=== PATIENT | female | born 1930 | race Caucasian/White ===

== ENCOUNTER 2016-10-14 17:27 | Inpatient (IN) | payer MEDICARE, MEDICAID ==
[2016-10-14 18:53] LABS: BASO # 0.1 K/uL (0.0-0.2); BASO % 1.2 % (0.0-2.0); HEMATOCRIT 32.6 % (34.0-47.0); LYMPH # 1.2 K/uL (1.0-4.3); LYMPH % 29.1 % (20.0-40.0); MEAN CORPUSCULAR HEMOGLOBIN 31.6 pg (27.0-31.0); MEAN CORPUSCULAR HGB CONC 33.3 g/dL (33.0-37.0); MEAN PLATELET VOLUME 9.5 fL (7.2-11.7); MONO # 0.4 K/uL (0.0-0.8); MONO % 10.5 % (0.0-10.0); NRBC % 0.1 % (0.0-2.0); RED CELL DISTRIBUTION WIDTH 15.2 % (11.5-14.5); WHITE BLOOD COUNT 4.2 K/uL (4.8-10.8)
[2016-10-14 18:58] LABS: POTASSIUM 5.8 mmol/L (3.6-5.2)
[2016-10-14 19:00] LABS: BILIRUBIN,TOTAL 0.3 mg/dL (0.2-1.3); TOTAL PROTEIN 7.9 g/dL (6.3-8.3)
[2016-10-14 19:01] LABS: CALCIUM 8.4 mg/dl (8.6-10.4)
[2016-10-14] MEDS ORDERED: Sodium Chloride 0.9% 1,000 ML IV SCH (19:30)
--- NOTE | 2016-10-14 19:34 | C.PDOC ---
History Of Present Illness 86 year old women presents to the ER from long-term for abnormal blood work with elevated BUN and creatinine levels yesterday. Patient has history of dementia. Patient and daughter at bed-side deny complaints. Time Seen by Provider: 10/14/16 19:20 Chief Complaint (Nursing): Medical Clearance History Per: Patient, Family (daughter) History/Exam Limitations: no limitations Onset/Duration Of Symptoms: Days (1), Unknown Current Symptoms Are (Timing): Gone Severity: None Pain Scale Rating Of: 0 Recent travel outside of the [place]: No Past Medical History Reviewed: Historical Data, Nursing Documentation, Vital Signs Vital Signs: Last Vital Signs Temp 98.1 F 10/14/16 19:26 Pulse 82 10/14/16 19:26 Resp 20 10/14/16 19:26 BP 182/52 H 10/14/16 19:26 Pulse Ox 97 10/14/16 21:04 - Medical History PMH: Anemia, CAD, CVA (left sided weakness), Dementia, Diabetes, HTN, Chronic Kidney Disease, Seizures Surgical History: Appendectomy, Carotid Endarterectomy - [facility] Procedures CORONAR ARTERIOGR-2 CATH (07/09/12) INSERTION OF ONE VASCULAR STENT (07/09/12) INSRT OF DRUG-ELUTING CORON ARTERY STENTS(S) (07/09/12) PERCUTANEOUS TRANSLUMINAL CORONARY ANGIOPLASTY [PTCA] (07/09/12) PROCEDURE ON SINGLE VESSEL (07/09/12) TRANSFUSE NONAUT RED BLOOD CELLS IN PERIPH VEIN, PERC (07/05/16) Family History: States: Unknown Family Hx, Diabetes, Hypertension - Social History Hx Tobacco Use: No Hx Alcohol Use: No Hx Substance Use: No - Immunization History Hx Tetanus Toxoid Vaccination: Yes Hx Influenza Vaccination: Yes Hx Pneumococcal Vaccination: Yes Review Of Systems Constitutional: Positive for: Other (abnormal bloodwork). Negative for: Fever, Chills Cardiovascular: Negative for: Chest Pain, Palpitations Respiratory: Negative for: Shortness of Breath Gastrointestinal: Negative for: Nausea, Vomiting, Diarrhea Genitourinary: Negative for: Dysuria Musculoskeletal: Negative for: Back Pain Skin: Negative for: Rash, Lesions, Jaundice, Bruising Neurological: Negative for: Weakness Psych: Negative for: Anxiety Physical Exam - Physical Exam Appears: Non-toxic, No Acute Distress Skin: Warm, Dry Oral Mucosa: Dry Neck: Supple Chest: Symmetrical Cardiovascular: Rhythm Regular Respiratory: No Rales, Rhonchi (scattered), No Wheezing Gastrointestinal/Abdominal: Soft, No Tenderness, No Distention Back: Normal Inspection Extremity: Normal ROM, No Tenderness, No Calf Tenderness, No Swelling Extremity: Bilateral: Atraumatic Neurological/Psych: Normal Speech Disoriented To: Time Gait: Unable To Assess ED Course And Treatment - Laboratory Results Result Diagrams: 10/14/16 18:50 10/14/16 18:50 ECG: Interpreted By Me, Viewed By Me ECG Rhythm: Sinus Rhythm (59), 1st Degree HB, Nonspecific Changes (old septal mi ) O2 Sat by Pulse Oximetry: 97 Pulse Ox Interpretation: Normal - Radiology CXR: Interpreted by Me, Viewed By Me CXR Interpretation: Yes: Other (unchaged from 09/10/16). No: Infiltrates, Fracture, Pnemothorax Disposition Discussed With DrYury: William Webber Comment: accepted the pt on his service and took over the care at 11:19 PM Doctor Will See Patient In The: ED Counseled Patient/Family Regarding: Studies Performed, Diagnosis - Disposition Disposition: HOSPITALIZED Disposition Time: 23:19 Condition: FAIR - POA Present On Arrival: Poor Glycemic Control - Clinical Impression Clinical Impression: Hyperkalemia, Worsening renal function - Scribe Statement Sravanthi Petit All medical record entries made by the Scribe were at my direction and personally dictated by me. I have reviewed the chart and agree that the record accurately reflects my personal performance of the history, physical exam, medical decision making, and the department course for this patient. I have also personally directed, reviewed, and agree with the discharge instructions and disposition. Decision To Admit - Pt Status Changed To: Hospital Disposition Of: Inpatient - Admit Certification Admit to Inpatient:: After my assessment, the patient will require hospitalization for at least two midnights. This is because of the severity of symptoms shown, intensity of services needed, and/or the medical risk in this patient being treated as an outpatient. - InPatient: Physician Admission Certification: I certify that this patient requires 2 or more midnights of care for the following reason:: After my assessment, the patient will require hospitalization for at least two midnights. This is because of the severity of symptoms shown, intensity of services needed, and/or the medical risk in this patient being treated as an outpatient. - . Bed Request Type: Telemetry Admitting Physician: William Webber Patient Diagnosis: Hyperkalemia, Worsening renal function
[2016-10-14] MEDS ORDERED: Sod Polystyrene Sulf 15 gm/60 ml Oral Susp PO ONE (21:06)
[2016-10-14] MEDS ORDERED: Calcium Gluconate 4.65 MEQ in Dextrose 5% In Water 100 ML IVPB ONE (21:06)
[2016-10-14] MEDS ORDERED: Albuterol-Ipratrop 3 mg / 0.5 (3 ml) UD IH SCH (21:15)
[2016-10-14] MEDS ORDERED: Calcium Gluconate 4.65 mEq/10 ml Inj ONE (21:17)
[2016-10-14] MEDS ORDERED: Albuterol-Ipratrop 3 mg / 0.5 (3 ml) UD ONE (21:17)
[2016-10-14] MEDS ORDERED: Sod Polystyrene Sulf 15 gm/60 ml Oral Susp ONE (21:18)
[2016-10-15] MEDS ORDERED: Ergocalciferol 50,000 Intl Units Cap PO SCH (01:15)
--- NOTE | 2016-10-15 01:15 | CP.PCM.HP ---
<Lena Bernal - Last Filed: 10/15/16 01:52> History of Present Illness - History of Present Illness History of Present Illness: Internal medicine H & P for Dr. Tena Bernal, PGY-1 Pt S & E at bedside. Pt demented, refusing to interact with provider, refusing physical exam. History obtained from EMR. 86F w/PMH sig for Anemia, CAD, CVA (left sided weakness), Dementia, Diabetes, HTN, Chronic Kidney Disease, Seizures admitted to hospital from [facility] for abnormal blood work- elevated BUN and creatinine levels yesterday. PMH: DM, CVA 2001, Dementia, Seizures, HTN, anemia, HTN, CKD PSH: Left Carotid surgery All: NKDA SH: Resident of [place]. No Tob, No ETOH, No Drugs PMD: Dr. Persaud Present on Admission - Present on Admission Any Indicators Present on Admission: No Review of Systems - Review of Systems Systems not reviewed;Unavailable: Dementia, Uncooperative Past Patient History - Infectious Disease Hx of Infectious Diseases: None - Past Medical History & Family History Past Medical History?: Yes - Past Social History Smoking Status: Never Smoked - CARDIAC Hx Hypertension: Yes - PULMONARY Hx Respiratory Disorders: No - NEUROLOGICAL Hx Dementia: Yes Hx Seizures: Yes - HEENT Hx HEENT Problems: Yes Hx Glaucoma: Yes - RENAL Hx Chronic Kidney Disease: Yes - ENDOCRINE/METABOLIC Hx Diabetes Mellitus Type 2: Yes Other/Comment: extended spectrum beta lactamase resistance - HEMATOLOGICAL/ONCOLOGICAL Hx Anemia: Yes - INTEGUMENTARY Hx Dermatological Problems: No - MUSCULOSKELETAL/RHEUMATOLOGICAL Hx Musculoskeletal Disorders: No Hx Falls: No Hx Osteoarthritis: Yes - GASTROINTESTINAL Hx Gastrointestinal Disorders: No Other/Comment: Incontinence - GENITOURINARY/GYNECOLOGICAL Hx Genitourinary Disorders: Yes Hx Incontinence: Yes Hx Urinary Tract Infection: Yes - PSYCHIATRIC Hx Substance Use: No - SURGICAL HISTORY Hx Appendectomy: Yes Hx Carotid Endarterectomy: Yes - ANESTHESIA Hx Anesthesia: Yes Hx Anesthesia Reactions: No Hx Malignant Hyperthermia: No Meds Allergies/Adverse Reactions: Allergies Allergy/AdvReac Type Severity Reaction Status Date / Time No Known Allergies Allergy Verified 09/10/16 17:23 Physical Exam - Constitutional Appears: Non-toxic, Other (refusing physical exam) - Head Exam Head Exam: ATRAUMATIC, NORMAL INSPECTION, NORMOCEPHALIC - Neck Exam Neck exam: Positive for: Full Rom - Psychiatric Exam Psychiatric exam: Agitated Results - Vital Signs Recent Vital Signs: Last Vital Signs Temp 98.2 F 10/15/16 00:30 Pulse 88 10/15/16 00:30 Resp 20 10/15/16 00:30 BP 174/84 H 10/15/16 00:30 Pulse Ox 98 10/15/16 00:30 - Labs Result Diagrams: 10/14/16 18:50 10/14/16 18:50 Assessment & Plan - Assessment and Plan (Free Text) Assessment: Acute renal insufficiency Admit to Med-Surg Vitals Q4H NS@80 Monitor FU Blood cxr FU Urine cxr FU U/A Hyperkalemia K 5.8 Kayexelate Re-check in AM Dementia Cont home meds: Aricept, Ativan HTN Cont home med: Coreg, Crestor, ASA, Imdur, Norvasc, Hydralazine Glaucoma Cont home med: Atropine ophth, Simbrinza Anema Con home med: Iron plus tabs Constipation Cont home med: Colace Hypovitamin D Cont home med: Ergocalciferol Seizure disorder Cont home med: Carbamazepine GI/DVT ppx Heparin SCDs Pepcid Dispo PT/OT DW attending - Date & Time Date: 10/15/16 Time: 11:00 <William Webber - Last Filed: 10/15/16 06:27> Results - Vital Signs Recent Vital Signs: Last Vital Signs Temp 97.5 F L 10/15/16 00:45 Pulse 69 10/15/16 01:03 Resp 20 10/15/16 00:45 BP 196/69 H 10/15/16 00:45 Pulse Ox 97 10/15/16 00:45 - Labs Result Diagrams: 10/14/16 18:50 10/14/16 18:50 Assessment & Plan - Date & Time Date: 10/15/16 (I have seen and examined the patient. I agree with the findings and plan of care as documented by Dr. Bernal. Patient with Acute renal insufficiency. Likely secondary to dehydration. IVF and recheck renal status in AM. If no improvement, consider nephro consult. For hyperkalemia, after hydration overnight, check potassium in AM. Check urine electrolytes if no improvement. For history of hypertension, continue home meds. Monitor for acute changes.) Time: 06:26 Attending/Attestation - Attestation I have personally seen and examined this patient.: Yes I have fully participated in the care of the patient.: Yes I have reviewed all pertinent clinical information: Yes
[2016-10-15] MEDS: Sodium Chloride 0.9% 1,000 ML IV SCH ×2 (02:29→13:13)
[2016-10-15] MEDS ORDERED: ATROPINE OD SCH (10:00)
[2016-10-15] MEDS ORDERED: SODIUM CHLORIDE OD SCH (10:00)
[2016-10-15] MEDS: Ferrous Fum/Folic Acid/IF/VI 1 Cap PO SCH (10:42)
[2016-10-15] MEDS: Dorzolamide 2% Opht Sol 10ml OU SCH ×2 (10:45→18:13)
[2016-10-15] MEDS: Atropine 1% Ophth Soln (15 ml) OU SCH (11:43)
[2016-10-15] MEDS: Brimonidine 0.2% Opth Sol (5ml) OU SCH ×2 (11:43→19:00)
--- NOTE | 2016-10-15 13:06 | CP.PCM.PN ---
Subjective - Date & Time of Evaluation Date of Evaluation: 10/15/16 Time of Evaluation: 08:05 - Subjective Subjective: Medicine Note- Hospitalist Service Patient was seen and examined at bedside. Nurse Lesly at bedside translating. Patient reports no acute complaints. Patient is AAO x1, disoriented to time and place. Patient is responding to questions appropriately. She reports that she feels perfectly fine, nothing is wrong with her. When asked why she was in the hospital, patient reported that she did not know. No events overnight, per nursing. Patient refused bloodwork in AM. Patient tolerating PO. Objective - Vital Signs/Intake and Output Vital Signs (last 24 hours): Temp Pulse Resp BP Pulse Ox 98.2 F 67 20 148/69 100 10/15/16 07:00 10/15/16 09:12 10/15/16 07:00 10/15/16 11:43 10/15/16 07:00 - Medications Medications: Current Medications Acetaminophen (Tylenol 325mg Tab) 650 mg PO Q4 PRN PRN Reason: Pain, Mild (1-3) Amlodipine Besylate (Norvasc) 10 mg PO DAILY [facility] Last Admin: 10/15/16 10:44 Dose: 10 mg Aspirin (Ecotrin) 81 mg PO DAILY [facility] Last Admin: 10/15/16 10:42 Dose: 81 mg Atropine Sulfate (Atropisol 1% Ophth) 1 ml OU DAILY [facility] Last Admin: 10/15/16 11:43 Dose: 1 ml Brimonidine Tartrate (Alphagan 0.2% Opht) 1 ml OU BID [facility] Last Admin: 10/15/16 11:43 Dose: 1 applic Carbamazepine (Tegretol) 200 mg PO BID [facility] Last Admin: 10/15/16 10:42 Dose: 200 mg Carvedilol (Coreg) 25 mg PO BID [facility] Last Admin: 10/15/16 10:43 Dose: 25 mg Docusate Sodium (Colace) 100 mg PO BID [facility] Last Admin: 10/15/16 10:42 Dose: 100 mg Donepezil HCl (Aricept) 5 mg PO DAILY [facility] Last Admin: 10/15/16 10:44 Dose: 5 mg Dorzolamide HCl (Trusopt) 1 ml OU BID [facility] Last Admin: 10/15/16 10:45 Dose: 1 applic Ergocalciferol (Drisdol 50,000 Intl Units Cap) 1 cap PO Q7D [facility] Last Admin: 10/15/16 05:54 Dose: Not Given Famotidine (Pepcid) 20 mg PO BID [facility] Last Admin: 10/15/16 10:44 Dose: 20 mg Heparin Sodium (Porcine) (Heparin) 5,000 units SC Q8 [facility] Last Admin: 10/15/16 05:55 Dose: Not Given Hydralazine HCl (Apresoline) 50 mg PO Q8 [facility] Last Admin: 10/15/16 06:34 Dose: 50 mg Sodium Chloride (Sodium Chloride 0.9%) 1,000 mls @ 80 mls/hr IV .[id number] [facility] Last Admin: 10/15/16 02:29 Dose: 80 mls/hr Influenza Virus Vaccine (Afluria) 45 mcg IM .ONCE ONE Stop: 10/17/16 14:01 Iron (Ferocon) 1 cap PO DAILY [facility] Last Admin: 10/15/16 10:42 Dose: 1 cap Isosorbide Mononitrate (Imdur) 60 mg PO DAILY [facility] Last Admin: 10/15/16 10:44 Dose: 60 mg Lorazepam (Ativan) 1 mg PO Q6 [facility] Last Admin: 10/15/16 05:48 Dose: Not Given Pneumococcal Polyvalent Vaccine (Pneumovax 23 Vaccine) 0.5 ml IM .ONCE ONE Stop: 10/17/16 14:01 Rosuvastatin Calcium (Crestor) 10 mg PO [facility] - Constitutional Appears: Non-toxic, No Acute Distress - Head Exam Head Exam: ATRAUMATIC, NORMAL INSPECTION, NORMOCEPHALIC - Eye Exam Pupil Exam: NORMAL ACCOMODATION, PERRL - ENT Exam ENT Exam: Mucous Membranes Moist - Respiratory Exam Respiratory Exam: Clear to Ausculation Bilateral, NORMAL BREATHING PATTERN. absent: Prolonged Expiratory Phase, Rales, Rhonchi, Wheezes - Cardiovascular Exam Cardiovascular Exam: REGULAR RHYTHM, +S1, +S2 - GI/Abdominal Exam GI & Abdominal Exam: Soft, Normal Bowel Sounds. absent: Tenderness, Diminished Bowel Sounds, Hypoactive Bowel Sounds - Extremities Exam Extremities Exam: Normal Capillary Refill, Normal Inspection - Neurological Exam Neurological Exam: Alert, Awake, Oriented x3 - Psychiatric Exam Psychiatric exam: Normal Affect, Normal Mood - Skin Skin Exam: Dry, Intact, Normal Color, Warm Assessment and Plan - Assessment and Plan (Free Text) Assessment: Acute renal insufficiency Admit to Med-Surg Vitals Q4H NS@80 Monitor FU Blood cxr FU Urine cxr FU U/A Hyperkalemia K 5.8 Kayexelate given on 10/14, additional dose given on 10/15. repeat BMP at 8pm and 2am. Re-check in AM Dementia Cont home meds: Aricept, Ativan HTN Cont home med: Coreg, Crestor, ASA, Imdur, Norvasc, Hydralazine Glaucoma Cont home med: Atropine ophth, Simbrinza Anema Con home med: Iron plus tabs Constipation Cont home med: Colace Hypovitamin D Cont home med: Ergocalciferol Seizure disorder Cont home med: Carbamazepine GI/DVT ppx Heparin SCDs Pepcid Dispo PT/OT DW attending
[2016-10-15 17:19] LABS: POTASSIUM 5.4 mmol/L (3.6-5.2)
[2016-10-15] MEDS ORDERED: Sod Polystyrene Sulf 15 gm/60 ml Oral Susp PO ONE (17:21)
--- NOTE | 2016-10-15 18:11 | RAD ---
PROCEDURE: CHEST RADIOGRAPH, 1 VIEW HISTORY: SOB COMPARISON: Comparison chest dated 09/10/2016 FINDINGS: LUNGS: Clear. PLEURA: No pneumothorax or pleural fluid seen. CARDIOVASCULAR: Heart size within range of normal. OSSEOUS STRUCTURES: Mild multilevel degenerative spondylosis of the thoracic spine. Mild degenerative changes both shoulder girdles. VISUALIZED UPPER ABDOMEN: Normal. OTHER FINDINGS: None. IMPRESSION: No active disease.
[2016-10-16] MEDS: Sodium Chloride 0.9% 1,000 ML IV SCH (02:30)
[2016-10-16] MEDS: Ferrous Fum/Folic Acid/IF/VI 1 Cap PO SCH (09:21)
[2016-10-16] MEDS: Dorzolamide 2% Opht Sol 10ml OU SCH ×2 (09:22→18:28)
[2016-10-16] MEDS: Atropine 1% Ophth Soln (15 ml) OU SCH (09:22)
[2016-10-16] MEDS: Brimonidine 0.2% Opth Sol (5ml) OU SCH ×2 (09:22→19:00)
[2016-10-16] MEDS ORDERED: Sod Polystyrene Sulf 15 gm/60 ml Oral Susp PO SCH (11:15)
[2016-10-16 20:05] LABS: BASO # 0.1 K/uL (0.0-0.2); BASO % 1.8 % (0.0-2.0); HEMATOCRIT 32.8 % (34.0-47.0); LYMPH # 1.1 K/uL (1.0-4.3); LYMPH % 27.2 % (20.0-40.0); MEAN CELL VOLUME 96.6 fL (81.0-99.0); MEAN CORPUSCULAR HEMOGLOBIN 31.3 pg (27.0-31.0); MEAN CORPUSCULAR HGB CONC 32.4 g/dL (33.0-37.0); MEAN PLATELET VOLUME 9.4 fL (7.2-11.7); MONO # 0.4 K/uL (0.0-0.8); MONO % 9.7 % (0.0-10.0); RED CELL DISTRIBUTION WIDTH 14.9 % (11.5-14.5); WHITE BLOOD COUNT 3.9 K/uL (4.8-10.8)
[2016-10-16 20:10] LABS: POTASSIUM 4.7 mmol/L (3.6-5.2)
[2016-10-16 20:12] LABS: BILIRUBIN,TOTAL 0.2 mg/dL (0.2-1.3); TOTAL PROTEIN 7.2 g/dL (6.3-8.3)
[2016-10-16 20:13] LABS: CALCIUM 8.1 mg/dl (8.6-10.4)
--- NOTE | 2016-10-16 22:21 | CP.PCM.PN ---
<JoseMamadou - Last Filed: 10/16/16 22:18> Subjective - Date & Time of Evaluation Date of Evaluation: 10/16/16 Time of Evaluation: 09:00 - Subjective Subjective: Medicine Note- Hospitalist Service Patient was seen and examined at bedside. Patient reports no acute complaints at this time. She says she feels perfectly fine. Per nursing, patient has been refusing all bloodwork and IV placement. In PM, patient finally agreed to a blood draw. No additional events overnight. Objective - Vital Signs/Intake and Output Vital Signs (last 24 hours): Temp Pulse Resp BP Pulse Ox 97.8 F 62 20 152/56 H 98 10/16/16 15:57 10/16/16 19:30 10/16/16 15:57 10/16/16 18:39 10/16/16 15:57 - Medications Medications: Current Medications Acetaminophen (Tylenol 325mg Tab) 650 mg PO Q4 PRN PRN Reason: Pain, Mild (1-3) Amlodipine Besylate (Norvasc) 10 mg PO DAILY [facility] Last Admin: 10/16/16 09:21 Dose: 10 mg Aspirin (Ecotrin) 81 mg PO DAILY [facility] Last Admin: 10/16/16 09:21 Dose: 81 mg Atropine Sulfate (Atropisol 1% Ophth) 1 ml OU DAILY [facility] Last Admin: 10/16/16 09:22 Dose: 1 ml Brimonidine Tartrate (Alphagan 0.2% Opht) 1 ml OU BID [facility] Last Admin: 10/16/16 19:00 Dose: Not Given Carbamazepine (Tegretol) 200 mg PO BID [facility] Last Admin: 10/16/16 18:27 Dose: 200 mg Carvedilol (Coreg) 25 mg PO BID [facility] Last Admin: 10/16/16 09:21 Dose: 25 mg Docusate Sodium (Colace) 100 mg PO BID [facility] Last Admin: 10/16/16 18:28 Dose: Not Given Donepezil HCl (Aricept) 5 mg PO DAILY [facility] Last Admin: 10/16/16 09:21 Dose: 5 mg Dorzolamide HCl (Trusopt) 1 ml OU BID [facility] Last Admin: 10/16/16 18:28 Dose: 1 applic Ergocalciferol (Drisdol 50,000 Intl Units Cap) 1 cap PO Q7D [facility] Last Admin: 10/15/16 05:54 Dose: Not Given Famotidine (Pepcid) 20 mg PO BID [facility] Last Admin: 10/16/16 18:27 Dose: 20 mg Heparin Sodium (Porcine) (Heparin) 5,000 units SC Q8 [facility] Last Admin: 10/16/16 13:54 Dose: Not Given Hydralazine HCl (Apresoline) 50 mg PO Q8 [facility] Last Admin: 10/16/16 13:54 Dose: Not Given Sodium Chloride (Sodium Chloride 0.9%) 1,000 mls @ 80 mls/hr IV .[id number] [facility] Last Admin: 10/16/16 02:30 Dose: Not Given Influenza Virus Vaccine (Afluria) 45 mcg IM .ONCE ONE Stop: 10/17/16 14:01 Iron (Ferocon) 1 cap PO DAILY [facility] Last Admin: 10/16/16 09:21 Dose: 1 cap Isosorbide Mononitrate (Imdur) 60 mg PO DAILY [facility] Last Admin: 10/16/16 09:20 Dose: 60 mg Lorazepam (Ativan) 1 mg PO Q6 [facility] Last Admin: 10/16/16 19:00 Dose: Not Given Pneumococcal Polyvalent Vaccine (Pneumovax 23 Vaccine) 0.5 ml IM .ONCE ONE Stop: 10/17/16 14:01 Rosuvastatin Calcium (Crestor) 10 mg PO HS [facility] Last Admin: 10/15/16 22:41 Dose: 10 mg Sodium Polystyrene Sulfonate (Kayexalate Oral Susp) 30 gm PO Q3D [facility] Last Admin: 10/16/16 12:15 Dose: Not Given - Labs Labs: 10/16/16 19:47 10/16/16 19:47 APTT 27 SECONDS (21-34) 10/16/16 19:47 - Constitutional Appears: Non-toxic, No Acute Distress, Agitated, Confused - Head Exam Head Exam: ATRAUMATIC, NORMAL INSPECTION, NORMOCEPHALIC - Eye Exam Pupil Exam: NORMAL ACCOMODATION - ENT Exam ENT Exam: Mucous Membranes Moist - Respiratory Exam Respiratory Exam: Clear to Ausculation Bilateral, NORMAL BREATHING PATTERN. absent: Rales, Rhonchi, Wheezes, Respiratory Distress - Cardiovascular Exam Cardiovascular Exam: REGULAR RHYTHM, +S1, +S2 - GI/Abdominal Exam GI & Abdominal Exam: Soft, Normal Bowel Sounds. absent: Tenderness, Diminished Bowel Sounds, Hernia, Hypoactive Bowel Sounds, Pulsatile Mass - Extremities Exam Extremities Exam: Normal Capillary Refill, Normal Inspection - Neurological Exam Neurological Exam: Alert, Awake. absent: Oriented x3 - Psychiatric Exam Psychiatric exam: Normal Affect, Normal Mood - Skin Skin Exam: Dry, Intact, Normal Color, Warm Assessment and Plan - Assessment and Plan (Free Text) Assessment: Acute renal insufficiency Admit to Med-Surg Vitals Q4H NS@80 Monitor Patient refused blood and urine cultures, and UA. Hyperkalemia Resolved. K+- 4.7 Kayexelate given on 10/14, additional dose given on 10/15. Patient was placed on Kayexalate 30mg Q3days, as hyperkalemia is a common/ frequent problem for this patient. Dementia Cont home meds: Aricept, Ativan HTN Cont home med: Coreg, Crestor, ASA, Imdur, Norvasc, Hydralazine Glaucoma Cont home med: Atropine ophth, Simbrinza Anema Con home med: Iron plus tabs Constipation Cont home med: Colace Hypovitamin D Cont home med: Ergocalciferol Seizure disorder Cont home med: Carbamazepine GI/DVT ppx Heparin SCDs Pepcid Dispo Will likely discharge back to alf once transportation is arranged. Case management referral ordered. <Gladis Bonilla V - Last Filed: 10/17/16 09:24> Objective - Vital Signs/Intake and Output Vital Signs (last 24 hours): Temp Pulse Resp BP Pulse Ox 98.2 F 101 H 18 143/80 95 10/17/16 08:59 10/17/16 08:59 10/17/16 08:59 10/17/16 08:59 10/17/16 08:59 Intake and Output: 10/17/16 10/17/16 06:59 18:59 Intake Total 1270 Balance 1270 - Medications Medications: Current Medications Acetaminophen (Tylenol 325mg Tab) 650 mg PO Q4 PRN PRN Reason: Pain, Mild (1-3) Amlodipine Besylate (Norvasc) 10 mg PO DAILY [facility] Last Admin: 10/17/16 08:49 Dose: 10 mg Aspirin (Ecotrin) 81 mg PO DAILY [facility] Last Admin: 10/16/16 09:21 Dose: 81 mg Atropine Sulfate (Atropisol 1% Ophth) 1 ml OU DAILY [facility] Last Admin: 10/16/16 09:22 Dose: 1 ml Brimonidine Tartrate (Alphagan 0.2% Opht) 1 ml OU BID [facility] Last Admin: 10/16/16 19:00 Dose: Not Given Carbamazepine (Tegretol) 200 mg PO BID [facility] Last Admin: 10/16/16 18:27 Dose: 200 mg Carvedilol (Coreg) 25 mg PO BID [facility] Last Admin: 10/17/16 08:48 Dose: 25 mg Docusate Sodium (Colace) 100 mg PO BID [facility] Last Admin: 10/16/16 18:28 Dose: Not Given Donepezil HCl (Aricept) 5 mg PO DAILY [facility] Last Admin: 10/16/16 09:21 Dose: 5 mg Dorzolamide HCl (Trusopt) 1 ml OU BID [facility] Last Admin: 10/16/16 18:28 Dose: 1 applic Ergocalciferol (Drisdol 50,000 Intl Units Cap) 1 cap PO Q7D [facility] Last Admin: 10/15/16 05:54 Dose: Not Given Famotidine (Pepcid) 20 mg PO BID [facility] Last Admin: 10/16/16 18:27 Dose: 20 mg Heparin Sodium (Porcine) (Heparin) 5,000 units SC Q8 [facility] Last Admin: 10/17/16 06:06 Dose: Not Given Hydralazine HCl (Apresoline) 50 mg PO Q8 [facility] Last Admin: 10/17/16 06:05 Dose: Not Given Sodium Chloride (Sodium Chloride 0.9%) 1,000 mls @ 80 mls/hr IV .[id number] [facility] Last Admin: 10/17/16 03:51 Dose: Not Given Influenza Virus Vaccine (Afluria) 45 mcg IM .ONCE ONE Stop: 10/17/16 14:01 Iron (Ferocon) 1 cap PO DAILY [facility] Last Admin: 10/16/16 09:21 Dose: 1 cap Isosorbide Mononitrate (Imdur) 60 mg PO DAILY [facility] Last Admin: 10/17/16 08:49 Dose: 60 mg Lorazepam (Ativan) 1 mg PO Q6 [facility] Last Admin: 10/17/16 06:06 Dose: Not Given Pneumococcal Polyvalent Vaccine (Pneumovax 23 Vaccine) 0.5 ml IM .ONCE ONE Stop: 10/17/16 14:01 Rosuvastatin Calcium (Crestor) 10 mg PO HS [facility] Last Admin: 10/16/16 22:56 Dose: Not Given Sodium Polystyrene Sulfonate (Kayexalate Oral Susp) 30 gm PO Q3D [facility] Last Admin: 10/16/16 12:15 Dose: Not Given - Labs Labs: 10/16/16 19:47 10/16/16 19:47 APTT 27 SECONDS (21-34) 10/16/16 19:47 Attending/Attestation - Attestation I have personally seen and examined this patient.: Yes I have fully participated in the care of the patient.: Yes I have reviewed all pertinent clinical information, including history, physical exam and plan: Yes Notes (Text): This is late computer entry for 10/16/16. Patient seen, examined, and case discussed with day-time resident. Patient seen at bedside, familiar with the patient from prior encounters, mentation improved, patient is yelling at me in Jamaican, patient does not like her blood getting drawn, and asking me to give her shoes. Patient reports they keep trying to get blood from her but it hurts her. Patient is pending repeat BMP for the potassium to see if improved since recieved Kayexlate yesterday. Patient reports she did have two bowel movements yesterday, which showed K was normalized this evening. Patient's Cr is in the range of the 2's. 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 F/u case management for discharge to subacute rehab Acute renal insufficiency Admit to Med-Surg Vitals Q4H NS@80 cc/hr Monitor Patient refused blood and urine cultures, and UA. Baseline Cr: 2's Hyperkalemia Resolved. K+- 4.7 Kayexelate given on 10/14, additional dose given on 10/15. Patient was placed on Kayexalate 30mg Q3days, as hyperkalemia is a common/ frequent problem for this patient. Patient will need nephrology outpatient given she has chronic kidney disease Patient has had mutiple hospitalizations for hyperkalemia. Dementia Cont home meds: Aricept, Ativan HTN Cont home med: Coreg, Crestor, ASA, Imdur, Norvasc, Hydralazine Glaucoma Cont home med: Atropine ophth, Simbrinza Anema Con home med: Iron plus tabs Constipation Cont home med: Colace Hypovitamin D Cont home med: Ergocalciferol Seizure disorder Cont home med: Carbamazepine GI/DVT ppx Heparin SCDs Pepcid
--- NOTE | 2016-10-16 23:38 | CARD ---
APPROVED REPORT EKG Measurement Heart [id number] <Conclusion> Sinus bradycardia with 1st degree AV block Septal infarct, age undetermined Abnormal ECG
[2016-10-17] MEDS: Sodium Chloride 0.9% 1,000 ML IV SCH ×2 (03:51→10:49)
[2016-10-17 09:00] VITALS: RESP 18; TEMP 98.2; O2SAT 95
[2016-10-17] MEDS: Ferrous Fum/Folic Acid/IF/VI 1 Cap PO SCH (09:23)
[2016-10-17] MEDS: Atropine 1% Ophth Soln (15 ml) OU SCH (09:24)
[2016-10-17] MEDS: Dorzolamide 2% Opht Sol 10ml OU SCH ×2 (09:25→17:56)
[2016-10-17] MEDS ORDERED: Pneumococcal 23-Valent Vaccine IM ONE (14:00)
[2016-10-17] MEDS ORDERED: Influenza Virus Vaccine 45 mcg/0.5 ml Syr IM ONE (14:00)
[2016-10-17] MEDS: Brimonidine 0.2% Opth Sol (5ml) OU SCH (14:51)
--- NOTE | 2016-10-17 15:19 | CP.PCM.DIS ---
<DoloresLena - Last Filed: 10/17/16 15:29> Provider - Provider Date of Admission: 10/14/16 23:18 Attending physician: William Webber MD Primary care physician: Unknown Consults: None Time Spent in preparation of Discharge (in minutes): 60 Hospital Course - Lab Results Lab Results: Most Recent Lab Values WBC 3.9 K/uL (4.8-10.8) L 10/16/16 19:47 RBC 3.39 Mil/uL (3.80-5.20) L 10/16/16 19:47 Hgb 10.6 g/dL (11.0-16.0) L 10/16/16 19:47 Hct 32.8 % (34.0-47.0) L 10/16/16 19:47 MCV 96.6 fL (81.0-99.0) 10/16/16 19:47 MCH 31.3 pg (27.0-31.0) H 10/16/16 19:47 MCHC 32.4 g/dL (33.0-37.0) L 10/16/16 19:47 RDW 14.9 % (11.5-14.5) H 10/16/16 19:47 Plt Count 147 K/uL (130-400) 10/16/16 19:47 MPV 9.4 fL (7.2-11.7) 10/16/16 19:47 Neut % (Auto) 61.3 % (50.0-75.0) 10/16/16 19:47 Lymph % (Auto) 27.2 % (20.0-40.0) 10/16/16 19:47 [place] % (Auto) 9.7 % (0.0-10.0) 10/16/16 19:47 Eos % (Auto) 0.0 % (0.0-4.0) 10/16/16 19:47 Baso % (Auto) 1.8 % (0.0-2.0) 10/16/16 19:47 Neut # 2.4 K/uL (1.8-7.0) 10/16/16 19:47 Lymph # 1.1 K/uL (1.0-4.3) 10/16/16 19:47 [place] # 0.4 K/uL (0.0-0.8) 10/16/16 19:47 Eos # 0.0 K/uL (0.0-0.7) 10/16/16 19:47 Baso # 0.1 K/uL (0.0-0.2) 10/16/16 19:47 APTT 27 SECONDS (21-34) 10/16/16 19:47 Sodium 142 mmol/L (132-148) 10/16/16 19:47 Potassium 4.7 mmol/L (3.6-5.2) 10/16/16 19:47 Chloride 107 mmol/L (98-107) 10/16/16 19:47 Carbon Dioxide 21 mmol/L (22-30) L 10/16/16 19:47 Anion Gap 19 (10-20) 10/16/16 19:47 BUN 56 mg/dL (7-17) H 10/16/16 19:47 Creatinine 2.5 MG/DL (0.7-1.2) H 10/16/16 19:47 Est GFR ( Amer) 22 10/16/16 19:47 Est GFR (Non-Af Amer) 18 10/16/16 19:47 POC Glucose (mg/dL) 196 mg/dL (65-110) H 10/17/16 11:05 Random Glucose 161 mg/dL (65-105) H 10/16/16 19:47 Calcium 8.1 mg/dl (8.6-10.4) L 10/16/16 19:47 Total Bilirubin 0.2 mg/dL (0.2-1.3) 10/16/16 19:47 AST 21 U/L (14-36) 10/16/16 19:47 ALT 30 U/L (9-52) 10/16/16 19:47 Alkaline Phosphatase 80 U/L (38-126) 10/16/16 19:47 Total Protein 7.2 g/dL (6.3-8.3) 10/16/16 19:47 Albumin 3.7 g/dL (3.5-5.0) 10/16/16 19:47 Globulin 3.5 gm/dL (2.2-3.9) 10/16/16 19:47 Albumin/Globulin Ratio 1.0 (1.0-2.1) 10/16/16 19:47 - Hospital Course Hospital Course: 86F w/PMH sig for Anemia, CAD, CVA (left sided weakness), Dementia, Diabetes, HTN, Chronic Kidney Disease, Seizures admitted to hospital from [facility] for abnormal blood work- elevated BUN and creatinine levels yesterday. Patient was admitted for gentle rehydration and monitoring of kidney function. Patient had transient hyperkalemia, which was treated with Kayexelate and resolved. Kidney function improved to patient's baseline. Patient was stable throughout duration of hospitalization, no problems. Patient stable, ready for discharge back to halfway. Diagnoses: worsening renal failure, hyperkalemia, dementia, hyperlipidemia, hx of epilepsy, asthma, anemia, glaucoma, seizure disorder - Date & Time of H&P Date of H&P: 10/15/16 Time of H&P: 01:13 Discharge Exam - Head Exam Head Exam: ATRAUMATIC, NORMAL INSPECTION, NORMOCEPHALIC - Eye Exam Eye Exam: EOMI, Normal appearance, PERRL Pupil Exam: NORMAL ACCOMODATION, PERRL - ENT Exam ENT Exam: Mucous Membranes Moist, Normal Exam - Neck Exam Neck exam: Full Rom, Normal Inspection - Respiratory Exam Respiratory Exam: Clear to PA & Lateral, NORMAL BREATHING PATTERN, UNREMARKABLE - Cardiovascular Exam Cardiovascular Exam: REGULAR RHYTHM, +S1, +S2 - GI/Abdominal Exam GI & Abdominal Exam: Normal Bowel Sounds, Soft, Unremarkable. absent: Tenderness - Extremities Exam Extremities exam: normal inspection - Neurological Exam Neurological exam: Alert, CN II-XII Intact Additional comments: Demented - Psychiatric Exam Psychiatric exam: Normal Affect, Normal Mood - Skin Skin Exam: Dry, Intact, Normal Color, Warm Discharge Plan - Follow Up Plan Condition: STABLE Disposition: NURSING FACILITY MEDICAID CERT Instructions: Renal Failure Diet (DC), Hyperkalemia (DC), Hyperkalemia (GEN) Additional Instructions: Patient stable and ready for discharge back to rehab facility/skilled nursing care facility by Dr. Natarajan. Please return to hospital if patient has recurrence of symptoms. <Angel Natarajan - Last Filed: 10/17/16 17:20> Provider - Provider Date of Admission: 10/14/16 23:18 Attending physician: William Webber MD Hospital Course - Lab Results Lab Results: Most Recent Lab Values WBC 3.9 K/uL (4.8-10.8) L 10/16/16 19:47 RBC 3.39 Mil/uL (3.80-5.20) L 10/16/16 19:47 Hgb 10.6 g/dL (11.0-16.0) L 10/16/16 19:47 Hct 32.8 % (34.0-47.0) L 10/16/16 19:47 MCV 96.6 fL (81.0-99.0) 10/16/16 19:47 MCH 31.3 pg (27.0-31.0) H 10/16/16 19:47 MCHC 32.4 g/dL (33.0-37.0) L 10/16/16 19:47 RDW 14.9 % (11.5-14.5) H 10/16/16 19:47 Plt Count 147 K/uL (130-400) 10/16/16 19:47 MPV 9.4 fL (7.2-11.7) 10/16/16 19:47 Neut % (Auto) 61.3 % (50.0-75.0) 10/16/16 19:47 Lymph % (Auto) 27.2 % (20.0-40.0) 10/16/16 19:47 [place] % (Auto) 9.7 % (0.0-10.0) 10/16/16 19:47 Eos % (Auto) 0.0 % (0.0-4.0) 10/16/16 19:47 Baso % (Auto) 1.8 % (0.0-2.0) 10/16/16 19:47 Neut # 2.4 K/uL (1.8-7.0) 10/16/16 19:47 Lymph # 1.1 K/uL (1.0-4.3) 10/16/16 19:47 [place] # 0.4 K/uL (0.0-0.8) 10/16/16 19:47 Eos # 0.0 K/uL (0.0-0.7) 10/16/16 19:47 Baso # 0.1 K/uL (0.0-0.2) 10/16/16 19:47 APTT 27 SECONDS (21-34) 10/16/16 19:47 Sodium 142 mmol/L (132-148) 10/16/16 19:47 Potassium 4.7 mmol/L (3.6-5.2) 10/16/16 19:47 Chloride 107 mmol/L (98-107) 10/16/16 19:47 Carbon Dioxide 21 mmol/L (22-30) L 10/16/16 19:47 Anion Gap 19 (10-20) 10/16/16 19:47 BUN 56 mg/dL (7-17) H 10/16/16 19:47 Creatinine 2.5 MG/DL (0.7-1.2) H 10/16/16 19:47 Est GFR ( Amer) 22 10/16/16 19:47 Est GFR (Non-Af Amer) 18 10/16/16 19:47 POC Glucose (mg/dL) 119 mg/dL (65-110) H 10/17/16 16:37 Random Glucose 161 mg/dL (65-105) H 10/16/16 19:47 Calcium 8.1 mg/dl (8.6-10.4) L 10/16/16 19:47 Total Bilirubin 0.2 mg/dL (0.2-1.3) 10/16/16 19:47 AST 21 U/L (14-36) 10/16/16 19:47 ALT 30 U/L (9-52) 10/16/16 19:47 Alkaline Phosphatase 80 U/L (38-126) 10/16/16 19:47 Total Protein 7.2 g/dL (6.3-8.3) 10/16/16 19:47 Albumin 3.7 g/dL (3.5-5.0) 10/16/16 19:47 Globulin 3.5 gm/dL (2.2-3.9) 10/16/16 19:47 Albumin/Globulin Ratio 1.0 (1.0-2.1) 10/16/16 19:47 Attending/Attestation - Attestation I have personally seen and examined this patient.: Yes I have fully participated in the care of the patient.: Yes I have reviewed all pertinent clinical information, including history, physical exam and plan: Yes Notes (Text): 10/17/16 17:18 Medical Attending: Patient was seen and examined by me. Agree with the above note by the medical officer psychiatry. The patient will be going back to [facility]. Her renal function has been improving. She does have chronic CKD, the creatine is now close to its previous baseline. She has denemtia however was able to cooperate during exam. She was not in any acute distress at this time thank you Angel Natarajan
[2016-10-17 17:59] VITALS: BP 121/62
[2016-10-18 00:36] VITALS: PULSE 74
== END 2016-10-17 20:10 | DRG 699 ==
LOC: C.ER 17:27 → C.9E 23:18 → C.6T 23:57
PROVIDERS: ADMIT Family Medicine; ATTEND Family Medicine
DX: N28.9 Disorder of kidney and ureter, unspecified (principal); E87.5 Hyperkalemia; E86.0 Dehydration; I69.354 Hemiplegia and hemiparesis following cerebral infarction affecting left non-dominant side; E11.22 Type 2 diabetes mellitus with diabetic chronic kidney disease; I12.9 Hypertensive chronic kidney disease with stage 1 through stage 4 chronic kidney disease, or unspecified chronic kidney disease; N18.9 Chronic kidney disease, unspecified; E55.9 Vitamin D deficiency, unspecified; I25.10 Atherosclerotic heart disease of native coronary artery without angina pectoris; G40.909 Epilepsy, unspecified, not intractable, without status epilepticus; D64.9 Anemia, unspecified; M19.90 Unspecified osteoarthritis, unspecified site; E78.5 Hyperlipidemia, unspecified; K59.00 Constipation, unspecified; H40.9 Unspecified glaucoma; Z95.5 Presence of coronary angioplasty implant and graft; Z87.440 Personal history of urinary (tract) infections

== ENCOUNTER 2016-10-27 16:02 | Inpatient (IN) | payer MEDICARE, MEDICAID ==
[2016-10-27 16:38] LABS: BASO % 0.9 % (0.0-2.0); EOS % 0.1 % (0.0-4.0); HEMATOCRIT 30.4 % (34.0-47.0); LYMPH # 0.8 K/uL (1.0-4.3); LYMPH % 22.3 % (20.0-40.0); MEAN CELL VOLUME 95.5 fL (81.0-99.0); MEAN CORPUSCULAR HEMOGLOBIN 31.2 pg (27.0-31.0); MEAN CORPUSCULAR HGB CONC 32.7 g/dL (33.0-37.0); MEAN PLATELET VOLUME 9.5 fL (7.2-11.7); MONO # 0.4 K/uL (0.0-0.8); MONO % 10.9 % (0.0-10.0); NRBC % 0.1 % (0.0-2.0); RED CELL DISTRIBUTION WIDTH 14.1 % (11.5-14.5); WHITE BLOOD COUNT 3.7 K/uL (4.8-10.8)
--- NOTE | 2016-10-27 17:32 | RAD ---
PROCEDURE: CHEST RADIOGRAPH, 1 VIEW HISTORY: SOB COMPARISON: 10/14/2016 FINDINGS: LUNGS: The lungs are well inflated and clear. PLEURA: No pneumothorax or pleural fluid seen. CARDIOVASCULAR: Normal. OSSEOUS STRUCTURES: No significant abnormalities. VISUALIZED UPPER ABDOMEN: Normal. OTHER FINDINGS: None. IMPRESSION: No active pulmonary disease.
[2016-10-27 18:07] LABS: BILIRUBIN,TOTAL 0.2 mg/dL (0.2-1.3); TOTAL PROTEIN 6.9 g/dL (6.3-8.3)
[2016-10-27 18:08] LABS: CALCIUM 7.9 mg/dl (8.6-10.4)
[2016-10-27] MEDS ORDERED: (Novolin R) Insulin Human Regular 100 units/ml vial IV STA (18:21)
--- NOTE | 2016-10-27 18:21 | C.PDOC ---
History Of Present Illness 86 y/o female is referred to the emergency department by aircraft electrician for symptomatic bradycardia. Patient brought in by EMS who report patient given Atropine 1 amp prior to arrival with successful increase of heart rate from 30' s to 60's. Patient reports started on new medication today but states it is not a beta kevin. She states she is on Coreg and Amlodipine. Notes new medication today is a respiratory inhalation treatment. Patient denies any chest pain, shortness of breath, dizziness, syncope, or other complaints. Time Seen by Provider: 10/27/16 16:15 Chief Complaint (Nursing): Chest Pain History Per: Patient, EMS History/Exam Limitations: no limitations Onset/Duration Of Symptoms: Mins, Persistent Current Symptoms Are (Timing): Better Recent travel outside of the [place]: No Past Medical History Reviewed: Historical Data, Nursing Documentation, Vital Signs Vital Signs: Last Vital Signs Temp 98.2 F 10/27/16 16:09 Pulse 42 L 10/27/16 18:26 Resp 14 10/27/16 18:26 BP 131/54 L 10/27/16 18:26 Pulse Ox 100 10/27/16 19:00 - Medical History PMH: Anemia, CAD, CVA (left sided weakness), Dementia, Diabetes, HTN, Chronic Kidney Disease, Seizures Surgical History: Appendectomy, Carotid Endarterectomy - [facility] Procedures CORONAR ARTERIOGR-2 CATH (07/09/12) INSERTION OF ONE VASCULAR STENT (07/09/12) INSRT OF DRUG-ELUTING CORON ARTERY STENTS(S) (07/09/12) PERCUTANEOUS TRANSLUMINAL CORONARY ANGIOPLASTY [PTCA] (07/09/12) PROCEDURE ON SINGLE VESSEL (07/09/12) TRANSFUSE NONAUT RED BLOOD CELLS IN PERIPH VEIN, PERC (07/05/16) Family History: States: Diabetes, Hypertension - Social History Hx Tobacco Use: No Hx Alcohol Use: No Hx Substance Use: No - Immunization History Hx Tetanus Toxoid Vaccination: Yes Hx Influenza Vaccination: Yes Hx Pneumococcal Vaccination: Yes Review Of Systems Except As Marked, All Systems Reviewed And Found Negative. Cardiovascular: Positive for: Other (bradycardia). Negative for: Chest Pain Respiratory: Negative for: Shortness of Breath Neurological: Negative for: Dizziness, Other (syncope) Physical Exam - Physical Exam Appears: Non-toxic, No Acute Distress Skin: Normal Color, Warm, Dry, No Rash Head: Atraumatic, Normacephalic Eye(s): bilateral: Normal Inspection, PERRL Oral Mucosa: Moist Throat: Normal, No Drooling Neck: Normal ROM, Supple Chest: Symmetrical Cardiovascular: Rhythm Regular (bradycardic), Murmur (systolic) Respiratory: Normal Breath Sounds, No Rales, No Rhonchi, No Wheezing Gastrointestinal/Abdominal: Normal Exam, Soft, No Tenderness Extremity: Normal ROM, No Swelling Neurological/Psych: Oriented x3, Normal Speech, Normal Cognition ED Course And Treatment - Laboratory Results Result Diagrams: 10/27/16 16:34 10/27/16 17:53 Lab Interpretation: Abnormal (acute on chronic CRI from BUN/Creat 56/2.5 from ) ECG: Interpreted By Me ECG Rhythm: Junctional Rhythm ECG Interpretation: Abnormal Interpretation Of ECG: bradycardic, peaked T waves, widened QRS, widened T wave Rate From EC (bpm) O2 Sat by Pulse Oximetry: 100 (ra) Pulse Ox Interpretation: Normal - Radiology CXR: Interpreted by Me CXR Interpretation: Yes: No Acute Disease Progress Note: bicarb, calcium gluconate, insulin, D50, IVF's Reevaluation Time: 20:12 Reassessment Condition: Unchanged (remains asymptomatic) - Physician Consult Information Outcome Of Conversation: 1849: d/w Dr. Bowser- JOON-fabio to ICU, agrees with treatment thus far. 1909: d/w Hospitalist- Dr. Tena mccarthy to [facility] Medical Decision Making Medical Decision Making: Plan: * EKG * CXR * Blood Work * Dextrose IV, Insulin IV, Sodium Bicarbonate IV symptomatic bradycardia with typical EKG of hyperkalemia, prob c/w acute on chronic renal insufficiency BUN/Creat increased from 56/2.5 to 66/3.3 from Disposition Doctor Will See Patient In The: Hospital Counseled Patient/Family Regarding: Studies Performed, Diagnosis - Disposition Disposition: HOSPITALIZED Disposition Time: 20:00 Condition: GOOD - Clinical Impression Clinical Impression: Acute on chronic renal insufficiency, Acute hyperkalemia, Symptomatic bradycardia - Scribe Statement The provider has reviewed the documentation as recorded by the Scribe (Britt Constantino) Provider Attestation: All medical record entries made by the Scribe were at my direction and personally dictated by me. I have reviewed the chart and agree that the record accurately reflects my personal performance of the history, physical exam, medical decision making, and the department course for this patient. I have also personally directed, reviewed, and agree with the discharge instructions and disposition.
[2016-10-27] MEDS ORDERED: Dextrose 50% SYRINGE Inj (50 ml) IV STA ×2 (18:22→23:46)
[2016-10-27] MEDS ORDERED: Sodium Bicarbonate (8.4%) 50 Meq Syringe IVP ONE (18:22)
[2016-10-27] MEDS ORDERED: Calcium Gluconate 4.65 MEQ in Dextrose 5% In Water 100 ML IV STA (18:22)
[2016-10-27] MEDS ORDERED: Sodium Chloride 0.9% 1,000 ML IV ONE (18:28)
[2016-10-27] MEDS ORDERED: (Novolin R) Insulin Human Regular 100 units/ml vial ONE (18:30)
[2016-10-27] MEDS ORDERED: Sodium Bicarbonate (8.4%) 50 Meq Syringe ONE (18:31)
[2016-10-27] MEDS ORDERED: Dextrose 50% SYRINGE Inj (50 ml) ONE (18:33)
[2016-10-27] MEDS ORDERED: Sodium Chloride 0.9% 1,000 ML ONE (19:32)
[2016-10-27 20:29] LABS: TROPONIN I 0.035 ng/mL (0.00-0.120)
[2016-10-27] MEDS ORDERED: Albuterol 0.083% Inhal Sol (2.5 mg/3 mL) UD INH STA (20:30)
[2016-10-27] MEDS: Sod Polystyrene Sulf 15 gm/60 ml Oral Susp PO SCH (20:42)
[2016-10-27] MEDS ORDERED: Sod Polystyrene Sulf 15 gm/60 ml Oral Susp ONE (20:42)
[2016-10-27] MEDS ORDERED: Albuterol-Ipratrop 3 mg / 0.5 (3 ml) UD ONE (20:42)
--- NOTE | 2016-10-27 20:50 | CP.PCM.CON ---
History of Present Illness - History of Present Illness History of Present Illness: 86 y/o female with h/o CAD, CVA (left sided weakness), anemia,Dementia, Diabetes, HTN, Chronic Kidney Disease, Seizureso is referred to the emergency department by case specialist for bradycardia. Patient brought in by EMS who report patient given Atropine 1 amp prior to arrival with successful increase of heart rate from 30's to 60's. Denies chest pain,dizziness or difficulty breathing now.C/o chest pain in ER history from patient via artist's manager Review of Systems - Review of Systems Systems not reviewed;Unavailable: Language Barrier - Constitutional Constitutional: absent: Anorexia, Chills - Cardiovascular Cardiovascular: Slow Heart Rate. absent: Chest Pain, Pedal Edema - Respiratory Respiratory: absent: Cough, Dyspnea - Gastrointestinal Gastrointestinal: Constipation, Diarrhea Past Patient History - Infectious Disease Hx of Infectious Diseases: None - Past Medical History & Family History Past Medical History?: Yes - Past Social History Smoking Status: Never Smoked - CARDIAC Hx Hypertension: Yes - PULMONARY Hx Respiratory Disorders: No - NEUROLOGICAL Hx Dementia: Yes Hx Seizures: Yes - HEENT Hx HEENT Problems: Yes Hx Glaucoma: Yes - RENAL Hx Chronic Kidney Disease: Yes - ENDOCRINE/METABOLIC Hx Diabetes Mellitus Type 2: Yes Other/Comment: extended spectrum beta lactamase resistance - HEMATOLOGICAL/ONCOLOGICAL Hx Anemia: Yes - INTEGUMENTARY Hx Dermatological Problems: No - MUSCULOSKELETAL/RHEUMATOLOGICAL Hx Musculoskeletal Disorders: No Hx Falls: No Hx Osteoarthritis: Yes - GASTROINTESTINAL Hx Gastrointestinal Disorders: No Other/Comment: Incontinence - GENITOURINARY/GYNECOLOGICAL Hx Genitourinary Disorders: Yes Hx Incontinence: Yes Hx Urinary Tract Infection: Yes - PSYCHIATRIC Hx Substance Use: No - SURGICAL HISTORY Hx Appendectomy: Yes Hx Carotid Endarterectomy: Yes - ANESTHESIA Hx Anesthesia: Yes Hx Anesthesia Reactions: No Hx Malignant Hyperthermia: No Meds Allergies/Adverse Reactions: Allergies Allergy/AdvReac Type Severity Reaction Status Date / Time No Known Allergies Allergy Verified 10/27/16 16:15 - Medications Medications: Current Medications Sodium Chloride (Sodium Chloride 0.9%) 1,000 mls @ 250 mls/hr IV .Q4H ONE Stop: 10/27/16 22:27 Last Admin: 10/27/16 19:25 Dose: 250 mls/hr Sodium Polystyrene Sulfonate (Kayexalate Oral Susp) 30 gm PO Q4H JOANNE Stop: 10/29/16 00:31 Last Admin: 10/27/16 20:42 Dose: 30 gm Physical Exam - Constitutional Appears: No Acute Distress - Head Exam Head Exam: ATRAUMATIC, NORMAL INSPECTION, NORMOCEPHALIC - Eye Exam Eye Exam: EOMI. absent: Conjunctival injection, Periorbital swelling - ENT Exam ENT Exam: Mucous Membranes Moist - Neck Exam Neck exam: Positive for: Normal Inspection - Respiratory Exam Respiratory Exam: Clear to Auscultation Bilateral, NORMAL BREATHING PATTERN. absent: Rhonchi, Wheezes - Cardiovascular Exam Cardiovascular Exam: Bradycardia, Systolic Murmur - GI/Abdominal Exam GI & Abdominal Exam: Normal Bowel Sounds, Soft. absent: Tenderness - Extremities Exam Extremities exam: Positive for: normal inspection - Back Exam Back exam: NORMAL INSPECTION - Neurological Exam Neurological exam: Alert, Oriented x3 - Skin Skin Exam: Normal Color Additional comments: hyperpigmented skin right lower leg and foot Results - Vital Signs Recent Vital Signs: Last Vital Signs Temp 98.2 F 10/27/16 16:09 Pulse 42 L 10/27/16 18:26 Resp 14 10/27/16 18:26 BP 131/54 L 10/27/16 18:26 Pulse Ox 100 10/27/16 20:16 - Labs Result Diagrams: 10/27/16 16:34 10/27/16 17:53 Assessment & Plan - Assessment and Plan (Free Text) Assessment: 1.Hyperkalemia-received IVF,calcium gluconate,bicarb,insulin and dextrose Kayexalate f/u BMP 2.Bradycardia-BP normal 3.Acute on Chronic renal failure 4.CAD/HTN-Aspitin,Nitrates d/C coreg 5.DM 6.Siezures on tegretol 7.Dementia on aricept
[2016-10-27] MEDS ORDERED: Albuterol-Ipratrop 3 mg / 0.5 (3 ml) UD INH STA (21:12)
[2016-10-27] MEDS: (Novolin R) Insulin Human Regular 100 units/ml vial SC SCH (21:17)
--- NOTE | 2016-10-27 21:39 | CP.PCM.HP ---
<Carolina Ty - Last Filed: 10/27/16 23:35> History of Present Illness - History of Present Illness History of Present Illness: CC: "Chest tightness" 86 year old female with PMHx of epilepsy, Diabetes, HTN, asthma, bradycardia, hyperkalemia, presents to the ED after being sent in by her eye doctor when she was "not feeling well". Patient has been seeing eye doctor for her "sick eye". She admits to "squeezing" chest pain that began since last night and has progressively worsened. She admits to SOB that also began last night. She states she feels "very tired" and that it is difficult to catch her breath. She denies cough, fevers, chills, diaphoresis, numbness, tingling, body aches. She reports she was once hospitalized in [facility] for high potassium and low pulse. She does not feel dizzy or disoriented and denies dysuria. Admits to fall at "the home" some time ago for which she had to have left hip surgery. She has a daughter names "Catrachita" whom she would like to be contacted. Denies diarrhea, constipation, abdominal pain, nausea, vomiting. PMHx: epilepsy, Diabetes, HTN, asthma, bradycardia, hyperkalemia. Right "eye problem" and sees ophtho. She also reports a history of urinary retention and last saw Urologist yesterday. Medications: she does not know them. Allergies: NKDA Surgery Hx: open monalisa, left hip surgery s/p fall. Social Hx: denies history of tobacco, alcohol or drugs. 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 PMD: Dr. Persaud Present on Admission - Present on Admission Any Indicators Present on Admission: No Review of Systems - Constitutional Constitutional: Fatigue. absent: Chills, Excessive Sweating, Fever, Headache - EENT Eyes: absent: Blurred Vision, Change in Vision Ears: absent: Dizziness - Cardiovascular Cardiovascular: Chest Pain, Chest Pain with Activity, Dyspnea, Dyspnea on Exertion, Slow Heart Rate. absent: Diaphoresis, Edema, Palpitations - Respiratory Respiratory: Dyspnea, Wheezing. absent: Cough, Hemoptysis - Gastrointestinal Gastrointestinal: absent: Abdominal Pain, Bloating, Constipation, Diarrhea, Nausea, Vomiting - Genitourinary Genitourinary: absent: Difficulty Urinating, Dysuria - Musculoskeletal Musculoskeletal: Abnormal Gait. absent: Back Pain, Numbness, Tingling - Neurological Neurological: absent: Confusion, Dizziness, Tingling, Weakness - Psychiatric Psychiatric: Depression. absent: Anxiety, Confusion - Endocrine Endocrine: Fatigue Past Patient History - Infectious Disease Hx of Infectious Diseases: None - Past Medical History & Family History Past Medical History?: Yes - Past Social History Smoking Status: Never Smoked - CARDIAC Hx Hypertension: Yes - PULMONARY Hx Respiratory Disorders: No - NEUROLOGICAL Hx Dementia: Yes Hx Seizures: Yes - HEENT Hx HEENT Problems: Yes Hx Glaucoma: Yes - RENAL Hx Chronic Kidney Disease: Yes - ENDOCRINE/METABOLIC Hx Diabetes Mellitus Type 2: Yes Other/Comment: extended spectrum beta lactamase resistance - HEMATOLOGICAL/ONCOLOGICAL Hx Anemia: Yes - INTEGUMENTARY Hx Dermatological Problems: No - MUSCULOSKELETAL/RHEUMATOLOGICAL Hx Musculoskeletal Disorders: No Hx Falls: No Hx Osteoarthritis: Yes - GASTROINTESTINAL Hx Gastrointestinal Disorders: No Other/Comment: Incontinence - GENITOURINARY/GYNECOLOGICAL Hx Genitourinary Disorders: Yes Hx Incontinence: Yes Hx Urinary Tract Infection: Yes - PSYCHIATRIC Hx Substance Use: No - SURGICAL HISTORY Hx Appendectomy: Yes Hx Carotid Endarterectomy: Yes - ANESTHESIA Hx Anesthesia: Yes Hx Anesthesia Reactions: No Hx Malignant Hyperthermia: No Meds Allergies/Adverse Reactions: Allergies Allergy/AdvReac Type Severity Reaction Status Date / Time No Known Allergies Allergy Verified 10/27/16 16:15 Physical Exam - Constitutional Appears: No Acute Distress, Chronically Ill - Head Exam Head Exam: NORMAL INSPECTION, NORMOCEPHALIC - Eye Exam Eye Exam: EOMI. absent: Normal appearance (right ptosis ), Scleral icterus - ENT Exam ENT Exam: Mucous Membranes Moist - Neck Exam Neck exam: Positive for: Full Rom, Normal Inspection - Respiratory Exam Respiratory Exam: Wheezes, NORMAL BREATHING PATTERN. absent: Rales, Rhonchi - Cardiovascular Exam Cardiovascular Exam: REGULAR RHYTHM, +S1, +S2 - GI/Abdominal Exam GI & Abdominal Exam: Normal Bowel Sounds, Soft. absent: Distended, Tenderness Additional comments: +surgical scar - Extremities Exam Extremities exam: Positive for: full ROM, normal inspection. Negative for: tenderness - Neurological Exam Neurological exam: Alert, Oriented x3 - Psychiatric Exam Psychiatric exam: Normal Affect, Normal Mood - Skin Skin Exam: Dry, Normal Color, Warm Results - Vital Signs Recent Vital Signs: Last Vital Signs Temp 97.5 F L 10/27/16 21:09 Pulse 44 L 10/27/16 21:09 Resp 18 10/27/16 21:09 BP 154/76 H 10/27/16 21:09 Pulse Ox 100 10/27/16 21:09 - Labs Result Diagrams: 10/27/16 16:34 10/27/16 17:53 Labs: Laboratory Results - last 24 hr 10/27/16 21:15 POC Glucose (mg/dL) 89 Assessment & Plan (1) Bradycardia with 31-40 beats per minute Assessment and Plan: Patient admitted to ICU Received Atropine which improved HR from 30'2 to 60's. EKG on admission: sinus josie 48 bpm BP stable. Cardio consult placed- Dr. Leung- clint appreciated Status: Acute (2) Chest pain Assessment and Plan: Patient with history of asthma and SOB. NICK on admission negative. F/u NICK panel EKG on admission showed sinus josie 48 bpm. Cardio consult placed- Dr. Leung- clint appreciated. f/u Hgb A1C f/u ECHO as per cardio Aspirin 81 mg PO daily Crestor 10mg PO HS Status: Acute (3) Hyperkalemia Assessment and Plan: ED course: received calcium gluconate, bicarb, insulin and D50. Kayexalate one time dose f/u BMP in the AM Status: Acute (4) Asthma Assessment and Plan: Duonebs Q6H JOANNE Status: Acute (5) Acute on chronic renal insufficiency Assessment and Plan: BUN/Cr: 66/3.3 on admission. Patient with history of CKD stage 4. Baseline Cr 1.8-2.5 Nephro consult placed- Dr. Jones- clint appreciated. Status: Acute (6) History of epilepsy Assessment and Plan: Tegretol 200 mg PO Q12H Status: Acute (7) DM2 (diabetes mellitus, type 2) Assessment and Plan: ISS Accuchecks AC and HS f/u Hgb A1C Status: Acute (8) HTN (hypertension) Assessment and Plan: Imdur 30 mg PO daily Status: Chronic (9) Prophylactic measure Assessment and Plan: Heparin 5000 SC Q8H Pepcid 20 mg PO daily Status: Acute <William Webber - Last Filed: 10/28/16 06:27> Results - Vital Signs Recent Vital Signs: Last Vital Signs Temp 97.5 F L 10/28/16 00:00 Pulse 42 L 10/28/16 06:00 Resp 20 10/28/16 06:00 BP 135/53 L 10/28/16 05:00 Pulse Ox 97 10/28/16 06:00 - Labs Result Diagrams: 10/27/16 16:34 10/27/16 23:28 Labs: Laboratory Results - last 24 hr 10/27/16 10/27/16 21:15 23:28 Sodium 135 Potassium 6.2 H* Chloride 104 Carbon Dioxide 16 L Anion Gap 21 H BUN 67 H Creatinine 3.1 H Est GFR ( Amer) 17 Est GFR (Non-Af Amer) 14 POC Glucose (mg/dL) 89 Random Glucose 107 H Calcium 8.1 L Troponin I 0.0200 Assessment & Plan - Date & Time Date: 10/28/16 (I have seen and examined the patient. I agree with the findings and plan of care as documented by Dr. Ty. Patient with symptomatic bradycardia and chest pain. Avoid beta blockers and calcium channel blockers for now. ROMIx3 with EKG. Aspirin and Statin. Consult cardio. Tele. Also with acute on chronic renal failure. Component of hypovolemia. Consult to nephro. Follow renal function. Monitor for acute changes.) Time: 06:26 Attending/Attestation - Attestation I have personally seen and examined this patient.: Yes I have fully participated in the care of the patient.: Yes I have reviewed all pertinent clinical information: Yes
[2016-10-27 23:38] LABS: POTASSIUM 6.2 mmol/L (3.6-5.2)
[2016-10-27 23:40] LABS: CALCIUM 8.1 mg/dl (8.6-10.4)
[2016-10-27] MEDS ORDERED: (Novolin R) Insulin Human Regular 100 units/ml vial IV ONE (23:45)
[2016-10-27 23:52] LABS: TROPONIN I 0.02 ng/mL (0.00-0.120)
[2016-10-28] MEDS: Sod Polystyrene Sulf 15 gm/60 ml Oral Susp PO SCH ×2 (00:38→21:23)
[2016-10-28] MEDS: Albuterol-Ipratrop 3 mg / 0.5 (3 ml) UD INH SCH ×4 (01:17→19:26)
[2016-10-28 06:31] LABS: BASO % 0.9 % (0.0-2.0); HEMATOCRIT 30.8 % (34.0-47.0); LYMPH % 24.6 % (20.0-40.0); MEAN CELL VOLUME 95.7 fL (81.0-99.0); MEAN CORPUSCULAR HEMOGLOBIN 31.6 pg (27.0-31.0); MEAN PLATELET VOLUME 9.7 fL (7.2-11.7); MONO # 0.5 K/uL (0.0-0.8); MONO % 12.1 % (0.0-10.0); RED CELL DISTRIBUTION WIDTH 14.2 % (11.5-14.5); WHITE BLOOD COUNT 3.9 K/uL (4.8-10.8)
[2016-10-28 06:42] LABS: POTASSIUM 5.6 mmol/L (3.6-5.2)
[2016-10-28 06:44] LABS: ALB/GLOB RATIO 1.1 (1.0-2.1); BILIRUBIN,TOTAL 0.3 mg/dL (0.2-1.3); TOTAL PROTEIN 7.1 g/dL (6.3-8.3)
[2016-10-28 06:45] LABS: CALCIUM 8.3 mg/dl (8.6-10.4); MAGNESIUM 2.5 mg/dL (1.6-2.3); PHOSPHOROUS 5.6 mg/dL (2.5-4.5)
[2016-10-28 06:56] LABS: TROPONIN I 0.027 ng/mL (0.00-0.120)
[2016-10-28] MEDS: (Novolin R) Insulin Human Regular 100 units/ml vial SC SCH ×4 (08:36→22:00)
--- NOTE | 2016-10-28 09:36 | CP.PCM.PN ---
Subjective - Date & Time of Evaluation Date of Evaluation: 10/28/16 Time of Evaluation: 08:30 - Subjective Subjective: Was called for renal consultation for Yasmine Jackson. Pts daughter told me that Pt is follwed by Dr. Romano Objective - Vital Signs/Intake and Output Vital Signs (last 24 hours): Temp Pulse Resp BP Pulse Ox 97.5 F L 46 L 18 184/54 H 98 10/28/16 00:00 10/28/16 06:58 10/28/16 06:58 10/28/16 06:58 10/28/16 06:58 Intake and Output: 10/28/16 10/28/16 06:59 18:59 Intake Total 750 Output Total 0 Balance 750 0 - Medications Medications: Current Medications Albuterol/Ipratropium (Duoneb 3 Mg/0.5 Mg (3 Ml) Ud) 3 ml INH RQ6 [facility] Last Admin: 10/28/16 09:05 Dose: 3 ml Aspirin (Ecotrin) 81 mg PO DAILY [facility] Carbamazepine (Tegretol-Xr) 200 mg PO Q12 [facility] Last Admin: 10/27/16 23:11 Dose: 200 mg Famotidine (Pepcid) 20 mg PO DAILY [facility] Heparin Sodium (Porcine) (Heparin) 5,000 units SC Q8 [facility] Last Admin: 10/28/16 06:06 Dose: 5,000 units Insulin Human Regular (Novolin R) 0 unit SC ACHS [facility] PRN Reason: Protocol Last Admin: 10/28/16 08:36 Dose: Not Given Isosorbide Mononitrate (Imdur) 30 mg PO DAILY [facility] Rosuvastatin Calcium (Crestor) 10 mg PO HS [facility] Last Admin: 10/27/16 23:10 Dose: 10 mg Sodium Polystyrene Sulfonate (Kayexalate Oral Susp) 30 gm PO Q4H [facility] Stop: 10/29/16 00:31 Last Admin: 10/28/16 00:38 Dose: 30 gm - Labs Labs: 10/28/16 06:18 10/28/16 06:18
--- NOTE | 2016-10-28 11:11 | CP.PCM.CON ---
History of Present Illness - History of Present Illness History of Present Illness: 86 YO FEMALE ADMITTED WITH SINUS BRADYCARDIA (SYMPTOMATIC) WITH CHEST PAIN AND FATIGUE. PT PLEASANTLY DEMENTED AND NOT A GOOD HISTORIAN. 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 PT WAS ON MULTIPLE BRADYCARDIA INDUCING MEDS AT HOME (COREG, DONEPIZIL, AND CARBAMAZEPINE) . ALSO PTS K LEVEL WAS 7 ON ADMISSION. CURRENTLY 5.6. RECEIVED ATROPINE, GLUCAGON, INSULIN, DEX, AND MISSY-EX IN ER. BB HELD AND THIS AM PTS HR RECOVERED. CURRENTLY SR WITH FREQUENT PACS. BP 130/ 90. APPEARS QUITE COMFORTABLE. Review of Systems - Review of Systems Systems not reviewed;Unavailable: Dementia - Cardiovascular Cardiovascular: Slow Heart Rate Past Patient History - Infectious Disease Hx of Infectious Diseases: None - Past Medical History & Family History Past Medical History?: Yes - Past Social History Smoking Status: Never Smoked - CARDIAC Hx Heart Attack: Yes (NSTEMI PCI X 2 TO MID LAD) Hx Hypertension: Yes - PULMONARY Hx Respiratory Disorders: No - NEUROLOGICAL Hx Dementia: Yes Hx Seizures: Yes - HEENT Hx HEENT Problems: Yes Hx Glaucoma: Yes - RENAL Hx Chronic Kidney Disease: Yes - ENDOCRINE/METABOLIC Hx Diabetes Mellitus Type 2: Yes Other/Comment: extended spectrum beta lactamase resistance - HEMATOLOGICAL/ONCOLOGICAL Hx Anemia: Yes - INTEGUMENTARY Hx Dermatological Problems: No - MUSCULOSKELETAL/RHEUMATOLOGICAL Hx Musculoskeletal Disorders: No Hx Falls: No Hx Osteoarthritis: Yes - GASTROINTESTINAL Hx Gastrointestinal Disorders: No Other/Comment: Incontinence - GENITOURINARY/GYNECOLOGICAL Hx Genitourinary Disorders: Yes Hx Incontinence: Yes Hx Urinary Tract Infection: Yes - PSYCHIATRIC Hx Substance Use: No - SURGICAL HISTORY Hx Appendectomy: Yes Hx Carotid Endarterectomy: Yes - ANESTHESIA Hx Anesthesia: Yes Hx Anesthesia Reactions: No Hx Malignant Hyperthermia: No Meds Allergies/Adverse Reactions: Allergies Allergy/AdvReac Type Severity Reaction Status Date / Time No Known Allergies Allergy Verified 10/27/16 16:15 - Medications Medications: Current Medications Albuterol/Ipratropium (Duoneb 3 Mg/0.5 Mg (3 Ml) Ud) 3 ml INH RQ6 [facility] Last Admin: 10/28/16 09:05 Dose: 3 ml Aspirin (Ecotrin) 81 mg PO DAILY [facility] Carbamazepine (Tegretol-Xr) 200 mg PO Q12 [facility] Last Admin: 10/27/16 23:11 Dose: 200 mg Famotidine (Pepcid) 20 mg PO DAILY [facility] Heparin Sodium (Porcine) (Heparin) 5,000 units SC Q8 [facility] Last Admin: 10/28/16 06:06 Dose: 5,000 units Home Med (Brinzolamide/Brimonidine Tart [Simbrinza 1%-0.2% Eye Drops]) 1 drop OU BID [facility] Insulin Human Regular (Novolin R) 0 unit SC ACHS [facility] PRN Reason: Protocol Last Admin: 10/28/16 08:36 Dose: Not Given Isosorbide Mononitrate (Ismo) 10 mg PO DAILY [facility] Ondansetron HCl (Zofran Inj) 4 mg IVP Q6H PRN PRN Reason: Nausea/Vomiting Rosuvastatin Calcium (Crestor) 10 mg PO HS [facility] Last Admin: 10/27/16 23:10 Dose: 10 mg Sodium Bicarbonate (Sodium Bicarbonate Tab) 650 mg PO Q8H [facility] Sodium Polystyrene Sulfonate (Kayexalate Oral Susp) 30 gm PO Q4H [facility] Stop: 10/29/16 00:31 Last Admin: 10/28/16 00:38 Dose: 30 gm Physical Exam - Constitutional Appears: Non-toxic - Head Exam Head Exam: ATRAUMATIC, NORMAL INSPECTION, NORMOCEPHALIC - Eye Exam Eye Exam: EOMI, Normal appearance, PERRL Pupil Exam: NORMAL ACCOMODATION, PERRL - ENT Exam ENT Exam: Mucous Membranes Moist, Normal Exam - Neck Exam Neck exam: Positive for: Normal Inspection - Respiratory Exam Respiratory Exam: Clear to Auscultation Bilateral, NORMAL BREATHING PATTERN - Cardiovascular Exam Cardiovascular Exam: Diastolic murmur, +S1, +S2 Additional comments: REGULARLY IRREG. - GI/Abdominal Exam GI & Abdominal Exam: Normal Bowel Sounds, Soft. absent: Tenderness - Rectal Exam Rectal Exam: Deferred - Extremities Exam Extremities exam: Positive for: normal inspection - Back Exam Back exam: NORMAL INSPECTION - Neurological Exam Neurological exam: Altered - Psychiatric Exam Psychiatric exam: Normal Affect - Skin Skin Exam: Normal Color Results - Vital Signs Recent Vital Signs: Last Vital Signs Temp 97.5 F L 10/28/16 00:00 Pulse 46 L 10/28/16 06:58 Resp 18 10/28/16 06:58 BP 184/54 H 10/28/16 06:58 Pulse Ox 98 10/28/16 06:58 - Labs Result Diagrams: 10/28/16 06:18 10/28/16 06:18 Labs: Laboratory Results - last 24 hr 10/27/16 10/27/16 10/28/16 21:15 23:28 06:18 WBC 3.9 L RBC 3.21 L Hgb 10.2 L Hct 30.8 L MCV 95.7 MCH 31.6 H MCHC 33.0 RDW 14.2 Plt Count 142 MPV 9.7 Neut % (Auto) 62.4 Lymph % (Auto) 24.6 [place] % (Auto) 12.1 H Eos % (Auto) 0.0 Baso % (Auto) 0.9 Neut # 2.4 Lymph # 1.0 [place] # 0.5 Eos # 0.0 Baso # 0.0 Sodium 135 140 Potassium 6.2 H* 5.6 H Chloride 104 108 H Carbon Dioxide 16 L 16 L Anion Gap 21 H 22 H BUN 67 H 67 H Creatinine 3.1 H 3.4 H Est GFR ( Amer) 17 16 Est GFR (Non-Af Amer) 14 13 POC Glucose (mg/dL) 89 Random Glucose 107 H 112 H Hemoglobin A1c 5.9 Calcium 8.1 L 8.3 L Phosphorus 5.6 H Magnesium 2.5 H Total Bilirubin 0.3 AST 47 H D ALT 47 Alkaline Phosphatase 84 Troponin I 0.0200 0.0270 Total Protein 7.1 Albumin 3.6 Globulin 3.4 Albumin/Globulin Ratio 1.1 Carbamazepine 11.1 10/28/16 08:26 WBC RBC Hgb Hct MCV MCH MCHC RDW Plt Count MPV Neut % (Auto) Lymph % (Auto) [place] % (Auto) Eos % (Auto) Baso % (Auto) Neut # Lymph # [place] # Eos # Baso # Sodium Potassium Chloride Carbon Dioxide Anion Gap BUN Creatinine Est GFR ( Amer) Est GFR (Non-Af Amer) POC Glucose (mg/dL) 110 Random Glucose Hemoglobin A1c Calcium Phosphorus Magnesium Total Bilirubin AST ALT Alkaline Phosphatase Troponin I Total Protein Albumin Globulin Albumin/Globulin Ratio Carbamazepine - EKG Data EKG Interpreted by: Myself EKG shows normal: Sinus rhythm Rate: Bradycardia Assessment & Plan (1) Acute hyperkalemia Status: Acute (2) Symptomatic bradycardia Status: Acute (3) Acute on chronic renal failure Status: Chronic (4) CVA (cerebral vascular accident) Status: Chronic (5) Diabetes mellitus Status: Chronic (6) HTN (hypertension) Status: Chronic (7) CAD (coronary artery disease), [place] coronary artery Status: Acute (8) CAD S/P percutaneous coronary angioplasty Status: Acute (9) Seizure Status: Acute (10) Dementia Status: Chronic - Assessment and Plan (Free Text) Plan: BRADYCARDIA LIKELY MULTIFACTORIAL STATED ABOVE HOLD BB'S ECHO ORDERED RECHECK EKG NOW THAT HR HAS NORMALIZED CHECK MAG LEVEL CONTINUE MISSY-EX UNTIL BM RENAL CONSULTED MONITOR K LEVELS ATROPINE AT BEDSIDE NO INDICATION FOR CARDIAC CATH AT THIS TIME. TROP NEG THUS FAR PT ON ASA CONTINUE ICU FOR 24 HR, IF HR REMAINS NORMAL THEN MAY BE TRANS TO TELE. GI ICU TEAM AND NURSE CHARTS REVIEWED 75 MIN TOTAL CARE TIME
--- NOTE | 2016-10-28 14:23 | CP.PCM.PN ---
Subjective - Date & Time of Evaluation Date of Evaluation: 10/28/16 Time of Evaluation: 13:00 - Subjective Subjective: Patient was seen and examined in ICU Awake and alert without any acute distress. Objective - Vital Signs/Intake and Output Vital Signs (last 24 hours): Temp Pulse Resp BP Pulse Ox 97.5 F L 46 L 18 184/54 H 98 10/28/16 00:00 10/28/16 06:58 10/28/16 06:58 10/28/16 06:58 10/28/16 06:58 Intake and Output: 10/28/16 10/28/16 06:59 18:59 Intake Total 750 Output Total 0 Balance 750 0 - Medications Medications: Current Medications Albuterol/Ipratropium (Duoneb 3 Mg/0.5 Mg (3 Ml) Ud) 3 ml INH RQ6 [facility] Last Admin: 10/28/16 09:05 Dose: 3 ml Aspirin (Ecotrin) 81 mg PO DAILY [facility] Last Admin: 10/28/16 11:29 Dose: 81 mg Carbamazepine (Tegretol-Xr) 200 mg PO Q12 [facility] Last Admin: 10/28/16 11:29 Dose: 200 mg Famotidine (Pepcid) 20 mg PO DAILY [facility] Last Admin: 10/28/16 11:29 Dose: 20 mg Heparin Sodium (Porcine) (Heparin) 5,000 units SC Q8 [facility] Last Admin: 10/28/16 06:06 Dose: 5,000 units Home Med (Brinzolamide/Brimonidine Tart [Simbrinza 1%-0.2% Eye Drops]) 1 drop OU BID [facility] Insulin Human Regular (Novolin R) 0 unit SC ACHS [facility] PRN Reason: Protocol Last Admin: 10/28/16 08:36 Dose: Not Given Isosorbide Mononitrate (Ismo) 10 mg PO DAILY [facility] Last Admin: 10/28/16 11:29 Dose: 10 mg Ondansetron HCl (Zofran Inj) 4 mg IVP Q6H [facility] PRN Reason: Nausea/Vomiting Last Admin: 10/28/16 11:30 Dose: 4 mg Rosuvastatin Calcium (Crestor) 10 mg PO HS [facility] Last Admin: 10/27/16 23:10 Dose: 10 mg Sodium Bicarbonate (Sodium Bicarbonate Tab) 650 mg PO Q8H [facility] Last Admin: 10/28/16 11:29 Dose: 650 mg Sodium Polystyrene Sulfonate (Kayexalate Oral Susp) 30 gm PO Q4H [facility] Stop: 10/29/16 00:31 Last Admin: 10/28/16 00:38 Dose: 30 gm - Labs Labs: 10/28/16 06:18 10/28/16 06:18 - Head Exam Head Exam: ATRAUMATIC, NORMOCEPHALIC - Eye Exam Eye Exam: Normal appearance - ENT Exam ENT Exam: Mucous Membranes Moist - Respiratory Exam Respiratory Exam: Clear to Ausculation Bilateral - Cardiovascular Exam Cardiovascular Exam: REGULAR RHYTHM, +S1, +S2 - GI/Abdominal Exam GI & Abdominal Exam: Soft. absent: Tenderness - Neurological Exam Neurological Exam: Alert, Awake Assessment and Plan (1) Acute on chronic renal insufficiency Status: Acute (2) Bradycardia with 31-40 beats per minute Status: Acute (3) Glaucoma Status: Acute (4) Hyperkalemia Status: Acute - Assessment and Plan (Free Text) Plan: Hyperkalemia is improving Patient seen and function is also improving Nephrology consultation requested and awaiting recommendations We will continue monitor in ICU Discussed with ICU attending.
[2016-10-28 17:13] LABS: CALCIUM 7.8 mg/dl (8.6-10.4); MAGNESIUM 2.3 mg/dL (1.6-2.3)
--- NOTE | 2016-10-28 17:33 | CP.CCUPN ---
<NielsLore Henson - Last Filed: 10/28/16 18:11> CCU Objective - Vital Signs / Intake & Output Intake and Output (Last 8hrs): Intake & Output 10/28/16 10/28/16 10/28/16 06:59 14:59 22:59 Intake Total 250 Output Total 0 Balance 250 0 Intake: Intake, IV Amount 250 Left Forearm 250 Output: Urine 0 Urine, Voided 0 Other: # Bowel Movements 1 - Medications Active Medications: Active Medications Generic Name Dose Route Start Last Admin Trade Name Freq PRN Reason Stop Dose Admin Albuterol/Ipratropium 3 ml 10/28/16 02:00 10/28/16 14:44 Duoneb 3 Mg/0.5 Mg (3 Ml) Ud INH 3 ml RQ6 JOANNE Administration Aspirin 81 mg 10/28/16 10:00 10/28/16 11:29 Ecotrin PO 81 mg DAILY JOANNE Administration Carbamazepine 200 mg 10/27/16 22:00 10/28/16 11:29 Tegretol-Xr PO 200 mg Q12 JOANNE Administration Famotidine 20 mg 10/28/16 10:00 10/28/16 11:29 Pepcid PO 20 mg DAILY JOANNE Administration Heparin Sodium (Porcine) 5,000 units 10/27/16 22:00 10/28/16 16:45 Heparin SC 5,000 units Q8 JOANNE Administration Home Med 1 drop 10/28/16 18:00 Brinzolamide/Brimonidine Tart [Simbrinza 1%-0.2% Eye Drops] OU BID JOANNE Home Med 1 unit 10/28/16 22:00 Home Med OU HS JOANNE Insulin Human Regular 0 unit 10/27/16 22:00 10/28/16 16:44 Novolin R SC Not Given ACHS [facility] Protocol Isosorbide Mononitrate 10 mg 10/28/16 10:30 10/28/16 11:29 Ismo PO 10 mg DAILY JOANNE Administration Ondansetron HCl 4 mg 10/28/16 10:07 10/28/16 11:30 Zofran Inj IVP 4 mg Q6H PRN Administration Nausea/Vomiting Rosuvastatin Calcium 10 mg 10/27/16 22:00 10/27/16 23:10 Crestor PO 10 mg HS JOANNE Administration Sodium Bicarbonate 650 mg 10/28/16 10:30 10/28/16 11:29 Sodium Bicarbonate Tab PO 650 mg Q8H JOANNE Administration Sodium Polystyrene Sulfonate 30 gm 10/28/16 20:30 10/28/16 00:38 Kayexalate Oral Susp PO 10/29/16 00:31 30 gm Q4H JOANNE Administration - Patient Studies Lab Studies: Lab Studies 10/28/16 10/28/16 10/28/16 Range/Units 16:54 16:22 08:26 WBC (4.8-10.8) K/uL RBC (3.80-5.20) Mil/uL Hgb (11.0-16.0) g/dL Hct (34.0-47.0) % MCV (81.0-99.0) fL MCH (27.0-31.0) pg MCHC (33.0-37.0) g/dL RDW (11.5-14.5) % Plt Count (130-400) K/uL MPV (7.2-11.7) fL Neut % (Auto) (50.0-75.0) % Lymph % (Auto) (20.0-40.0) % [place] % (Auto) (0.0-10.0) % Eos % (Auto) (0.0-4.0) % Baso % (Auto) (0.0-2.0) % Neut # (1.8-7.0) K/uL Lymph # (1.0-4.3) K/uL [place] # (0.0-0.8) K/uL Eos # (0.0-0.7) K/uL Baso # (0.0-0.2) K/uL Sodium 140 (132-148) mmol/L Potassium 5.0 (3.6-5.2) mmol/L Chloride 108 H (98-107) mmol/L Carbon Dioxide 19 L (22-30) mmol/L Anion Gap 18 (10-20) BUN 65 H (7-17) mg/dL Creatinine 2.9 H (0.7-1.2) MG/DL Est GFR ( Amer) 19 Est GFR (Non-Af Amer) 15 POC Glucose (mg/dL) 151 H 110 (65-110) mg/dL Random Glucose 147 H (65-105) mg/dL Hemoglobin A1c (4.2-6.5) % Serum Osmolality 318 H (272-300) mosm/kg Calcium 7.8 L (8.6-10.4) mg/dl Phosphorus (2.5-4.5) mg/dL Magnesium 2.3 (1.6-2.3) mg/dL Total Bilirubin (0.2-1.3) mg/dL AST (14-36) U/L ALT (9-52) U/L Alkaline Phosphatase (38-126) U/L Troponin I (0.00-0.120) ng/mL Total Protein (6.3-8.3) g/dL Albumin (3.5-5.0) g/dL Globulin (2.2-3.9) gm/dL Albumin/Globulin Ratio (1.0-2.1) Carbamazepine (4.0-12.0) ug/mL 10/28/16 10/27/16 10/27/16 Range/Units 06:18 23:28 21:15 WBC 3.9 L (4.8-10.8) K/uL RBC 3.21 L (3.80-5.20) Mil/uL Hgb 10.2 L (11.0-16.0) g/dL Hct 30.8 L (34.0-47.0) % MCV 95.7 (81.0-99.0) fL MCH 31.6 H (27.0-31.0) pg MCHC 33.0 (33.0-37.0) g/dL RDW 14.2 (11.5-14.5) % Plt Count 142 (130-400) K/uL MPV 9.7 (7.2-11.7) fL Neut % (Auto) 62.4 (50.0-75.0) % Lymph % (Auto) 24.6 (20.0-40.0) % [place] % (Auto) 12.1 H (0.0-10.0) % Eos % (Auto) 0.0 (0.0-4.0) % Baso % (Auto) 0.9 (0.0-2.0) % Neut # 2.4 (1.8-7.0) K/uL Lymph # 1.0 (1.0-4.3) K/uL [place] # 0.5 (0.0-0.8) K/uL Eos # 0.0 (0.0-0.7) K/uL Baso # 0.0 (0.0-0.2) K/uL Sodium 140 135 (132-148) mmol/L Potassium 5.6 H 6.2 H* (3.6-5.2) mmol/L Chloride 108 H 104 (98-107) mmol/L Carbon Dioxide 16 L 16 L (22-30) mmol/L Anion Gap 22 H 21 H (10-20) BUN 67 H 67 H (7-17) mg/dL Creatinine 3.4 H 3.1 H (0.7-1.2) MG/DL Est GFR ( Amer) 16 17 Est GFR (Non-Af Amer) 13 14 POC Glucose (mg/dL) 89 (65-110) mg/dL Random Glucose 112 H 107 H (65-105) mg/dL Hemoglobin A1c 5.9 (4.2-6.5) % Serum Osmolality (272-300) mosm/kg Calcium 8.3 L 8.1 L (8.6-10.4) mg/dl Phosphorus 5.6 H (2.5-4.5) mg/dL Magnesium 2.5 H (1.6-2.3) mg/dL Total Bilirubin 0.3 (0.2-1.3) mg/dL AST 47 H D (14-36) U/L ALT 47 (9-52) U/L Alkaline Phosphatase 84 (38-126) U/L Troponin I 0.0270 0.0200 (0.00-0.120) ng/mL Total Protein 7.1 (6.3-8.3) g/dL Albumin 3.6 (3.5-5.0) g/dL Globulin 3.4 (2.2-3.9) gm/dL Albumin/Globulin Ratio 1.1 (1.0-2.1) Carbamazepine 11.1 (4.0-12.0) ug/mL Laboratory Results - last 24 hr 10/27/16 10/27/16 10/28/16 21:15 23:28 06:18 WBC 3.9 L RBC 3.21 L Hgb 10.2 L Hct 30.8 L MCV 95.7 MCH 31.6 H MCHC 33.0 RDW 14.2 Plt Count 142 MPV 9.7 Neut % (Auto) 62.4 Lymph % (Auto) 24.6 [place] % (Auto) 12.1 H Eos % (Auto) 0.0 Baso % (Auto) 0.9 Neut # 2.4 Lymph # 1.0 [place] # 0.5 Eos # 0.0 Baso # 0.0 Sodium 135 140 Potassium 6.2 H* 5.6 H Chloride 104 108 H Carbon Dioxide 16 L 16 L Anion Gap 21 H 22 H BUN 67 H 67 H Creatinine 3.1 H 3.4 H Est GFR ( Amer) 17 16 Est GFR (Non-Af Amer) 14 13 POC Glucose (mg/dL) 89 Random Glucose 107 H 112 H Hemoglobin A1c 5.9 Serum Osmolality Calcium 8.1 L 8.3 L Phosphorus 5.6 H Magnesium 2.5 H Total Bilirubin 0.3 AST 47 H D ALT 47 Alkaline Phosphatase 84 Troponin I 0.0200 0.0270 Total Protein 7.1 Albumin 3.6 Globulin 3.4 Albumin/Globulin Ratio 1.1 Carbamazepine 11.1 10/28/16 10/28/16 10/28/16 08:26 16:22 16:54 WBC RBC Hgb Hct MCV MCH MCHC RDW Plt Count MPV Neut % (Auto) Lymph % (Auto) [place] % (Auto) Eos % (Auto) Baso % (Auto) Neut # Lymph # [place] # Eos # Baso # Sodium 140 Potassium 5.0 Chloride 108 H Carbon Dioxide 19 L Anion Gap 18 BUN 65 H Creatinine 2.9 H Est GFR ( Amer) 19 Est GFR (Non-Af Amer) 15 POC Glucose (mg/dL) 110 151 H Random Glucose 147 H Hemoglobin A1c Serum Osmolality 318 H Calcium 7.8 L Phosphorus Magnesium 2.3 Total Bilirubin AST ALT Alkaline Phosphatase Troponin I Total Protein Albumin Globulin Albumin/Globulin Ratio Carbamazepine EKG/Cardiology Studies: Cardiology / EKG Studies 10/28/16 07:00 ELECTROCARDIOGRAM Routine Comment: Mode Of Transportation: PORTABLE Reason For Exam: bradycardia,elevated troponin 10/28/16 10:56 EKG [ELECTROCARDIOGRAM] Stat Comment: Mode Of Transportation: PORTABLE Reason For Exam: arrythmia Critical Care Progress Note - Nutrition Nutrition: Nutrition Category Date Time Status Heart Healthy Diet [DIET] Diets 10/28/16 Breakfast Active Attending/Attestation - Attestation I have personally seen and examined this patient.: Yes I have fully participated in the care of the patient.: Yes I have reviewed all pertinent clinical information: Yes Notes (Text): 10/28/16 18:11 patient seen and examined in am, doing well, she gets fisty at times and at time very chatty. since this am hr in the 70-80's with improvement of bp. K now 5, Cr improving. off b-kevin and ca ch blockers from home <Ros Brannon - Last Filed: 10/28/16 21:13> CCU Subjective - Physician Review Subjective (Free Text): 10/28/16 21:04 Pleasant 86 year old female seen at bedside in no acute distress. Pt's heart rate drops to the 30's to 40s when sleeping and then increases 60s and 70s. At times, the BP increases as well. Patient states she had a large bowel movement recently. She vomited contents of breakfast earlier in the morning but remained stable. Patient denies headaches, chest pain, palpitations, subjective fevers or chills, nausea, vomiting, or diarrhea at this time. CCU Objective - Vital Signs / Intake & Output Intake and Output (Last 8hrs): Intake & Output 10/28/16 10/28/16 10/28/16 06:59 14:59 22:59 Intake Total 250 Output Total 0 Balance 250 0 Intake: Intake, IV Amount 250 Left Forearm 250 Output: Urine 0 Urine, Voided 0 Other: # Bowel Movements 1 - Physical Exam Pupils: Positive for: PERRL Extroacular Muscles: Positive for: EOMI Conjunctiva: Positive for: Normal Mouth: Positive for: Moist Mucous Membranes Nose (External): Positive for: Atraumatic Neck: Positive for: Normal Range of Motion Respiratory/Chest: Positive for: Good Air Exchange Cardiovascular: Positive for: Normal S1, S2, Bradycardic Abdomen: Negative for: Tenderness, Distention Upper Extremity: Positive for: Normal Inspection Lower Extremity: Positive for: Normal Inspection Neurological: Positive for: CN II-XII Intact, Speech Normal Skin: Positive for: Warm, Normal Color - Medications Active Medications: Active Medications Generic Name Dose Route Start Last Admin Trade Name Freq PRN Reason Stop Dose Admin Albuterol/Ipratropium 3 ml 10/28/16 02:00 10/28/16 14:44 Duoneb 3 Mg/0.5 Mg (3 Ml) Ud INH 3 ml RQ6 JOANNE Administration Aspirin 81 mg 10/28/16 10:00 10/28/16 11:29 Ecotrin PO 81 mg DAILY JOANNE Administration Carbamazepine 200 mg 10/27/16 22:00 10/28/16 11:29 Tegretol-Xr PO 200 mg Q12 JOANNE Administration Famotidine 20 mg 10/28/16 10:00 10/28/16 11:29 Pepcid PO 20 mg DAILY JOANNE Administration Heparin Sodium (Porcine) 5,000 units 10/27/16 22:00 10/28/16 16:45 Heparin SC 5,000 units Q8 JOANNE Administration Home Med 1 drop 10/28/16 18:00 Brinzolamide/Brimonidine Tart [Simbrinza 1%-0.2% Eye Drops] OU BID JOANNE Home Med 1 unit 10/28/16 22:00 Home Med OU HS [facility] Insulin Human Regular 0 unit 10/27/16 22:00 10/28/16 16:44 Novolin R SC Not Given ACHS [facility] Protocol Isosorbide Mononitrate 10 mg 10/28/16 10:30 10/28/16 11:29 Ismo PO 10 mg DAILY JOANNE Administration Ondansetron HCl 4 mg 10/28/16 10:07 10/28/16 11:30 Zofran Inj IVP 4 mg Q6H PRN Administration Nausea/Vomiting Rosuvastatin Calcium 10 mg 10/27/16 22:00 10/27/16 23:10 Crestor PO 10 mg HS [facility] Administration Sodium Bicarbonate 650 mg 10/28/16 10:30 10/28/16 11:29 Sodium Bicarbonate Tab PO 650 mg Q8H JOANNE Administration Sodium Polystyrene Sulfonate 30 gm 10/28/16 20:30 10/28/16 00:38 Kayexalate Oral Susp PO 10/29/16 00:31 30 gm Q4H JOANNE Administration - Patient Studies Lab Studies: Lab Studies 10/28/16 10/28/16 10/28/16 Range/Units 16:54 16:22 08:26 WBC (4.8-10.8) K/uL RBC (3.80-5.20) Mil/uL Hgb (11.0-16.0) g/dL Hct (34.0-47.0) % MCV (81.0-99.0) fL MCH (27.0-31.0) pg MCHC (33.0-37.0) g/dL RDW (11.5-14.5) % Plt Count (130-400) K/uL MPV (7.2-11.7) fL Neut % (Auto) (50.0-75.0) % Lymph % (Auto) (20.0-40.0) % [place] % (Auto) (0.0-10.0) % Eos % (Auto) (0.0-4.0) % Baso % (Auto) (0.0-2.0) % Neut # (1.8-7.0) K/uL Lymph # (1.0-4.3) K/uL [place] # (0.0-0.8) K/uL Eos # (0.0-0.7) K/uL Baso # (0.0-0.2) K/uL Sodium 140 (132-148) mmol/L Potassium 5.0 (3.6-5.2) mmol/L Chloride 108 H (98-107) mmol/L Carbon Dioxide 19 L (22-30) mmol/L Anion Gap 18 (10-20) BUN 65 H (7-17) mg/dL Creatinine 2.9 H (0.7-1.2) MG/DL Est GFR ( Amer) 19 Est GFR (Non-Af Amer) 15 POC Glucose (mg/dL) 151 H 110 (65-110) mg/dL Random Glucose 147 H (65-105) mg/dL Hemoglobin A1c (4.2-6.5) % Serum Osmolality 318 H (272-300) mosm/kg Calcium 7.8 L (8.6-10.4) mg/dl Phosphorus (2.5-4.5) mg/dL Magnesium 2.3 (1.6-2.3) mg/dL Total Bilirubin (0.2-1.3) mg/dL AST (14-36) U/L ALT (9-52) U/L Alkaline Phosphatase (38-126) U/L Troponin I (0.00-0.120) ng/mL Total Protein (6.3-8.3) g/dL Albumin (3.5-5.0) g/dL Globulin (2.2-3.9) gm/dL Albumin/Globulin Ratio (1.0-2.1) Carbamazepine (4.0-12.0) ug/mL 10/28/16 10/27/16 10/27/16 Range/Units 06:18 23:28 21:15 WBC 3.9 L (4.8-10.8) K/uL RBC 3.21 L (3.80-5.20) Mil/uL Hgb 10.2 L (11.0-16.0) g/dL Hct 30.8 L (34.0-47.0) % MCV 95.7 (81.0-99.0) fL MCH 31.6 H (27.0-31.0) pg MCHC 33.0 (33.0-37.0) g/dL RDW 14.2 (11.5-14.5) % Plt Count 142 (130-400) K/uL MPV 9.7 (7.2-11.7) fL Neut % (Auto) 62.4 (50.0-75.0) % Lymph % (Auto) 24.6 (20.0-40.0) % [place] % (Auto) 12.1 H (0.0-10.0) % Eos % (Auto) 0.0 (0.0-4.0) % Baso % (Auto) 0.9 (0.0-2.0) % Neut # 2.4 (1.8-7.0) K/uL Lymph # 1.0 (1.0-4.3) K/uL [place] # 0.5 (0.0-0.8) K/uL Eos # 0.0 (0.0-0.7) K/uL Baso # 0.0 (0.0-0.2) K/uL Sodium 140 135 (132-148) mmol/L Potassium 5.6 H 6.2 H* (3.6-5.2) mmol/L Chloride 108 H 104 (98-107) mmol/L Carbon Dioxide 16 L 16 L (22-30) mmol/L Anion Gap 22 H 21 H (10-20) BUN 67 H 67 H (7-17) mg/dL Creatinine 3.4 H 3.1 H (0.7-1.2) MG/DL Est GFR ( Amer) 16 17 Est GFR (Non-Af Amer) 13 14 POC Glucose (mg/dL) 89 (65-110) mg/dL Random Glucose 112 H 107 H (65-105) mg/dL Hemoglobin A1c 5.9 (4.2-6.5) % Serum Osmolality (272-300) mosm/kg Calcium 8.3 L 8.1 L (8.6-10.4) mg/dl Phosphorus 5.6 H (2.5-4.5) mg/dL Magnesium 2.5 H (1.6-2.3) mg/dL Total Bilirubin 0.3 (0.2-1.3) mg/dL AST 47 H D (14-36) U/L ALT 47 (9-52) U/L Alkaline Phosphatase 84 (38-126) U/L Troponin I 0.0270 0.0200 (0.00-0.120) ng/mL Total Protein 7.1 (6.3-8.3) g/dL Albumin 3.6 (3.5-5.0) g/dL Globulin 3.4 (2.2-3.9) gm/dL Albumin/Globulin Ratio 1.1 (1.0-2.1) Carbamazepine 11.1 (4.0-12.0) ug/mL Laboratory Results - last 24 hr 10/27/16 10/27/16 10/28/16 21:15 23:28 06:18 WBC 3.9 L RBC 3.21 L Hgb 10.2 L Hct 30.8 L MCV 95.7 MCH 31.6 H MCHC 33.0 RDW 14.2 Plt Count 142 MPV 9.7 Neut % (Auto) 62.4 Lymph % (Auto) 24.6 [place] % (Auto) 12.1 H Eos % (Auto) 0.0 Baso % (Auto) 0.9 Neut # 2.4 Lymph # 1.0 [place] # 0.5 Eos # 0.0 Baso # 0.0 Sodium 135 140 Potassium 6.2 H* 5.6 H Chloride 104 108 H Carbon Dioxide 16 L 16 L Anion Gap 21 H 22 H BUN 67 H 67 H Creatinine 3.1 H 3.4 H Est GFR ( Amer) 17 16 Est GFR (Non-Af Amer) 14 13 POC Glucose (mg/dL) 89 Random Glucose 107 H 112 H Hemoglobin A1c 5.9 Serum Osmolality Calcium 8.1 L 8.3 L Phosphorus 5.6 H Magnesium 2.5 H Total Bilirubin 0.3 AST 47 H D ALT 47 Alkaline Phosphatase 84 Troponin I 0.0200 0.0270 Total Protein 7.1 Albumin 3.6 Globulin 3.4 Albumin/Globulin Ratio 1.1 Carbamazepine 11.1 10/28/16 10/28/16 10/28/16 08:26 16:22 16:54 WBC RBC Hgb Hct MCV MCH MCHC RDW Plt Count MPV Neut % (Auto) Lymph % (Auto) [place] % (Auto) Eos % (Auto) Baso % (Auto) Neut # Lymph # [place] # Eos # Baso # Sodium 140 Potassium 5.0 Chloride 108 H Carbon Dioxide 19 L Anion Gap 18 BUN 65 H Creatinine 2.9 H Est GFR ( Amer) 19 Est GFR (Non-Af Amer) 15 POC Glucose (mg/dL) 110 151 H Random Glucose 147 H Hemoglobin A1c Serum Osmolality 318 H Calcium 7.8 L Phosphorus Magnesium 2.3 Total Bilirubin AST ALT Alkaline Phosphatase Troponin I Total Protein Albumin Globulin Albumin/Globulin Ratio Carbamazepine EKG/Cardiology Studies: Cardiology / EKG Studies 10/28/16 07:00 ELECTROCARDIOGRAM Routine Comment: Mode Of Transportation: PORTABLE Reason For Exam: bradycardia,elevated troponin 10/28/16 10:56 EKG [ELECTROCARDIOGRAM] Stat Comment: Mode Of Transportation: PORTABLE Reason For Exam: arrythmia Fingerstick Blood Sugar Results: 89 Review of Systems - Review of Systems Systems not reviewed;Unavailable: Language Barrier Review of Systems: see subjective Critical Care Progress Note - Nutrition Nutrition: Nutrition Category Date Time Status Heart Healthy Diet [DIET] Diets 10/28/16 Breakfast Active Assessment/Plan - Assessment and Plan (Free Text) Assessment: 86 year old with PMHx significant for epilepsy, Diabetes, HTN, asthma, bradycardia, hyperkalemia presents after having asymptomatic bradycardic event at the eye doctor. Patient also hyperkalemic on admission. Patient admitted to ICU or critical care monitoring. Plan: Neuro: Carbamazepine 11.1 Neurochecks q4 Carbamazepine 200 mg PO Q12 Cardio: symptomatic Bradycardia (HR in 30s when asleep overnight) HTN Troponin I 0.0350>0.0200>0.0270 10/27 Pro BNP 3110 10/28 Cardiology Consult - Dr. Leung - bradycardia multifactorial, hold BB, echo ordered, recheck EKG now that heartrate is normalized. Check Mag level. Continue haney-ex until BM. f/u Nephrology consult. no indication for cardiac cath at this time. Troponin negative so far. Imagin/31 EKG: sinus bradycardia,AV dissociation junctional rhythm @ 41 bpm, septal infarct. age undetermined. 10/27 EKG: atrial fibrillation junctional pacemaker 46 bpm, septal infarct. age undetermined Crestor 10 mg PO HS JOANNE ASA 81 mg PO daily Isosorbide mononitrate 10 mg PO daily JOANNE Pulm: Asthma history Duoneb 3mg/0.5mg (3ml) Ud 3 cc INH RQ6 JOANNE Endo: Diabetes Novolin sliding scale GI: Diet: Heart Healthy Diet Odansetron Zofran INJ 4 mg IVP Q6H PRN Nausea/Vomiting Sodium polystyrene 30 gm PO Q4 JOANNE Monitor BM : I/Os 750 cc Monitor I/Os Renal: acute on chronic renal insufficiency acute hyperkalemia BUN/Cr: 67/3.4 (67/3.1 > 67/3.4) Sodium bicarb 650 mg PO Q8H JOANNE Hyperphosphatemia, Hypermagnesemia Hyperkalemia 5.6 (7.0>6.2>5.6) Heme: H&H: 10.2/30.8 Daily CBC ID: WBC 3.9 Daily CBC Prophylaxis: DVT: Heparin 5,000 units SC Q8 JOANNE GI: Pepcid 20 mg PO daily
[2016-10-28] MEDS ORDERED: Sod Polystyrene Sulf 15 gm/60 ml Oral Susp PO ONE (17:49)
--- NOTE | 2016-10-28 18:34 | CP.PCM.CON ---
History of Present Illness - History of Present Illness History of Present Illness: REASONS FOR CONSULT : A ON CKD SEVERE HYPERKALEMIA .. 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 Patient brought in by EMS who report patient given Atropine 1 amp prior to arrival with successful increase of heart rate from 30's to 60's. Denies chest pain,dizziness or difficulty breathing now.C/o chest pain in ER history from patient via supervisor kennel Past Patient History - Infectious Disease Hx of Infectious Diseases: None - Past Medical History & Family History Past Medical History?: Yes - Past Social History Smoking Status: Never Smoked - CARDIAC Hx Heart Attack: Yes (NSTEMI PCI X 2 TO MID LAD) Hx Hypertension: Yes - PULMONARY Hx Respiratory Disorders: No - NEUROLOGICAL Hx Dementia: Yes Hx Seizures: Yes - HEENT Hx HEENT Problems: Yes Hx Glaucoma: Yes - RENAL Hx Chronic Kidney Disease: Yes - ENDOCRINE/METABOLIC Hx Diabetes Mellitus Type 2: Yes Other/Comment: extended spectrum beta lactamase resistance - HEMATOLOGICAL/ONCOLOGICAL Hx Anemia: Yes - INTEGUMENTARY Hx Dermatological Problems: No - MUSCULOSKELETAL/RHEUMATOLOGICAL Hx Musculoskeletal Disorders: No Hx Falls: No Hx Osteoarthritis: Yes - GASTROINTESTINAL Hx Gastrointestinal Disorders: No Other/Comment: Incontinence - GENITOURINARY/GYNECOLOGICAL Hx Genitourinary Disorders: Yes Hx Incontinence: Yes Hx Urinary Tract Infection: Yes - PSYCHIATRIC Hx Substance Use: No - SURGICAL HISTORY Hx Appendectomy: Yes Hx Carotid Endarterectomy: Yes - ANESTHESIA Hx Anesthesia: Yes Hx Anesthesia Reactions: No Hx Malignant Hyperthermia: No Meds Allergies/Adverse Reactions: Allergies Allergy/AdvReac Type Severity Reaction Status Date / Time No Known Allergies Allergy Verified 10/27/16 16:15 - Medications Medications: Current Medications Albuterol/Ipratropium (Duoneb 3 Mg/0.5 Mg (3 Ml) Ud) 3 ml INH RQ6 [facility] Last Admin: 10/28/16 14:44 Dose: 3 ml Aspirin (Ecotrin) 81 mg PO DAILY [facility] Last Admin: 10/28/16 11:29 Dose: 81 mg Carbamazepine (Tegretol-Xr) 200 mg PO Q12 [facility] Last Admin: 10/28/16 11:29 Dose: 200 mg Famotidine (Pepcid) 20 mg PO DAILY [facility] Last Admin: 10/28/16 11:29 Dose: 20 mg Heparin Sodium (Porcine) (Heparin) 5,000 units SC Q8 [facility] Last Admin: 10/28/16 16:45 Dose: 5,000 units Home Med (Brinzolamide/Brimonidine Tart [Simbrinza 1%-0.2% Eye Drops]) 1 drop OU BID [facility] Home Med (Home Med) 1 unit OU HS [facility] Insulin Human Regular (Novolin R) 0 unit SC ACHS [facility] PRN Reason: Protocol Last Admin: 10/28/16 16:44 Dose: Not Given Isosorbide Mononitrate (Ismo) 10 mg PO DAILY [facility] Last Admin: 10/28/16 11:29 Dose: 10 mg Ondansetron HCl (Zofran Inj) 4 mg IVP Q6H PRN PRN Reason: Nausea/Vomiting Last Admin: 10/28/16 11:30 Dose: 4 mg Rosuvastatin Calcium (Crestor) 10 mg PO HS [facility] Last Admin: 10/27/16 23:10 Dose: 10 mg Sodium Bicarbonate (Sodium Bicarbonate Tab) 650 mg PO Q8H [facility] Last Admin: 10/28/16 11:29 Dose: 650 mg Sodium Polystyrene Sulfonate (Kayexalate Oral Susp) 30 gm PO Q4H [facility] Stop: 10/29/16 00:31 Last Admin: 10/28/16 00:38 Dose: 30 gm Results - Vital Signs Recent Vital Signs: Last Vital Signs Temp 97.5 F L 10/28/16 00:00 Pulse 46 L 10/28/16 06:58 Resp 18 10/28/16 06:58 BP 184/54 H 10/28/16 06:58 Pulse Ox 98 10/28/16 06:58 - Labs Result Diagrams: 10/28/16 06:18 10/28/16 16:54 Labs: Laboratory Results - last 24 hr 10/27/16 10/27/16 10/28/16 21:15 23:28 06:18 WBC 3.9 L RBC 3.21 L Hgb 10.2 L Hct 30.8 L MCV 95.7 MCH 31.6 H MCHC 33.0 RDW 14.2 Plt Count 142 MPV 9.7 Neut % (Auto) 62.4 Lymph % (Auto) 24.6 [place] % (Auto) 12.1 H Eos % (Auto) 0.0 Baso % (Auto) 0.9 Neut # 2.4 Lymph # 1.0 [place] # 0.5 Eos # 0.0 Baso # 0.0 Sodium 135 140 Potassium 6.2 H* 5.6 H Chloride 104 108 H Carbon Dioxide 16 L 16 L Anion Gap 21 H 22 H BUN 67 H 67 H Creatinine 3.1 H 3.4 H Est GFR ( Amer) 17 16 Est GFR (Non-Af Amer) 14 13 POC Glucose (mg/dL) 89 Random Glucose 107 H 112 H Hemoglobin A1c 5.9 Serum Osmolality Calcium 8.1 L 8.3 L Phosphorus 5.6 H Magnesium 2.5 H Total Bilirubin 0.3 AST 47 H D ALT 47 Alkaline Phosphatase 84 Troponin I 0.0200 0.0270 Total Protein 7.1 Albumin 3.6 Globulin 3.4 Albumin/Globulin Ratio 1.1 Carbamazepine 11.1 10/28/16 10/28/16 10/28/16 08:26 16:22 16:54 WBC RBC Hgb Hct MCV MCH MCHC RDW Plt Count MPV Neut % (Auto) Lymph % (Auto) [place] % (Auto) Eos % (Auto) Baso % (Auto) Neut # Lymph # [place] # Eos # Baso # Sodium 140 Potassium 5.0 Chloride 108 H Carbon Dioxide 19 L Anion Gap 18 BUN 65 H Creatinine 2.9 H Est GFR ( Amer) 19 Est GFR (Non-Af Amer) 15 POC Glucose (mg/dL) 110 151 H Random Glucose 147 H Hemoglobin A1c Serum Osmolality 318 H Calcium 7.8 L Phosphorus Magnesium 2.3 Total Bilirubin AST ALT Alkaline Phosphatase Troponin I Total Protein Albumin Globulin Albumin/Globulin Ratio Carbamazepine Assessment & Plan - Assessment and Plan (Free Text) Assessment: A ON CKD .. RENAL FUNCTION IMPROVING SEVERE HYPERKALEMIA .. WAS TREAED APPROPRIATELY MULTIPLE CO MORBEDITIES P : C/O CURRENT CARE 2 G K .. 2 G NA .. 50 G PROTIEN DIET - Date & Time Date: 10/28/16 Time: 17:00
[2016-10-28] MEDS: BRINZOLAMIDE OU SCH (19:42)
[2016-10-28] MEDS: BRIMONIDINE TART OU SCH (19:42)
[2016-10-28] MEDS ORDERED: LUMIGAN OU SCH (22:00)
[2016-10-28] MEDS: LUMIGAN OU SCH (23:46)
[2016-10-29] MEDS: Albuterol-Ipratrop 3 mg / 0.5 (3 ml) UD INH SCH ×4 (01:03→22:06)
--- NOTE | 2016-10-29 06:31 | CARD ---
APPROVED REPORT EKG Measurement Heart [id number] <Conclusion> Atrial fibrillation with slow ventricular response with a competing junctional pacemaker Left axis deviation Septal infarct, age undetermined Abnormal ECG
[2016-10-29] MEDS: (Novolin R) Insulin Human Regular 100 units/ml vial SC SCH ×4 (07:32→21:30)
[2016-10-29] MEDS: BRINZOLAMIDE OU SCH ×2 (11:16→17:32)
[2016-10-29] MEDS: BRIMONIDINE TART OU SCH ×2 (11:16→17:32)
[2016-10-29 13:02] LABS: HEMATOCRIT 33.1 % (34.0-47.0); LYMPH # 0.8 K/uL (1.0-4.3); MEAN CELL VOLUME 95.8 fL (81.0-99.0); MEAN CORPUSCULAR HEMOGLOBIN 30.9 pg (27.0-31.0); MEAN CORPUSCULAR HGB CONC 32.2 g/dL (33.0-37.0); MEAN PLATELET VOLUME 9.8 fL (7.2-11.7); MONO # 0.4 K/uL (0.0-0.8); MONO % 11.1 % (0.0-10.0); RED CELL DISTRIBUTION WIDTH 13.8 % (11.5-14.5); WHITE BLOOD COUNT 3.6 K/uL (4.8-10.8)
[2016-10-29 13:30] LABS: POTASSIUM 4.9 mmol/L (3.6-5.2)
[2016-10-29 13:34] LABS: CALCIUM 8.1 mg/dl (8.6-10.4); MAGNESIUM 2.4 mg/dL (1.6-2.3); PHOSPHOROUS 4.3 mg/dL (2.5-4.5)
--- NOTE | 2016-10-29 16:24 | CP.CCUPN ---
CCU Subjective - Physician Review Events Since Last Encounter (Free Text): 10/29/16 16:22 Patient seen and examined in the intensive care unit. 86 year old with PMHx significant for epilepsy, Diabetes, HTN, asthma, bradycardia, hyperkalemia presents after having asymptomatic bradycardic event at the eye doctor. Patient also hyperkalemic on admission. Patient admitted to ICU or critical care monitoring. Renal function improving with no episode of bradycardia. CCU Objective - Vital Signs / Intake & Output Vital Signs (Last 4 hours): Last Vital Signs Temp 97.6 F 10/29/16 12:00 Pulse 80 10/29/16 07:00 Resp 20 10/29/16 07:00 BP 179/55 H 10/29/16 01:00 Pulse Ox 95 10/29/16 00:00 Intake and Output (Last 8hrs): Intake & Output 10/29/16 10/29/16 10/29/16 06:59 14:59 22:59 Intake Total 100 550 Output Total 0 560 Balance 100 -10 Intake: Intake, IV Amount 0 0 Right Hand 0 0 Oral 100 550 Output: Urine 560 Urethral (Francis) 560 Urine/Stool Mix 0 Other: # Voids Urethral (Francis) 1 # Bowel Movements 0 0 - Physical Exam Pupils: Positive for: PERRL Extroacular Muscles: Positive for: EOMI Conjunctiva: Positive for: Normal Mouth: Positive for: Moist Mucous Membranes Nose (External): Positive for: Atraumatic Neck: Positive for: Normal Range of Motion Respiratory/Chest: Positive for: [place] Cardiovascular: Positive for: Normal S1, S2, Bradycardic Abdomen: Negative for: Tenderness, Distention Upper Extremity: Positive for: Normal Inspection Lower Extremity: Positive for: Normal Inspection Neurological: Positive for: CN II-XII Intact, Speech Normal Skin: Positive for: Warm, Normal Color Psychiatric: Positive for: Alert - Medications Active Medications: Active Medications Generic Name Dose Route Start Last Admin Trade Name Freq PRN Reason Stop Dose Admin Albuterol/Ipratropium 3 ml 10/28/16 02:00 10/29/16 13:05 Duoneb 3 Mg/0.5 Mg (3 Ml) Ud INH 3 ml RQ6 JOANNE Administration Aspirin 81 mg 10/28/16 10:00 10/29/16 11:15 Ecotrin PO 81 mg DAILY JOANNE Administration Carbamazepine 200 mg 10/27/16 22:00 10/29/16 11:15 Tegretol-Xr PO 200 mg Q12 JOANNE Administration Famotidine 20 mg 10/28/16 10:00 10/29/16 11:15 Pepcid PO 20 mg DAILY JOANNE Administration Heparin Sodium (Porcine) 5,000 units 10/27/16 22:00 10/29/16 14:55 Heparin SC 5,000 units Q8 JOANNE Administration Home Med 1 drop 10/28/16 18:00 10/29/16 11:16 Brinzolamide/Brimonidine Tart [Simbrinza 1%-0.2% Eye Drops] OU 1 drop BID JOANNE Administration Home Med 1 unit 10/28/16 23:45 10/28/16 23:46 Home Med OU 1 unit HS JOANNE Administration Insulin Human Regular 0 unit 10/27/16 22:00 10/29/16 12:37 Novolin R SC 1 unit ACHS JOANNE Administration Protocol Isosorbide Mononitrate 10 mg 10/28/16 10:30 10/29/16 11:15 Ismo PO 10 mg DAILY JOANNE Administration Ondansetron HCl 4 mg 10/28/16 10:07 10/29/16 11:15 Zofran Inj IVP 4 mg Q6H PRN Administration Nausea/Vomiting Rosuvastatin Calcium 10 mg 10/27/16 22:00 10/28/16 22:00 Crestor PO 10 mg HS JOANNE Administration Sodium Bicarbonate 650 mg 10/28/16 10:30 10/29/16 11:15 Sodium Bicarbonate Tab PO 650 mg Q8H JOANNE Administration - Patient Studies Lab Studies: Microbiology Studies 10/27/16 21:33 MRSA Culture (Admit) - Final Nose MRSA NOT DETECTED Lab Studies 10/29/16 10/29/16 10/29/16 Range/Units 12:55 12:23 11:53 WBC 3.6 L (4.8-10.8) K/uL RBC 3.46 L (3.80-5.20) Mil/uL Hgb 10.7 L (11.0-16.0) g/dL Hct 33.1 L (34.0-47.0) % MCV 95.8 (81.0-99.0) fL MCH 30.9 (27.0-31.0) pg MCHC 32.2 L (33.0-37.0) g/dL RDW 13.8 (11.5-14.5) % Plt Count 135 (130-400) K/uL MPV 9.8 (7.2-11.7) fL Neut % (Auto) 65.9 (50.0-75.0) % Lymph % (Auto) 22.0 (20.0-40.0) % [place] % (Auto) 11.1 H (0.0-10.0) % Eos % (Auto) 0.0 (0.0-4.0) % Baso % (Auto) 1.0 (0.0-2.0) % Neut # 2.4 (1.8-7.0) K/uL Lymph # 0.8 L (1.0-4.3) K/uL [place] # 0.4 (0.0-0.8) K/uL Eos # 0.0 (0.0-0.7) K/uL Baso # 0.0 (0.0-0.2) K/uL Sodium 141 (132-148) mmol/L Potassium 4.9 (3.6-5.2) mmol/L Chloride 103 (98-107) mmol/L Carbon Dioxide 25 (22-30) mmol/L Anion Gap 18 (10-20) BUN 54 H (7-17) mg/dL Creatinine 2.7 H (0.7-1.2) MG/DL Est GFR ( Amer) 20 Est GFR (Non-Af Amer) 17 POC Glucose (mg/dL) 194 H 140 H (65-110) mg/dL Random Glucose 145 H (65-105) mg/dL Serum Osmolality (272-300) mosm/kg Calcium 8.1 L (8.6-10.4) mg/dl Phosphorus 4.3 (2.5-4.5) mg/dL Magnesium 2.4 H (1.6-2.3) mg/dL Urine Osmolality 395 (300-1000) mosm/kg Ur Random Sodium 113 mmol/L 10/28/16 10/28/16 Range/Units 16:54 16:22 WBC (4.8-10.8) K/uL RBC (3.80-5.20) Mil/uL Hgb (11.0-16.0) g/dL Hct (34.0-47.0) % MCV (81.0-99.0) fL MCH (27.0-31.0) pg MCHC (33.0-37.0) g/dL RDW (11.5-14.5) % Plt Count (130-400) K/uL MPV (7.2-11.7) fL Neut % (Auto) (50.0-75.0) % Lymph % (Auto) (20.0-40.0) % [place] % (Auto) (0.0-10.0) % Eos % (Auto) (0.0-4.0) % Baso % (Auto) (0.0-2.0) % Neut # (1.8-7.0) K/uL Lymph # (1.0-4.3) K/uL [place] # (0.0-0.8) K/uL Eos # (0.0-0.7) K/uL Baso # (0.0-0.2) K/uL Sodium 140 (132-148) mmol/L Potassium 5.0 (3.6-5.2) mmol/L Chloride 108 H (98-107) mmol/L Carbon Dioxide 19 L (22-30) mmol/L Anion Gap 18 (10-20) BUN 65 H (7-17) mg/dL Creatinine 2.9 H (0.7-1.2) MG/DL Est GFR ( Amer) 19 Est GFR (Non-Af Amer) 15 POC Glucose (mg/dL) 151 H (65-110) mg/dL Random Glucose 147 H (65-105) mg/dL Serum Osmolality 318 H (272-300) mosm/kg Calcium 7.8 L (8.6-10.4) mg/dl Phosphorus (2.5-4.5) mg/dL Magnesium 2.3 (1.6-2.3) mg/dL Urine Osmolality (300-1000) mosm/kg Ur Random Sodium mmol/L Laboratory Results - last 24 hr 10/28/16 10/28/16 10/29/16 16:22 16:54 11:53 WBC RBC Hgb Hct MCV MCH MCHC RDW Plt Count MPV Neut % (Auto) Lymph % (Auto) [place] % (Auto) Eos % (Auto) Baso % (Auto) Neut # Lymph # [place] # Eos # Baso # Sodium 140 Potassium 5.0 Chloride 108 H Carbon Dioxide 19 L Anion Gap 18 BUN 65 H Creatinine 2.9 H Est GFR ( Amer) 19 Est GFR (Non-Af Amer) 15 POC Glucose (mg/dL) 151 H 140 H Random Glucose 147 H Serum Osmolality 318 H Calcium 7.8 L Phosphorus Magnesium 2.3 Urine Osmolality Ur Random Sodium 10/29/16 10/29/16 12:23 12:55 WBC 3.6 L RBC 3.46 L Hgb 10.7 L Hct 33.1 L MCV 95.8 MCH 30.9 MCHC 32.2 L RDW 13.8 Plt Count 135 MPV 9.8 Neut % (Auto) 65.9 Lymph % (Auto) 22.0 [place] % (Auto) 11.1 H Eos % (Auto) 0.0 Baso % (Auto) 1.0 Neut # 2.4 Lymph # 0.8 L [place] # 0.4 Eos # 0.0 Baso # 0.0 Sodium 141 Potassium 4.9 Chloride 103 Carbon Dioxide 25 Anion Gap 18 BUN 54 H Creatinine 2.7 H Est GFR ( Amer) 20 Est GFR (Non-Af Amer) 17 POC Glucose (mg/dL) 194 H Random Glucose 145 H Serum Osmolality Calcium 8.1 L Phosphorus 4.3 Magnesium 2.4 H Urine Osmolality 395 Ur Random Sodium 113 Fingerstick Blood Sugar Results: 89 Critical Care Progress Note - Nutrition Nutrition: Nutrition Category Date Time Status Heart Healthy Diet [DIET] Diets 10/28/16 Breakfast Active Assessment/Plan (1) Acute on chronic renal insufficiency Current Visit: Yes Status: Acute Comment: Renal function improving Continue to monitor BUN/creatinine Urine output (2) Bradycardia with 31-40 beats per minute Current Visit: Yes Status: Acute Comment: No further episode of bradycardia most likely secondary to hyperkalemia and beta kevin (3) Acute hyperkalemia Current Visit: Yes Status: Acute
--- NOTE | 2016-10-29 17:41 | CP.PCM.PN ---
Subjective - Date & Time of Evaluation Date of Evaluation: 10/29/16 Time of Evaluation: 11:00 - Subjective Subjective: Patient seen and examined at bedside in ICU Patient is sitting comfortably without any acute distress. Objective - Vital Signs/Intake and Output Vital Signs (last 24 hours): Temp Pulse Resp BP Pulse Ox 97.6 F 80 20 179/55 H 95 10/29/16 12:00 10/29/16 07:00 10/29/16 07:00 10/29/16 01:00 10/29/16 00:00 Intake and Output: 10/29/16 10/29/16 06:59 18:59 Intake Total 200 550 Output Total 0 560 Balance 200 -10 - Medications Medications: Current Medications Albuterol/Ipratropium (Duoneb 3 Mg/0.5 Mg (3 Ml) Ud) 3 ml INH RQ6 [facility] Last Admin: 10/29/16 13:05 Dose: 3 ml Aspirin (Ecotrin) 81 mg PO DAILY [facility] Last Admin: 10/29/16 11:15 Dose: 81 mg Carbamazepine (Tegretol-Xr) 200 mg PO Q12 [facility] Last Admin: 10/29/16 11:15 Dose: 200 mg Famotidine (Pepcid) 20 mg PO DAILY [facility] Last Admin: 10/29/16 11:15 Dose: 20 mg Heparin Sodium (Porcine) (Heparin) 5,000 units SC Q8 [facility] Last Admin: 10/29/16 14:55 Dose: 5,000 units Home Med (Brinzolamide/Brimonidine Tart [Simbrinza 1%-0.2% Eye Drops]) 1 drop OU BID [facility] Last Admin: 10/29/16 17:32 Dose: 1 drop Home Med (Home Med) 1 unit OU HS [facility] Last Admin: 10/28/16 23:46 Dose: 1 unit Insulin Human Regular (Novolin R) 0 unit SC ACHS [facility] PRN Reason: Protocol Last Admin: 10/29/16 17:31 Dose: 4 unit Isosorbide Mononitrate (Ismo) 10 mg PO DAILY [facility] Last Admin: 10/29/16 11:15 Dose: 10 mg Ondansetron HCl (Zofran Inj) 4 mg IVP Q6H PRN PRN Reason: Nausea/Vomiting Last Admin: 10/29/16 11:15 Dose: 4 mg Rosuvastatin Calcium (Crestor) 10 mg PO HS [facility] Last Admin: 10/28/16 22:00 Dose: 10 mg Sodium Bicarbonate (Sodium Bicarbonate Tab) 650 mg PO Q8H [facility] Last Admin: 10/29/16 17:31 Dose: 650 mg - Labs Labs: 10/29/16 12:55 10/29/16 12:55 - Head Exam Head Exam: ATRAUMATIC, NORMOCEPHALIC - Eye Exam Eye Exam: PERRL. absent: Scleral icterus - ENT Exam ENT Exam: Mucous Membranes Moist - Cardiovascular Exam Cardiovascular Exam: REGULAR RHYTHM, +S1, +S2 - GI/Abdominal Exam GI & Abdominal Exam: Soft. absent: Tenderness - Extremities Exam Extremities Exam: absent: Pedal Edema - Neurological Exam Neurological Exam: Alert, Awake Assessment and Plan (1) Acute on chronic renal insufficiency Status: Acute (2) Bradycardia with 31-40 beats per minute Status: Acute (3) Glaucoma Status: Acute (4) Hyperkalemia Status: Acute - Assessment and Plan (Free Text) Plan: Hemodynamically stable. Creatinine is trending down Hyperkalemia resolved Continue current management as per ICU
--- NOTE | 2016-10-29 21:18 | CP.PCM.PN ---
Subjective - Date & Time of Evaluation Date of Evaluation: 10/29/16 Time of Evaluation: 21:16 - Subjective Subjective: kidney function improving creat better 2.7....<2.9....<3.4 k ok acidosis better cont present rx and support. Objective - Vital Signs/Intake and Output Vital Signs (last 24 hours): Temp Pulse Resp BP Pulse Ox 98.1 F 68 16 113/98 H 97 10/29/16 20:00 10/29/16 20:00 10/29/16 20:00 10/29/16 20:00 10/29/16 20:00 Intake and Output: 10/29/16 10/30/16 18:59 06:59 Intake Total 750 0 Output Total 720 40 Balance 30 -40 - Medications Medications: Current Medications Albuterol/Ipratropium (Duoneb 3 Mg/0.5 Mg (3 Ml) Ud) 3 ml INH RQ6 [facility] Last Admin: 10/29/16 13:05 Dose: 3 ml Amlodipine Besylate (Norvasc) 5 mg PO DAILY [facility] Aspirin (Ecotrin) 81 mg PO DAILY [facility] Last Admin: 10/29/16 11:15 Dose: 81 mg Carbamazepine (Tegretol-Xr) 200 mg PO Q12 [facility] Last Admin: 10/29/16 11:15 Dose: 200 mg Famotidine (Pepcid) 20 mg PO DAILY [facility] Last Admin: 10/29/16 11:15 Dose: 20 mg Heparin Sodium (Porcine) (Heparin) 5,000 units SC Q8 [facility] Last Admin: 10/29/16 14:55 Dose: 5,000 units Home Med (Brinzolamide/Brimonidine Tart [Simbrinza 1%-0.2% Eye Drops]) 1 drop OU BID [facility] Last Admin: 10/29/16 17:32 Dose: 1 drop Home Med (Home Med) 1 unit OU HS [facility] Last Admin: 10/28/16 23:46 Dose: 1 unit Insulin Human Regular (Novolin R) 0 unit SC ACHS [facility] PRN Reason: Protocol Last Admin: 10/29/16 17:31 Dose: 4 unit Isosorbide Mononitrate (Ismo) 10 mg PO DAILY [facility] Last Admin: 10/29/16 11:15 Dose: 10 mg Ondansetron HCl (Zofran Inj) 4 mg IVP Q6H PRN PRN Reason: Nausea/Vomiting Last Admin: 10/29/16 11:15 Dose: 4 mg Rosuvastatin Calcium (Crestor) 10 mg PO HS [facility] Last Admin: 10/28/16 22:00 Dose: 10 mg Sodium Bicarbonate (Sodium Bicarbonate Tab) 650 mg PO Q8H [facility] Last Admin: 10/29/16 17:31 Dose: 650 mg - Labs Labs: 10/29/16 12:55 10/29/16 12:55 - Constitutional Appears: Non-toxic - Head Exam Head Exam: NORMAL INSPECTION - Eye Exam Eye Exam: Normal appearance - ENT Exam ENT Exam: Mucous Membranes Moist - Respiratory Exam Respiratory Exam: NORMAL BREATHING PATTERN - Cardiovascular Exam Cardiovascular Exam: REGULAR RHYTHM - GI/Abdominal Exam GI & Abdominal Exam: Soft - Neurological Exam Neurological Exam: Awake - Psychiatric Exam Psychiatric exam: Normal Affect - Skin Skin Exam: Dry, Normal Color, Warm
--- NOTE | 2016-10-29 21:23 | CP.PCM.PN ---
Subjective - Date & Time of Evaluation Date of Evaluation: 10/29/16 Time of Evaluation: 21:23 - Subjective Subjective: pt no longer josie. no complaints. normal breathing. bp elevated Objective - Vital Signs/Intake and Output Vital Signs (last 24 hours): Temp Pulse Resp BP Pulse Ox 98.1 F 68 16 113/98 H 97 10/29/16 20:00 10/29/16 20:00 10/29/16 20:00 10/29/16 20:00 10/29/16 20:00 Intake and Output: 10/29/16 10/30/16 18:59 06:59 Intake Total 750 0 Output Total 720 40 Balance 30 -40 - Medications Medications: Current Medications Albuterol/Ipratropium (Duoneb 3 Mg/0.5 Mg (3 Ml) Ud) 3 ml INH RQ6 [facility] Last Admin: 10/29/16 13:05 Dose: 3 ml Amlodipine Besylate (Norvasc) 5 mg PO DAILY [facility] Aspirin (Ecotrin) 81 mg PO DAILY [facility] Last Admin: 10/29/16 11:15 Dose: 81 mg Carbamazepine (Tegretol-Xr) 200 mg PO Q12 [facility] Last Admin: 10/29/16 11:15 Dose: 200 mg Famotidine (Pepcid) 20 mg PO DAILY [facility] Last Admin: 10/29/16 11:15 Dose: 20 mg Heparin Sodium (Porcine) (Heparin) 5,000 units SC Q8 [facility] Last Admin: 10/29/16 14:55 Dose: 5,000 units Home Med (Brinzolamide/Brimonidine Tart [Simbrinza 1%-0.2% Eye Drops]) 1 drop OU BID [facility] Last Admin: 10/29/16 17:32 Dose: 1 drop Home Med (Home Med) 1 unit OU HS [facility] Last Admin: 10/28/16 23:46 Dose: 1 unit Insulin Human Regular (Novolin R) 0 unit SC ACHS [facility] PRN Reason: Protocol Last Admin: 10/29/16 17:31 Dose: 4 unit Isosorbide Mononitrate (Ismo) 10 mg PO DAILY [facility] Last Admin: 10/29/16 11:15 Dose: 10 mg Ondansetron HCl (Zofran Inj) 4 mg IVP Q6H PRN PRN Reason: Nausea/Vomiting Last Admin: 10/29/16 11:15 Dose: 4 mg Rosuvastatin Calcium (Crestor) 10 mg PO HS [facility] Last Admin: 10/28/16 22:00 Dose: 10 mg Sodium Bicarbonate (Sodium Bicarbonate Tab) 650 mg PO Q8H [facility] Last Admin: 10/29/16 17:31 Dose: 650 mg - Labs Labs: 10/29/16 12:55 10/29/16 12:55 - Constitutional Appears: Well - Head Exam Head Exam: ATRAUMATIC, NORMAL INSPECTION, NORMOCEPHALIC - Eye Exam Eye Exam: EOMI, Normal appearance, PERRL Pupil Exam: NORMAL ACCOMODATION, PERRL - Neck Exam Neck Exam: Full ROM, Normal Inspection. absent: Lymphadenopathy - Respiratory Exam Respiratory Exam: Clear to Ausculation Bilateral, NORMAL BREATHING PATTERN - Cardiovascular Exam Cardiovascular Exam: Diastolic murmur, Irregular Rhythm, +S1, +S2, Murmur - GI/Abdominal Exam GI & Abdominal Exam: Soft, Normal Bowel Sounds. absent: Tenderness - Extremities Exam Extremities Exam: Full ROM, Normal Capillary Refill, Normal Inspection. absent : Joint Swelling, Pedal Edema - Back Exam Back Exam: NORMAL INSPECTION - Neurological Exam Neurological Exam: Alert, Normal Gait, Oriented x3 - Psychiatric Exam Psychiatric exam: Normal Affect, Normal Mood - Skin Skin Exam: Dry, Intact, Normal Color, Warm Assessment and Plan (1) Acute hyperkalemia Status: Resolved (2) Symptomatic bradycardia Status: Resolved (3) Acute on chronic renal failure Status: Resolved (4) CVA (cerebral vascular accident) Status: Chronic (5) Diabetes mellitus Status: Chronic (6) HTN (hypertension) Status: Acute (7) CAD (coronary artery disease), [place] coronary artery Status: Acute (8) CAD S/P percutaneous coronary angioplasty Status: Acute (9) Seizure Status: Acute (10) Dementia Status: Chronic - Assessment and Plan (Free Text) Plan: pts bp elevated. will add norvasc 5mg bid continue monitoring. hr improving. echo results from jun 2016 noted. repeat ecg reviewed no st seg changes. 40 min total care
[2016-10-29] MEDS: LUMIGAN OU SCH (21:29)
[2016-10-30] MEDS: Albuterol-Ipratrop 3 mg / 0.5 (3 ml) UD INH SCH ×4 (01:10→19:18)
[2016-10-30] MEDS: (Novolin R) Insulin Human Regular 100 units/ml vial SC SCH ×4 (07:30→21:23)
[2016-10-30 09:07] LABS: POTASSIUM 4.6 mmol/L (3.6-5.2)
[2016-10-30 09:10] LABS: CALCIUM 8.6 mg/dl (8.6-10.4)
[2016-10-30 09:11] LABS: MAGNESIUM 2.3 mg/dL (1.6-2.3)
[2016-10-30] MEDS: BRIMONIDINE TART OU SCH ×2 (10:26→17:23)
[2016-10-30] MEDS: BRINZOLAMIDE OU SCH ×2 (10:26→17:23)
--- NOTE | 2016-10-30 13:21 | CP.PCM.PN ---
Subjective - Date & Time of Evaluation Date of Evaluation: 10/30/16 Time of Evaluation: 13:17 - Subjective Subjective: pt now tachycardic at 130 bpm and regular. no complaints. sitting up in bed. eating on own. granddaughter at bedside. Objective - Vital Signs/Intake and Output Vital Signs (last 24 hours): Temp Pulse Resp BP Pulse Ox 96.1 F L 122 H 20 175/92 H 97 10/30/16 08:00 10/30/16 08:00 10/30/16 08:00 10/30/16 08:00 10/30/16 08:00 Intake and Output: 10/30/16 10/30/16 06:59 18:59 Intake Total 560 0 Output Total 565 125 Balance -5 -125 - Medications Medications: Current Medications Albuterol/Ipratropium (Duoneb 3 Mg/0.5 Mg (3 Ml) Ud) 3 ml INH RQ6 [facility] Last Admin: 10/30/16 13:16 Dose: 3 ml Amlodipine Besylate (Norvasc) 5 mg PO DAILY [facility] Last Admin: 10/30/16 09:23 Dose: 5 mg Aspirin (Ecotrin) 81 mg PO DAILY [facility] Last Admin: 10/30/16 09:22 Dose: 81 mg Carbamazepine (Tegretol-Xr) 200 mg PO Q12 [facility] Last Admin: 10/30/16 09:23 Dose: 200 mg Famotidine (Pepcid) 20 mg PO DAILY [facility] Last Admin: 10/30/16 09:23 Dose: 20 mg Heparin Sodium (Porcine) (Heparin) 5,000 units SC Q8 [facility] Last Admin: 10/30/16 06:47 Dose: 5,000 units Home Med (Home Med) 1 unit OU HS [facility] Last Admin: 10/29/16 21:29 Dose: 1 unit Home Med (Brinzolamide/Brimonidine Tart [Simbrinza 1%-0.2% Eye Drops]) 1 drop OU BID [facility] Last Admin: 10/30/16 10:26 Dose: 1 drop Insulin Human Regular (Novolin R) 0 unit SC ACHS [facility] PRN Reason: Protocol Last Admin: 10/30/16 12:39 Dose: 2 unit Isosorbide Mononitrate (Ismo) 10 mg PO DAILY [facility] Last Admin: 10/30/16 09:23 Dose: 10 mg Ondansetron HCl (Zofran Inj) 4 mg IVP Q6H PRN PRN Reason: Nausea/Vomiting Last Admin: 10/29/16 11:15 Dose: 4 mg Rosuvastatin Calcium (Crestor) 10 mg PO HS [facility] Last Admin: 10/29/16 21:28 Dose: 10 mg Sodium Bicarbonate (Sodium Bicarbonate Tab) 650 mg PO Q8H [facility] Last Admin: 10/30/16 12:39 Dose: 650 mg - Labs Labs: 10/29/16 12:55 10/30/16 08:43 - Constitutional Appears: Well - Head Exam Head Exam: ATRAUMATIC, NORMAL INSPECTION, NORMOCEPHALIC - Eye Exam Eye Exam: EOMI, Normal appearance, PERRL Pupil Exam: NORMAL ACCOMODATION, PERRL - ENT Exam ENT Exam: Mucous Membranes Moist, Normal Exam - Neck Exam Neck Exam: Full ROM, Normal Inspection. absent: Lymphadenopathy - Respiratory Exam Respiratory Exam: Clear to Ausculation Bilateral, NORMAL BREATHING PATTERN - Cardiovascular Exam Cardiovascular Exam: Diastolic murmur, REGULAR RHYTHM, +S1, +S2, Murmur - GI/Abdominal Exam GI & Abdominal Exam: Soft, Normal Bowel Sounds. absent: Tenderness - Extremities Exam Extremities Exam: Full ROM, Normal Capillary Refill, Normal Inspection. absent : Joint Swelling, Pedal Edema - Back Exam Back Exam: NORMAL INSPECTION - Neurological Exam Neurological Exam: Alert, Awake, CN II-XII Intact, Oriented x3 - Psychiatric Exam Psychiatric exam: Normal Affect, Normal Mood - Skin Skin Exam: Dry, Intact, Normal Color, Warm Assessment and Plan (1) Acute hyperkalemia Status: Resolved (2) Symptomatic bradycardia Assessment & Plan: now tachy Status: Resolved (3) Acute on chronic renal failure Status: Resolved (4) CVA (cerebral vascular accident) Status: Chronic (5) Diabetes mellitus Status: Chronic (6) HTN (hypertension) Status: Acute (7) CAD (coronary artery disease), [place] coronary artery Status: Acute (8) CAD S/P percutaneous coronary angioplasty Status: Acute (9) Seizure Status: Acute (10) Dementia Status: Chronic - Assessment and Plan (Free Text) Plan: pt tachy bp elevated josie likely secondary to high k asked family to bring in all medication bottles for review as pt may have inadvertently taken extra avn blockers d/w grand daughter will start low dose metoprolol given cad if becomes josie again then we may need to consider ppm. 45 min total care
--- NOTE | 2016-10-30 14:27 | CP.PCM.PN ---
Subjective - Date & Time of Evaluation Date of Evaluation: 10/30/16 Time of Evaluation: 12:00 - Subjective Subjective: Patient seen and examined in ICU Patient appears agitated and confused As per the nursing staff patient becomes very agitated at times. Objective - Vital Signs/Intake and Output Vital Signs (last 24 hours): Temp Pulse Resp BP Pulse Ox 97.7 F 103 H 15 154/79 H 96 10/30/16 12:00 10/30/16 12:00 10/30/16 12:00 10/30/16 12:00 10/30/16 12:00 Intake and Output: 10/30/16 10/30/16 06:59 18:59 Intake Total 560 720 Output Total 565 325 Balance -5 395 - Medications Medications: Current Medications Albuterol/Ipratropium (Duoneb 3 Mg/0.5 Mg (3 Ml) Ud) 3 ml INH RQ6 [facility] Last Admin: 10/30/16 13:16 Dose: 3 ml Amlodipine Besylate (Norvasc) 5 mg PO BID [facility] Aspirin (Ecotrin) 81 mg PO DAILY [facility] Last Admin: 10/30/16 09:22 Dose: 81 mg Carbamazepine (Tegretol-Xr) 200 mg PO Q12 [facility] Last Admin: 10/30/16 09:23 Dose: 200 mg Famotidine (Pepcid) 20 mg PO DAILY [facility] Last Admin: 10/30/16 09:23 Dose: 20 mg Heparin Sodium (Porcine) (Heparin) 5,000 units SC Q8 [facility] Last Admin: 10/30/16 14:11 Dose: 5,000 units Home Med (Home Med) 1 unit OU HS [facility] Last Admin: 10/29/16 21:29 Dose: 1 unit Home Med (Brinzolamide/Brimonidine Tart [Simbrinza 1%-0.2% Eye Drops]) 1 drop OU BID [facility] Last Admin: 10/30/16 10:26 Dose: 1 drop Insulin Human Regular (Novolin R) 0 unit SC ACHS [facility] PRN Reason: Protocol Last Admin: 10/30/16 12:39 Dose: 2 unit Isosorbide Mononitrate (Ismo) 10 mg PO DAILY [facility] Last Admin: 10/30/16 09:23 Dose: 10 mg Metoprolol Tartrate (Lopressor) 12.5 mg PO Q8 [facility] Ondansetron HCl (Zofran Inj) 4 mg IVP Q6H PRN PRN Reason: Nausea/Vomiting Last Admin: 10/29/16 11:15 Dose: 4 mg Rosuvastatin Calcium (Crestor) 10 mg PO HS [facility] Last Admin: 10/29/16 21:28 Dose: 10 mg Sodium Bicarbonate (Sodium Bicarbonate Tab) 650 mg PO Q8H [facility] Last Admin: 10/30/16 12:39 Dose: 650 mg - Labs Labs: 10/29/16 12:55 10/30/16 08:43 - Head Exam Head Exam: ATRAUMATIC, NORMOCEPHALIC - Eye Exam Eye Exam: EOMI - ENT Exam ENT Exam: Mucous Membranes Moist - Neck Exam Neck Exam: Normal Inspection - Respiratory Exam Respiratory Exam: Clear to Ausculation Bilateral - Cardiovascular Exam Cardiovascular Exam: Tachycardia, REGULAR RHYTHM, +S1, +S2 - GI/Abdominal Exam GI & Abdominal Exam: Soft. absent: Tenderness - Neurological Exam Neurological Exam: Alert, Awake Assessment and Plan (1) Acute on chronic renal insufficiency Status: Acute (2) Bradycardia with 31-40 beats per minute Status: Acute (3) Glaucoma Status: Acute (4) Hyperkalemia Status: Acute (5) DM2 (diabetes mellitus, type 2) Status: Acute (6) HTN (hypertension) Status: Acute - Assessment and Plan (Free Text) Plan: Patient initially came with the hyperkalemia, renal failure and bradycardia. We have function is improving. Hyperkalemia has resolved. Nephrology's evaluation and follow-up seen in appreciated. Patient initially was bradycardic but does not tachycardic. Patient started on beta kevin by cardiology. Continue to monitor on telemetry and if the patient becomes bradycardic patient will need a pacemaker. Patient's agitation is because of underlying dementia. I discussed with the nursing staff. No family present at bedside at this time.
[2016-10-30] MEDS: LUMIGAN OU SCH (22:00)
[2016-10-31] MEDS: Albuterol-Ipratrop 3 mg / 0.5 (3 ml) UD INH SCH ×4 (01:16→19:29)
[2016-10-31] MEDS: (Novolin R) Insulin Human Regular 100 units/ml vial SC SCH ×4 (07:46→22:00)
[2016-10-31] MEDS: BRIMONIDINE TART OU SCH ×2 (09:40→17:40)
[2016-10-31] MEDS: BRINZOLAMIDE OU SCH ×2 (09:40→17:40)
--- NOTE | 2016-10-31 13:31 | CP.PCM.PN ---
Subjective - Date & Time of Evaluation Date of Evaluation: 10/31/16 Time of Evaluation: 13:25 - Subjective Subjective: Patient is currently pending transfer out of the ICU. She is known to the hospitalist service from previous admissions. The patient has a history of CKD, as well as history of admissions due to hyperkalemia as well as advanced dementia. She was admitted on 10/27 due to elevated K, CKD, and also bradycardia. Review of notes indicates maybe she took too much BB Currently not in any acute distress, her HR is now in the 70s. From what I understand she is refusing a lot of lab work and medications The patient at times has been agitated. When I saw her she was able to communicate she did not have chest pain or abdominal pain, however was not cooperative during the exam. Objective - Vital Signs/Intake and Output Vital Signs (last 24 hours): Temp Pulse Resp BP Pulse Ox 97 F L 88 20 150/60 99 10/31/16 12:00 10/31/16 12:00 10/31/16 12:00 10/31/16 12:00 10/31/16 12:00 Intake and Output: 10/31/16 10/31/16 06:59 18:59 Intake Total 200 340 Output Total 1130 Balance -930 340 - Medications Medications: Current Medications Albuterol/Ipratropium (Duoneb 3 Mg/0.5 Mg (3 Ml) Ud) 3 ml INH RQ6 [facility] Last Admin: 10/31/16 07:39 Dose: 3 ml Amlodipine Besylate (Norvasc) 5 mg PO BID [facility] Last Admin: 10/31/16 09:40 Dose: 5 mg Aspirin (Ecotrin) 81 mg PO DAILY [facility] Last Admin: 10/31/16 09:39 Dose: 81 mg Carbamazepine (Tegretol-Xr) 200 mg PO Q12 [facility] Last Admin: 10/31/16 09:40 Dose: 200 mg Famotidine (Pepcid) 20 mg PO DAILY [facility] Last Admin: 10/31/16 09:39 Dose: 20 mg Home Med (Home Med) 1 unit OU HS [facility] Last Admin: 10/30/16 22:00 Dose: Not Given Home Med (Brinzolamide/Brimonidine Tart [Simbrinza 1%-0.2% Eye Drops]) 1 drop OU BID [facility] Last Admin: 10/31/16 09:40 Dose: 1 drop Insulin Human Regular (Novolin R) 0 unit SC ACHS [facility] PRN Reason: Protocol Last Admin: 10/31/16 12:00 Dose: Not Given Isosorbide Mononitrate (Ismo) 10 mg PO DAILY [facility] Last Admin: 10/31/16 09:41 Dose: 10 mg Metoprolol Tartrate (Lopressor) 12.5 mg PO Q8 [facility] Last Admin: 10/31/16 07:17 Dose: 12.5 mg Ondansetron HCl (Zofran Inj) 4 mg IVP Q6H PRN PRN Reason: Nausea/Vomiting Last Admin: 10/29/16 11:15 Dose: 4 mg Rosuvastatin Calcium (Crestor) 10 mg PO HS [facility] Last Admin: 10/30/16 21:18 Dose: 10 mg Sodium Bicarbonate (Sodium Bicarbonate Tab) 650 mg PO Q8H [facility] Last Admin: 10/31/16 09:39 Dose: 650 mg - Labs Labs: 10/29/16 12:55 10/30/16 08:43 - Constitutional Appears: Older Than Stated Age, Agitated, Confused, Chronically Ill - Head Exam Head Exam: NORMAL INSPECTION - Eye Exam Eye Exam: EOMI - ENT Exam ENT Exam: Mucous Membranes Moist - Respiratory Exam Respiratory Exam: Decreased Breath Sounds - Cardiovascular Exam Cardiovascular Exam: Irregular Rhythm - GI/Abdominal Exam GI & Abdominal Exam: Soft, Normal Bowel Sounds - Neurological Exam Neurological Exam: Alert, Altered, Awake - Psychiatric Exam Psychiatric exam: Depressed, Flat Affect - Skin Skin Exam: Normal Color, Warm Assessment and Plan - Assessment and Plan (Free Text) Assessment: (1) Bradycardia with 31-40 beats per minute Assessment and Plan: 10/31: Currently HR in the 70s, irregular appearance. Was restarted on low dose BB yesterday (2) Chest pain Assessment and Plan: 10/31: Currently reports no chest or stomach pain - however it should be noted has severe dementia NICK on admission negative. EKG on admission showed sinus josie 48 bpm. Cardio consult placed- Dr. Leung- help appreciated. Aspirin 81 mg PO daily Crestor 10mg PO HS (3) Hyperkalemia Assessment and Plan: 10/31: Today patient is refusing lab work.The patient's most recent labwork shows the K was decreased to 4.6 today (4) Asthma Assessment and Plan: Kimbs Q6H [facility] (5) Acute on chronic renal insufficiency Assessment and Plan: 10/31: Continue slow IVF hydration. Monitor renal function. BUN/Cr: 66/3.3 on admission. Patient with history of CKD stage 4. Baseline Cr 1.8-2.5 Nephro consult placed- Dr. Jones- help appreciated. (6) History of epilepsy Assessment and Plan: Tegretol 200 mg PO Q12H (7) DM2 (diabetes mellitus, type 2) Assessment and Plan: ISS Accuchecks AC and HS f/u Hgb A1C (8) HTN (hypertension) Assessment and Plan: Imdur 30 mg PO daily (9) Prophylactic measure Assessment and Plan: Heparin 5000 SC Q8H Pepcid 20 mg PO daily
--- NOTE | 2016-10-31 15:23 | CARD ---
APPROVED REPORT EKG Measurement Heart [id number] <Conclusion> Sinus rhythm with frequent PAC's. Abnormal ECG
--- NOTE | 2016-10-31 15:27 | CARD ---
APPROVED REPORT EKG Measurement Heart [id number] <Conclusion> Marked sinus bradycardia with AV dissociation and Junctional bradycardia Septal infarct, age undetermined Abnormal ECG
--- NOTE | 2016-10-31 15:44 | CP.CCUPN ---
CCU Subjective - Physician Review Subjective (Free Text): 10/28/16 21:04 Pleasant 86 year old female seen at bedside in no acute distress. Pt's heart rate drops to the 30's to 40s when sleeping and then increases 60s and 70s. At times, the BP increases as well. Patient states she had a large bowel movement recently. She vomited contents of breakfast earlier in the morning but remained stable. Patient denies headaches, chest pain, palpitations, subjective fevers or chills, nausea, vomiting, or diarrhea at this time. 10/31/16 15:41 Pt seen and examined in no acute distress. Patient refused morning lab draws. At times, patient restless, confused and occasionally combative per nursing. Patient denies subjective fevers or chills, headaches, chest pain, lightheadedness, palpitations, paresthesias or dyspnea at this time. CCU Objective - Vital Signs / Intake & Output Vital Signs (Last 4 hours): Vital Signs Temp Pulse Resp BP Pulse Ox 10/31/16 12:00 97 F L 88 20 150/60 99 10/31/16 11:47 98 H Intake and Output (Last 8hrs): Intake & Output 10/31/16 10/31/16 10/31/16 06:59 14:59 22:59 Intake Total 100 340 Output Total 620 Balance -520 340 Intake: Oral 100 340 Output: Urine 620 Urethral (Francis) 620 - Physical Exam Pupils: Positive for: PERRL Extroacular Muscles: Positive for: EOMI Conjunctiva: Positive for: Normal Mouth: Positive for: Moist Mucous Membranes Nose (External): Positive for: Atraumatic Neck: Positive for: Normal Range of Motion Respiratory/Chest: Positive for: [place] Cardiovascular: Positive for: Normal S1, S2, Bradycardic Abdomen: Negative for: Tenderness, Distention Upper Extremity: Positive for: Normal Inspection Lower Extremity: Positive for: Normal Inspection Neurological: Positive for: CN II-XII Intact, Speech Normal Skin: Positive for: Warm, Normal Color Psychiatric: Positive for: Alert - Medications Active Medications: Active Medications Generic Name Dose Route Start Last Admin Trade Name Freq PRN Reason Stop Dose Admin Albuterol/Ipratropium 3 ml 10/28/16 02:00 10/31/16 13:31 Duoneb 3 Mg/0.5 Mg (3 Ml) Ud INH Not Given RQ6 [facility] Amlodipine Besylate 5 mg 10/30/16 18:00 10/31/16 09:40 Norvasc PO 5 mg BID [facility] Administration Aspirin 81 mg 10/28/16 10:00 10/31/16 09:39 Ecotrin PO 81 mg DAILY [facility] Administration Carbamazepine 200 mg 10/27/16 22:00 10/31/16 09:40 Tegretol-Xr PO 200 mg Q12 [facility] Administration Famotidine 20 mg 10/28/16 10:00 10/31/16 09:39 Pepcid PO 20 mg DAILY [facility] Administration Home Med 1 unit 10/28/16 23:45 10/30/16 22:00 Home Med OU Not Given HS [facility] Home Med 1 drop 10/30/16 10:00 10/31/16 09:40 Brinzolamide/Brimonidine Tart [Simbrinza 1%-0.2% Eye Drops] OU 1 drop BID [facility] Administration Insulin Human Regular 0 unit 10/27/16 22:00 10/31/16 12:00 Novolin R SC Not Given ACHS [facility] Protocol Isosorbide Mononitrate 10 mg 10/28/16 10:30 10/31/16 09:41 Ismo PO 10 mg DAILY [facility] Administration Metoprolol Tartrate 12.5 mg 10/30/16 14:00 10/31/16 07:17 Lopressor PO 12.5 mg Q8 [facility] Administration Ondansetron HCl 4 mg 10/28/16 10:07 10/29/16 11:15 Zofran Inj IVP 4 mg Q6H PRN Administration Nausea/Vomiting Rosuvastatin Calcium 10 mg 10/27/16 22:00 10/30/16 21:18 Crestor PO 10 mg HS [facility] Administration Sodium Bicarbonate 650 mg 10/28/16 10:30 10/31/16 09:39 Sodium Bicarbonate Tab PO 650 mg Q8H [facility] Administration - Patient Studies Lab Studies: Lab Studies 10/31/16 10/31/16 10/30/16 Range/Units 11:48 07:26 21:31 POC Glucose (mg/dL) 203 H 121 H 265 H (65-110) mg/dL 10/30/16 Range/Units 17:04 POC Glucose (mg/dL) 203 H (65-110) mg/dL Laboratory Results - last 24 hr 10/30/16 10/30/16 10/31/16 17:04 21:31 07:26 POC Glucose (mg/dL) 203 H 265 H 121 H 10/31/16 11:48 POC Glucose (mg/dL) 203 H Fingerstick Blood Sugar Results: 265 Review of Systems - Review of Systems Review of Systems: see subjective Critical Care Progress Note - Nutrition Nutrition: Nutrition Category Date Time Status Heart Healthy Diet [DIET] Diets 10/28/16 Breakfast Active Assessment/Plan - Assessment and Plan (Free Text) Assessment: 86 year old with PMHx significant for epilepsy, Diabetes, HTN, asthma, bradycardia, hyperkalemia presents after having asymptomatic bradycardic event at the eye doctor. Patient also hyperkalemic on admission. Patient admitted to ICU for critical care monitoring. Plan: Neuro: labile at times Neurochecks q4 Carbamazepine 200 mg PO Q12 Cardio: HTN Troponin I 0.0350>0.0200>0.0270 10/27 Pro BNP 3110 10/28 Cardiology Consult - Dr. Leung - bradycardia multifactorial, hold BB, echo ordered, recheck EKG now that heartrate is normalized. Check Mag level. Continue haney-ex until BM. f/u Nephrology consult. no indication for cardiac cath at this time. Troponin negative so far. Imagin/31 EKG: sinus bradycardia,AV dissociation junctional rhythm @ 41 bpm, septal infarct. age undetermined. 10/27 EKG: atrial fibrillation junctional pacemaker 46 bpm, septal infarct. age undetermined Crestor 10 mg PO HS [facility] ASA 81 mg PO daily Isosorbide mononitrate 10 mg PO daily [facility] Pt instructed to bring in all medication bottles per Cardiology. Started on low dose Metoprolol although patient has hx of bradycardia- will need to be closely monitored. Discontinue is HR drops below 60 Pulm: Asthma history Duoneb 3mg/0.5mg (3ml) Ud 3 cc INH RQ6 [facility] Endo: Diabetes Novolin sliding scale GI: Diet: Heart Healthy Diet Odansetron Zofran INJ 4 mg IVP Q6H PRN Nausea/Vomiting Sodium polystyrene 30 gm PO Q4 [facility] Monitor BM : I/Os 750 cc Monitor I/Os refused labs today Renal: acute on chronic renal insufficiency acute hyperkalemia Sodium bicarb 650 mg PO Q8H [facility] Hyperphosphatemia, Hypermagnesemia Heme: H&H: Pt refused labs today. Monitor Daily CBC ID: [id number] . refused labs today. Re-ordered for morning Daily CBC Prophylaxis: DVT: Heparin 5,000 units SC Q8 [facility] GI: Pepcid 20 mg PO daily Disp- Medically stable for transfer to telemetry floor. Patient needs to be encouraged to comply with labwork
--- NOTE | 2016-10-31 15:51 | CP.PCM.PN ---
Subjective - Date & Time of Evaluation Date of Evaluation: 10/31/16 Time of Evaluation: 12:00 - Subjective Subjective: no complaints. Objective - Vital Signs/Intake and Output Vital Signs (last 24 hours): Temp Pulse Resp BP Pulse Ox 97 F L 88 20 150/60 99 10/31/16 12:00 10/31/16 12:00 10/31/16 12:00 10/31/16 12:00 10/31/16 12:00 Intake and Output: 10/31/16 10/31/16 06:59 18:59 Intake Total 200 340 Output Total 1130 Balance -930 340 - Medications Medications: Current Medications Albuterol/Ipratropium (Duoneb 3 Mg/0.5 Mg (3 Ml) Ud) 3 ml INH RQ6 [facility] Last Admin: 10/31/16 13:31 Dose: Not Given Amlodipine Besylate (Norvasc) 5 mg PO BID [facility] Last Admin: 10/31/16 09:40 Dose: 5 mg Aspirin (Ecotrin) 81 mg PO DAILY [facility] Last Admin: 10/31/16 09:39 Dose: 81 mg Carbamazepine (Tegretol-Xr) 200 mg PO Q12 [facility] Last Admin: 10/31/16 09:40 Dose: 200 mg Famotidine (Pepcid) 20 mg PO DAILY [facility] Last Admin: 10/31/16 09:39 Dose: 20 mg Home Med (Home Med) 1 unit OU HS [facility] Last Admin: 10/30/16 22:00 Dose: Not Given Home Med (Brinzolamide/Brimonidine Tart [Simbrinza 1%-0.2% Eye Drops]) 1 drop OU BID [facility] Last Admin: 10/31/16 09:40 Dose: 1 drop Insulin Human Regular (Novolin R) 0 unit SC [facility] PRN Reason: Protocol Last Admin: 10/31/16 12:00 Dose: Not Given Isosorbide Mononitrate (Ismo) 10 mg PO DAILY [facility] Last Admin: 10/31/16 09:41 Dose: 10 mg Metoprolol Tartrate (Lopressor) 12.5 mg PO Q8 [facility] Last Admin: 10/31/16 07:17 Dose: 12.5 mg Ondansetron HCl (Zofran Inj) 4 mg IVP Q6H PRN PRN Reason: Nausea/Vomiting Last Admin: 10/29/16 11:15 Dose: 4 mg Rosuvastatin Calcium (Crestor) 10 mg PO HS [facility] Last Admin: 10/30/16 21:18 Dose: 10 mg Sodium Bicarbonate (Sodium Bicarbonate Tab) 650 mg PO Q8H [facility] Last Admin: 10/31/16 09:39 Dose: 650 mg - Labs Labs: 10/29/16 12:55 10/30/16 08:43 - Constitutional Appears: Well - Head Exam Head Exam: ATRAUMATIC, NORMAL INSPECTION, NORMOCEPHALIC - Eye Exam Eye Exam: EOMI, Normal appearance, PERRL - ENT Exam ENT Exam: Mucous Membranes Moist, Normal Exam - Neck Exam Neck Exam: Full ROM, Normal Inspection. absent: Lymphadenopathy - Respiratory Exam Respiratory Exam: Clear to Ausculation Bilateral, NORMAL BREATHING PATTERN - Cardiovascular Exam Cardiovascular Exam: REGULAR RHYTHM, +S1, +S2, Murmur - GI/Abdominal Exam GI & Abdominal Exam: Soft, Normal Bowel Sounds. absent: Tenderness - Extremities Exam Extremities Exam: Full ROM, Normal Capillary Refill, Normal Inspection. absent : Joint Swelling, Pedal Edema - Back Exam Back Exam: NORMAL INSPECTION - Neurological Exam Neurological Exam: Alert, Awake, CN II-XII Intact, Normal Gait, Oriented x3 - Psychiatric Exam Psychiatric exam: Normal Affect, Normal Mood - Skin Skin Exam: Dry, Intact, Normal Color, Warm Assessment and Plan (1) Acute hyperkalemia Status: Resolved (2) Symptomatic bradycardia Status: Resolved (3) Acute on chronic renal failure Status: Resolved (4) CVA (cerebral vascular accident) Status: Chronic (5) Diabetes mellitus Status: Chronic (6) HTN (hypertension) Status: Acute (7) CAD (coronary artery disease), [place] coronary artery Status: Acute (8) CAD S/P percutaneous coronary angioplasty Status: Acute (9) Seizure Status: Acute (10) Dementia Status: Chronic - Assessment and Plan (Free Text) Assessment: hr controlled. 82 currently electrolytes corrected may move to tele continue current meds did review home meds with fam, no duplicate medications noted. 45 min
[2016-10-31 16:19] VITALS: O2SAT 100
[2016-10-31] MEDS: LUMIGAN OU SCH (21:47)
[2016-11-01] MEDS: Albuterol-Ipratrop 3 mg / 0.5 (3 ml) UD INH SCH ×3 (01:01→13:02)
[2016-11-01 05:15] VITALS: RESP 18
[2016-11-01] MEDS: (Novolin R) Insulin Human Regular 100 units/ml vial SC SCH ×2 (07:30→11:45)
[2016-11-01] MEDS: BRINZOLAMIDE OU SCH (10:00)
[2016-11-01] MEDS: BRIMONIDINE TART OU SCH (10:00)
[2016-11-01 10:19] LABS: CHLORIDE URINE 108 mmol/L (32-290)
--- NOTE | 2016-11-01 10:21 | CP.PCM.PN ---
Objective - Vital Signs/Intake and Output Vital Signs (last 24 hours): Temp Pulse Resp BP Pulse Ox 97.2 F L 86 18 164/83 H 100 11/01/16 04:00 11/01/16 04:00 11/01/16 04:00 11/01/16 04:00 10/31/16 16:00 Intake and Output: 11/01/16 11/01/16 06:59 18:59 Intake Total 60 0 Output Total 900 Balance -840 0 - Medications Medications: Current Medications Albuterol/Ipratropium (Duoneb 3 Mg/0.5 Mg (3 Ml) Ud) 3 ml INH RQ6 [facility] Last Admin: 11/01/16 07:37 Dose: 3 ml Amlodipine Besylate (Norvasc) 5 mg PO BID [facility] Last Admin: 10/31/16 18:00 Dose: Not Given Aspirin (Ecotrin) 81 mg PO DAILY [facility] Last Admin: 10/31/16 09:39 Dose: 81 mg Carbamazepine (Tegretol-Xr) 200 mg PO Q12 [facility] Last Admin: 10/31/16 21:46 Dose: 200 mg Famotidine (Pepcid) 20 mg PO DAILY [facility] Last Admin: 10/31/16 09:39 Dose: 20 mg Home Med (Home Med) 1 unit OU HS [facility] Last Admin: 10/31/16 21:47 Dose: 1 unit Home Med (Brinzolamide/Brimonidine Tart [Simbrinza 1%-0.2% Eye Drops]) 1 drop OU BID [facility] Last Admin: 10/31/16 17:40 Dose: 1 drop Insulin Human Regular (Novolin R) 0 unit SC [facility] PRN Reason: Protocol Last Admin: 10/31/16 22:00 Dose: Not Given Isosorbide Mononitrate (Ismo) 10 mg PO DAILY [facility] Last Admin: 10/31/16 09:41 Dose: 10 mg Metoprolol Tartrate (Lopressor) 12.5 mg PO Q8 [facility] Last Admin: 11/01/16 06:00 Dose: 12.5 mg Ondansetron HCl (Zofran Inj) 4 mg IVP Q6H PRN PRN Reason: Nausea/Vomiting Last Admin: 10/29/16 11:15 Dose: 4 mg Rosuvastatin Calcium (Crestor) 10 mg PO HS [facility] Last Admin: 10/31/16 21:46 Dose: 10 mg Sodium Bicarbonate (Sodium Bicarbonate Tab) 650 mg PO Q8H [facility] Last Admin: 11/01/16 02:30 Dose: 650 mg - Labs Labs: 10/29/16 12:55 10/30/16 08:43
[2016-11-01 12:54] VITALS: BP 195/86; PULSE 96; TEMP 98.2
--- NOTE | 2016-11-01 19:10 | CP.PCM.DIS ---
<Angel Duenas - Last Filed: 11/01/16 19:11> Provider - Provider Date of Admission: 10/27/16 19:06 Attending physician: William Webber MD Consults: Cardio: Dr. Leung Nephro: Dr. Singh Time Spent in preparation of Discharge (in minutes): 40 Hospital Course - Lab Results Lab Results: Micro Results 10/27/16 21:33 Nose MRSA Culture (Admit) - Final MRSA NOT DETECTED Most Recent Lab Values WBC 3.6 K/uL (4.8-10.8) L 10/29/16 12:55 RBC 3.46 Mil/uL (3.80-5.20) L 10/29/16 12:55 Hgb 10.7 g/dL (11.0-16.0) L 10/29/16 12:55 Hct 33.1 % (34.0-47.0) L 10/29/16 12:55 MCV 95.8 fL (81.0-99.0) 10/29/16 12:55 MCH 30.9 pg (27.0-31.0) 10/29/16 12:55 MCHC 32.2 g/dL (33.0-37.0) L 10/29/16 12:55 RDW 13.8 % (11.5-14.5) 10/29/16 12:55 Plt Count 135 K/uL (130-400) 10/29/16 12:55 MPV 9.8 fL (7.2-11.7) 10/29/16 12:55 Neut % (Auto) 65.9 % (50.0-75.0) 10/29/16 12:55 Lymph % (Auto) 22.0 % (20.0-40.0) 10/29/16 12:55 Williamson % (Auto) 11.1 % (0.0-10.0) H 10/29/16 12:55 Eos % (Auto) 0.0 % (0.0-4.0) 10/29/16 12:55 Baso % (Auto) 1.0 % (0.0-2.0) 10/29/16 12:55 Neut # 2.4 K/uL (1.8-7.0) 10/29/16 12:55 Lymph # 0.8 K/uL (1.0-4.3) L 10/29/16 12:55 Williamson # 0.4 K/uL (0.0-0.8) 10/29/16 12:55 Eos # 0.0 K/uL (0.0-0.7) 10/29/16 12:55 Baso # 0.0 K/uL (0.0-0.2) 10/29/16 12:55 Sodium 143 mmol/L (132-148) 10/30/16 08:43 Potassium 4.6 mmol/L (3.6-5.2) 10/30/16 08:43 Chloride 103 mmol/L (98-107) 10/30/16 08:43 Carbon Dioxide 26 mmol/L (22-30) 10/30/16 08:43 Anion Gap 18 (10-20) 10/30/16 08:43 BUN 49 mg/dL (7-17) H 10/30/16 08:43 Creatinine 2.7 MG/DL (0.7-1.2) H 10/30/16 08:43 Est GFR ( Amer) 20 10/30/16 08:43 Est GFR (Non-Af Amer) 17 10/30/16 08:43 POC Glucose (mg/dL) 111 mg/dL (65-110) H 11/01/16 07:49 Random Glucose 102 mg/dL (65-105) 10/30/16 08:43 Hemoglobin A1c 5.9 % (4.2-6.5) 10/28/16 06:18 Serum Osmolality 318 mosm/kg (272-300) H 10/28/16 16:54 Calcium 8.6 mg/dl (8.6-10.4) 10/30/16 08:43 Phosphorus 4.3 mg/dL (2.5-4.5) 10/29/16 12:55 Magnesium 2.3 mg/dL (1.6-2.3) 10/30/16 08:43 Total Bilirubin 0.3 mg/dL (0.2-1.3) 10/28/16 06:18 AST 47 U/L (14-36) H D 10/28/16 06:18 ALT 47 U/L (9-52) 10/28/16 06:18 Alkaline Phosphatase 84 U/L (38-126) 10/28/16 06:18 Troponin I 0.0270 ng/mL (0.00-0.120) 10/28/16 06:18 NT-Pro-B Natriuret Pep 3110 pg/mL (0-900) H 10/27/16 18:07 Total Protein 7.1 g/dL (6.3-8.3) 10/28/16 06:18 Albumin 3.6 g/dL (3.5-5.0) 10/28/16 06:18 Globulin 3.4 gm/dL (2.2-3.9) 10/28/16 06:18 Albumin/Globulin Ratio 1.1 (1.0-2.1) 10/28/16 06:18 Urine Osmolality 395 mosm/kg (300-1000) 10/29/16 12:55 Ur Random Sodium 113 mmol/L 10/29/16 12:55 Urine Chloride 108 mmol/L (32-290) 10/30/16 11:50 Carbamazepine 11.1 ug/mL (4.0-12.0) 10/28/16 06:18 - Hospital Course Hospital Course: Upon hospital admission: 86 year old female with PMHx of epilepsy, Diabetes, HTN , asthma, bradycardia, hyperkalemia, presents to the ED after being sent in by her eye doctor when she was "not feeling well". Patient has been seeing eye doctor for her "sick eye". She admits to "squeezing" chest pain that began since last night and has progressively worsened. She admits to SOB that also began last night. She states she feels "very tired" and that it is difficult to catch her breath. She denies cough, fevers, chills, diaphoresis, numbness, tingling, body aches. She reports she was once hospitalized in [facility] for high potassium and low pulse. She does not feel dizzy or disoriented and denies dysuria. Admits to fall at "the home" some time ago for which she had to have left hip surgery. She has a daughter names "Catrachita" whom she would like to be contacted. Denies diarrhea, constipation, abdominal pain, nausea, vomiting. PMHx: epilepsy, Diabetes, HTN, asthma, bradycardia, hyperkalemia. Right "eye problem" and sees ophtho. She also reports a history of urinary retention and last saw Urologist yesterday. Medications: she does not know them. Allergies: NKDA Surgery Hx: open monalisa, left hip surgery s/p fall. Social Hx: denies history of tobacco, alcohol or drugs. 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 PMD: Dr. Persaud During hospital course, the patient was evaluated and treated for the following : (1) Bradycardia with 31-40 beats per minute - medication adjusted by Cardiology Dr. Leung (please see discharge med list). Patients heart rate has improved with decreased dose of beta kevin. (2) Chest pain - 4/3: Currently reports no chest or stomach pain - however it should be noted has severe dementia. NICK on admission negative. EKG on admission showed sinus josie 48 bpm. Cardio consult placed- Dr. Leung. Aspirin 81 mg PO daily. Crestor 10mg PO HS. (3) Asthma - tx with Duonebs Q6H JOANNE. (5) Acute on chronic renal insufficiency - slow IVF hydration. BUN/Cr: 66/3.3 on admission. Patient with history of CKD stage 4. Baseline Cr 1.8-2.5, Nephro consult placed- Dr. Jones- help appreciated. (5) History of epilepsy- tx with Tegretol 200 mg PO Q12H. (6 ) DM2 (diabetes mellitus, type 2) tx with ISS and Accuchecks AC and HS. (7) HTN (hypertension) treated with Hydralazine, Amlodipine, Isosorbide Mononitrate , and Lopressor. Upon hospital discharge, the patient was provided with the following instructions: Patient is stable for discharge to senior care, per Dr. Natarajan. Patient should resume all medications as outlined in this document. Please make an appointment and follow up with your Primary Doctor within one week of discharge or while at the senior care. You refused most lab work while in our care, and had your blood pressure medication adjusted. Please have your PMD follow this and adjust as needed. Patient should return to ED immediately if symptoms return or worsen. Instructions discussed with patient who understood and agreed. Newly prescribed medications: Amlodipine Besylate 5mg PO BID Hydralazine 10mg IVP Q6 PRN, systolic BP >160 (new) Isosorbide Mononitrate 10mg PO daily (lowered) Lopressor 12.5mg PO Q8H (new) This is a summary of the patient's hospital admission, see chart for comprehensive detail. - Date & Time of H&P Date of H&P: 10/27/16 Time of H&P: 21:32 Discharge Exam - Additional Findings Additional findings: - Constitutional Appears: Older Than Stated Age, Agitated, Confused, Chronically Ill - Head Exam Head Exam: NORMAL INSPECTION - Eye Exam Eye Exam: EOMI - ENT Exam ENT Exam: Mucous Membranes Moist - Neck Exam Neck Exam: Full ROM, Normal Inspection. absent: Lymphadenopathy - Respiratory Exam Respiratory Exam: Decreased Breath Sounds - Cardiovascular Exam Cardiovascular Exam: REGULAR RHYTHM, +S1, +S2, Murmur - GI/Abdominal Exam GI & Abdominal Exam: Soft, Normal Bowel Sounds - Neurological Exam Neurological Exam: Alert, Oriented x3 (this morning), Awake - Psychiatric Exam Psychiatric exam: Depressed, Flat Affect - Skin Skin Exam: Normal Color, Warm Discharge Plan - Follow Up Plan Condition: GOOD Disposition: NURSING FACILITY MEDICAID CERT Additional Instructions: Patient is stable for discharge to senior care, per Dr. Natarajan. Patient should resume all medications as outlined in this document. Please make an appointment and follow up with your Primary Doctor within one week of discharge or while at the senior care. You refused most lab work while in our care, and had your blood pressure medication adjusted. Please have your PMD follow this and adjust as needed. Patient should return to ED immediately if symptoms return or worsen. Instructions discussed with patient who understood and agreed. Newly prescribed medications: Amlodipine Besylate 5mg PO BID Hydralazine 10mg IVP Q6 PRN, systolic BP >160 (new) Isosorbide Mononitrate 10mg PO daily (lowered) Lopressor 12.5mg PO Q8H (new) <Angel Natarajan - Last Filed: 11/01/16 19:25> Provider - Provider Date of Admission: 10/27/16 19:06 Attending physician: William Webber MD Hospital Course - Lab Results Lab Results: Micro Results 10/27/16 21:33 Nose MRSA Culture (Admit) - Final MRSA NOT DETECTED Most Recent Lab Values WBC 3.6 K/uL (4.8-10.8) L 10/29/16 12:55 RBC 3.46 Mil/uL (3.80-5.20) L 10/29/16 12:55 Hgb 10.7 g/dL (11.0-16.0) L 10/29/16 12:55 Hct 33.1 % (34.0-47.0) L 10/29/16 12:55 MCV 95.8 fL (81.0-99.0) 10/29/16 12:55 MCH 30.9 pg (27.0-31.0) 10/29/16 12:55 MCHC 32.2 g/dL (33.0-37.0) L 10/29/16 12:55 RDW 13.8 % (11.5-14.5) 10/29/16 12:55 Plt Count 135 K/uL (130-400) 10/29/16 12:55 MPV 9.8 fL (7.2-11.7) 10/29/16 12:55 Neut % (Auto) 65.9 % (50.0-75.0) 10/29/16 12:55 Lymph % (Auto) 22.0 % (20.0-40.0) 10/29/16 12:55 Williamson % (Auto) 11.1 % (0.0-10.0) H 10/29/16 12:55 Eos % (Auto) 0.0 % (0.0-4.0) 10/29/16 12:55 Baso % (Auto) 1.0 % (0.0-2.0) 10/29/16 12:55 Neut # 2.4 K/uL (1.8-7.0) 10/29/16 12:55 Lymph # 0.8 K/uL (1.0-4.3) L 10/29/16 12:55 Williamson # 0.4 K/uL (0.0-0.8) 10/29/16 12:55 Eos # 0.0 K/uL (0.0-0.7) 10/29/16 12:55 Baso # 0.0 K/uL (0.0-0.2) 10/29/16 12:55 Sodium 143 mmol/L (132-148) 10/30/16 08:43 Potassium 4.6 mmol/L (3.6-5.2) 10/30/16 08:43 Chloride 103 mmol/L (98-107) 10/30/16 08:43 Carbon Dioxide 26 mmol/L (22-30) 10/30/16 08:43 Anion Gap 18 (10-20) 10/30/16 08:43 BUN 49 mg/dL (7-17) H 10/30/16 08:43 Creatinine 2.7 MG/DL (0.7-1.2) H 10/30/16 08:43 Est GFR ( Amer) 20 10/30/16 08:43 Est GFR (Non-Af Amer) 17 10/30/16 08:43 POC Glucose (mg/dL) 111 mg/dL (65-110) H 11/01/16 07:49 Random Glucose 102 mg/dL (65-105) 10/30/16 08:43 Hemoglobin A1c 5.9 % (4.2-6.5) 10/28/16 06:18 Serum Osmolality 318 mosm/kg (272-300) H 10/28/16 16:54 Calcium 8.6 mg/dl (8.6-10.4) 10/30/16 08:43 Phosphorus 4.3 mg/dL (2.5-4.5) 10/29/16 12:55 Magnesium 2.3 mg/dL (1.6-2.3) 10/30/16 08:43 Total Bilirubin 0.3 mg/dL (0.2-1.3) 10/28/16 06:18 AST 47 U/L (14-36) H D 10/28/16 06:18 ALT 47 U/L (9-52) 10/28/16 06:18 Alkaline Phosphatase 84 U/L (38-126) 10/28/16 06:18 Troponin I 0.0270 ng/mL (0.00-0.120) 10/28/16 06:18 NT-Pro-B Natriuret Pep 3110 pg/mL (0-900) H 10/27/16 18:07 Total Protein 7.1 g/dL (6.3-8.3) 10/28/16 06:18 Albumin 3.6 g/dL (3.5-5.0) 10/28/16 06:18 Globulin 3.4 gm/dL (2.2-3.9) 10/28/16 06:18 Albumin/Globulin Ratio 1.1 (1.0-2.1) 10/28/16 06:18 Urine Osmolality 395 mosm/kg (300-1000) 10/29/16 12:55 Ur Random Sodium 113 mmol/L 10/29/16 12:55 Urine Chloride 108 mmol/L (32-290) 10/30/16 11:50 Carbamazepine 11.1 ug/mL (4.0-12.0) 10/28/16 06:18 Attending/Attestation - Attestation I have personally seen and examined this patient.: Yes I have fully participated in the care of the patient.: Yes I have reviewed all pertinent clinical information, including history, physical exam and plan: Yes Notes (Text): 11/01/16 19:22 Patient is well known to the hospitalist service for previous admission with hyperkalemia as well as CKD. She has a lot of dementia and at times can be very noncooperative. She was brought to the ER with high K as well as CKD and also bradycardia. Since then she is now on an adjusted BB dose and has been getting IVF and kayexelate. This day as well as previous day she has been very agiated and noncooperative with basic labwork and exam. She is refusing lab work. Her HR is now improved and she was evaluated by cardiology and BB adjusted. Will dsicharge back to [facility] thank you Angel Natarajan
--- NOTE | 2016-11-01 19:45 | CP.PCM.PN ---
Subjective - Date & Time of Evaluation Date of Evaluation: 11/01/16 Time of Evaluation: 14:00 - Subjective Subjective: SEEN IN THE ICU ON RENAL F/U IN BED .. DENIES C/P OR SOB RENAL FUNCTION BETTER .. LYTES OK Objective - Vital Signs/Intake and Output Vital Signs (last 24 hours): Temp Pulse Resp BP Pulse Ox 98.2 F 96 H 18 195/86 H 100 11/01/16 09:03 11/01/16 09:03 11/01/16 09:03 11/01/16 09:03 10/31/16 16:00 Intake and Output: 11/01/16 11/02/16 18:59 06:59 Intake Total 510 Output Total 480 Balance 30 - Medications Medications: Current Medications Albuterol/Ipratropium (Duoneb 3 Mg/0.5 Mg (3 Ml) Ud) 3 ml INH RQ6 [facility] Last Admin: 11/01/16 13:02 Dose: Not Given Amlodipine Besylate (Norvasc) 5 mg PO BID [facility] Last Admin: 11/01/16 10:31 Dose: 5 mg Aspirin (Ecotrin) 81 mg PO DAILY [facility] Last Admin: 11/01/16 10:31 Dose: 81 mg Carbamazepine (Tegretol-Xr) 200 mg PO Q12 [facility] Last Admin: 11/01/16 10:31 Dose: 200 mg Famotidine (Pepcid) 20 mg PO DAILY [facility] Last Admin: 11/01/16 10:31 Dose: 20 mg Home Med (Home Med) 1 unit OU HS [facility] Last Admin: 10/31/16 21:47 Dose: 1 unit Home Med (Brinzolamide/Brimonidine Tart [Simbrinza 1%-0.2% Eye Drops]) 1 drop OU BID [facility] Last Admin: 11/01/16 10:00 Dose: Not Given Hydralazine HCl (Apresoline) 10 mg IVP Q6 PRN PRN Reason: If systolic > 160 Insulin Human Regular (Novolin R) 0 unit SC ACHS [facility] PRN Reason: Protocol Last Admin: 11/01/16 11:45 Dose: Not Given Isosorbide Mononitrate (Ismo) 10 mg PO DAILY [facility] Last Admin: 11/01/16 10:34 Dose: 10 mg Metoprolol Tartrate (Lopressor) 12.5 mg PO Q8 [facility] Last Admin: 11/01/16 14:00 Dose: Not Given Ondansetron HCl (Zofran Inj) 4 mg IVP Q6H PRN PRN Reason: Nausea/Vomiting Last Admin: 10/29/16 11:15 Dose: 4 mg Rosuvastatin Calcium (Crestor) 10 mg PO HS [facility] Last Admin: 10/31/16 21:46 Dose: 10 mg Sodium Bicarbonate (Sodium Bicarbonate Tab) 650 mg PO Q8H [facility] Last Admin: 11/01/16 10:29 Dose: 650 mg - Labs Labs: 10/29/16 12:55 10/30/16 08:43 Assessment and Plan - Assessment and Plan (Free Text) Assessment: A ON CKD .. RENAL FUNCTION BETTER HYPERKALEMIA .. K IS NOW OK MULTIPLE CO MORBIDITIES
== END 2016-11-01 16:25 | DRG 309 ==
LOC: C.ER 16:02 → C.9E 19:06 → C.9I 20:33
PROVIDERS: ADMIT Family Medicine; ATTEND Family Medicine
DX: R00.1 Bradycardia, unspecified (principal); N17.9 Acute kidney failure, unspecified; E11.22 Type 2 diabetes mellitus with diabetic chronic kidney disease; N18.4 Chronic kidney disease, stage 4 (severe); F03.90 Unspecified dementia, unspecified severity, without behavioral disturbance, psychotic disturbance, mood disturbance, and anxiety; I69.354 Hemiplegia and hemiparesis following cerebral infarction affecting left non-dominant side; E87.5 Hyperkalemia; G40.909 Epilepsy, unspecified, not intractable, without status epilepticus; I12.9 Hypertensive chronic kidney disease with stage 1 through stage 4 chronic kidney disease, or unspecified chronic kidney disease; J45.909 Unspecified asthma, uncomplicated; Z98.61 Coronary angioplasty status; I25.10 Atherosclerotic heart disease of native coronary artery without angina pectoris; Z68.23 Body mass index [BMI] 23.0-23.9, adult; Z79.4 Long term (current) use of insulin

== ENCOUNTER 2016-11-21 00:35 | Inpatient (IN) | payer MEDICARE, MEDICAID ==
[2016-11-21 01:36] LABS: BASO % 0.5 % (0.0-2.0); HEMATOCRIT 31.5 % (34.0-47.0); LYMPH # 0.8 K/uL (1.0-4.3); LYMPH % 9.7 % (20.0-40.0); MEAN CELL VOLUME 92.7 fL (81.0-99.0); MEAN CORPUSCULAR HEMOGLOBIN 30.6 pg (27.0-31.0); MEAN PLATELET VOLUME 9.5 fL (7.2-11.7); MONO # 0.5 K/uL (0.0-0.8); MONO % 5.8 % (0.0-10.0); PLATELET COUNT 141 K/uL (130-400); RED CELL DISTRIBUTION WIDTH 13.2 % (11.5-14.5); WHITE BLOOD COUNT 8.5 K/uL (4.8-10.8)
[2016-11-21 01:45] LABS: POTASSIUM 5.8 mmol/L (3.6-5.2)
[2016-11-21 01:47] LABS: ALB/GLOB RATIO 1.2 (1.0-2.1); BILIRUBIN,TOTAL 0.3 mg/dL (0.2-1.3); TOTAL PROTEIN 7.4 g/dL (6.3-8.3)
[2016-11-21 01:48] LABS: CALCIUM 8.3 mg/dl (8.6-10.4)
[2016-11-21 02:00] LABS: TROPONIN I 0.03 ng/mL (0.00-0.120)
[2016-11-21 02:16] LABS: NEUTROPHIL 80 % (50-75); TOTAL CELLS COUNTED 100
[2016-11-21] MEDS ORDERED: Sod Polystyrene Sulf 15 gm/60 ml Oral Susp PO ONE ×2 (02:28→06:00)
--- NOTE | 2016-11-21 02:28 | C.PDOC ---
History Of Present Illness 86 y/o female [facility] for chest discomfort and shortness of breath. Patient with history of advanced dementia which limits obtainable history. Daughter called by [facility] and now at bedside. Denies fevers or other complaints. Time Seen by Provider: 11/21/16 01:03 Chief Complaint (Nursing): Shortness Of Breath History Per: Family History/Exam Limitations: clinical condition Current Symptoms Are (Timing): Still Present Associated Symptoms: denies: Fever, Bloody Cough, Productive Cough Recent travel outside of the [place]: No Past Medical History Reviewed: Historical Data, Nursing Documentation, Vital Signs Vital Signs: Last Vital Signs Temp 98 F 11/21/16 03:46 Pulse 70 11/21/16 03:46 Resp 16 11/21/16 03:46 BP 165/52 H 11/21/16 03:46 Pulse Ox 97 11/21/16 03:53 - Medical History PMH: Anemia, CAD, CVA (left sided weakness), Dementia, Diabetes, HTN, Chronic Kidney Disease, Seizures Surgical History: Appendectomy, Carotid Endarterectomy - [facility] Procedures CORONAR ARTERIOGR-2 CATH (07/09/12) INSERTION OF ONE VASCULAR STENT (07/09/12) INSRT OF DRUG-ELUTING CORON ARTERY STENTS(S) (07/09/12) PERCUTANEOUS TRANSLUMINAL CORONARY ANGIOPLASTY [PTCA] (07/09/12) PROCEDURE ON SINGLE VESSEL (07/09/12) TRANSFUSE NONAUT RED BLOOD CELLS IN PERIPH VEIN, PERC (07/05/16) Family History: States: Diabetes, Hypertension - Social History Hx Tobacco Use: No Hx Alcohol Use: No Hx Substance Use: No - Immunization History Hx Tetanus Toxoid Vaccination: Yes Hx Influenza Vaccination: Yes Hx Pneumococcal Vaccination: Yes Review Of Systems Review Of Systems: ROS cannot be obtained secondary to pt's inabilty to answer questions. Physical Exam - Physical Exam Appears: Other (elderly female, demented, confused, cooperative ) Skin: Warm, Dry, No Diaphoretic Head: Atraumatic, Normacephalic Chest: Symmetrical Cardiovascular: Rhythm Regular Respiratory: Normal Breath Sounds, No Rales, No Rhonchi, No Wheezing Gastrointestinal/Abdominal: Soft, No Tenderness Back: Normal Inspection Extremity: Normal ROM, Capillary Refill (< 2 sec) ED Course And Treatment - Laboratory Results Result Diagrams: 11/21/16 01:31 11/21/16 01:31 Lab Interpretation: Abnormal (elev K 5.8H, creat 2.9 baseline (per prior d/c Summary)) ECG: Interpreted By Me ECG Rhythm: Sinus Rhythm, Nonspecific Changes (peaked T^'s throughout) ECG Interpretation: Abnormal Rate From EC O2 Sat by Pulse Oximetry: 97 (RA) Pulse Ox Interpretation: Normal - Radiology CXR: Interpreted by Me CXR Interpretation: Yes: No Acute Disease Progress Note: Kayexylate PO given Reevaluation Time: 02:26 Reassessment Condition: Improved (sleeping, comfortable) - Physician Consult Information Outcome Of Conversation: 0215: d/w Dr. Gomez- Hospitalist- ok to Tele Obs Medical Decision Making Medical Decision Making: recurrent uncontrolled HTN/K+ No prior Kayexylate prescribed. Disposition Doctor Will See Patient In The: Hospital Counseled Patient/Family Regarding: Studies Performed, Diagnosis - Disposition Disposition Time: 02:28 Condition: GOOD - Clinical Impression Clinical Impression: Hyperkalemia, diminished renal excretion, Chest pain - Scribe Statement The provider has reviewed the documentation as recorded by the Hernandez Castrejon Provider Scribe Attestation: All medical record entries made by the Brianaibmarixa were at my direction and personally dictated by me. I have reviewed the chart and agree that the record accurately reflects my personal performance of the history, physical exam, medical decision making, and the department course for this patient. I have also personally directed, reviewed, and agree with the discharge instructions and disposition.
--- NOTE | 2016-11-21 03:02 | CP.PCM.HP ---
<Angel Duenas - Last Filed: 11/21/16 07:36> History of Present Illness - History of Present Illness History of Present Illness: CC: Chest discomfort and SOB x 1 day HPI: 86 y/o female with PMHx of epilepsy, Diabetes, HTN, asthma, bradycardia, hyperkalemia - brought to ED from retirement for chest discomfort and shortness of breath. Patient with history of advanced dementia which limits obtainable history. Patient recently admitted from 10/27-11/01/16 for similar complaints plus bradycardia (meds adjusted). Per prior records, patient was once hospitalized in [facility] for high potassium and low pulse. Patient with hx of prior fall for which she had left hip surgery. Daughter was called by retirement (Catrachita) and came to bedside in ED, however only stayed for 20 minutes. Patient currently denies f/c, diaphoresis, chest pain, SOB, abdominal pain, dysuria, d/c, n/v, or any additional acute complaints. PMHx: epilepsy, Diabetes, HTN, asthma, bradycardia, hyperkalemia, urinary retention, Right "eye problem" (sees ophtho). Medications: she does not know them. Allergies: NKDA Surgery Hx: open monalisa, left hip surgery s/p fall. Social Hx: denies history of tobacco, alcohol or drugs. 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 PMD: Dr. Persaud Present on Admission - Present on Admission Any Indicators Present on Admission: No Review of Systems - Review of Systems Systems not reviewed;Unavailable: Dementia, Altered Mental Status, Uncooperative Past Patient History - Infectious Disease Hx of Infectious Diseases: None - Past Medical History & Family History Past Medical History?: Yes - Past Social History Smoking Status: Never Smoked - CARDIAC Hx Hypertension: Yes - PULMONARY Hx Respiratory Disorders: No - NEUROLOGICAL Hx Dementia: Yes Hx Seizures: Yes - HEENT Hx HEENT Problems: Yes Hx Glaucoma: Yes - RENAL Hx Chronic Kidney Disease: Yes - ENDOCRINE/METABOLIC Hx Diabetes Mellitus Type 1: Yes Hx Diabetes Mellitus Type 2: Yes - HEMATOLOGICAL/ONCOLOGICAL Hx Anemia: Yes - INTEGUMENTARY Hx Dermatological Problems: No - MUSCULOSKELETAL/RHEUMATOLOGICAL Hx Musculoskeletal Disorders: No Hx Falls: No Hx Osteoarthritis: Yes - GASTROINTESTINAL Hx Gastrointestinal Disorders: No Other/Comment: Incontinence - GENITOURINARY/GYNECOLOGICAL Hx Genitourinary Disorders: Yes Hx Incontinence: Yes Hx Urinary Tract Infection: Yes - PSYCHIATRIC Hx Substance Use: No - SURGICAL HISTORY Hx Appendectomy: Yes Hx Carotid Endarterectomy: Yes - ANESTHESIA Hx Anesthesia: Yes Hx Anesthesia Reactions: No Hx Malignant Hyperthermia: No Meds Allergies/Adverse Reactions: Allergies Allergy/AdvReac Type Severity Reaction Status Date / Time No Known Allergies Allergy Verified 11/21/16 00:48 Physical Exam - Additional Findings Additional findings: - Constitutional Appears: No Acute Distress, Chronically Ill - Head Exam Head Exam: NORMAL INSPECTION, NORMOCEPHALIC - Eye Exam Eye Exam: EOMI. absent: Normal appearance (right ptosis), Scleral icterus - ENT Exam ENT Exam: Mucous Membranes Moist - Neck Exam Neck exam: Positive for: Full Rom, Normal Inspection - Respiratory Exam Respiratory Exam: Wheezes (mild), NORMAL BREATHING PATTERN. absent: Rales, Rhonchi - Cardiovascular Exam Cardiovascular Exam: REGULAR RHYTHM, +S1, +S2 - GI/Abdominal Exam GI & Abdominal Exam: Normal Bowel Sounds, Soft. absent: Distended, Tenderness Additional comments: +surgical scar - Extremities Exam Extremities exam: Positive for: full ROM, normal inspection. Negative for: tenderness - Neurological Exam Neurological exam: AMS (due to chronic Dementia). absent: Alert, Oriented x3 ( oriented to person, not place or time). - Psychiatric Exam Psychiatric exam: Normal Affect, Normal Mood - Skin Skin Exam: Dry, Normal Color, Warm Results - Vital Signs Recent Vital Signs: Last Vital Signs Temp 97.8 F 11/21/16 00:45 Pulse 72 11/21/16 00:45 Resp 20 11/21/16 01:30 BP 184/88 H 11/21/16 00:45 Pulse Ox 97 11/21/16 02:40 - Labs Result Diagrams: 11/21/16 01:31 11/21/16 01:31 Assessment & Plan - Assessment and Plan (Free Text) Assessment: Chest Discomfort Currently reports no chest or stomach pain - however she has severe dementia NICK on admission negative. Aspirin 81 mg PO daily Crestor 10mg PO HS Hyperkalemia K = 5.8 Kayexelate 30mg PO (in ED) - to receive 2nd dose at 6am. f/u CMP Acute on chronic renal insufficiency Monitor renal function. BUN/Cr: 64/2.9 on admission. Patient with history of CKD stage 4. Baseline Cr 1.8-2.5 DM2 (diabetes mellitus, type 2) Novolog ISS - medium dose Accuchecks ACHS A1C 5.9 (10/27/16) UA: 2+ protein, otherwise negative. HTN (hypertension) BP 184/88 on admission ProBNP 3040H (likely elevated due to poor renal clearance). Amlodipine 5mg PO BID Isosorbide Mononitrate 10mg PO daily Lopressor 12.5mg PO Q8H Hx Asthma Duonebs Q6H JOANNE History of epilepsy Tegretol 200 mg PO Q12H History of Dementia Donepezil 5mg PO daily Prophylactic measure Heparin 5000 SC Q8H Pepcid 20 mg PO daily - Date & Time Date: 11/21/16 Time: 03:00 <Corky Gomez - Last Filed: 12/05/16 19:28> Results - Vital Signs Recent Vital Signs: Last Vital Signs Temp 98.3 F 11/25/16 16:00 Pulse 70 11/25/16 16:00 Resp 18 11/25/16 16:00 BP 147/69 11/25/16 16:00 Pulse Ox 95 11/25/16 16:00 - Labs Result Diagrams: 11/25/16 07:10 11/25/16 07:10 Attending/Attestation - Attestation I have personally seen and examined this patient.: Yes I have fully participated in the care of the patient.: Yes I have reviewed all pertinent clinical information: Yes
[2016-11-21] MEDS ORDERED: Sod Polystyrene Sulf 15 gm/60 ml Oral Susp ONE (03:15)
[2016-11-21 03:50] LABS: RBC URINE < 1 /hpf (0-3); URINE BACTERIA RARE (<OCC); URINE BILIRUBIN NEGATIVE (NEGATIVE); URINE BLOOD NEGATIVE (NEGATIVE); URINE COLOR Straw (YELLOW); URINE GLUCOSE (UA) NORMAL (Normal); URINE KETONE NEGATIVE (NEGATIVE); URINE LEUKOCYTE ESTERASE NEG Leu/uL (Negative); URINE PROTEIN 2+ mg/dL (NEGATIVE); URINE UROBILINOGEN NORMAL mg/dL (0.2-1.0); WBC URINE 1 /hpf (0-5)
[2016-11-21] MEDS: (Novolog) Insulin Aspart, Recombinant 100 u/ml 10 ml vial SC SCH ×4 (07:38→21:29)
--- NOTE | 2016-11-21 08:05 | RAD ---
PROCEDURE: CHEST RADIOGRAPH, 1 VIEW HISTORY: Shortness of breath COMPARISON: 10/27/2016 FINDINGS: LUNGS: Diffuse increased interstitial lung markings suggestive for mild venous congestion. Right hilar prominence. Upper lobe granulomatous changes. Milder patchy airspace opacity at the left lung base. PLEURA: As above. CARDIOVASCULAR: Calcification at the aortic knob. OSSEOUS STRUCTURES: Degenerative changes in the spine and shoulders. VISUALIZED UPPER ABDOMEN: Normal. OTHER FINDINGS: None. IMPRESSION: Diffuse increased interstitial lung markings suggestive for mild venous congestion. Right hilar prominence. Upper lobe granulomatous changes. Milder patchy airspace opacity at the left lung base.
[2016-11-21 08:11] LABS: BASO # 0.1 K/uL (0.0-0.2); BASO % 0.9 % (0.0-2.0); HEMATOCRIT 30.1 % (34.0-47.0); LYMPH # 1.2 K/uL (1.0-4.3); LYMPH % 18.9 % (20.0-40.0); MEAN CELL VOLUME 93.1 fL (81.0-99.0); MEAN CORPUSCULAR HEMOGLOBIN 30.4 pg (27.0-31.0); MEAN CORPUSCULAR HGB CONC 32.6 g/dL (33.0-37.0); MEAN PLATELET VOLUME 9.2 fL (7.2-11.7); MONO # 0.6 K/uL (0.0-0.8); MONO % 9.3 % (0.0-10.0); WHITE BLOOD COUNT 6.3 K/uL (4.8-10.8)
[2016-11-21 08:21] LABS: POTASSIUM 4.9 mmol/L (3.6-5.2)
[2016-11-21 08:23] LABS: BILIRUBIN,TOTAL 0.2 mg/dL (0.2-1.3)
[2016-11-21 08:24] LABS: ALB/GLOB RATIO 1.2 (1.0-2.1); CALCIUM 8.4 mg/dl (8.6-10.4); PHOSPHOROUS 4.2 mg/dL (2.5-4.5); TOTAL PROTEIN 6.9 g/dL (6.3-8.3)
[2016-11-21 08:25] LABS: MAGNESIUM 2.2 mg/dL (1.6-2.3)
[2016-11-21] MEDS: Albuterol-Ipratrop 3 mg / 0.5 (3 ml) UD INH SCH ×3 (08:49→20:11)
--- NOTE | 2016-11-21 15:20 | CP.PCM.PN ---
Subjective - Date & Time of Evaluation Date of Evaluation: 11/21/16 Time of Evaluation: 07:30 - Subjective Subjective: 86 [facility] for chest discomfort and shortness of breath. ACS workup included negative troponins x2, negative EKG, and no acute finding on chest xray. Currently has no complaints, but a full ROS was unobtainable due to AMS. Pt. denies headache, chest pain, nausea, vomiting or diarrhea. Objective - Vital Signs/Intake and Output Vital Signs (last 24 hours): Temp Pulse Resp BP Pulse Ox 97.5 F L 66 17 155/66 H 98 11/21/16 06:28 11/21/16 14:00 11/21/16 11:18 11/21/16 11:18 11/21/16 11:18 - Medications Medications: Current Medications Albuterol/Ipratropium (Duoneb 3 Mg/0.5 Mg (3 Ml) Ud) 3 ml INH RQ6 [facility] Last Admin: 11/21/16 14:00 Dose: 3 ml Amlodipine Besylate (Norvasc) 5 mg PO BID [facility] Last Admin: 11/21/16 12:30 Dose: 5 mg Aspirin (Ecotrin) 81 mg PO DAILY [facility] Last Admin: 11/21/16 12:30 Dose: 81 mg Carbamazepine (Tegretol) 200 mg PO BID [facility] Last Admin: 11/21/16 12:30 Dose: 200 mg Donepezil HCl (Aricept) 5 mg PO DAILY [facility] Famotidine (Pepcid) 20 mg PO DAILY [facility] Last Admin: 11/21/16 12:30 Dose: 20 mg Furosemide (Lasix) 20 mg IVP STAT STA Stop: 11/21/16 15:15 Heparin Sodium (Porcine) (Heparin) 5,000 units SC Q8 [facility] Last Admin: 11/21/16 14:17 Dose: 5,000 units Home Med (Bimatoprost [Lumigan]) 2.5 ml OP QPM [facility] Home Med (Brinzolamide/Brimonidine Tart [Simbrinza 1%-0.2% Eye Drops]) 8 ml OP BID [facility] Insulin Aspart (Novolog) 0 unit SC ACHS [facility] PRN Reason: Protocol Last Admin: 11/21/16 12:00 Dose: Not Given Isosorbide Mononitrate (Ismo) 10 mg PO DAILY [facility] Last Admin: 04/24/17 12:30 Dose: 10 mg Metoprolol Tartrate (Lopressor) 12.5 mg PO Q8 [facility] Last Admin: 11/21/16 14:07 Dose: 12.5 mg Rosuvastatin Calcium (Crestor) 10 mg PO HS JOANNE - Labs Labs: 11/21/16 08:03 11/21/16 08:03 APTT 27 SECONDS (21-34) 11/21/16 08:03 - Constitutional Appears: Non-toxic - Head Exam Head Exam: ATRAUMATIC - Eye Exam Eye Exam: EOMI - ENT Exam ENT Exam: Mucous Membranes Moist - Respiratory Exam Respiratory Exam: Clear to Ausculation Bilateral, NORMAL BREATHING PATTERN - Cardiovascular Exam Cardiovascular Exam: REGULAR RHYTHM, RRR - GI/Abdominal Exam GI & Abdominal Exam: Soft, Normal Bowel Sounds. absent: Tenderness - Extremities Exam Extremities Exam: absent: Joint Swelling - Neurological Exam Neurological Exam: Altered - Skin Skin Exam: Dry, Intact, Normal Color, Warm Assessment and Plan - Assessment and Plan (Free Text) Plan: Chest Discomfort Currently reports no chest or stomach pain - however she has severe dementia NICK negative x2, 3rd pending Chest Xray - no acute findings will repeat CXR on 11/22 Aspirin 81 mg PO daily Crestor 10mg PO HS Hyperkalemia K = 5.8 @1am Kayexelate 30mg PO (in ED) - to receive 2nd dose at 6am. repeat CMP @8am, K+ 4.9, will follow Acute on chronic renal insufficiency Monitor renal function. BUN/Cr: 64/2.9 on admission 1am. Patient with history of CKD stage 4. BUN/Cr: 59/2.9 on 11/21 8am one time does of Lasix 20mg Baseline Cr 1.8-2.5 DM2 (diabetes mellitus, type 2) Novolog ISS - medium dose Accuchecks ACHS A1C 5.9 (10/27/16) UA: 2+ protein, otherwise negative. HTN (hypertension) BP 184/88 on admission, however trending down 155/66@ 11am ProBNP 3040H (likely elevated due to poor renal clearance). Amlodipine 5mg PO BID Isosorbide Mononitrate 10mg PO daily Lopressor 12.5mg PO Q8H Hx Asthma Duonebs Q6H JOANNE History of epilepsy Tegretol 200 mg PO Q12H History of Dementia Donepezil 5mg PO daily Prophylactic measure Heparin 5000 SC Q8H Pepcid 20 mg PO daily
[2016-11-22] MEDS: Albuterol-Ipratrop 3 mg / 0.5 (3 ml) UD INH SCH ×3 (01:12→20:21)
[2016-11-22] MEDS: (Novolog) Insulin Aspart, Recombinant 100 u/ml 10 ml vial SC SCH ×3 (07:56→21:57)
[2016-11-22] MEDS: Dorzolamide 2% Opht Sol 10ml OD SCH ×2 (10:36→18:30)
[2016-11-22] MEDS: Brimonidine 0.2% Opth Sol (5ml) OD SCH ×2 (10:36→18:30)
--- NOTE | 2016-11-22 10:42 | RAD ---
HISTORY: repeat COMPARISON: 11/21/2016 FINDINGS: LUNGS: Elevated left hemidiaphragm. Lobulated ill-defined radiopaque density seen at the medial left lung base, nonspecific. Correlation with lateral view and or chest CT may be helpful for further evaluation. Suggestion of coronary calcifications. Upper lobe granulomatous changes. PLEURA: No significant pleural effusion identified, no pneumothorax apparent. CARDIOVASCULAR: Calcification at the aortic knob. OSSEOUS STRUCTURES: Degenerative changes in the spine. VISUALIZED UPPER ABDOMEN: Normal. OTHER FINDINGS: None. IMPRESSION: Elevated left hemidiaphragm. Lobulated ill-defined radiopaque density seen at the medial left lung base, nonspecific. Correlation with lateral view and or chest CT may be helpful for further evaluation. Suggestion of coronary calcifications. Upper lobe granulomatous changes.
--- NOTE | 2016-11-22 10:55 | CP.PCM.PN ---
<MunizMalik - Last Filed: 11/22/16 19:32> Subjective - Date & Time of Evaluation Date of Evaluation: 11/22/16 Time of Evaluation: 07:40 - Subjective Subjective: 86 y/o female with pmh of CKD, hyperkalemia was brought from [facility] for chest discomfort and shortness of breath. ACS has been ruled out at this time. However, pt has hyperkalemia on admisison with high BUN/Cr. ratio. Renal consult was ordered for patient to get established with a complaint analyst for eventual dialysis. Today, pt. declined interview and physical. Objective - Vital Signs/Intake and Output Vital Signs (last 24 hours): Temp Pulse Resp BP Pulse Ox 98 F 79 18 188/79 H 96 11/21/16 16:10 11/22/16 10:24 11/21/16 22:16 11/22/16 10:24 11/21/16 19:55 - Medications Medications: Current Medications Albuterol/Ipratropium (Duoneb 3 Mg/0.5 Mg (3 Ml) Ud) 3 ml INH RQ6 [facility] Last Admin: 11/22/16 08:23 Dose: Not Given Amlodipine Besylate (Norvasc) 5 mg PO BID [facility] Last Admin: 11/21/16 19:02 Dose: 5 mg Aspirin (Ecotrin) 81 mg PO DAILY [facility] Last Admin: 11/21/16 12:30 Dose: 81 mg Brimonidine Tartrate (Alphagan 0.2% Opht) 0 ml OD BID [facility] Last Admin: 11/22/16 10:36 Dose: Not Given Carbamazepine (Tegretol) 200 mg PO BID [facility] Last Admin: 11/22/16 10:25 Dose: 200 mg Donepezil HCl (Aricept) 5 mg PO DAILY [facility] Dorzolamide HCl (Trusopt) 0 ml OD BID [facility] Last Admin: 11/22/16 10:36 Dose: Not Given Famotidine (Pepcid) 20 mg PO DAILY [facility] Last Admin: 11/21/16 12:30 Dose: 20 mg Heparin Sodium (Porcine) (Heparin) 5,000 units SC Q8 [facility] Last Admin: 11/22/16 05:20 Dose: 5,000 units Insulin Aspart (Novolog) 0 unit SC ACHS [facility] PRN Reason: Protocol Last Admin: 11/22/16 07:56 Dose: Not Given Isosorbide Mononitrate (Ismo) 10 mg PO DAILY [facility] Last Admin: 11/21/16 12:30 Dose: 10 mg Latanoprost (Xalatan Opht) 0 ml OD HS [facility] Metoprolol Tartrate (Lopressor) 12.5 mg PO Q8 [facility] Last Admin: 11/22/16 05:20 Dose: 12.5 mg Rosuvastatin Calcium (Crestor) 10 mg PO HS [facility] Last Admin: 11/21/16 21:17 Dose: 10 mg - Labs Labs: 11/21/16 08:03 11/21/16 08:03 APTT 27 SECONDS (21-34) 11/21/16 08:03 - Constitutional Appears: No Acute Distress - Head Exam Head Exam: ATRAUMATIC, NORMOCEPHALIC - Eye Exam Eye Exam: EOMI - Respiratory Exam Respiratory Exam: NORMAL BREATHING PATTERN - Neurological Exam Neurological Exam: Altered - Psychiatric Exam Psychiatric exam: Agitated - Skin Additional comments: slightly dehydrated Assessment and Plan - Assessment and Plan (Free Text) Plan: Chest Discomfort Currently reports no chest or stomach pain - however she has severe dementia NICK negative x3 Chest Xray - no acute findings CXR on 11/22 - Elevated hemidiaphram. Lobulated ill-defined radiopaque density seen at the medial left lung base - Possible Coronary Calcifications, Upper lobe granulomatous changes Aspirin 81 mg PO daily Crestor 10mg PO HS Hyperkalemia K = 5.8 @1am Kayexelate 30mg PO (in ED) - to receive 2nd dose at 6am. repeat CMP @8am, K+ 4.9, will follow 03/24 K+ 5.4, gave 30mg Kaexalate Acute on chronic renal insufficiency Monitor renal function. BUN/Cr: 64/2.9 on admission 1am. Patient with history of CKD stage 4. BUN/Cr: 59/2.9 on 11/21 8am one time does of Lasix 20mg Cr Range 1.8-3.1 Renal Consult -Dr. Barrera -Renal diet -Lasix 40mg one time dose -Urine Ca, Na, Cl DM2 (diabetes mellitus, type 2) Novolog ISS - medium dose Accuchecks ACHS A1C 5.9 (10/27/16) UA: 2+ protein, otherwise negative. HTN (hypertension) BP range from sys 125-188/52-109 ProBNP 3040H (likely elevated due to poor renal clearance). Amlodipine 5mg PO BID Isosorbide Mononitrate 10mg PO daily Lopressor 12.5mg PO Q8H Hx Asthma Duonebs Q6H JOANNE History of epilepsy Tegretol 200 mg PO Q12H History of Dementia Donepezil 5mg PO daily Glaucoma Latanaprost Trusopt Prophylactic measure Heparin 5000 SC Q8H Pepcid 20 mg PO daily <Gladis Bonilla V - Last Filed: 03/09/17 01:08> Objective - Vital Signs/Intake and Output Vital Signs (last 24 hours): Temp Pulse Resp BP Pulse Ox 98.3 F 70 18 147/69 95 11/25/16 16:00 11/25/16 16:00 11/25/16 16:00 11/25/16 16:00 11/25/16 16:00 - Labs Labs: 11/25/16 07:10 11/25/16 07:10 APTT 27 SECONDS (21-34) 11/21/16 08:03 Attending/Attestation - Attestation I have personally seen and examined this patient.: Yes I have fully participated in the care of the patient.: Yes I have reviewed all pertinent clinical information, including history, physical exam and plan: Yes
[2016-11-22 16:35] LABS: BASO % 0.8 % (0.0-2.0); EOS % 0.1 % (0.0-4.0); HEMATOCRIT 36.9 % (34.0-47.0); LYMPH % 17.1 % (20.0-40.0); MEAN CELL VOLUME 93.5 fL (81.0-99.0); MEAN CORPUSCULAR HEMOGLOBIN 30.4 pg (27.0-31.0); MEAN CORPUSCULAR HGB CONC 32.5 g/dL (33.0-37.0); MONO # 0.5 K/uL (0.0-0.8); MONO % 8.6 % (0.0-10.0); NRBC % 0.1 % (0.0-2.0); WHITE BLOOD COUNT 5.9 K/uL (4.8-10.8)
[2016-11-22 16:45] LABS: POTASSIUM 5.4 mmol/L (3.6-5.2)
[2016-11-22 16:47] LABS: BILIRUBIN,TOTAL 0.3 mg/dL (0.2-1.3)
[2016-11-22 16:48] LABS: ALB/GLOB RATIO 1.1 (1.0-2.1); CALCIUM 9.3 mg/dl (8.6-10.4); MAGNESIUM 2.4 mg/dL (1.6-2.3); PHOSPHOROUS 4.5 mg/dL (2.5-4.5); TOTAL PROTEIN 7.8 g/dL (6.3-8.3)
[2016-11-22] MEDS ORDERED: Sod Polystyrene Sulf 15 gm/60 ml Oral Susp PO ONE (18:08)
[2016-11-22] MEDS: Latanoprost 2.5 ml Opht Soln OD SCH (21:57)
[2016-11-23] MEDS ORDERED: Potassium Chloride 20 mEq/15 ml LIQ UD PO ONE (03:30)
[2016-11-23 08:12] LABS: BASO % 0.9 % (0.0-2.0); HEMATOCRIT 34.9 % (34.0-47.0); LYMPH # 1.3 K/uL (1.0-4.3); LYMPH % 23.5 % (20.0-40.0); MEAN CORPUSCULAR HEMOGLOBIN 30.6 pg (27.0-31.0); MEAN CORPUSCULAR HGB CONC 32.9 g/dL (33.0-37.0); MEAN PLATELET VOLUME 9.9 fL (7.2-11.7); MONO # 0.5 K/uL (0.0-0.8); MONO % 9.4 % (0.0-10.0); NRBC % 0.1 % (0.0-2.0); RED CELL DISTRIBUTION WIDTH 12.8 % (11.5-14.5); WHITE BLOOD COUNT 5.4 K/uL (4.8-10.8)
[2016-11-23 08:28] LABS: POTASSIUM 4.2 mmol/L (3.6-5.2)
[2016-11-23 08:31] LABS: ALB/GLOB RATIO 1.1 (1.0-2.1); BILIRUBIN,TOTAL 0.2 mg/dL (0.2-1.3); PHOSPHOROUS 4.6 mg/dL (2.5-4.5); TOTAL PROTEIN 7.5 g/dL (6.3-8.3)
[2016-11-23 08:32] LABS: CALCIUM 8.6 mg/dl (8.6-10.4); MAGNESIUM 2.2 mg/dL (1.6-2.3)
[2016-11-23] MEDS: (Novolog) Insulin Aspart, Recombinant 100 u/ml 10 ml vial SC SCH ×4 (08:43→22:22)
[2016-11-23] MEDS: Albuterol-Ipratrop 3 mg / 0.5 (3 ml) UD INH SCH ×3 (09:22→19:58)
--- NOTE | 2016-11-23 09:47 | CP.PCM.CON ---
History of Present Illness - History of Present Illness History of Present Illness: 86 y/o female with PMHx of epilepsy, Diabetes, HTN, asthma, bradycardia, hyperkalemia - brought to ED from [facility] for chest discomfort and shortness of breath. Patient with history of advanced dementia which limits obtainable history. Patient recently admitted from 10/27-11/01/16 for similar complaints plus bradycardia (meds adjusted). Per prior records, patient was once hospitalized in [facility] for high potassium and low pulse. Patient with hx of prior fall for which she had left hip surgery. Cardiac w/u negative for acute coronary syndrome. Pt with history of CKD and moderate hyperkalemia. Renal consult called for f/u. Pt is not on an JENIFER inhibitoror ARB. Started on K restricted diet last night. Unable to provide urine specimens due to incontinence. Pt is uncooperative and oriented to person only. No acute events overnight. Renal US in 09/16 with small kidneys, 8 cm each. Breakfast untouched Review of Systems - Review of Systems Systems not reviewed;Unavailable: Altered Mental Status Past Patient History - Infectious Disease Hx of Infectious Diseases: None - Tetanus Immunizations Tetanus Immunization: Unknown - Past Medical History & Family History Past Medical History?: Yes - Past Social History Smoking Status: Never Smoked - CARDIAC Hx Hypertension: Yes - PULMONARY Hx Respiratory Disorders: No - NEUROLOGICAL Hx Dementia: Yes Hx Seizures: Yes - HEENT Hx HEENT Problems: Yes Hx Glaucoma: Yes - RENAL Hx Chronic Kidney Disease: Yes - ENDOCRINE/METABOLIC Hx Diabetes Mellitus Type 1: Yes Hx Diabetes Mellitus Type 2: Yes - HEMATOLOGICAL/ONCOLOGICAL Hx Anemia: Yes - INTEGUMENTARY Hx Dermatological Problems: No - MUSCULOSKELETAL/RHEUMATOLOGICAL Hx Musculoskeletal Disorders: No Hx Falls: Yes Hx Osteoarthritis: Yes - GASTROINTESTINAL Hx Gastrointestinal Disorders: No Other/Comment: Incontinence - GENITOURINARY/GYNECOLOGICAL Hx Genitourinary Disorders: Yes Hx Incontinence: Yes Hx Urinary Tract Infection: Yes - PSYCHIATRIC Hx Substance Use: No - SURGICAL HISTORY Hx Appendectomy: Yes Hx Carotid Endarterectomy: Yes - ANESTHESIA Hx Anesthesia: Yes Hx Anesthesia Reactions: No Hx Malignant Hyperthermia: No Meds Allergies/Adverse Reactions: Allergies Allergy/AdvReac Type Severity Reaction Status Date / Time No Known Allergies Allergy Verified 11/21/16 00:48 - Medications Medications: Current Medications Albuterol/Ipratropium (Duoneb 3 Mg/0.5 Mg (3 Ml) Ud) 3 ml INH RQ6 [facility] Last Admin: 11/23/16 09:22 Dose: Not Given Amlodipine Besylate (Norvasc) 5 mg PO BID [facility] Last Admin: 11/22/16 18:29 Dose: 5 mg Aspirin (Ecotrin) 81 mg PO DAILY [facility] Last Admin: 11/21/16 12:30 Dose: 81 mg Brimonidine Tartrate (Alphagan 0.2% Opht) 0 ml OD BID [facility] Last Admin: 11/22/16 18:30 Dose: Not Given Carbamazepine (Tegretol) 200 mg PO BID [facility] Last Admin: 11/22/16 18:25 Dose: 200 mg Donepezil HCl (Aricept) 5 mg PO DAILY [facility] Dorzolamide HCl (Trusopt) 0 ml OD BID [facility] Last Admin: 11/22/16 18:30 Dose: Not Given Famotidine (Pepcid) 20 mg PO DAILY [facility] Last Admin: 11/21/16 12:30 Dose: 20 mg Heparin Sodium (Porcine) (Heparin) 5,000 units SC Q8 [facility] Last Admin: 11/23/16 06:20 Dose: Not Given Insulin Aspart (Novolog) 0 unit SC ACHS [facility] PRN Reason: Protocol Last Admin: 11/23/16 08:43 Dose: Not Given Isosorbide Mononitrate (Ismo) 10 mg PO DAILY [facility] Last Admin: 11/21/16 12:30 Dose: 10 mg Latanoprost (Xalatan Opht) 0 ml OD HS [facility] Last Admin: 11/22/16 21:57 Dose: Not Given Metoprolol Tartrate (Lopressor) 12.5 mg PO Q8 [facility] Last Admin: 11/23/16 06:15 Dose: Not Given Rosuvastatin Calcium (Crestor) 10 mg PO HS [facility] Last Admin: 11/22/16 21:57 Dose: 10 mg Physical Exam - Constitutional Appears: Combative, Chronically Ill - Head Exam Head Exam: ATRAUMATIC - Eye Exam Eye Exam: EOMI - Neck Exam Neck exam: Positive for: Normal Inspection - Respiratory Exam Additional comments: no distress noted, did not allow exam - Cardiovascular Exam Additional comments: did not allow exam - GI/Abdominal Exam GI & Abdominal Exam: Normal Bowel Sounds, Soft. absent: Tenderness - Extremities Exam Extremities exam: Negative for: pedal edema - Neurological Exam Neurological exam: Alert Additional comments: oriented x 1 only poor insight breakfast tray untouched - Psychiatric Exam Psychiatric exam: Agitated Results - Vital Signs Recent Vital Signs: Last Vital Signs Temp 97.6 F 11/23/16 08:19 Pulse 108 H 11/23/16 08:19 Resp 18 11/23/16 08:19 BP 142/73 11/23/16 08:19 Pulse Ox 97 11/23/16 08:19 - Labs Result Diagrams: 11/23/16 07:57 11/23/16 07:57 Labs: Laboratory Results - last 24 hr 11/22/16 11/22/16 11/22/16 16:24 16:24 16:28 WBC 5.9 RBC 3.94 Hgb 12.0 D Hct 36.9 MCV 93.5 MCH 30.4 MCHC 32.5 L RDW 13.0 Plt Count 162 MPV 10.0 Neut % (Auto) 73.4 Lymph % (Auto) 17.1 L Mora % (Auto) 8.6 Eos % (Auto) 0.1 Baso % (Auto) 0.8 Neut # 4.3 Lymph # 1.0 Mora # 0.5 Eos # 0.0 Baso # 0.0 Sodium 144 Potassium 5.4 H Chloride 104 Carbon Dioxide 26 Anion Gap 19 BUN 58 H Creatinine 2.8 H Est GFR ( Amer) 19 Est GFR (Non-Af Amer) 16 POC Glucose (mg/dL) 121 H Random Glucose 123 H Calcium 9.3 Phosphorus 4.5 Magnesium 2.4 H Total Bilirubin 0.3 AST 31 ALT 29 Alkaline Phosphatase 108 Total Protein 7.8 Albumin 4.2 Globulin 3.7 Albumin/Globulin Ratio 1.1 11/22/16 11/23/16 11/23/16 21:27 06:37 07:57 WBC 5.4 RBC 3.75 L Hgb 11.5 Hct 34.9 MCV 93.0 MCH 30.6 MCHC 32.9 L RDW 12.8 Plt Count 164 MPV 9.9 Neut % (Auto) 66.2 Lymph % (Auto) 23.5 Mora % (Auto) 9.4 Eos % (Auto) 0.0 Baso % (Auto) 0.9 Neut # 3.6 Lymph # 1.3 Mora # 0.5 Eos # 0.0 Baso # 0.0 Sodium Potassium Chloride Carbon Dioxide Anion Gap BUN Creatinine Est GFR ( Amer) Est GFR (Non-Af Amer) POC Glucose (mg/dL) 211 H 119 H Random Glucose Calcium Phosphorus Magnesium Total Bilirubin AST ALT Alkaline Phosphatase Total Protein Albumin Globulin Albumin/Globulin Ratio 11/23/16 07:57 WBC RBC Hgb Hct MCV MCH MCHC RDW Plt Count MPV Neut % (Auto) Lymph % (Auto) Mora % (Auto) Eos % (Auto) Baso % (Auto) Neut # Lymph # Mora # Eos # Baso # Sodium 145 Potassium 4.2 Chloride 104 Carbon Dioxide 28 Anion Gap 18 BUN 57 H Creatinine 2.8 H Est GFR ( Amer) 19 Est GFR (Non-Af Amer) 16 POC Glucose (mg/dL) Random Glucose 109 H Calcium 8.6 Phosphorus 4.6 H Magnesium 2.2 Total Bilirubin 0.2 AST 40 H D ALT 37 Alkaline Phosphatase 105 Total Protein 7.5 Albumin 3.9 Globulin 3.6 Albumin/Globulin Ratio 1.1 Assessment & Plan - Assessment and Plan (Free Text) Assessment: ckd stage 4 likely due to htn quantitate proteinuria control bp, aim for 140/90 K restrict in diet for hyperkalemia check spep check phos/pth/ferritin office f/u upon discharge
[2016-11-23] MEDS: Brimonidine 0.2% Opth Sol (5ml) OD SCH ×2 (10:17→18:54)
[2016-11-23] MEDS: Dorzolamide 2% Opht Sol 10ml OD SCH ×2 (10:18→18:52)
--- NOTE | 2016-11-23 16:00 | CP.PCM.PN ---
<Malik Muniz - Last Filed: 11/23/16 17:51> Subjective - Date & Time of Evaluation Date of Evaluation: 11/23/16 Time of Evaluation: 07:00 - Subjective Subjective: 86 y/o female with pmh of CKD, hyperkalemia was brought from assisted for chest discomfort and shortness of breath. Pt has had hyperkalemia on admisison with high BUN/Cr. ratio. Renal consult was ordered for patient to get established with a obiee consultant for eventual dialysis. Cardiology has also been consulted due to her previous cardiac history. Today, pt. declined interview and physical. Objective - Vital Signs/Intake and Output Vital Signs (last 24 hours): Temp Pulse Resp BP Pulse Ox 98.1 F 89 20 138/83 97 11/23/16 15:45 11/23/16 15:45 11/23/16 15:45 11/23/16 15:45 11/23/16 15:45 - Medications Medications: Current Medications Albuterol/Ipratropium (Duoneb 3 Mg/0.5 Mg (3 Ml) Ud) 3 ml INH RQ6 [facility] Last Admin: 11/23/16 13:58 Dose: Not Given Amlodipine Besylate (Norvasc) 5 mg PO BID [facility] Last Admin: 11/23/16 10:18 Dose: Not Given Aspirin (Ecotrin) 81 mg PO DAILY [facility] Last Admin: 11/23/16 10:18 Dose: Not Given Brimonidine Tartrate (Alphagan 0.2% Opht) 0 ml OD BID [facility] Last Admin: 11/23/16 10:17 Dose: Not Given Carbamazepine (Tegretol) 200 mg PO BID [facility] Last Admin: 11/23/16 10:18 Dose: Not Given Donepezil HCl (Aricept) 5 mg PO DAILY [facility] Last Admin: 11/23/16 10:17 Dose: Not Given Dorzolamide HCl (Trusopt) 0 ml OD BID [facility] Last Admin: 11/23/16 10:18 Dose: Not Given Famotidine (Pepcid) 20 mg PO DAILY [facility] Last Admin: 11/23/16 10:18 Dose: Not Given Heparin Sodium (Porcine) (Heparin) 5,000 units SC Q8 [facility] Last Admin: 11/23/16 15:35 Dose: Not Given Insulin Aspart (Novolog) 0 unit SC ACHS [facility] PRN Reason: Protocol Last Admin: 11/23/16 11:41 Dose: Not Given Isosorbide Mononitrate (Ismo) 10 mg PO DAILY [facility] Last Admin: 11/23/16 10:18 Dose: Not Given Latanoprost (Xalatan Opht) 0 ml OD HS [facility] Last Admin: 11/22/16 21:57 Dose: Not Given Metoprolol Tartrate (Lopressor) 12.5 mg PO Q8 [facility] Last Admin: 11/23/16 15:35 Dose: Not Given Rosuvastatin Calcium (Crestor) 10 mg PO HS [facility] Last Admin: 11/22/16 21:57 Dose: 10 mg - Labs Labs: 11/23/16 07:57 11/23/16 07:57 APTT 27 SECONDS (21-34) 11/21/16 08:03 - Head Exam Head Exam: ATRAUMATIC, NORMOCEPHALIC - Respiratory Exam Respiratory Exam: NORMAL BREATHING PATTERN - Psychiatric Exam Psychiatric exam: Agitated Assessment and Plan - Assessment and Plan (Free Text) Plan: Chest Discomfort Currently reports no chest or stomach pain - however she has severe dementia NICK negative x3 Chest Xray - no acute findings CXR on 11/22 - Elevated hemidiaphram. Lobulated ill-defined radiopaque density seen at the medial left lung base - Possible Coronary Calcifications, Upper lobe granulomatous changes Aspirin 81 mg PO daily Crestor 10mg PO HS Cardiac Consult - Dr. Lozoya, help appreciated Hyperkalemia K+ = 5.8 @1am 03/24 K+ 5.4, gave 30mg Kaexalate 03/25 K+ 4.2, received lasix and changed to renal diet Acute on chronic renal insufficiency Monitor renal function. BUN/Cr: 64/2.9 on admission 1am. Patient with history of CKD stage 4. BUN/Cr: 59/2.9 on 11/21 8am BUN/Cr: 57/2.8 on 11/23 one time does of Lasix 20mg Cr Range 1.8-3.1 Renal Consult -Dr. Barrera -CKD stage 4 likely due to HTN -Quantitate proteinuria -Control BP 140/90 -Renal diet -Lasix 40mg one time dose -Urine Ca, Na, Cl -SPEP -Phos/PTH/Ferritin -f/u upon discharge DM2 (diabetes mellitus, type 2) Novolog ISS - medium dose Accuchecks ACHS A1C 5.9 (10/27/16) UA: 2+ protein, otherwise negative. HTN (hypertension) BP range from sys 125-188/52-109 ProBNP 3040H (likely elevated due to poor renal clearance). Amlodipine 5mg PO BID Isosorbide Mononitrate 10mg PO daily Lopressor 12.5mg PO Q8H Hx Asthma Duonebs Q6H JOANNE History of epilepsy Tegretol 200 mg PO Q12H History of Dementia Donepezil 5mg PO daily Glaucoma Latanaprost Trusopt Prophylactic measure Heparin 5000 SC Q8H Pepcid 20 mg PO daily <Gladis Bonilla V - Last Filed: 03/09/17 01:09> Objective - Vital Signs/Intake and Output Vital Signs (last 24 hours): Temp Pulse Resp BP Pulse Ox 98.3 F 70 18 147/69 95 11/25/16 16:00 11/25/16 16:00 11/25/16 16:00 11/25/16 16:00 11/25/16 16:00 - Labs Labs: 11/25/16 07:10 11/25/16 07:10 APTT 27 SECONDS (21-34) 11/21/16 08:03 Attending/Attestation - Attestation I have personally seen and examined this patient.: Yes I have fully participated in the care of the patient.: Yes I have reviewed all pertinent clinical information, including history, physical exam and plan: Yes
--- NOTE | 2016-11-23 18:51 | CP.PCM.CON ---
History of Present Illness - History of Present Illness History of Present Illness: I was asked to see patient by the hospitalist team. Patient is a 86 year old female with history of CAD s/p stent of the LAD in 2011 who presents with chest pain. All history is by report, and as patient cannot givne adequate history. Patient is lying comfortably in bed. She denies chest pain. She was found to have renal failure. Review of Systems - Review of Systems Systems not reviewed;Unavailable: Dementia Past Patient History - Infectious Disease Hx of Infectious Diseases: None - Tetanus Immunizations Tetanus Immunization: Unknown - Past Medical History & Family History Past Medical History?: Yes - Past Social History Smoking Status: Never Smoked - CARDIAC Hx Hypertension: Yes - PULMONARY Hx Respiratory Disorders: No - NEUROLOGICAL Hx Dementia: Yes Hx Seizures: Yes - HEENT Hx HEENT Problems: Yes Hx Glaucoma: Yes - RENAL Hx Chronic Kidney Disease: Yes - ENDOCRINE/METABOLIC Hx Diabetes Mellitus Type 1: Yes Hx Diabetes Mellitus Type 2: Yes - HEMATOLOGICAL/ONCOLOGICAL Hx Anemia: Yes - INTEGUMENTARY Hx Dermatological Problems: No - MUSCULOSKELETAL/RHEUMATOLOGICAL Hx Musculoskeletal Disorders: No Hx Falls: Yes Hx Osteoarthritis: Yes - GASTROINTESTINAL Hx Gastrointestinal Disorders: No Other/Comment: Incontinence - GENITOURINARY/GYNECOLOGICAL Hx Genitourinary Disorders: Yes Hx Incontinence: Yes Hx Urinary Tract Infection: Yes - PSYCHIATRIC Hx Substance Use: No - SURGICAL HISTORY Hx Appendectomy: Yes Hx Carotid Endarterectomy: Yes - ANESTHESIA Hx Anesthesia: Yes Hx Anesthesia Reactions: No Hx Malignant Hyperthermia: No Meds Allergies/Adverse Reactions: Allergies Allergy/AdvReac Type Severity Reaction Status Date / Time No Known Allergies Allergy Verified 11/21/16 00:48 - Medications Medications: Current Medications Albuterol/Ipratropium (Duoneb 3 Mg/0.5 Mg (3 Ml) Ud) 3 ml INH RQ6 [facility] Last Admin: 11/23/16 13:58 Dose: Not Given Amlodipine Besylate (Norvasc) 5 mg PO BID [facility] Last Admin: 11/23/16 10:18 Dose: Not Given Aspirin (Ecotrin) 81 mg PO DAILY [facility] Last Admin: 11/23/16 10:18 Dose: Not Given Brimonidine Tartrate (Alphagan 0.2% Opht) 0 ml OD BID [facility] Last Admin: 11/23/16 10:17 Dose: Not Given Carbamazepine (Tegretol) 200 mg PO BID [facility] Last Admin: 04/26/17 10:18 Dose: Not Given Donepezil HCl (Aricept) 5 mg PO DAILY [facility] Last Admin: 11/23/16 10:17 Dose: Not Given Dorzolamide HCl (Trusopt) 0 ml OD BID [facility] Last Admin: 11/23/16 10:18 Dose: Not Given Famotidine (Pepcid) 20 mg PO DAILY [facility] Last Admin: 11/23/16 10:18 Dose: Not Given Heparin Sodium (Porcine) (Heparin) 5,000 units SC Q8 [facility] Last Admin: 11/23/16 15:35 Dose: Not Given Insulin Aspart (Novolog) 0 unit SC [facility] PRN Reason: Protocol Last Admin: 11/23/16 11:41 Dose: Not Given Isosorbide Mononitrate (Ismo) 10 mg PO DAILY [facility] Last Admin: 11/23/16 10:18 Dose: Not Given Latanoprost (Xalatan Opht) 0 ml OD [facility] Last Admin: 11/22/16 21:57 Dose: Not Given Metoprolol Tartrate (Lopressor) 12.5 mg PO Q8 [facility] Last Admin: 11/23/16 15:35 Dose: Not Given Rosuvastatin Calcium (Crestor) 10 mg PO HS [facility] Last Admin: 11/22/16 21:57 Dose: 10 mg Physical Exam - Constitutional Appears: Chronically Ill - Head Exam Head Exam: NORMAL INSPECTION - Eye Exam Eye Exam: Normal appearance - ENT Exam ENT Exam: Mucous Membranes Moist - Neck Exam Neck exam: Positive for: Full Rom - Respiratory Exam Respiratory Exam: Decreased Breath Sounds - Cardiovascular Exam Cardiovascular Exam: REGULAR RHYTHM - GI/Abdominal Exam GI & Abdominal Exam: Normal Bowel Sounds - Rectal Exam Rectal Exam: Deferred - Extremities Exam Extremities exam: Positive for: pedal edema - Back Exam Back exam: NORMAL INSPECTION - Neurological Exam Neurological exam: Alert - Psychiatric Exam Psychiatric exam: Flat Affect - Skin Skin Exam: Normal Color Results - Vital Signs Recent Vital Signs: Last Vital Signs Temp 98.1 F 11/23/16 15:45 Pulse 89 11/23/16 15:45 Resp 20 11/23/16 15:45 BP 138/83 11/23/16 15:45 Pulse Ox 97 11/23/16 15:45 - Labs Result Diagrams: 11/24/16 06:54 11/24/16 06:54 Labs: Laboratory Results - last 24 hr 11/23/16 16:33 POC Glucose (mg/dL) 142 H - EKG Data EKG Interpreted by: Myself Assessment & Plan (1) Chest pain Assessment and Plan: unclear history. recommend serial cardiac enzymes. check echocardiogram for wall motion abnormalities Status: Acute (2) Acute on chronic renal insufficiency Assessment and Plan: renal following Status: Acute (3) CAD (coronary artery disease), [place] coronary artery Assessment and Plan: antiplatelet therapy Status: Acute (4) HTN (hypertension) Assessment and Plan: will monitor blood pressure. hold JENIFER /ARB Status: Acute
[2016-11-23] MEDS: Latanoprost 2.5 ml Opht Soln OD SCH (22:22)
[2016-11-24] MEDS: Albuterol-Ipratrop 3 mg / 0.5 (3 ml) UD INH SCH ×4 (01:54→20:00)
[2016-11-24 07:27] LABS: BASO % 0.7 % (0.0-2.0); HEMATOCRIT 35.2 % (34.0-47.0); LYMPH # 1.4 K/uL (1.0-4.3); LYMPH % 22.6 % (20.0-40.0); MEAN CELL VOLUME 91.8 fL (81.0-99.0); MEAN CORPUSCULAR HEMOGLOBIN 30.5 pg (27.0-31.0); MEAN CORPUSCULAR HGB CONC 33.3 g/dL (33.0-37.0); MEAN PLATELET VOLUME 9.9 fL (7.2-11.7); MONO # 0.5 K/uL (0.0-0.8); MONO % 8.5 % (0.0-10.0); NRBC % 0.1 % (0.0-2.0); RED CELL DISTRIBUTION WIDTH 12.9 % (11.5-14.5); WHITE BLOOD COUNT 6.1 K/uL (4.8-10.8)
[2016-11-24 07:58] LABS: POTASSIUM 3.5 mmol/L (3.6-5.2)
[2016-11-24 08:00] LABS: BILIRUBIN,TOTAL 0.5 mg/dL (0.2-1.3)
[2016-11-24 08:01] LABS: CALCIUM 8.8 mg/dl (8.6-10.4); MAGNESIUM 2.3 mg/dL (1.6-2.3); PHOSPHOROUS 4.2 mg/dL (2.5-4.5); TOTAL PROTEIN 7.4 g/dL (6.3-8.3)
[2016-11-24] MEDS: (Novolog) Insulin Aspart, Recombinant 100 u/ml 10 ml vial SC SCH ×4 (08:31→22:03)
[2016-11-24] MEDS: Brimonidine 0.2% Opth Sol (5ml) OD SCH ×2 (10:19→18:01)
[2016-11-24] MEDS: Dorzolamide 2% Opht Sol 10ml OD SCH ×2 (10:20→18:00)
--- NOTE | 2016-11-24 10:43 | CP.PCM.PN ---
Subjective - Date & Time of Evaluation Date of Evaluation: 11/24/16 Time of Evaluation: 10:40 - Subjective Subjective: Remains confused Renal function poor- about same though K controlled now Cannot obtain ROS Objective - Vital Signs/Intake and Output Vital Signs (last 24 hours): Temp Pulse Resp BP Pulse Ox 98.6 F 83 20 113/54 L 95 11/24/16 07:43 11/24/16 07:43 11/24/16 07:43 11/24/16 07:43 11/24/16 07:43 Intake and Output: 11/24/16 11/24/16 06:59 18:59 Intake Total 100 Balance 100 - Medications Medications: Current Medications Albuterol/Ipratropium (Duoneb 3 Mg/0.5 Mg (3 Ml) Ud) 3 ml INH RQ6 [facility] Last Admin: 11/24/16 09:01 Dose: 3 ml Amlodipine Besylate (Norvasc) 5 mg PO BID [facility] Last Admin: 11/24/16 10:13 Dose: 5 mg Aspirin (Ecotrin) 81 mg PO DAILY [facility] Last Admin: 11/24/16 10:13 Dose: 81 mg Brimonidine Tartrate (Alphagan 0.2% Opht) 0 ml OD BID [facility] Last Admin: 11/24/16 10:19 Dose: 1 drop Carbamazepine (Tegretol) 200 mg PO BID [facility] Last Admin: 11/24/16 10:13 Dose: 200 mg Donepezil HCl (Aricept) 5 mg PO DAILY [facility] Last Admin: 11/24/16 10:13 Dose: 5 mg Dorzolamide HCl (Trusopt) 0 ml OD BID [facility] Last Admin: 11/24/16 10:20 Dose: 1 drop Famotidine (Pepcid) 20 mg PO DAILY [facility] Last Admin: 11/24/16 10:13 Dose: 20 mg Heparin Sodium (Porcine) (Heparin) 5,000 units SC Q12 [facility] Last Admin: 11/24/16 10:20 Dose: 5,000 units Insulin Aspart (Novolog) 0 unit SC ACHS [facility] PRN Reason: Protocol Last Admin: 11/24/16 08:31 Dose: Not Given Isosorbide Mononitrate (Ismo) 10 mg PO DAILY [facility] Last Admin: 11/24/16 10:24 Dose: 10 mg Latanoprost (Xalatan Opht) 0 ml OD HS [facility] Last Admin: 11/23/16 22:22 Dose: Not Given Metoprolol Tartrate (Lopressor) 12.5 mg PO Q8 [facility] Last Admin: 11/24/16 06:25 Dose: 12.5 mg Rosuvastatin Calcium (Crestor) 10 mg PO HS [facility] Last Admin: 11/23/16 22:21 Dose: Not Given - Labs Labs: 11/24/16 06:54 11/24/16 06:54 APTT 27 SECONDS (21-34) 11/21/16 08:03 - Constitutional Appears: No Acute Distress, Chronically Ill - Head Exam Head Exam: ATRAUMATIC, NORMAL INSPECTION - Eye Exam Eye Exam: EOMI, Normal appearance - Neck Exam Neck Exam: Normal Inspection. absent: Tenderness - Respiratory Exam Respiratory Exam: Clear to Ausculation Bilateral, NORMAL BREATHING PATTERN - Cardiovascular Exam Cardiovascular Exam: REGULAR RHYTHM, +S1 - GI/Abdominal Exam GI & Abdominal Exam: Soft. absent: Tenderness - Extremities Exam Extremities Exam: Normal Inspection. absent: Pedal Edema, Tenderness - Neurological Exam Neurological Exam: Alert, CN II-XII Intact - Skin Skin Exam: Dry, Warm Assessment and Plan (1) CKD (chronic kidney disease) stage 4, GFR 15-29 ml/min Status: Acute (2) Hyperkalemia, diminished renal excretion Status: Acute (3) CAD (coronary artery disease), [place] coronary artery Status: Acute (4) Dementia Status: Chronic (5) CKD stage 4 secondary to hypertension Status: Acute - Assessment and Plan (Free Text) Plan: Low K diet Avoid JENIFER I Same BP meds Pt not uremic at present- will monitor
--- NOTE | 2016-11-24 18:50 | CARD ---
APPROVED REPORT EKG Measurement Heart [id number] TN [id number] <Conclusion> Normal sinus rhythm Septal infarct, age undetermined Abnormal ECG
--- NOTE | 2016-11-24 18:50 | CARD ---
APPROVED REPORT EKG Measurement Heart [id number] CT [id number] <Conclusion> Normal sinus rhythm Septal infarct, age undetermined Abnormal ECG
--- NOTE | 2016-11-24 21:32 | CP.PCM.PN ---
<MunizMalik - Last Filed: 11/24/16 21:25> Subjective - Date & Time of Evaluation Date of Evaluation: 11/24/16 Time of Evaluation: 07:30 - Subjective Subjective: 86 y/o female with pmh of CKD, hyperkalemia was brought from detention for chest discomfort and shortness of breath. Pt has had hyperkalemia on admisison with high BUN/Cr. ratio. Renal consult was ordered for patient to get established with a rack worker for eventual dialysis. However, she has been seeing a Dr. Singh as an outpatient per her daughter. She will continue with him as an outpatient. Cardiology has also been consulted and would like an ECHO and serial enzymes. Today, pt. was in a good mood, but still confused. A ROS was unobtainable. Objective - Vital Signs/Intake and Output Vital Signs (last 24 hours): Temp Pulse Resp BP Pulse Ox 98.1 F 82 20 118/23 L 98 11/24/16 15:45 11/24/16 15:45 11/24/16 15:45 11/24/16 15:45 11/24/16 15:45 - Medications Medications: Current Medications Albuterol/Ipratropium (Duoneb 3 Mg/0.5 Mg (3 Ml) Ud) 3 ml INH RQ6 [facility] Last Admin: 11/24/16 20:00 Dose: 3 ml Amlodipine Besylate (Norvasc) 5 mg PO BID [facility] Last Admin: 11/24/16 18:00 Dose: 5 mg Aspirin (Ecotrin) 81 mg PO DAILY [facility] Last Admin: 11/24/16 10:13 Dose: 81 mg Brimonidine Tartrate (Alphagan 0.2% Opht) 0 ml OD BID [facility] Last Admin: 11/24/16 18:01 Dose: 1 drop Carbamazepine (Tegretol) 200 mg PO BID [facility] Last Admin: 11/24/16 18:03 Dose: 200 mg Docusate Sodium (Colace) 100 mg PO BID [facility] Donepezil HCl (Aricept) 5 mg PO DAILY [facility] Last Admin: 11/24/16 10:13 Dose: 5 mg Dorzolamide HCl (Trusopt) 0 ml OD BID [facility] Last Admin: 11/24/16 18:00 Dose: 1 drop Famotidine (Pepcid) 20 mg PO DAILY [facility] Last Admin: 11/24/16 10:13 Dose: 20 mg Heparin Sodium (Porcine) (Heparin) 5,000 units SC Q12 [facility] Last Admin: 11/24/16 10:20 Dose: 5,000 units Insulin Aspart (Novolog) 0 unit SC ACHS [facility] PRN Reason: Protocol Last Admin: 11/24/16 17:59 Dose: Not Given Isosorbide Mononitrate (Ismo) 10 mg PO DAILY [facility] Last Admin: 11/24/16 10:24 Dose: 10 mg Latanoprost (Xalatan Opht) 0 ml OD HS [facility] Last Admin: 11/23/16 22:22 Dose: Not Given Metoprolol Tartrate (Lopressor) 12.5 mg PO Q8 [facility] Last Admin: 11/24/16 14:44 Dose: 12.5 mg Rosuvastatin Calcium (Crestor) 10 mg PO HS [facility] Last Admin: 11/23/16 22:21 Dose: Not Given - Labs Labs: 11/24/16 06:54 11/24/16 06:54 APTT 27 SECONDS (21-34) 11/21/16 08:03 - Constitutional Appears: Non-toxic, No Acute Distress - Head Exam Head Exam: NORMOCEPHALIC - Eye Exam Eye Exam: EOMI - ENT Exam ENT Exam: Mucous Membranes Moist - Respiratory Exam Respiratory Exam: Clear to Ausculation Bilateral, NORMAL BREATHING PATTERN - Cardiovascular Exam Cardiovascular Exam: Tachycardia, REGULAR RHYTHM - GI/Abdominal Exam GI & Abdominal Exam: Soft, Normal Bowel Sounds. absent: Tenderness - Extremities Exam Extremities Exam: absent: Joint Swelling, Pedal Edema, Tenderness - Neurological Exam Neurological Exam: Altered, Awake - Psychiatric Exam Psychiatric exam: Normal Affect, Normal Mood - Skin Skin Exam: Dry, Intact, Normal Color, Warm Assessment and Plan - Assessment and Plan (Free Text) Plan: Chest Discomfort Currently reports no chest or stomach pain - however she has severe dementia NICK negative x3 Chest Xray - no acute findings CXR on 11/22 - Elevated hemidiaphram. Lobulated ill-defined radiopaque density seen at the medial left lung base - Possible Coronary Calcifications, Upper lobe granulomatous changes Aspirin 81 mg PO daily Crestor 10mg PO HS Cardiac Consult - Dr. Lozoya, help appreciated -ECHO ordered -serial enzymes ordered for AM labs Hyperkalemia K+ = 5.8 @1am 03/24 K+ 5.4, gave 30mg Kaexalate 03/25 K+ 4.2, received lasix and changed to renal diet Acute on chronic renal insufficiency Monitor renal function. BUN/Cr: 64/2.9 on admission 1am. Patient with history of CKD stage 4. BUN/Cr: 59/2.9 on 11/21 8am BUN/Cr: 57/2.8 on 11/23 one time does of Lasix 20mg Cr Range 1.8-3.1 Renal Consult -Dr. Barrera -CKD stage 4 likely due to HTN -Quantitate proteinuria -Control BP 140/90 -Renal diet -Lasix 40mg one time dose -Urine Ca, Na, Cl -SPEP -Phos/PTH/Ferritin -f/u upon discharge DM2 (diabetes mellitus, type 2) Novolog ISS - medium dose Accuchecks ACHS A1C 5.9 (10/27/16) UA: 2+ protein, otherwise negative. HTN (hypertension) BP range from sys 125-188/52-109 ProBNP 3040H (likely elevated due to poor renal clearance). Amlodipine 5mg PO BID Isosorbide Mononitrate 10mg PO daily Lopressor 12.5mg PO Q8H Hx Asthma Duonebs Q6H [facility] History of epilepsy Tegretol 200 mg PO Q12H History of Dementia Donepezil 5mg PO daily Glaucoma Latanaprost Trusopt Prophylactic measure Heparin 5000 SC Q8H Pepcid 20 mg PO daily <Gladis Bonilla V - Last Filed: 03/09/17 01:09> Objective - Vital Signs/Intake and Output Vital Signs (last 24 hours): Temp Pulse Resp BP Pulse Ox 98.3 F 70 18 147/69 95 11/25/16 16:00 11/25/16 16:00 11/25/16 16:00 11/25/16 16:00 11/25/16 16:00 - Labs Labs: 11/25/16 07:10 11/25/16 07:10 APTT 27 SECONDS (21-34) 11/21/16 08:03 Attending/Attestation - Attestation I have personally seen and examined this patient.: Yes I have fully participated in the care of the patient.: Yes I have reviewed all pertinent clinical information, including history, physical exam and plan: Yes
[2016-11-24] MEDS: POLYETHYLENE GLYCOL 3350 17 GM/Dose PACKET PO ONE ×2 (22:02→22:25)
[2016-11-24] MEDS: Latanoprost 2.5 ml Opht Soln OD SCH (22:07)
[2016-11-25] MEDS: Albuterol-Ipratrop 3 mg / 0.5 (3 ml) UD INH SCH ×3 (01:28→14:14)
[2016-11-25 07:25] LABS: BASO % 0.4 % (0.0-2.0); HEMATOCRIT 33.3 % (34.0-47.0); LYMPH # 1.4 K/uL (1.0-4.3); LYMPH % 25.3 % (20.0-40.0); MEAN CELL VOLUME 92.9 fL (81.0-99.0); MEAN CORPUSCULAR HEMOGLOBIN 30.4 pg (27.0-31.0); MEAN CORPUSCULAR HGB CONC 32.8 g/dL (33.0-37.0); MEAN PLATELET VOLUME 9.8 fL (7.2-11.7); MONO # 0.5 K/uL (0.0-0.8); MONO % 9.2 % (0.0-10.0); RED CELL DISTRIBUTION WIDTH 13.1 % (11.5-14.5); WHITE BLOOD COUNT 5.6 K/uL (4.8-10.8)
[2016-11-25 07:37] LABS: POTASSIUM 4.1 mmol/L (3.6-5.2)
[2016-11-25 07:39] LABS: ALB/GLOB RATIO 1.1 (1.0-2.1); BILIRUBIN,TOTAL 0.5 mg/dL (0.2-1.3); TOTAL PROTEIN 7.3 g/dL (6.3-8.3)
[2016-11-25 07:40] LABS: CALCIUM 8.8 mg/dl (8.6-10.4); MAGNESIUM 2.3 mg/dL (1.6-2.3); PHOSPHOROUS 4.8 mg/dL (2.5-4.5)
[2016-11-25] MEDS: (Novolog) Insulin Aspart, Recombinant 100 u/ml 10 ml vial SC SCH ×2 (07:58→17:34)
[2016-11-25 08:32] VITALS: RESP 18
[2016-11-25] MEDS: Brimonidine 0.2% Opth Sol (5ml) OD SCH ×2 (09:29→09:31)
[2016-11-25] MEDS: Dorzolamide 2% Opht Sol 10ml OD SCH (09:31)
[2016-11-25] MEDS ORDERED: Bisacodyl 5mg EC Tab PO ONE ×2 (10:20→13:30)
[2016-11-25] MEDS ORDERED: Simethicone 80 mg Chewtab PO ONE ×2 (10:23→13:30)
--- NOTE | 2016-11-25 13:14 | CP.PCM.DIS ---
<Malik Muniz - Last Filed: 11/25/16 22:54> Provider - Provider Date of Admission: 11/23/16 16:05 Attending physician: Corky Gomez MD Time Spent in preparation of Discharge (in minutes): 35 Diagnosis - Discharge Diagnosis (1) CKD (chronic kidney disease) stage 4, GFR 15-29 ml/min Status: Acute (2) Chest pain Status: Acute (3) Hyperkalemia, diminished renal excretion Status: Acute Hospital Course - Lab Results Lab Results: Most Recent Lab Values WBC 5.6 K/uL (4.8-10.8) 11/25/16 07:10 RBC 3.59 Mil/uL (3.80-5.20) L 11/25/16 07:10 Hgb 10.9 g/dL (11.0-16.0) L 11/25/16 07:10 Hct 33.3 % (34.0-47.0) L 11/25/16 07:10 MCV 92.9 fL (81.0-99.0) 11/25/16 07:10 MCH 30.4 pg (27.0-31.0) 11/25/16 07:10 MCHC 32.8 g/dL (33.0-37.0) L 11/25/16 07:10 RDW 13.1 % (11.5-14.5) 11/25/16 07:10 Plt Count 162 K/uL (130-400) 11/25/16 07:10 MPV 9.8 fL (7.2-11.7) 11/25/16 07:10 Neut % (Auto) 65.1 % (50.0-75.0) 11/25/16 07:10 Lymph % (Auto) 25.3 % (20.0-40.0) 11/25/16 07:10 Sublette % (Auto) 9.2 % (0.0-10.0) 11/25/16 07:10 Eos % (Auto) 0.0 % (0.0-4.0) 11/25/16 07:10 Baso % (Auto) 0.4 % (0.0-2.0) 11/25/16 07:10 Neut # 3.7 K/uL (1.8-7.0) 11/25/16 07:10 Lymph # 1.4 K/uL (1.0-4.3) 11/25/16 07:10 Sublette # 0.5 K/uL (0.0-0.8) 11/25/16 07:10 Eos # 0.0 K/uL (0.0-0.7) 11/25/16 07:10 Baso # 0.0 K/uL (0.0-0.2) 11/25/16 07:10 Neutrophils % (Manual) 80 % (50-75) H 11/21/16 01:31 Band Neutrophils % 3 % (0-2) H 11/21/16 01:31 Lymphocytes % (Manual) 12 % (20-40) L 11/21/16 01:31 Monocytes % (Manual) 5 % (0-10) 11/21/16 01:31 Platelet Estimate Normal (NORMAL) 11/21/16 01:31 APTT 27 SECONDS (21-34) 11/21/16 08:03 Sodium 143 mmol/L (132-148) 11/25/16 07:10 Potassium 4.1 mmol/L (3.6-5.2) 11/25/16 07:10 Chloride 99 mmol/L (98-107) 11/25/16 07:10 Carbon Dioxide 29 mmol/L (22-30) 11/25/16 07:10 Anion Gap 18 (10-20) 11/25/16 07:10 BUN 65 mg/dL (7-17) H 11/25/16 07:10 Creatinine 3.3 MG/DL (0.7-1.2) H 11/25/16 07:10 Est GFR ( Amer) 16 11/25/16 07:10 Est GFR (Non-Af Amer) 13 11/25/16 07:10 POC Glucose (mg/dL) 118 mg/dL (65-110) H 11/25/16 06:27 Random Glucose 106 mg/dL (65-105) H 11/25/16 07:10 Calcium 8.8 mg/dl (8.6-10.4) 11/25/16 07:10 Phosphorus 4.8 mg/dL (2.5-4.5) H 11/25/16 07:10 Magnesium 2.3 mg/dL (1.6-2.3) 11/25/16 07:10 Ferritin 82.6 ng/mL 11/24/16 11:14 Total Bilirubin 0.5 mg/dL (0.2-1.3) 11/25/16 07:10 AST 40 U/L (14-36) H 11/25/16 07:10 ALT 44 U/L (9-52) 11/25/16 07:10 Alkaline Phosphatase 98 U/L (38-126) 11/25/16 07:10 Total Creatine Kinase 40 U/L (30-135) 11/25/16 07:10 CK-MB (Mass) 0.98 ng/mL (0.0-3.38) 11/25/16 07:10 Troponin I 0.0300 ng/mL (0.00-0.120) 11/21/16 01:31 Troponin I, Quant 0.0590 ng/mL (0.00-0.120) 11/25/16 07:10 NT-Pro-B Natriuret Pep 3040 pg/mL (0-900) H 11/21/16 01:31 Total Protein 7.3 g/dL (6.3-8.3) 11/25/16 07:10 Albumin 3.8 g/dL (3.5-5.0) 11/25/16 07:10 Globulin 3.5 gm/dL (2.2-3.9) 11/25/16 07:10 Albumin/Globulin Ratio 1.1 (1.0-2.1) 11/25/16 07:10 Urine Color Straw (YELLOW) 11/21/16 03:44 Urine Clarity Clear (Clear) 11/21/16 03:44 Urine pH 6.0 (5.0-8.0) 11/21/16 03:44 Ur Specific Tatum 1.009 (1.003-1.030) 11/21/16 03:44 Urine Protein 2+ mg/dL (NEGATIVE) H 11/21/16 03:44 Urine Glucose (UA) Normal mg/dL (Normal) 11/21/16 03:44 Urine Ketones Negative mg/dL (NEGATIVE) 11/21/16 03:44 Urine Blood Negative (NEGATIVE) 11/21/16 03:44 Urine Nitrate Negative (NEGATIVE) 11/21/16 03:44 Urine Bilirubin Negative (NEGATIVE) 11/21/16 03:44 Urine Urobilinogen Normal mg/dL (0.2-1.0) 11/21/16 03:44 Ur Leukocyte Esterase Neg Kayleigh/uL (Negative) 11/21/16 03:44 Urine WBC (Auto) 1 /hpf (0-5) 11/21/16 03:44 Urine RBC (Auto) < 1 /hpf (0-3) 11/21/16 03:44 Urine Bacteria Rare (<OCC) 11/21/16 03:44 - Hospital Course Hospital Course: 86 y/o female with PMHx of epilepsy, Diabetes, HTN, asthma, bradycardia, hyperkalemia - brought to ED from alf for chest discomfort and shortness of breath. ACS was ruled out with no acute findings on EKG or chest xray, along with negative serial troponins. Cardiology and Nephrology were consulted to help with the management of this patient and to ensure she had providers in place to help her if she were to need dialysis. Her hyperkalemia was managed with kaexalate, a renal diet and lasix. This is a brief account of her stay, please see her chart for more detailed information. - Date & Time of H&P Date of H&P: 11/25/16 Time of H&P: 07:10 Discharge Exam - Head Exam Head Exam: NORMOCEPHALIC - Eye Exam Eye Exam: EOMI - ENT Exam ENT Exam: Mucous Membranes Moist - Neck Exam Neck exam: Full Rom - Respiratory Exam Respiratory Exam: Clear to PA & Lateral, NORMAL BREATHING PATTERN, UNREMARKABLE. absent: Wheezes - Cardiovascular Exam Cardiovascular Exam: REGULAR RHYTHM, Systolic Murmur - GI/Abdominal Exam GI & Abdominal Exam: Normal Bowel Sounds, Soft, Unremarkable. absent: Tenderness - Neurological Exam Neurological exam: Altered - Psychiatric Exam Psychiatric exam: Normal Mood - Skin Skin Exam: Dry, Intact, Normal Color, Warm Discharge Plan - Follow Up Plan Condition: GOOD Disposition: REHAB FACILITY/REHAB UNIT Instructions: Chest Pain (DC), Chronic Kidney Disease (DC), Renal Failure Diet (DC), Hyperkalemia (DC), Hyperkalemia (GEN) Additional Instructions: Pt. is medically stable for discharge. Please follow up with your primary care doctor, Dr. Persaud within 1 week. Please follow up with your slip cover cutter, Dr. Lozoya within 2 weeks. Please follow up with your water regulator and valve repairer, Dr. Singh within 2 weeks. Thank you for allowing us to take part in your care. Referrals: Kirk Persaud MD [Staff Provider] - Theodora Lozoya MD [Staff Provider] - <IreneGladis V - Last Filed: 03/09/17 01:11> Provider - Provider Date of Admission: 11/23/16 16:05 Attending physician: Corky Gomez MD Hospital Course - Lab Results Lab Results: Most Recent Lab Values WBC 5.6 K/uL (4.8-10.8) 11/25/16 07:10 RBC 3.59 Mil/uL (3.80-5.20) L 11/25/16 07:10 Hgb 10.9 g/dL (11.0-16.0) L 11/25/16 07:10 Hct 33.3 % (34.0-47.0) L 11/25/16 07:10 MCV 92.9 fL (81.0-99.0) 11/25/16 07:10 MCH 30.4 pg (27.0-31.0) 11/25/16 07:10 MCHC 32.8 g/dL (33.0-37.0) L 11/25/16 07:10 RDW 13.1 % (11.5-14.5) 11/25/16 07:10 Plt Count 162 K/uL (130-400) 11/25/16 07:10 MPV 9.8 fL (7.2-11.7) 11/25/16 07:10 Neut % (Auto) 65.1 % (50.0-75.0) 11/25/16 07:10 Lymph % (Auto) 25.3 % (20.0-40.0) 11/25/16 07:10 Sublette % (Auto) 9.2 % (0.0-10.0) 11/25/16 07:10 Eos % (Auto) 0.0 % (0.0-4.0) 11/25/16 07:10 Baso % (Auto) 0.4 % (0.0-2.0) 11/25/16 07:10 Neut # 3.7 K/uL (1.8-7.0) 11/25/16 07:10 Lymph # 1.4 K/uL (1.0-4.3) 11/25/16 07:10 Sublette # 0.5 K/uL (0.0-0.8) 11/25/16 07:10 Eos # 0.0 K/uL (0.0-0.7) 11/25/16 07:10 Baso # 0.0 K/uL (0.0-0.2) 11/25/16 07:10 Neutrophils % (Manual) 80 % (50-75) H 11/21/16 01:31 Band Neutrophils % 3 % (0-2) H 11/21/16 01:31 Lymphocytes % (Manual) 12 % (20-40) L 11/21/16 01:31 Monocytes % (Manual) 5 % (0-10) 11/21/16 01:31 Platelet Estimate Normal (NORMAL) 11/21/16 01:31 APTT 27 SECONDS (21-34) 11/21/16 08:03 Sodium 143 mmol/L (132-148) 11/25/16 07:10 Potassium 4.1 mmol/L (3.6-5.2) 11/25/16 07:10 Chloride 99 mmol/L (98-107) 11/25/16 07:10 Carbon Dioxide 29 mmol/L (22-30) 11/25/16 07:10 Anion Gap 18 (10-20) 11/25/16 07:10 BUN 65 mg/dL (7-17) H 11/25/16 07:10 Creatinine 3.3 MG/DL (0.7-1.2) H 11/25/16 07:10 Est GFR ( Amer) 16 11/25/16 07:10 Est GFR (Non-Af Amer) 13 11/25/16 07:10 POC Glucose (mg/dL) 118 mg/dL (65-110) H 11/25/16 06:27 Random Glucose 106 mg/dL (65-105) H 11/25/16 07:10 Calcium 8.8 mg/dl (8.6-10.4) 11/25/16 07:10 Phosphorus 4.8 mg/dL (2.5-4.5) H 11/25/16 07:10 Magnesium 2.3 mg/dL (1.6-2.3) 11/25/16 07:10 Ferritin 82.6 ng/mL 11/24/16 11:14 Total Bilirubin 0.5 mg/dL (0.2-1.3) 11/25/16 07:10 AST 40 U/L (14-36) H 11/25/16 07:10 ALT 44 U/L (9-52) 11/25/16 07:10 Alkaline Phosphatase 98 U/L (38-126) 11/25/16 07:10 Total Creatine Kinase 40 U/L (30-135) 11/25/16 07:10 CK-MB (Mass) 0.98 ng/mL (0.0-3.38) 11/25/16 07:10 Troponin I 0.0300 ng/mL (0.00-0.120) 11/21/16 01:31 Troponin I, Quant 0.0590 ng/mL (0.00-0.120) 11/25/16 07:10 NT-Pro-B Natriuret Pep 3040 pg/mL (0-900) H 11/21/16 01:31 Total Protein 7.3 g/dL (6.3-8.3) 11/25/16 07:10 Total Protein (PEP) 6.9 g/dL (6.1-8.1) 11/25/16 07:10 Albumin 3.8 g/dL (3.5-5.0) 11/25/16 07:10 Albumin (PEP) 3.5 g/dL (3.8-4.8) L 11/25/16 07:10 Globulin 3.5 gm/dL (2.2-3.9) 11/25/16 07:10 Albumin/Globulin Ratio 1.1 (1.0-2.1) 11/25/16 07:10 Dgwnk-3-Xzeotbent 0.4 g/dL (0.2-0.3) H 11/25/16 07:10 Pkftd-6-Wcewnjlxk 1.0 g/dL (0.5-0.9) H 11/25/16 07:10 Sadt-6-Lelvgclm 0.4 g/dL (0.4-0.6) 11/25/16 07:10 Mwir-7-Zdyecimh 0.4 g/dL (0.2-0.5) 11/25/16 07:10 Gamma Globulins 1.2 g/dL (0.8-1.7) 11/25/16 07:10 Abnorm Protein Band 1 TEST NOT PERFORMED 11/25/16 07:10 Abnorm Protein Band 2 TEST NOT PERFORMED 11/25/16 07:10 Abnorm Protein Band 3 TEST NOT PERFORMED 11/25/16 07:10 Calcium (PTH Intact) 9.2 mg/dL (8.6-10.4) 11/24/16 11:14 PTH w/Ion &Tot Calcium 149 pg/mL (14-64) H 11/24/16 11:14 Urine Color Straw (YELLOW) 11/21/16 03:44 Urine Clarity Clear (Clear) 11/21/16 03:44 Urine pH 6.0 (5.0-8.0) 11/21/16 03:44 Ur Specific Tatum 1.009 (1.003-1.030) 11/21/16 03:44 Urine Protein 2+ mg/dL (NEGATIVE) H 11/21/16 03:44 Urine Glucose (UA) Normal mg/dL (Normal) 11/21/16 03:44 Urine Ketones Negative mg/dL (NEGATIVE) 11/21/16 03:44 Urine Blood Negative (NEGATIVE) 11/21/16 03:44 Urine Nitrate Negative (NEGATIVE) 11/21/16 03:44 Urine Bilirubin Negative (NEGATIVE) 11/21/16 03:44 Urine Urobilinogen Normal mg/dL (0.2-1.0) 11/21/16 03:44 Ur Leukocyte Esterase Neg Kayleigh/uL (Negative) 11/21/16 03:44 Urine WBC (Auto) 1 /hpf (0-5) 11/21/16 03:44 Urine RBC (Auto) < 1 /hpf (0-3) 11/21/16 03:44 Urine Bacteria Rare (<OCC) 11/21/16 03:44 KILO & SPEP Interp See note 11/25/16 07:10 Attending/Attestation - Attestation I have personally seen and examined this patient.: Yes I have fully participated in the care of the patient.: Yes I have reviewed all pertinent clinical information, including history, physical exam and plan: Yes
[2016-11-25 16:38] VITALS: BP 147/69; PULSE 70; TEMP 98.3; O2SAT 95
[2016-11-25 19:36] LABS: CALCIUM 9.2 mg/dL (8.6-10.4)
[2016-11-26 05:41] LABS: TOTAL PROTEIN, SERUM 6.9 g/dL (6.1-8.1)
[2016-11-30 05:11] LABS: BETA 1 GLOBULIN 0.4 g/dL (0.4-0.6); BETA 2 GLOBULIN 0.4 g/dL (0.2-0.5); GAMMA GLOBULIN 1.2 g/dL (0.8-1.7)
== END 2016-11-25 17:30 | DRG 683 ==
LOC: C.ER 00:35 → C.9E 02:24 → C.6T 19:53 → OBSVTOIN 11-23 16:05
PROVIDERS: ADMIT Internal Medicine; ATTEND Internal Medicine
DX: I12.9 Hypertensive chronic kidney disease with stage 1 through stage 4 chronic kidney disease, or unspecified chronic kidney disease (principal); N18.4 Chronic kidney disease, stage 4 (severe); E11.22 Type 2 diabetes mellitus with diabetic chronic kidney disease; F03.90 Unspecified dementia, unspecified severity, without behavioral disturbance, psychotic disturbance, mood disturbance, and anxiety; I69.954 Hemiplegia and hemiparesis following unspecified cerebrovascular disease affecting left non-dominant side; E87.5 Hyperkalemia; D64.9 Anemia, unspecified; I25.10 Atherosclerotic heart disease of native coronary artery without angina pectoris; G40.909 Epilepsy, unspecified, not intractable, without status epilepticus; J45.909 Unspecified asthma, uncomplicated; H40.9 Unspecified glaucoma

== ENCOUNTER 2016-12-20 16:28 | Emergency (ER) | payer MEDICARE, MEDICAID ==
[2016-12-20 17:25] LABS: BASO % 0.9 % (0.0-2.0); HEMATOCRIT 28.3 % (34.0-47.0); LYMPH % 32.1 % (20.0-40.0); MEAN CELL VOLUME 91.6 fL (81.0-99.0); MEAN CORPUSCULAR HEMOGLOBIN 30.1 pg (27.0-31.0); MEAN CORPUSCULAR HGB CONC 32.9 g/dL (33.0-37.0); MEAN PLATELET VOLUME 8.8 fL (7.2-11.7); MONO # 0.3 K/uL (0.0-0.8); MONO % 9.7 % (0.0-10.0); NRBC % 0.1 % (0.0-2.0); RED CELL DISTRIBUTION WIDTH 13.6 % (11.5-14.5); WHITE BLOOD COUNT 3.2 K/uL (4.8-10.8)
[2016-12-20 17:30] LABS: POTASSIUM 5.2 mmol/L (3.6-5.2)
[2016-12-20 17:32] LABS: ALB/GLOB RATIO 1.1 (1.0-2.1); BILIRUBIN,TOTAL 0.5 mg/dL (0.2-1.3)
[2016-12-20 17:33] LABS: CALCIUM 7.9 mg/dl (8.6-10.4)
--- NOTE | 2016-12-20 17:41 | C.PDOC ---
History Of Present Illness 86 year old patient, with a past medical history of hypertension, anemia, CAD, CVA, dementia, diabetes, chronic kidney disease and seizures, is brought to the ED by ambulance from the [facility] for abnormal labs (hyperkalemia). Patient' s blood drawn at the [facility] today was 6.4 and hemolyzed. Potassium yesterday was 5+. Patient was treated with Kayexalate. Patient denies any physical complaints at this time. Time Seen by Provider: 12/20/16 16:55 Chief Complaint (Nursing): Abnormal Labs History Per: Patient, EMS History/Exam Limitations: no limitations Onset/Duration Of Symptoms: Other Current Symptoms Are (Timing): Still Present Severity: None Pain Scale Rating Of: 0 Reports Recently: Treated By A Physician Recent travel outside of the [place]: No Additional History Per: Group Home Past Medical History Reviewed: Historical Data, Nursing Documentation, Vital Signs Vital Signs: Last Vital Signs Temp 98.4 F 12/20/16 22:38 Pulse 64 12/20/16 22:38 Resp 20 12/20/16 22:38 BP 180/67 H 12/20/16 22:38 Pulse Ox 99 12/20/16 22:38 - Medical History PMH: Anemia, CAD, CVA (left sided weakness), Dementia, Diabetes, HTN, Chronic Kidney Disease, Seizures Surgical History: Appendectomy, Carotid Endarterectomy - [facility] Procedures CORONAR ARTERIOGR-2 CATH (07/09/12) INSERTION OF ONE VASCULAR STENT (07/09/12) INSRT OF DRUG-ELUTING CORON ARTERY STENTS(S) (07/09/12) PERCUTANEOUS TRANSLUMINAL CORONARY ANGIOPLASTY [PTCA] (07/09/12) PROCEDURE ON SINGLE VESSEL (07/09/12) TRANSFUSE NONAUT RED BLOOD CELLS IN PERIPH VEIN, PERC (07/05/16) Family History: States: Diabetes, Hypertension - Social History Hx Tobacco Use: No Hx Alcohol Use: No Hx Substance Use: No - Immunization History Hx Tetanus Toxoid Vaccination: Yes Hx Influenza Vaccination: Yes Hx Pneumococcal Vaccination: Yes Review Of Systems Except As Marked, All Systems Reviewed And Found Negative. Constitutional: Negative for: Fever Respiratory: Negative for: Shortness of Breath Gastrointestinal: Negative for: Nausea, Vomiting Physical Exam - Physical Exam Appears: Non-toxic, No Acute Distress Skin: Warm, Dry Head: Atraumatic, Normacephalic Oral Mucosa: Moist Neck: Normal ROM, Supple Chest: Symmetrical Cardiovascular: Rhythm Regular Respiratory: Normal Breath Sounds, No Rales, No Rhonchi, No Wheezing Gastrointestinal/Abdominal: Soft, No Tenderness Back: Normal Inspection, No CVA Tenderness ED Course And Treatment - Laboratory Results Result Diagrams: 12/20/16 17:17 12/20/16 17:17 O2 Sat by Pulse Oximetry: 98 (room air) Pulse Ox Interpretation: Normal Progress Note: Plan: EKG, blood work. 174: Case discussed and reviewed with Haley Barnes who is aware of the plan. He was not aware the blood work today was hemolyzed. Disposition - Disposition Referrals: [facility] Víctor Encinas, [Non-Staff] - Disposition: TRANSF TO SNF Disposition Time: 18:30 Condition: GOOD Additional Instructions: Thank you for letting us take care of you today. Your provider was Dr. Todd. You were treated for hyperkalemia. The emergency medical care you received today was directed at your acute symptoms. If you were prescribed any medication, please fill it and take as directed. It may take several days for your symptoms to resolve. Return to the Emergency Department if your symptoms worsen, do not improve, or if you have any other problems. Please contact your doctor or call one of the physicians/clinics you have been referred to that are listed on the Patient Visit Information form that is included in your discharge packet. Bring any paperwork you were given at discharge with you along with any medications you are taking to your follow up visit. Our treatment cannot replace ongoing medical care by a primary care provider (PCP) outside of the emergency department. [facility]. PER PATIENT'S OFFSET ASSISTANT PRESS OPERATOR, PATIENT SHOULD RECEIVED KALEXALATE 30 GRAMS ON MONDAY, MONDAY AND MONDAY. Patient should follow up with her PMD in 2-3 days for re-evaluation. Instructions: Hyperkalemia (ED) - Clinical Impression Clinical Impression: Abnormal blood test - Scribe Statement The provider has reviewed the documentation as recorded by the Scribe Kamla Laws Provider Attestation: All medical record entries made by the Scribe were at my direction and personally dictated by me. I have reviewed the chart and agree that the record accurately reflects my personal performance of the history, physical exam, medical decision making, and the department course for this patient. I have also personally directed, reviewed, and agree with the discharge instructions and disposition.
[2016-12-20 22:40] VITALS: BP 180/67; PULSE 64; RESP 20; TEMP 98.4
[2016-12-21 07:24] VITALS: O2SAT 98
== END 2016-12-20 22:39 ==
LOC: C.ER 16:28
DX: R79.9 Abnormal finding of blood chemistry, unspecified (principal); I12.9 Hypertensive chronic kidney disease with stage 1 through stage 4 chronic kidney disease, or unspecified chronic kidney disease; N18.9 Chronic kidney disease, unspecified; E11.9 Type 2 diabetes mellitus without complications

== ENCOUNTER 2017-01-21 11:21 | Inpatient (IN) | payer MEDICARE, MEDICAID ==
--- NOTE | 2017-01-21 11:52 | C.PDOC ---
History Of Present Illness Patient is an 86 year old female sent to the ER by [facility] for left sided weakness that began at approximately 10:30 as per [facility] staff. Staff report patient had some symptoms last night. Patient was seen last on and was found to have a history of HTN, anemia, CAD, CVA, dementia and seizures. History is limited due to patient's clinical condition and language barrier. Time Seen by Provider: 01/21/17 11:32 Chief Complaint (Nursing): Weakness/Neurological Deficit History Per: Patient History/Exam Limitations: no limitations, language barrier, physical impairment Onset/Duration Of Symptoms: Hrs (10:30) Current Symptoms Are (Timing): Gone Activity At Onset Of Symptoms: Other (Not known) Seizure Or Post-ictal Symptoms: None Fall Associated With With Symptoms: No Recent travel outside of the [place]: No - Symptoms Of CVA Character Of Deficits: Left: Weakness, Arm: Weakness, Leg: Weakness Recent Aspirin Use: Unknown Current Coumadin Use?: Unknown Past Medical History Reviewed: Historical Data, Nursing Documentation, Vital Signs Vital Signs: Last Vital Signs Temp 97.9 F 01/21/17 14:32 Pulse 58 L 01/21/17 18:12 Resp 13 01/21/17 18:12 BP 173/36 H 01/21/17 18:12 Pulse Ox 98 01/21/17 18:12 - Medical History PMH: Anemia, CAD, CVA (left sided weakness), Dementia, Diabetes, HTN, Chronic Kidney Disease, Seizures Surgical History: Appendectomy, Carotid Endarterectomy - [facility] Procedures CORONAR ARTERIOGR-2 CATH (07/09/12) INSERTION OF ONE VASCULAR STENT (07/09/12) INSRT OF DRUG-ELUTING CORON ARTERY STENTS(S) (07/09/12) PERCUTANEOUS TRANSLUMINAL CORONARY ANGIOPLASTY [PTCA] (07/09/12) PROCEDURE ON SINGLE VESSEL (07/09/12) TRANSFUSE NONAUT RED BLOOD CELLS IN PERIPH VEIN, PERC (07/05/16) Family History: States: Unknown Family Hx, Diabetes, Hypertension - Social History Hx Tobacco Use: No Hx Alcohol Use: No Hx Substance Use: No - Immunization History Hx Tetanus Toxoid Vaccination: Yes Hx Influenza Vaccination: Yes Hx Pneumococcal Vaccination: Yes Review Of Systems Review Of Systems: ROS cannot be obtained secondary to pt's inabilty to answer questions. Constitutional: Negative for: Fever, Chills Cardiovascular: Negative for: Chest Pain Musculoskeletal: Positive for: Arm Pain (left arm pain) Neurological: Positive for: Weakness Physical Exam - Physical Exam Appears: Non-toxic, Other (Awake) Skin: Normal Color, Warm, Dry Head: Atraumatic, Normacephalic Eye(s): bilateral: Normal Inspection (Eyes open) Oral Mucosa: Moist Throat: Normal Neck: Normal Cardiovascular: Rhythm Regular, No Murmur Respiratory: Normal Breath Sounds, No Rales, No Rhonchi, No Wheezing Gastrointestinal/Abdominal: Normal Exam Extremity: No Normal ROM, Other (Stiff extremities x4. Lifting arms up, cannot lift legs) Neurological/Psych: Normal Speech Gait: Unable To Assess Additional Physical Exam Comments: Exam limited due to clinical condition. ED Course And Treatment - Laboratory Results Result Diagrams: 01/21/17 12:21 01/21/17 12:21 Lab Interpretation: No Acute Changes ECG: Interpreted By Az ECG Rhythm: Sinus Rhythm, Sinus Bradycardia, Nonspecific Changes ECG Interpretation: No Acute Changes Rate From EC - Radiology CXR: Interpreted by Az CXR Interpretation: Yes: No Acute Disease - CT Scan/US No standard instances Other Rad Studies (CT/US): Read By Radiologist, Radiology Report Reviewed CT/US Interpretation: FINDINGS: HEMORRHAGE: No intracranial hemorrhage. BRAIN : No intracranial mass. Large old right MCA territory infarct involving frontal and parietal lobes as well as old right insular encephalomalacia. Small old left occipital infarct. Old left thalamic lacunar infarct. Old bilateral basal ganglia lacunar infarcts. No evidence of acute infarct. VENTRICLES: No hydrocephalus. Ex vacuo dilatation of right lateral ventricle secondary to old right MCA infarct. No midline shift. CALVARIUM: Unremarkable. PARANASAL SINUSES: Minimal chronic sphenoid and right maxillary sinusitis. MASTOID AIR CELLS: Unremarkable as visualized. No inflammatory changes. OTHER FINDINGS: None. IMPRESSION: No intracranial mass, hemorrhage or evidence of acute infarct. Large old right MCA infarct and small left occipital infarct. Old left thalamic lacunar infarct and bilateral basal ganglia infarcts. Findings in this examination were discussed by telephone with Dr. Moe at 12 p.m. on 2016. Progress Note: Blood work, head CT, CXR and urinalysis ordered.\\Patient moving all extremitis, uncooperative. Treated with ASA 300 mg MS Reassessment Condition: Unchanged - Physician Consult Information Physician Contacted: Gladis Bonilla Outcome Of Conversation: admit NIHSS Stroke Scale - Date/Time Evaluation Performed Date Performed: 01/21/17 Time Performed: 11:32 When Was NIHSS Performed: Baseline - How Severe is the Stoke Level of Consciousness: 0=Alert LOC to Questions: 1=One correct (limited due to uncooperative) Best Gaze: 0=Normal Visual: 0=No visual loss (limited due to uncooperative) Facial: 0=Normal Motor Arm - Left: 0=No drift (limited due to uncooperative) Motor Arm - Right: 0=No drift (limited due to uncooperative) Motor Leg - Left: 0=No drift (limited due to uncooperative) Motor Leg - Right: 0=No drift (limited due to uncooperative) Limb Ataxia: 0=Absent (limited due to uncooperative) Sensory: 0=Normal (unable patient uncooperative) Best Language: 0=No aphasia Dysarthia: 0=Normal articulation Extinction & Inattention (Neglect): 0=Normal, no object Severity Of Stroke: 0= No Stroke Disposition Discussed With Dr.: Gladis Bonilla Doctor Will See Patient In The: Hospital - Disposition Disposition: HOSPITALIZED Disposition Time: 13:30 Condition: STABLE - POA Present On Arrival: None - Clinical Impression Clinical Impression: TIA (transient ischemic attack), HTN (hypertension) - Scribe Statement The provider has reviewed the documentation as recorded by the Scribmarixa Velazquez All medical record entries made by the Scribe were at my direction and personally dictated by me. I have reviewed the chart and agree that the record accurately reflects my personal performance of the history, physical exam, medical decision making, and the department course for this patient. I have also personally directed, reviewed, and agree with the discharge instructions and disposition. Decision To Admit - Pt Status Changed To: Hospital Disposition Of: Observation - . Bed Request Type: Telemetry Admitting Physician: Gladis Bonilla Patient Diagnosis: TIA (transient ischemic attack), HTN (hypertension)
[2017-01-21 12:29] LABS: BASO % 0.7 % (0.0-2.0); HEMOGLOBIN 10.1 g/dL (11.0-16.0); LYMPH # 1.3 K/uL (1.0-4.3); LYMPH % 25.1 % (20.0-40.0); MEAN CELL VOLUME 94.2 fL (81.0-99.0); MEAN CORPUSCULAR HEMOGLOBIN 30.8 pg (27.0-31.0); MEAN CORPUSCULAR HGB CONC 32.7 g/dL (33.0-37.0); MEAN PLATELET VOLUME 9.2 fL (7.2-11.7); MONO # 0.4 K/uL (0.0-0.8); MONO % 8.2 % (0.0-10.0); NEUT # 3.6 K/uL (1.8-7.0); RBC 3.29 Mil/uL (3.80-5.20); RED CELL DISTRIBUTION WIDTH 14.9 % (11.5-14.5); WHITE BLOOD COUNT 5.4 K/uL (4.8-10.8)
[2017-01-21 12:37] LABS: PROTHROMBIN TIME 11.4 SECONDS (9.7-12.2)
[2017-01-21 12:45] LABS: CALCIUM 8.7 mg/dl (8.6-10.4)
[2017-01-21 12:57] LABS: TROPONIN I 0.036 ng/mL (0.00-0.120)
[2017-01-21] MEDS ORDERED: Metoprolol 1 mg/ml Inj IVP STA (13:54)
[2017-01-21] MEDS ORDERED: Metoprolol 1 mg/ml Inj IVP ONE (14:21)
[2017-01-21] MEDS ORDERED: Albuterol-Ipratrop 3 mg / 0.5 (3 ml) UD IH PRN (15:10)
--- NOTE | 2017-01-21 15:39 | CP.PCM.HP ---
<Guille Miranda - Last Filed: 01/21/17 16:34> History of Present Illness - History of Present Illness History of Present Illness: CC: AMS, weakness HPI: 86F PMHx epilepsy, DM, HTN, CAD s/p stent was sent here from longterm. Daughter at bedside. Per daughter, pt has been acting different than before started last night. NH staff also noticed left sided weakness this morning. Patient was vomiting after dinner yesterday and this morning. Per daughter, patient was started on a water pill yesterday but no other changes to medication. Patient was admitted in 10/2016 for chest pain and hyperkalemia. Patient is combative, not following commands and not answering questions. ROS unobtainable. PMHx: epilepsy, Diabetes, HTN, asthma, bradycardia, hyperkalemia, urinary retention, glaucoma Medications: she does not know them. Allergies: NKDA Surgery Hx: open monalisa, left hip surgery s/p fall, CAD s/p stent 2011 Social Hx: denies history of tobacco, alcohol or drugs. 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 PMD: Dr. Persaud Present on Admission - Present on Admission Any Indicators Present on Admission: No Review of Systems - Review of Systems Systems not reviewed;Unavailable: Dementia, Uncooperative Past Patient History - Infectious Disease Hx of Infectious Diseases: None - Tetanus Immunizations Tetanus Immunization: Unknown - Past Medical History & Family History Past Medical History?: Yes - Past Social History Smoking Status: Never Smoked - CARDIAC Hx Hypertension: Yes - PULMONARY Hx Respiratory Disorders: No - NEUROLOGICAL Hx Dementia: Yes Hx Seizures: Yes - HEENT Hx HEENT Problems: Yes Hx Glaucoma: Yes - RENAL Hx Chronic Kidney Disease: Yes - ENDOCRINE/METABOLIC Hx Diabetes Mellitus Type 2: Yes - HEMATOLOGICAL/ONCOLOGICAL Hx Anemia: Yes - INTEGUMENTARY Hx Dermatological Problems: No - MUSCULOSKELETAL/RHEUMATOLOGICAL Hx Musculoskeletal Disorders: No Hx Falls: Yes Hx Osteoarthritis: Yes - GASTROINTESTINAL Hx Gastrointestinal Disorders: No Other/Comment: Incontinence - GENITOURINARY/GYNECOLOGICAL Hx Genitourinary Disorders: Yes Hx Incontinence: Yes Hx Urinary Tract Infection: Yes - PSYCHIATRIC Hx Substance Use: No - SURGICAL HISTORY Hx Appendectomy: Yes Hx Carotid Endarterectomy: Yes - ANESTHESIA Hx Anesthesia: Yes Hx Anesthesia Reactions: No Hx Malignant Hyperthermia: No Meds Allergies/Adverse Reactions: Allergies Allergy/AdvReac Type Severity Reaction Status Date / Time No Known Allergies Allergy Verified 01/21/17 11:32 Physical Exam - Constitutional Appears: Non-toxic, No Acute Distress, Combative, Confused - Head Exam Head Exam: NORMOCEPHALIC - Eye Exam Eye Exam: Normal appearance Pupil Exam: NORMAL ACCOMODATION - ENT Exam ENT Exam: Mucous Membranes Moist - Respiratory Exam Respiratory Exam: Clear to Auscultation Bilateral, NORMAL BREATHING PATTERN. absent: Rhonchi, Wheezes - Cardiovascular Exam Cardiovascular Exam: REGULAR RHYTHM, +S1, +S2. absent: Gallop, Rubs - GI/Abdominal Exam GI & Abdominal Exam: Normal Bowel Sounds, Soft. absent: Tenderness - Extremities Exam Extremities exam: Negative for: pedal edema - Neurological Exam Neurological exam: Alert, Altered Additional comments: Not cooperative and not responding to commands Results - Vital Signs Recent Vital Signs: Last Vital Signs Temp 97.9 F 01/21/17 14:32 Pulse 54 L 01/21/17 14:32 Resp 13 01/21/17 14:32 BP 156/37 H 01/21/17 14:32 Pulse Ox 98 01/21/17 14:32 - Labs Result Diagrams: 01/21/17 12:21 01/21/17 12:21 Assessment & Plan - Assessment and Plan (Free Text) Assessment: AMS Hx of old CVA on CT. No acute changes per report. Neurology Dr. Black consulted, help appreciated. Code stroke called in ED. Increase carbamazepine to 300mg PO BID per Dr. Black. Continue Aricept, ASA, Crestor. D5 1/2NS @75ml/hr. Pt combative, NG tube insertion was unsuccessful. NPO pending speech evaluation. F/U brain MRI. F/U Am electrolytes. DM RISS, Accucheck. Januvia on hold. F/U A1c. HTN Continue Norvasc, Nitrate, Lopressor. Glaucoma Continue Diamox and eye drops. Prophylactic measure HepSQ, Protonix, SCD. <Jimy De La Garza M - Last Filed: 01/30/17 16:34> Results - Vital Signs Recent Vital Signs: Last Vital Signs Temp 98.8 F 01/30/17 16:00 Pulse 108 H 01/30/17 16:00 Resp 20 01/30/17 16:00 BP 168/79 H 01/30/17 16:00 Pulse Ox 100 01/30/17 16:00 - Labs Result Diagrams: 01/30/17 07:45 01/30/17 07:45 Labs: Laboratory Results - last 24 hr 01/29/17 01/29/17 01/30/17 16:44 21:03 00:19 WBC RBC Hgb Hct MCV MCH MCHC RDW Plt Count MPV Neut % (Auto) Lymph % (Auto) [place] % (Auto) Eos % (Auto) Baso % (Auto) Neut # Lymph # [place] # Eos # Baso # Sodium Potassium Chloride Carbon Dioxide Anion Gap BUN Creatinine Est GFR ( Amer) Est GFR (Non-Af Amer) POC Glucose (mg/dL) 142 H 115 H 125 H Random Glucose Calcium Phosphorus Magnesium Total Bilirubin AST ALT Alkaline Phosphatase Total Protein Albumin Globulin Albumin/Globulin Ratio 01/30/17 01/30/17 01/30/17 06:42 07:45 07:45 WBC 6.7 RBC 2.80 L Hgb 8.7 L Hct 26.9 L MCV 96.2 MCH 31.1 H MCHC 32.3 L RDW 16.1 H Plt Count 176 MPV 9.8 Neut % (Auto) 75.1 H Lymph % (Auto) 14.5 L [place] % (Auto) 7.0 Eos % (Auto) 2.6 Baso % (Auto) 0.8 Neut # 5.1 Lymph # 1.0 [place] # 0.5 Eos # 0.2 Baso # 0.1 Sodium 145 Potassium 3.7 Chloride 119 H Carbon Dioxide 15 L Anion Gap 15 BUN 36 H Creatinine 2.6 H Est GFR ( Amer) 21 Est GFR (Non-Af Amer) 18 POC Glucose (mg/dL) 117 H Random Glucose 103 Calcium 8.6 Phosphorus 4.1 Magnesium 2.0 Total Bilirubin 0.7 AST 29 ALT 13 Alkaline Phosphatase 109 Total Protein 6.8 Albumin 3.3 L Globulin 3.5 Albumin/Globulin Ratio 0.9 L 01/30/17 12:06 WBC RBC Hgb Hct MCV MCH MCHC RDW Plt Count MPV Neut % (Auto) Lymph % (Auto) [place] % (Auto) Eos % (Auto) Baso % (Auto) Neut # Lymph # [place] # Eos # Baso # Sodium Potassium Chloride Carbon Dioxide Anion Gap BUN Creatinine Est GFR ( Amer) Est GFR (Non-Af Amer) POC Glucose (mg/dL) 102 Random Glucose Calcium Phosphorus Magnesium Total Bilirubin AST ALT Alkaline Phosphatase Total Protein Albumin Globulin Albumin/Globulin Ratio Attending/Attestation - Attestation I have personally seen and examined this patient.: Yes I have fully participated in the care of the patient.: Yes I have reviewed all pertinent clinical information: Yes Notes (Text): 01/30/17 16:32 Patient was seen and examined at bedside with the resident This is a late computer entry I discussed the plan of care with the resident and I agree with the history and physical documented by the resident
--- NOTE | 2017-01-21 15:42 | RAD ---
PROCEDURE: CHEST RADIOGRAPH, 1 VIEW HISTORY: code stroke COMPARISON: 11/22/2016 FINDINGS: LUNGS: Clear. PLEURA: No pneumothorax or pleural fluid seen. CARDIOVASCULAR: Normal. OSSEOUS STRUCTURES: No significant abnormalities. VISUALIZED UPPER ABDOMEN: Normal. OTHER FINDINGS: None. IMPRESSION: No active disease.
[2017-01-21] MEDS ORDERED: Sodium Chloride 0.9% 500 ML IV ONE (15:57)
[2017-01-21] MEDS: Dextrose 5%/0.45% NS 1,000 ML IV SCH (16:04)
[2017-01-21] MEDS: (Novolog) Insulin Aspart, Recombinant 100 u/ml 10 ml vial SC SCH (16:17)
--- NOTE | 2017-01-21 16:17 | CP.PCM.CON ---
History of Present Illness - History of Present Illness History of Present Illness: Mrs. Jackson is an 86-year-old woman with multiple medical comorbidities including previous ischemic stroke and left side contractures at baseline, who was brought in to the ED after being noted to be less responsive than usual. Labs in the ED showed that she was dehydrated and it was reported that she has been having nausea and vomiting for the last several days. The patient was combative and resisting examination at first. When I saw her, she was following simple commands and was attempting to sleep. Review of Systems - Review of Systems Systems not reviewed;Unavailable: Altered Mental Status, Uncooperative Past Patient History - Infectious Disease Hx of Infectious Diseases: None - Tetanus Immunizations Tetanus Immunization: Unknown - Past Medical History & Family History Past Medical History?: Yes - Past Social History Smoking Status: Never Smoked - CARDIAC Hx Hypertension: Yes - PULMONARY Hx Respiratory Disorders: No - NEUROLOGICAL Hx Dementia: Yes Hx Seizures: Yes - HEENT Hx HEENT Problems: Yes Hx Glaucoma: Yes - RENAL Hx Chronic Kidney Disease: Yes - ENDOCRINE/METABOLIC Hx Diabetes Mellitus Type 2: Yes - HEMATOLOGICAL/ONCOLOGICAL Hx Anemia: Yes - INTEGUMENTARY Hx Dermatological Problems: No - MUSCULOSKELETAL/RHEUMATOLOGICAL Hx Musculoskeletal Disorders: No Hx Falls: Yes Hx Osteoarthritis: Yes - GASTROINTESTINAL Hx Gastrointestinal Disorders: No Other/Comment: Incontinence - GENITOURINARY/GYNECOLOGICAL Hx Genitourinary Disorders: Yes Hx Incontinence: Yes Hx Urinary Tract Infection: Yes - PSYCHIATRIC Hx Substance Use: No - SURGICAL HISTORY Hx Appendectomy: Yes Hx Carotid Endarterectomy: Yes - ANESTHESIA Hx Anesthesia: Yes Hx Anesthesia Reactions: No Hx Malignant Hyperthermia: No Meds Allergies/Adverse Reactions: Allergies Allergy/AdvReac Type Severity Reaction Status Date / Time No Known Allergies Allergy Verified 01/21/17 11:32 - Medications Medications: Current Medications Acetazolamide (Diamox Sequels 500 Mg Sr Cap) 500 mg PO BID [facility] Albuterol/Ipratropium (Duoneb 3 Mg/0.5 Mg (3 Ml) Ud) 3 ml IH Q6 PRN PRN Reason: Shortness of Breath Allopurinol (Zyloprim) 100 mg PO DAILY [facility] Amlodipine Besylate (Norvasc) 5 mg PO Q12 [facility] Aspirin (Ecotrin) 325 mg PO DAILY [facility] Brimonidine Tartrate (Alphagan 0.2% Opht) 1 ml OD BID [facility] Carbamazepine (Tegretol) 300 mg PO BID [facility] Chlorthalidone (Hygroton) 25 mg PO DAILY [facility] Donepezil HCl (Aricept) 10 mg PO HS [facility] Dorzolamide HCl (Trusopt) 1 ml OD BID [facility] Home Med (Bimatoprost [Lumigan]) 1 drop OU DAILY [facility] Home Med (Ciprofloxacin Hcl [Ciprofloxacin Hcl]) 1 drop OD QID [facility] Dextrose/Sodium Chloride (Dextrose 5%/0.45% Ns 1000 Ml) 1,000 mls @ 75 mls/hr IV .[id number] [facility] Last Admin: 01/21/17 16:04 Dose: 75 mls/hr Insulin Aspart (Novolog) 0 unit SC Q6H [facility] PRN Reason: Protocol Isosorbide Mononitrate (Ismo) 10 mg PO DAILY [facility] Metoprolol Tartrate (Lopressor) 25 mg PO Q12 [facility] Rosuvastatin Calcium (Crestor) 10 mg PO HS [facility] Physical Exam - Constitutional Appears: Toxic, Combative, Confused - Head Exam Head Exam: ATRAUMATIC - Eye Exam Eye Exam: EOMI, Normal appearance, PERRL - Neck Exam Neck exam: Positive for: Normal Inspection - Respiratory Exam Respiratory Exam: Clear to Auscultation Bilateral, NORMAL BREATHING PATTERN - Cardiovascular Exam Cardiovascular Exam: REGULAR RHYTHM, +S1, +S2 - Neurological Exam Neurological exam: Altered, CN II-XII Intact, Motor Sensory Deficit Additional comments: Not compliant with the examination, but did show good hand throat cutter on the right and less so on the left. She moves all of her extremities, although she had contractures of the left upper and lower extremity. Reflexes were brisk, plantar responses were upgoing. Results - Vital Signs Recent Vital Signs: Last Vital Signs Temp 97.9 F 01/21/17 14:32 Pulse 54 L 01/21/17 14:32 Resp 13 01/21/17 14:32 BP 156/37 H 01/21/17 14:32 Pulse Ox 98 01/21/17 14:32 - Labs Result Diagrams: 01/21/17 12:21 01/21/17 12:21 Labs: Laboratory Results - last 24 hr 01/21/17 16:07 POC Glucose (mg/dL) 140 H Assessment & Plan (1) Toxic metabolic encephalopathy Assessment and Plan: Likely due to dehydration and electrolyte derangements in the setting of previous ischemic insults to the brain and low cognitive reserve. I recommend the followin. Telemetry 2. CT of the head without contrast 3. Aspirin 81 mg daily if no bleed 4. Hydration with NS at 100 mL/hr 5. PT/OT eval and treat 6. Lipid panel and HbA1c for risk factor assessment. 7. DVT Px. Thank you. Status: Acute Priority: High
[2017-01-21] MEDS ORDERED: Dorzolamide 2% Opht Sol 10ml OD SCH (18:00)
[2017-01-21] MEDS ORDERED: Brimonidine 0.2% Opth Sol (5ml) OD SCH (18:00)
[2017-01-21] MEDS: acetaZOLAMIDE 500 mg SR Cap PO SCH (18:55)
[2017-01-21] MEDS: carBAMazepine 100 mg/5 ml Oral Susp (450 ml) PO SCH (18:56)
[2017-01-21] MEDS: Ciprofloxacin 0.3% OPTH SOLN OD SCH ×2 (19:00→21:57)
[2017-01-21] MEDS: Dorzolamide 2% Opht Sol 10ml OD SCH (19:00)
[2017-01-21] MEDS: Brimonidine 0.2% Opth Sol (5ml) OD SCH (19:00)
[2017-01-21 22:28] LABS: CK-MB 1.31 ng/mL (0.0-3.38)
[2017-01-22] MEDS: (Novolog) Insulin Aspart, Recombinant 100 u/ml 10 ml vial SC SCH ×4 (00:20→17:04)
[2017-01-22 03:25] LABS: CK-MB 1.12 ng/mL (0.0-3.38)
[2017-01-22 07:43] LABS: ALBUMIN 3.9 g/dL (3.5-5.0); BASO % 0.3 % (0.0-2.0); HEMOGLOBIN 10.3 g/dL (11.0-16.0); LYMPH # 0.8 K/uL (1.0-4.3); LYMPH % 11.3 % (20.0-40.0); MEAN CELL VOLUME 93.3 fL (81.0-99.0); MEAN CORPUSCULAR HEMOGLOBIN 30.5 pg (27.0-31.0); MEAN CORPUSCULAR HGB CONC 32.7 g/dL (33.0-37.0); MEAN PLATELET VOLUME 9.7 fL (7.2-11.7); MONO # 0.4 K/uL (0.0-0.8); MONO % 5.3 % (0.0-10.0); NEUT # 5.9 K/uL (1.8-7.0); NEUT % 83.1 % (50.0-75.0); RBC 3.38 Mil/uL (3.80-5.20); RED CELL DISTRIBUTION WIDTH 14.9 % (11.5-14.5); WHITE BLOOD COUNT 7.1 K/uL (4.8-10.8)
[2017-01-22 07:48] LABS: CALCIUM 8.8 mg/dl (8.6-10.4); MAGNESIUM 2.7 mg/dL (1.6-2.3)
--- NOTE | 2017-01-22 10:19 | CP.PCM.PN ---
Subjective - Date & Time of Evaluation Date of Evaluation: 01/22/17 Time of Evaluation: 09:30 - Subjective Subjective: Patient was seen and examined by me. Patient is known to the hospitalist service from previous admissions usually due to higher K and CKD. However this time came in due to AMS/CODE stroke. Today she was agitated, she pushed us away when we tried to see her. She said yes to every single question that I tried to ask in my basic Urdu. Appreciate neurology evaluation of the patient. Continue with IVF. Earlier there was an [employer]ATOR called due to a rapid HR that was irregular irregular/ atrial fibrillation. Cardizem IV was given. For now digoxin x 1 only Patient is not wanting to take PO medications. NGT was not able to tbe placed. Also she did not allow a swallow eval yesterday. Will try again. Objective - Vital Signs/Intake and Output Vital Signs (last 24 hours): Temp Pulse Resp BP Pulse Ox 97.7 F 79 20 110/61 96 01/22/17 09:37 01/22/17 09:37 01/22/17 09:37 01/22/17 09:37 01/22/17 09:37 Intake and Output: 01/22/17 01/22/17 06:59 18:59 Intake Total 375 Balance 375 - Medications Medications: Current Medications Acetazolamide (Diamox Sequels 500 Mg Sr Cap) 500 mg PO BID [facility] Last Admin: 01/21/17 18:55 Dose: Not Given Albuterol/Ipratropium (Duoneb 3 Mg/0.5 Mg (3 Ml) Ud) 3 ml IH Q6 PRN PRN Reason: Shortness of Breath Allopurinol (Zyloprim) 100 mg PO DAILY [facility] Amlodipine Besylate (Norvasc) 5 mg PO DAILY [facility] Aspirin (Ecotrin) 325 mg PO DAILY [facility] Brimonidine Tartrate (Alphagan 0.2% Opht) 0 ml OD BID [facility] Last Admin: 01/21/17 19:00 Dose: 1 drop Carbamazepine (Tegretol) 300 mg PO BID [facility] Last Admin: 01/21/17 18:56 Dose: Not Given Chlorthalidone (Hygroton) 25 mg PO DAILY [facility] Ciprofloxacin (Ciloxan 0.3% Ophth Soln) 0 drop OD QID [facility] Last Admin: 01/21/17 21:57 Dose: 1 drop Donepezil HCl (Aricept) 10 mg PO HS [facility] Last Admin: 01/21/17 21:57 Dose: Not Given Dorzolamide HCl (Trusopt) 0 ml OD BID [facility] Last Admin: 01/21/17 19:00 Dose: 1 drop Heparin Sodium (Porcine) (Heparin) 5,000 units SC Q12 [facility] Last Admin: 01/21/17 22:12 Dose: 5,000 units Dextrose/Sodium Chloride (Dextrose 5%/0.45% Ns 1000 Ml) 1,000 mls @ 75 mls/hr IV .[id number] [facility] Last Admin: 01/21/17 16:04 Dose: 75 mls/hr Insulin Aspart (Novolog) 0 unit SC Q6 [facility] PRN Reason: Protocol Last Admin: 01/22/17 06:59 Dose: Not Given Isosorbide Mononitrate (Ismo) 10 mg PO DAILY [facility] Latanoprost (Xalatan Opht) 0 ml OU HS [facility] Metoprolol Tartrate (Lopressor) 25 mg PO Q12 [facility] Last Admin: 01/21/17 21:56 Dose: Not Given Pantoprazole Sodium (Protonix Inj) 40 mg IVP DAILY [facility] Rosuvastatin Calcium (Crestor) 10 mg PO HS [facility] Last Admin: 01/21/17 21:57 Dose: Not Given - Labs Labs: 01/22/17 07:27 01/22/17 07:27 PT 11.4 SECONDS (9.7-12.2) 01/21/17 12:21 INR 1.0 01/21/17 12:21 APTT 26 SECONDS (21-34) D 01/22/17 07:27 - Constitutional Appears: No Acute Distress, Older Than Stated Age, Confused, Chronically Ill - Head Exam Head Exam: NORMAL INSPECTION - Eye Exam Eye Exam: EOMI - ENT Exam ENT Exam: Mucous Membranes Moist - Respiratory Exam Respiratory Exam: Clear to Ausculation Bilateral, NORMAL BREATHING PATTERN - Cardiovascular Exam Cardiovascular Exam: REGULAR RHYTHM - GI/Abdominal Exam GI & Abdominal Exam: Soft, Normal Bowel Sounds - Back Exam Back Exam: absent: CVA tenderness (L), CVA tenderness (R), NORMAL INSPECTION - Neurological Exam Neurological Exam: Alert, Altered, Awake Neuro motor strength exam: Left Upper Extremity: 4, Right Upper Extremity: 4 - Psychiatric Exam Psychiatric exam: Anxious, Depressed, Flat Affect - Skin Skin Exam: Normal Color, Warm Assessment and Plan - Assessment and Plan (Free Text) Assessment: AMS 01/22: Patient pulled out NGT. Pending a new swallow eval. Currently pending MRI. 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 Possible also element of dehydration, currently on IVF Hx of old CVA on CT. No acute changes per report. Neurology Dr. Black consulted, help appreciated. Code stroke called in ED. Increase carbamazepine to 300mg PO BID per Dr. Black. Continue Aricept, ASA, Crestor. D5 1/2NS @75ml/hr. F/U brain MRI. F/U Am electrolytes. DM 01/22: 140s to 180s RISS, Accucheck. Januvia on hold. F/U A1c. HTN 01/22: Currently doing ok while on IVF Continue Norvasc, Nitrate, Lopressor. Glaucoma Continue Diamox and eye drops. Prophylactic measure HepSQ, Protonix, SCD.
[2017-01-22] MEDS: Aspirin 325 mg EC Tablets PO SCH (10:55)
[2017-01-22] MEDS: acetaZOLAMIDE 500 mg SR Cap PO SCH ×2 (10:55→17:39)
[2017-01-22] MEDS: carBAMazepine 100 mg/5 ml Oral Susp (450 ml) PO SCH ×2 (10:56→17:40)
[2017-01-22] MEDS: Ciprofloxacin 0.3% OPTH SOLN OD SCH ×4 (10:59→21:19)
[2017-01-22] MEDS: Dorzolamide 2% Opht Sol 10ml OD SCH ×2 (10:59→17:39)
[2017-01-22] MEDS: Brimonidine 0.2% Opth Sol (5ml) OD SCH ×2 (11:08→17:38)
[2017-01-22] MEDS ORDERED: Digoxin 500 mcg/2ml (0.5 mg/2ml) Inj IVP ONE (12:17)
--- NOTE | 2017-01-22 12:23 | CP.PCM.CON ---
History of Present Illness - History of Present Illness History of Present Illness: I was asked to evaluate patient by primary team. Patient is a 86 year old female with PMH HTN, hypercholesterolemia, CAD who presents with altered mental status. The patient as been combative. She was found to be in atrial fibrillation with rapid ventricular response. The appears comfortable. Review of Systems - Review of Systems Systems not reviewed;Unavailable: Altered Mental Status Past Patient History - Infectious Disease Hx of Infectious Diseases: None - Tetanus Immunizations Tetanus Immunization: Unknown - Past Medical History & Family History Past Medical History?: Yes - Past Social History Smoking Status: Never Smoked - CARDIAC Hx Hypertension: Yes - PULMONARY Hx Respiratory Disorders: No - NEUROLOGICAL Hx Dementia: Yes Hx Seizures: Yes - HEENT Hx HEENT Problems: Yes Hx Glaucoma: Yes - RENAL Hx Chronic Kidney Disease: No - ENDOCRINE/METABOLIC Hx Diabetes Mellitus Type 2: Yes - HEMATOLOGICAL/ONCOLOGICAL Hx Anemia: Yes - INTEGUMENTARY Hx Dermatological Problems: No - MUSCULOSKELETAL/RHEUMATOLOGICAL Hx Musculoskeletal Disorders: No Hx Falls: Yes Hx Osteoarthritis: Yes - GASTROINTESTINAL Hx Gastrointestinal Disorders: No Other/Comment: Incontinence - GENITOURINARY/GYNECOLOGICAL Hx Genitourinary Disorders: Yes Hx Incontinence: Yes Hx Urinary Tract Infection: Yes - PSYCHIATRIC Hx Substance Use: No - SURGICAL HISTORY Hx Appendectomy: Yes Hx Carotid Endarterectomy: Yes - ANESTHESIA Hx Anesthesia: Yes Hx Anesthesia Reactions: No Hx Malignant Hyperthermia: No Meds Allergies/Adverse Reactions: Allergies Allergy/AdvReac Type Severity Reaction Status Date / Time No Known Allergies Allergy Verified 01/21/17 11:32 - Medications Medications: Current Medications Acetazolamide (Diamox Sequels 500 Mg Sr Cap) 500 mg PO BID [facility] Last Admin: 01/22/17 10:55 Dose: Not Given Albuterol/Ipratropium (Duoneb 3 Mg/0.5 Mg (3 Ml) Ud) 3 ml IH Q6 PRN PRN Reason: Shortness of Breath Allopurinol (Zyloprim) 100 mg PO DAILY [facility] Last Admin: 01/22/17 10:56 Dose: Not Given Amlodipine Besylate (Norvasc) 5 mg PO DAILY [facility] Last Admin: 01/22/17 10:56 Dose: Not Given Aspirin (Ecotrin) 325 mg PO DAILY [facility] Last Admin: 01/22/17 10:55 Dose: Not Given Brimonidine Tartrate (Alphagan 0.2% Opht) 0 ml OD BID [facility] Last Admin: 01/22/17 11:08 Dose: 1 drop Carbamazepine (Tegretol) 300 mg PO BID [facility] Last Admin: 01/22/17 10:56 Dose: Not Given Chlorthalidone (Hygroton) 25 mg PO DAILY [facility] Last Admin: 01/22/17 10:55 Dose: Not Given Ciprofloxacin (Ciloxan 0.3% Ophth Soln) 0 drop OD QID [facility] Last Admin: 01/22/17 10:59 Dose: 1 drop Donepezil HCl (Aricept) 10 mg PO HS [facility] Last Admin: 01/21/17 21:57 Dose: Not Given Dorzolamide HCl (Trusopt) 0 ml OD BID [facility] Last Admin: 01/22/17 10:59 Dose: 1 drop Heparin Sodium (Porcine) (Heparin) 5,000 units SC Q12 [facility] Last Admin: 01/22/17 11:00 Dose: Not Given Dextrose/Sodium Chloride (Dextrose 5%/0.45% Ns 1000 Ml) 1,000 mls @ 75 mls/hr IV .[id number] [facility] Last Admin: 01/21/17 16:04 Dose: 75 mls/hr Insulin Aspart (Novolog) 0 unit SC Q6 [facility] PRN Reason: Protocol Last Admin: 01/22/17 12:13 Dose: Not Given Isosorbide Mononitrate (Ismo) 10 mg PO DAILY [facility] Last Admin: 01/22/17 10:55 Dose: Not Given Latanoprost (Xalatan Opht) 0 ml OU [facility] Metoprolol Tartrate (Lopressor) 25 mg PO Q12 [facility] Last Admin: 01/22/17 10:55 Dose: Not Given Pantoprazole Sodium (Protonix Inj) 40 mg IVP DAILY [facility] Last Admin: 01/22/17 10:59 Dose: 40 mg Rosuvastatin Calcium (Crestor) 10 mg PO [facility] Last Admin: 01/21/17 21:57 Dose: Not Given Physical Exam - Constitutional Appears: Non-toxic - Eye Exam Eye Exam: Normal appearance - ENT Exam ENT Exam: Mucous Membranes Moist - Neck Exam Neck exam: Positive for: Normal Inspection - Respiratory Exam Respiratory Exam: NORMAL BREATHING PATTERN - Cardiovascular Exam Cardiovascular Exam: Irregular Rhythm - GI/Abdominal Exam GI & Abdominal Exam: Normal Bowel Sounds - Rectal Exam Rectal Exam: Deferred - Extremities Exam Extremities exam: Positive for: pedal edema - Back Exam Back exam: NORMAL INSPECTION - Neurological Exam Neurological exam: Alert - Psychiatric Exam Psychiatric exam: Normal Affect - Skin Skin Exam: Normal Color Results - Vital Signs Recent Vital Signs: Last Vital Signs Temp 97.7 F 01/22/17 09:37 Pulse 79 01/22/17 09:37 Resp 20 01/22/17 09:37 BP 110/61 01/22/17 09:37 Pulse Ox 96 01/22/17 09:37 - Labs Result Diagrams: 01/22/17 07:27 01/22/17 07:27 Labs: Laboratory Results - last 24 hr 01/21/17 01/21/17 01/21/17 16:07 21:42 21:57 WBC RBC Hgb Hct MCV MCH MCHC RDW Plt Count MPV Neut % (Auto) Lymph % (Auto) [place] % (Auto) Eos % (Auto) Baso % (Auto) Neut # Lymph # [place] # Eos # Baso # APTT Sodium Potassium Chloride Carbon Dioxide Anion Gap BUN Creatinine Est GFR ( Amer) Est GFR (Non-Af Amer) POC Glucose (mg/dL) 140 H 168 H Random Glucose Calcium Phosphorus Magnesium Total Bilirubin AST ALT Alkaline Phosphatase Ammonia Total Creatine Kinase 201 H CK-MB (Mass) 1.31 Troponin I, Quant 0.0320 Total Protein Albumin Globulin Albumin/Globulin Ratio Triglycerides Cholesterol LDL Cholesterol Direct HDL Cholesterol 01/22/17 01/22/17 01/22/17 02:58 06:24 07:27 WBC 7.1 RBC 3.38 L Hgb 10.3 L Hct 31.5 L MCV 93.3 MCH 30.5 MCHC 32.7 L RDW 14.9 H Plt Count 172 MPV 9.7 Neut % (Auto) 83.1 H Lymph % (Auto) 11.3 L [place] % (Auto) 5.3 Eos % (Auto) 0.0 Baso % (Auto) 0.3 Neut # 5.9 Lymph # 0.8 L [place] # 0.4 Eos # 0.0 Baso # 0.0 APTT Sodium Potassium Chloride Carbon Dioxide Anion Gap BUN Creatinine Est GFR ( Amer) Est GFR (Non-Af Amer) POC Glucose (mg/dL) 186 H Random Glucose Calcium Phosphorus Magnesium Total Bilirubin AST ALT Alkaline Phosphatase Ammonia Total Creatine Kinase 150 H CK-MB (Mass) 1.12 Troponin I, Quant 0.0240 Total Protein Albumin Globulin Albumin/Globulin Ratio Triglycerides Cholesterol LDL Cholesterol Direct HDL Cholesterol 01/22/17 01/22/17 01/22/17 07:27 07:27 07:27 WBC RBC Hgb Hct MCV MCH MCHC RDW Plt Count MPV Neut % (Auto) Lymph % (Auto) [place] % (Auto) Eos % (Auto) Baso % (Auto) Neut # Lymph # [place] # Eos # Baso # APTT 26 D Sodium 139 Potassium 3.8 Chloride 104 Carbon Dioxide 23 Anion Gap 16 BUN 60 H Creatinine 2.8 H Est GFR ( Amer) 19 Est GFR (Non-Af Amer) 16 POC Glucose (mg/dL) Random Glucose 168 H Calcium 8.8 Phosphorus 3.8 Magnesium 2.7 H Total Bilirubin 0.6 AST 32 ALT 26 Alkaline Phosphatase 144 H Ammonia < 9 L Total Creatine Kinase CK-MB (Mass) Troponin I, Quant Total Protein 7.8 Albumin 3.9 Globulin 4.0 H Albumin/Globulin Ratio 1.0 Triglycerides 123 D Cholesterol 199 LDL Cholesterol Direct 95 HDL Cholesterol 47 - EKG Data EKG Interpreted by: Myself Assessment & Plan (1) New onset atrial fibrillation Assessment and Plan: will rate control with beta kevin. consider anticoagulation Status: Acute (2) HTN (hypertension) Assessment and Plan: blood pressure control Status: Acute (3) CAD (coronary artery disease), [place] coronary artery Assessment and Plan: previous history of LAD stent. Status: Acute
[2017-01-22] MEDS: Dextrose 5%/0.45% NS 1,000 ML IV SCH ×2 (18:45→19:02)
[2017-01-22] MEDS: Latanoprost 2.5 ml Opht Soln OU SCH (21:18)
[2017-01-23] MEDS: (Novolog) Insulin Aspart, Recombinant 100 u/ml 10 ml vial SC SCH ×5 (00:21→17:05)
[2017-01-23 07:32] LABS: BASO % 0.6 % (0.0-2.0); HEMOGLOBIN 10.4 g/dL (11.0-16.0); LYMPH % 30.8 % (20.0-40.0); MEAN CELL VOLUME 93.5 fL (81.0-99.0); MEAN CORPUSCULAR HEMOGLOBIN 30.1 pg (27.0-31.0); MEAN CORPUSCULAR HGB CONC 32.2 g/dL (33.0-37.0); MEAN PLATELET VOLUME 9.9 fL (7.2-11.7); MONO # 0.3 K/uL (0.0-0.8); MONO % 7.9 % (0.0-10.0); NEUT # 2.1 K/uL (1.8-7.0); NEUT % 60.7 % (50.0-75.0); NRBC % 0.1 % (0.0-2.0); RBC 3.45 Mil/uL (3.80-5.20); RED CELL DISTRIBUTION WIDTH 15.4 % (11.5-14.5)
[2017-01-23 07:35] LABS: WHITE BLOOD COUNT 3.4 K/uL (4.8-10.8)
[2017-01-23 07:39] LABS: ALBUMIN 3.5 g/dL (3.5-5.0)
--- NOTE | 2017-01-23 07:53 | CP.PCM.PN ---
Subjective - Date & Time of Evaluation Date of Evaluation: 01/23/17 Time of Evaluation: 07:40 - Subjective Subjective: patient has no complaints. no chest pain or dyspnea. Objective - Vital Signs/Intake and Output Vital Signs (last 24 hours): Temp Pulse Resp BP Pulse Ox 98.4 F 74 20 163/63 H 98 01/22/17 23:20 01/23/17 00:00 01/22/17 23:20 01/22/17 23:20 01/22/17 23:20 - Medications Medications: Current Medications Acetazolamide (Diamox Sequels 500 Mg Sr Cap) 500 mg PO BID [facility] Last Admin: 01/22/17 17:39 Dose: Not Given Albuterol/Ipratropium (Duoneb 3 Mg/0.5 Mg (3 Ml) Ud) 3 ml IH Q6 PRN PRN Reason: Shortness of Breath Allopurinol (Zyloprim) 100 mg PO DAILY [facility] Last Admin: 01/22/17 10:56 Dose: Not Given Amlodipine Besylate (Norvasc) 5 mg PO DAILY [facility] Last Admin: 01/22/17 10:56 Dose: Not Given Aspirin (Ecotrin) 325 mg PO DAILY [facility] Last Admin: 01/22/17 10:55 Dose: Not Given Brimonidine Tartrate (Alphagan 0.2% Opht) 0 ml OD BID [facility] Last Admin: 01/22/17 17:38 Dose: 1 drop Carbamazepine (Tegretol) 300 mg PO BID [facility] Last Admin: 01/22/17 17:40 Dose: Not Given Chlorthalidone (Hygroton) 25 mg PO DAILY [facility] Last Admin: 01/22/17 10:55 Dose: Not Given Ciprofloxacin (Ciloxan 0.3% Ophth Soln) 0 drop OD QID [facility] Last Admin: 01/22/17 21:19 Dose: 1 drop Donepezil HCl (Aricept) 10 mg PO HS [facility] Last Admin: 01/22/17 21:21 Dose: Not Given Dorzolamide HCl (Trusopt) 0 ml OD BID [facility] Last Admin: 01/22/17 17:39 Dose: 1 drop Heparin Sodium (Porcine) (Heparin) 5,000 units SC Q12 [facility] Last Admin: 01/22/17 21:19 Dose: 5,000 units Dextrose/Sodium Chloride (Dextrose 5%/0.45% Ns 1000 Ml) 1,000 mls @ 75 mls/hr IV .[id number] [facility] Last Admin: 01/22/17 19:02 Dose: 75 mls/hr Insulin Aspart (Novolog) 0 unit SC Q6 [facility] PRN Reason: Protocol Last Admin: 01/23/17 05:20 Dose: Not Given Isosorbide Mononitrate (Ismo) 10 mg PO DAILY [facility] Last Admin: 01/22/17 10:55 Dose: Not Given Latanoprost (Xalatan Opht) 0 ml OU HS [facility] Last Admin: 01/22/17 21:18 Dose: 2.5 ml Metoprolol Tartrate (Lopressor) 25 mg PO Q12 [facility] Last Admin: 01/22/17 21:22 Dose: Not Given Pantoprazole Sodium (Protonix Inj) 40 mg IVP DAILY [facility] Last Admin: 01/22/17 10:59 Dose: 40 mg Rosuvastatin Calcium (Crestor) 10 mg PO HS [facility] Last Admin: 01/22/17 21:22 Dose: Not Given - Labs Labs: 01/23/17 07:16 01/22/17 07:27 PT 11.4 SECONDS (9.7-12.2) 01/21/17 12:21 INR 1.0 01/21/17 12:21 APTT 26 SECONDS (21-34) D 01/22/17 07:27 - Constitutional Appears: Non-toxic - Head Exam Head Exam: NORMAL INSPECTION - Eye Exam Eye Exam: Normal appearance - ENT Exam ENT Exam: Mucous Membranes Moist - Neck Exam Neck Exam: Full ROM - Respiratory Exam Respiratory Exam: NORMAL BREATHING PATTERN - Cardiovascular Exam Cardiovascular Exam: Irregular Rhythm - GI/Abdominal Exam GI & Abdominal Exam: Normal Bowel Sounds - Rectal Exam Rectal Exam: Deferred - Extremities Exam Extremities Exam: Pedal Edema - Back Exam Back Exam: NORMAL INSPECTION - Neurological Exam Neurological Exam: Alert - Psychiatric Exam Psychiatric exam: Normal Affect - Skin Skin Exam: Normal Color Assessment and Plan (1) New onset atrial fibrillation Assessment & Plan: patient is rate controlled Status: Acute (2) HTN (hypertension) Assessment & Plan: continue blood pressure Status: Acute (3) CAD (coronary artery disease), alutiiq coronary artery Assessment & Plan: no current angina Status: Acute
[2017-01-23] MEDS: Dextrose 5%/0.45% NS 1,000 ML IV SCH ×3 (08:00→21:39)
--- NOTE | 2017-01-23 10:06 | CARD ---
APPROVED REPORT EKG Measurement Heart [id number] <Conclusion> Atrial fibrillation with rapid ventricular response Septal infarct, age undetermined Abnormal ECG
[2017-01-23] MEDS: acetaZOLAMIDE 500 mg SR Cap PO SCH ×2 (11:33→17:23)
[2017-01-23] MEDS: Ciprofloxacin 0.3% OPTH SOLN OD SCH ×4 (11:33→21:19)
[2017-01-23] MEDS: Dorzolamide 2% Opht Sol 10ml OD SCH ×2 (11:34→17:23)
[2017-01-23] MEDS: Brimonidine 0.2% Opth Sol (5ml) OD SCH ×2 (11:34→17:23)
[2017-01-23] MEDS: Aspirin 325 mg EC Tablets PO SCH (11:35)
--- NOTE | 2017-01-23 11:51 | MRI ---
PROCEDURE: MRI BRAIN WITHOUT CONTRAST HISTORY: TIA, AMS COMPARISON: Comparison made with CT scan brain 01/21/2017. TECHNIQUE: Multiplanar, multisequence MR images of the brain were obtained without intravenous contrast enhancement. Study is limited by motion artifact. FINDINGS: HEMORRHAGE: No acute parenchymal, subarachnoid or extra-axial hemorrhage. No hemosiderin deposition is identified on gradient echo weighted sequence. There is curvilinear area of dark T2 signal in the right basal ganglia within and at chronic infarct that could represent bold of residual hemorrhagic byproducts -hemosiderin. . DWI: No evidence of an acute or early subacute infarction seen on diffusion imaging. . BRAIN PARENCHYMA: Large right MCA territory infarct involving the right temporal and right frontal -parietal regions including the right basal ganglia possibly associate with some residual hemosiderin deposition as above. . Moderate to significant diffuse/ confluent chronic white matter ischemic changes are also seen extending peripherally into the deep and subcortical white matter both cerebral hemispheres. . There are also scattered bilateral basal nuclei brainstem and bilateral cerebellar chronic lacunar-type infarcts. VENTRICLES: There is ex vacuo dilatation of the right lateral ventricle due to the aforementioned infarct. Moderate in underlying central volume loss is also felt to be present. CRANIUM: Calvarium is unremarkable. ORBITS: Changes of bilateral cataract surgery. Note is made of a small curvilinear/crescentic focal area of dark T2 signal seen along the posterior aspect right globe (posterior superior surface) of uncertain etiology. Rule out of retinal detachment. Recommend fundoscopic examination to for further evaluation and to exclude other more aggressive pathology including melanoma. PARANASAL SINUSES/MASTOIDS: Paranasal sinuses are well-developed and currently well-aerated. Minor mucosal thickening within right maxillary antrum and right chamber sphenoid sinus VASCULAR SYSTEM: Visualized major vascular flow voids at skull base are patent. OTHER FINDINGS: None. IMPRESSION: Limited motion degraded study. No acute intracranial hemorrhage or infarct. Large right MCA territory infarct involving the right temporal and right frontal -parietal regions including the right basal ganglia possibly associate with some residual hemosiderin deposition as above. . Moderate to significant diffuse/ confluent chronic white matter ischemic changes are also seen extending peripherally into the deep and subcortical white matter both cerebral hemispheres. . There are also scattered bilateral basal nuclei brainstem and bilateral cerebellar chronic lacunar-type infarcts. Mild marked ex vacuo dilatation of the right lateral ventricle due to the aforementioned infarct with concomitant underlying central volume loss evidenced by disproportionate enlargement of the ventricles as compared sulci. Mild mucosal thickening right chamber sphenoid sinus and right maxillary sinus.
[2017-01-23] MEDS: carBAMazepine 100 mg/5 ml Oral Susp (450 ml) PO SCH (12:15)
[2017-01-23] MEDS: carBAMazepine Chew Tab 100 MG Chew Tab PO SCH ×2 (12:55→17:24)
--- NOTE | 2017-01-23 18:46 | CP.PCM.PN ---
<JamelAdrian brand R - Last Filed: 01/23/17 18:43> Subjective - Date & Time of Evaluation Date of Evaluation: 01/23/17 Time of Evaluation: 14:00 - Subjective Subjective: Patient was seen at bedside. Patient was NAD. Patient stated she slept well the night before. She stated she took her morning medications. She denied chest pain , palpatations, shortness of breath, fever, chills, nausea, vomiting. Objective - Vital Signs/Intake and Output Vital Signs (last 24 hours): Temp Pulse Resp BP Pulse Ox 97.5 F L 99 H 20 150/70 96 01/23/17 07:30 01/23/17 12:47 01/23/17 07:30 01/23/17 11:40 01/23/17 12:10 Intake and Output: 01/23/17 01/23/17 06:59 18:59 Intake Total 600 Balance 600 - Medications Medications: Current Medications Acetazolamide (Diamox Sequels 500 Mg Sr Cap) 500 mg PO BID [facility] Last Admin: 01/23/17 17:23 Dose: 500 mg Albuterol/Ipratropium (Duoneb 3 Mg/0.5 Mg (3 Ml) Ud) 3 ml IH Q6 PRN PRN Reason: Shortness of Breath Allopurinol (Zyloprim) 100 mg PO DAILY [facility] Last Admin: 01/23/17 11:35 Dose: 100 mg Amlodipine Besylate (Norvasc) 5 mg PO DAILY [facility] Last Admin: 01/23/17 11:36 Dose: 5 mg Aspirin (Ecotrin) 325 mg PO DAILY [facility] Last Admin: 01/23/17 11:35 Dose: 325 mg Brimonidine Tartrate (Alphagan 0.2% Opht) 0 ml OD BID [facility] Last Admin: 01/23/17 17:23 Dose: 1 drop Carbamazepine (Tegretol) 300 mg PO BID [facility] Last Admin: 01/23/17 17:24 Dose: 300 mg Chlorthalidone (Hygroton) 25 mg PO DAILY [facility] Last Admin: 01/23/17 11:32 Dose: 25 mg Ciprofloxacin (Ciloxan 0.3% Ophth Soln) 0 drop OD QID [facility] Last Admin: 01/23/17 17:23 Dose: 1 drop Donepezil HCl (Aricept) 10 mg PO HS [facility] Last Admin: 01/22/17 21:21 Dose: Not Given Dorzolamide HCl (Trusopt) 0 ml OD BID [facility] Last Admin: 01/23/17 17:23 Dose: 1 drop Heparin Sodium (Porcine) (Heparin) 5,000 units SC Q12 [facility] Last Admin: 01/23/17 11:35 Dose: 5,000 units Dextrose/Sodium Chloride (Dextrose 5%/0.45% Ns 1000 Ml) 1,000 mls @ 75 mls/hr IV .[id number] [facility] Last Admin: 01/23/17 15:55 Dose: 75 mls/hr Insulin Aspart (Novolog) 0 unit SC Q6 [facility] PRN Reason: Protocol Last Admin: 01/23/17 17:05 Dose: Not Given Isosorbide Mononitrate (Ismo) 10 mg PO DAILY [facility] Last Admin: 01/23/17 11:33 Dose: 10 mg Latanoprost (Xalatan Opht) 0 ml OU HS [facility] Last Admin: 01/22/17 21:18 Dose: 2.5 ml Metoprolol Tartrate (Lopressor) 25 mg PO Q12 [facility] Last Admin: 01/23/17 11:40 Dose: 25 mg Pantoprazole Sodium (Protonix Inj) 40 mg IVP DAILY [facility] Last Admin: 01/23/17 11:35 Dose: 40 mg Rosuvastatin Calcium (Crestor) 10 mg PO HS [facility] Last Admin: 01/22/17 21:22 Dose: Not Given - Labs Labs: PT 11.4 SECONDS (9.7-12.2) 01/21/17 12:21 INR 1.0 01/21/17 12:21 APTT 26 SECONDS (21-34) D 01/22/17 07:27 - Constitutional Appears: Well - Head Exam Head Exam: ATRAUMATIC, NORMAL INSPECTION - Eye Exam Eye Exam: EOMI, Normal appearance Pupil Exam: NORMAL ACCOMODATION, PERRL - ENT Exam ENT Exam: Mucous Membranes Moist - Neck Exam Neck Exam: Full ROM - Respiratory Exam Respiratory Exam: Clear to Ausculation Bilateral, NORMAL BREATHING PATTERN - Cardiovascular Exam Cardiovascular Exam: Irregular Rhythm, REGULAR RHYTHM - GI/Abdominal Exam GI & Abdominal Exam: Soft, Normal Bowel Sounds - Rectal Exam Rectal Exam: Deferred - Extremities Exam Extremities Exam: Full ROM - Neurological Exam Neurological Exam: Alert, Awake - Psychiatric Exam Psychiatric exam: Normal Affect, Normal Mood - Skin Skin Exam: Normal Color, Warm Assessment and Plan - Assessment and Plan (Free Text) Assessment: AMS 01/23: Seen by speech therapist, recommended puree diet. Patient took her morning medications. Brain MRI impression: "No acute intracranial hemorrhage or infarct. Large right MCA territory infarct involving the right temporal and right frontal -parietal regions including the right basal ganglia possibly associate with some residual hemosiderin deposition as above. . Moderate to significant diffuse/ confluent chronic white matter ischemic changes are also seen extending peripherally into the deep and subcortical white matter both cerebral hemispheres. . There are also scattered bilateral basal nuclei brainstem and bilateral cerebellar chronic lacunar-type infarcts. Mild marked ex vacuo dilatation of the right lateral ventricle due to the aforementioned infarct with concomitant underlying central volume loss evidenced by disproportionate enlargement of the ventricles as compared sulci. Mild mucosal thickening right chamber sphenoid sinus and right maxillary sinus. " 01/22: Patient pulled out NGT. Pending a new swallow eval. Currently pending MRI. 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 Possible also element of dehydration, currently on IVF Hx of old CVA on CT. No acute changes per report. Neurology Dr. Black consulted, help appreciated. Code stroke called in ED. Increase carbamazepine to 300mg PO BID per Dr. Black. Continue Aricept, ASA, Crestor. D5 1/2NS @75ml/hr. F/U Am electrolytes. AFib Dr Lozoya of Cardiology consulted Patient is rate controlled DM 01/23: 117 01/22: 140s to 180s RISS, Accucheck. Januvia on hold. F/U A1c. HTN 01/22: Currently doing ok while on IVF Continue Norvasc, Nitrate, Lopressor. Glaucoma Continue Diamox and eye drops. Prophylactic measure HepSQ, Protonix, SCD. <Angel Naatrajan - Last Filed: 01/24/17 07:33> Objective - Vital Signs/Intake and Output Vital Signs (last 24 hours): Temp Pulse Resp BP Pulse Ox 98.4 F 83 20 139/52 L 98 01/23/17 23:25 01/24/17 03:41 01/23/17 23:25 01/23/17 23:25 01/23/17 23:25 Intake and Output: 01/24/17 01/24/17 06:59 18:59 Intake Total 600 Balance 600 - Medications Medications: Current Medications Acetazolamide (Diamox Sequels 500 Mg Sr Cap) 500 mg PO BID [facility] Last Admin: 01/23/17 17:23 Dose: 500 mg Albuterol/Ipratropium (Duoneb 3 Mg/0.5 Mg (3 Ml) Ud) 3 ml IH Q6 PRN PRN Reason: Shortness of Breath Allopurinol (Zyloprim) 100 mg PO DAILY [facility] Last Admin: 01/23/17 11:35 Dose: 100 mg Amlodipine Besylate (Norvasc) 5 mg PO DAILY [facility] Last Admin: 01/23/17 11:36 Dose: 5 mg Aspirin (Ecotrin) 325 mg PO DAILY [facility] Last Admin: 01/23/17 11:35 Dose: 325 mg Brimonidine Tartrate (Alphagan 0.2% Opht) 0 ml OD BID [facility] Last Admin: 01/23/17 17:23 Dose: 1 drop Carbamazepine (Tegretol) 300 mg PO BID [facility] Last Admin: 01/23/17 17:24 Dose: 300 mg Chlorthalidone (Hygroton) 25 mg PO DAILY [facility] Last Admin: 01/23/17 11:32 Dose: 25 mg Ciprofloxacin (Ciloxan 0.3% Ophth Soln) 0 drop OD QID [facility] Last Admin: 01/23/17 21:19 Dose: 1 drop Donepezil HCl (Aricept) 10 mg PO HS [facility] Last Admin: 01/23/17 21:18 Dose: 10 mg Dorzolamide HCl (Trusopt) 0 ml OD BID [facility] Last Admin: 01/23/17 17:23 Dose: 1 drop Heparin Sodium (Porcine) (Heparin) 5,000 units SC Q12 [facility] Last Admin: 01/23/17 21:18 Dose: 5,000 units Dextrose/Sodium Chloride (Dextrose 5%/0.45% Ns 1000 Ml) 1,000 mls @ 75 mls/hr IV .[id number] [facility] Last Admin: 01/24/17 05:24 Dose: 75 mls/hr Insulin Aspart (Novolog) 0 unit SC Q6 [facility] PRN Reason: Protocol Last Admin: 01/23/17 17:05 Dose: Not Given Isosorbide Mononitrate (Ismo) 10 mg PO DAILY [facility] Last Admin: 01/23/17 11:33 Dose: 10 mg Latanoprost (Xalatan Opht) 0 ml OU HS [facility] Last Admin: 01/23/17 21:19 Dose: 2.5 ml Metoprolol Tartrate (Lopressor) 25 mg PO Q12 [facility] Last Admin: 01/23/17 21:22 Dose: 25 mg Pantoprazole Sodium (Protonix Inj) 40 mg IVP DAILY [facility] Last Admin: 01/23/17 11:35 Dose: 40 mg Rosuvastatin Calcium (Crestor) 10 mg PO HS [facility] Last Admin: 01/23/17 21:18 Dose: 10 mg - Labs Labs: PT 11.4 SECONDS (9.7-12.2) 01/21/17 12:21 INR 1.0 01/21/17 12:21 APTT 26 SECONDS (21-34) D 01/22/17 07:27 Attending/Attestation - Attestation I have personally seen and examined this patient.: Yes I have fully participated in the care of the patient.: Yes I have reviewed all pertinent clinical information, including history, physical exam and plan: Yes Notes (Text): Medical attending: Patient was seen and examined by me, agrees the above note by medical staff services coordinator. When we saw the patient she had not yet had a MRI done later in the afternoon the results came back does show that she has a history of significant CVAs including a large one on the right MCA area. [place] When we saw her she was not agitated, and she actually ate a substantial portion of her meal. And she also was calm enough to take oral medication as well. We've reviewed the telemetry, and her heart rate was in the 60-70 range. However more detailed review of the telemetry reading shows that she still has episodes of tachycardia. Some of it appears to be sinus tachycardia, other times it appears to be in rapid A. fib and short durations. Because of this we decided to give her another dose of IV push digoxin. Her potassium and renal function is improved at this time. Hopefully will be able to discharge the patient was Thank you very much, Angel Natarajan
[2017-01-23] MEDS: Latanoprost 2.5 ml Opht Soln OU SCH (21:19)
[2017-01-24] MEDS: Dextrose 5%/0.45% NS 1,000 ML IV SCH ×2 (05:24→10:30)
[2017-01-24] MEDS: (Novolog) Insulin Aspart, Recombinant 100 u/ml 10 ml vial SC SCH ×3 (08:00→17:00)
--- NOTE | 2017-01-24 09:06 | CP.PCM.PN ---
<JamelAdrian brand Devi - Last Filed: 01/24/17 16:01> Subjective - Date & Time of Evaluation Date of Evaluation: 01/24/17 Time of Evaluation: 07:00 - Subjective Subjective: Patient was examined at bedside. She was not in acute distress. Patient is a poor historian. She swiped at my hand when I tried to listen to heart sounds. She seemed agitated. ROS was unattainable. Objective - Vital Signs/Intake and Output Vital Signs (last 24 hours): Temp Pulse Resp BP Pulse Ox 98.4 F 67 20 139/52 L 98 01/23/17 23:25 01/24/17 08:38 01/23/17 23:25 01/23/17 23:25 01/23/17 23:25 Intake and Output: 01/24/17 01/24/17 06:59 18:59 Intake Total 600 Balance 600 - Medications Medications: Current Medications Acetazolamide (Diamox Sequels 500 Mg Sr Cap) 500 mg PO BID [facility] Last Admin: 01/23/17 17:23 Dose: 500 mg Albuterol/Ipratropium (Duoneb 3 Mg/0.5 Mg (3 Ml) Ud) 3 ml IH Q6 PRN PRN Reason: Shortness of Breath Allopurinol (Zyloprim) 100 mg PO DAILY [facility] Last Admin: 01/23/17 11:35 Dose: 100 mg Amlodipine Besylate (Norvasc) 5 mg PO DAILY [facility] Last Admin: 01/23/17 11:36 Dose: 5 mg Aspirin (Ecotrin) 325 mg PO DAILY [facility] Last Admin: 01/23/17 11:35 Dose: 325 mg Brimonidine Tartrate (Alphagan 0.2% Opht) 0 ml OD BID [facility] Last Admin: 01/23/17 17:23 Dose: 1 drop Carbamazepine (Tegretol) 300 mg PO BID [facility] Last Admin: 01/23/17 17:24 Dose: 300 mg Chlorthalidone (Hygroton) 25 mg PO DAILY [facility] Last Admin: 01/23/17 11:32 Dose: 25 mg Ciprofloxacin (Ciloxan 0.3% Ophth Soln) 0 drop OD QID [facility] Last Admin: 01/23/17 21:19 Dose: 1 drop Donepezil HCl (Aricept) 10 mg PO HS [facility] Last Admin: 01/23/17 21:18 Dose: 10 mg Dorzolamide HCl (Trusopt) 0 ml OD BID [facility] Last Admin: 01/23/17 17:23 Dose: 1 drop Heparin Sodium (Porcine) (Heparin) 5,000 units SC Q12 [facility] Last Admin: 01/23/17 21:18 Dose: 5,000 units Dextrose/Sodium Chloride (Dextrose 5%/0.45% Ns 1000 Ml) 1,000 mls @ 75 mls/hr IV .[id number] [facility] Last Admin: 01/24/17 05:24 Dose: 75 mls/hr Insulin Aspart (Novolog) 0 unit SC Q6 [facility] PRN Reason: Protocol Last Admin: 01/23/17 17:05 Dose: Not Given Isosorbide Mononitrate (Ismo) 10 mg PO DAILY [facility] Last Admin: 01/23/17 11:33 Dose: 10 mg Latanoprost (Xalatan Opht) 0 ml OU HS [facility] Last Admin: 01/23/17 21:19 Dose: 2.5 ml Metoprolol Tartrate (Lopressor) 25 mg PO Q12 [facility] Last Admin: 01/23/17 21:22 Dose: 25 mg Pantoprazole Sodium (Protonix Inj) 40 mg IVP DAILY [facility] Last Admin: 01/23/17 11:35 Dose: 40 mg Rosuvastatin Calcium (Crestor) 10 mg PO HS [facility] Last Admin: 01/23/17 21:18 Dose: 10 mg - Labs Labs: PT 11.4 SECONDS (9.7-12.2) 01/21/17 12:21 INR 1.0 01/21/17 12:21 APTT 26 SECONDS (21-34) D 01/22/17 07:27 - Constitutional Appears: Well - Head Exam Head Exam: ATRAUMATIC, NORMAL INSPECTION, NORMOCEPHALIC - Eye Exam Eye Exam: EOMI, Normal appearance, PERRL - ENT Exam ENT Exam: Mucous Membranes Moist, Normal Exam - Neck Exam Neck Exam: Full ROM, Normal Inspection. absent: Lymphadenopathy - Respiratory Exam Respiratory Exam: Clear to Ausculation Bilateral, NORMAL BREATHING PATTERN - Cardiovascular Exam Cardiovascular Exam: Irregular Rhythm - GI/Abdominal Exam GI & Abdominal Exam: Soft, Normal Bowel Sounds. absent: Tenderness - Rectal Exam Rectal Exam: Deferred - Extremities Exam Extremities Exam: Full ROM, Normal Capillary Refill, Normal Inspection. absent : Joint Swelling, Pedal Edema - Back Exam Back Exam: NORMAL INSPECTION - Neurological Exam Neurological Exam: Awake. absent: Oriented x3 - Psychiatric Exam Psychiatric exam: Agitated - Skin Skin Exam: Dry, Intact, Normal Color, Warm Assessment and Plan - Assessment and Plan (Free Text) Assessment: Assessment and Plan - Assessment and Plan (Free Text) Assessment: AMS 01/23: Seen by speech therapist, recommended puree diet. Patient took her morning medications. Brain MRI impression: "No acute intracranial hemorrhage or infarct. Large right MCA territory infarct involving the right temporal and right frontal -parietal regions including the right basal ganglia possibly associate with some residual hemosiderin deposition as above. . Moderate to significant diffuse/ confluent chronic white matter ischemic changes are also seen extending peripherally into the deep and subcortical white matter both cerebral hemispheres. . There are also scattered bilateral basal nuclei brainstem and bilateral cerebellar chronic lacunar-type infarcts. Mild marked ex vacuo dilatation of the right lateral ventricle due to the aforementioned infarct with concomitant underlying central volume loss evidenced by disproportionate enlargement of the ventricles as compared sulci. Mild mucosal thickening right chamber sphenoid sinus and right maxillary sinus. " 01/22: Patient pulled out NGT. Pending a new swallow eval. Currently pending MRI. 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 Possible also element of dehydration, currently on IVF Hx of old CVA on CT. No acute changes per report. Neurology Dr. Black consulted, help appreciated. Code stroke called in ED. Increase carbamazepine to 300mg PO BID per Dr. Black. Continue Aricept, ASA, Crestor. D5 1/2NS @75ml/hr. F/U Am electrolytes. UTI urine culture [01/21] positive for ecoli and beta hemolytic strep group B. collect UA and Ux by straight cath renally dosed impipenem/cilastatin 500mg q[address] Lozoya of Cardiology consulted: Patient is rate controlled DM 01/23: 117 01/22: 140s to 180s RISS, Accucheck. Januvia on hold. A1c 7.0 HTN 01/22: Currently doing ok while on IVF Continue Norvasc, Nitrate, Lopressor. Glaucoma Continue Diamox and eye drops. Prophylactic measure HepSQ, Protonix, SCD. <Angel Natarajan - Last Filed: 01/24/17 18:16> Objective - Vital Signs/Intake and Output Vital Signs (last 24 hours): Temp Pulse Resp BP Pulse Ox 99 F 99 H 20 162/54 H 96 01/24/17 15:53 01/24/17 15:53 01/24/17 15:53 01/24/17 15:53 01/24/17 15:53 Intake and Output: 01/24/17 01/24/17 06:59 18:59 Intake Total 600 Balance 600 - Medications Medications: Current Medications Acetazolamide (Diamox Sequels 500 Mg Sr Cap) 500 mg PO BID [facility] Last Admin: 01/24/17 10:12 Dose: 500 mg Albuterol/Ipratropium (Duoneb 3 Mg/0.5 Mg (3 Ml) Ud) 3 ml IH Q6 PRN PRN Reason: Shortness of Breath Allopurinol (Zyloprim) 100 mg PO DAILY [facility] Last Admin: 01/24/17 10:11 Dose: 100 mg Amlodipine Besylate (Norvasc) 5 mg PO DAILY [facility] Last Admin: 01/24/17 10:11 Dose: 5 mg Aspirin (Ecotrin) 325 mg PO DAILY [facility] Last Admin: 01/24/17 10:10 Dose: 325 mg Brimonidine Tartrate (Alphagan 0.2% Opht) 0 ml OD BID [facility] Last Admin: 01/24/17 09:15 Dose: 1 drop Carbamazepine (Tegretol) 300 mg PO BID [facility] Last Admin: 01/24/17 10:10 Dose: 300 mg Chlorthalidone (Hygroton) 25 mg PO DAILY [facility] Last Admin: 01/24/17 10:13 Dose: 25 mg Ciprofloxacin (Ciloxan 0.3% Ophth Soln) 0 drop OD QID [facility] Last Admin: 01/24/17 13:25 Dose: 1 drop Donepezil HCl (Aricept) 10 mg PO HS [facility] Last Admin: 01/23/17 21:18 Dose: 10 mg Dorzolamide HCl (Trusopt) 0 ml OD BID [facility] Last Admin: 01/24/17 10:13 Dose: 1 drop Heparin Sodium (Porcine) (Heparin) 5,000 units SC Q12 [facility] Last Admin: 01/24/17 10:11 Dose: 5,000 units Imipenem/Cilastatin Sodium 500 (mg/ Sodium Chloride) 100 mls @ 100 mls/hr IVPB Q8H [facility] Insulin Aspart (Novolog) 0 unit SC Q6 [facility] PRN Reason: Protocol Last Admin: 01/24/17 17:00 Dose: Not Given Isosorbide Mononitrate (Ismo) 10 mg PO DAILY [facility] Last Admin: 01/24/17 10:12 Dose: 10 mg Latanoprost (Xalatan Opht) 0 ml OU HS [facility] Last Admin: 01/23/17 21:19 Dose: 2.5 ml Metoprolol Tartrate (Lopressor) 25 mg PO Q12 [facility] Last Admin: 01/24/17 10:11 Dose: 25 mg Pantoprazole Sodium (Protonix Inj) 40 mg IVP DAILY [facility] Last Admin: 01/24/17 10:11 Dose: 40 mg Rosuvastatin Calcium (Crestor) 10 mg PO HS [facility] Last Admin: 01/23/17 21:18 Dose: 10 mg - Labs Labs: PT 11.4 SECONDS (9.7-12.2) 01/21/17 12:21 INR 1.0 01/21/17 12:21 APTT 26 SECONDS (21-34) D 01/22/17 07:27 Attending/Attestation - Attestation I have personally seen and examined this patient.: Yes I have fully participated in the care of the patient.: Yes I have reviewed all pertinent clinical information, including history, physical exam and plan: Yes Notes (Text): 01/24/17 18:14 Medical attending: Patient was seen and examined by me, agrees the above note by medical attendant. The patient was more calm today, she also ate most of her meal and took most of her medication. We were considering discharging the patient back to her [facility] today however urine culture came back showing that she had at least ESBL positive Escherichia coli. Recheck another UA and urine culture and sensitivity via straight cath. In the meantime we'll start IV Primaxin it has to be renally dosed Thank you very much, Angel Natarajan
[2017-01-24] MEDS: Ciprofloxacin 0.3% OPTH SOLN OD SCH ×4 (09:15→21:53)
[2017-01-24] MEDS: Brimonidine 0.2% Opth Sol (5ml) OD SCH ×2 (09:15→18:57)
[2017-01-24] MEDS: carBAMazepine Chew Tab 100 MG Chew Tab PO SCH ×2 (10:10→18:55)
[2017-01-24] MEDS: Aspirin 325 mg EC Tablets PO SCH (10:10)
[2017-01-24] MEDS: acetaZOLAMIDE 500 mg SR Cap PO SCH ×2 (10:12→18:55)
[2017-01-24] MEDS: Dorzolamide 2% Opht Sol 10ml OD SCH ×2 (10:13→18:57)
[2017-01-24 18:30] LABS: BASO % 0.6 % (0.0-2.0); HEMOGLOBIN 9.6 g/dL (11.0-16.0); LYMPH % 23.3 % (20.0-40.0); MEAN CELL VOLUME 94.7 fL (81.0-99.0); MEAN CORPUSCULAR HEMOGLOBIN 30.2 pg (27.0-31.0); MEAN CORPUSCULAR HGB CONC 31.9 g/dL (33.0-37.0); MEAN PLATELET VOLUME 10.2 fL (7.2-11.7); MONO # 0.3 K/uL (0.0-0.8); MONO % 7.7 % (0.0-10.0); NEUT # 2.9 K/uL (1.8-7.0); NEUT % 68.4 % (50.0-75.0); NRBC % 0.1 % (0.0-2.0); RBC 3.19 Mil/uL (3.80-5.20); RED CELL DISTRIBUTION WIDTH 15.4 % (11.5-14.5); WHITE BLOOD COUNT 4.2 K/uL (4.8-10.8)
[2017-01-24 18:53] LABS: ALBUMIN 3.5 g/dL (3.5-5.0)
[2017-01-24 18:57] LABS: CALCIUM 8.5 mg/dl (8.6-10.4)
[2017-01-24 19:34] LABS: URINE BACTERIA FEW (<OCC); URINE BILIRUBIN NEGATIVE (NEGATIVE); URINE BLOOD 1+ (NEGATIVE); URINE CLARITY Hazy (Clear); URINE COLOR Yellow (YELLOW); URINE GLUCOSE (UA) NORMAL (Normal); URINE LEUKOCYTE ESTERASE 3+ Leu/uL (Negative); URINE NITRATE NEGATIVE (NEGATIVE); URINE PROTEIN 2+ mg/dL (NEGATIVE); URINE UROBILINOGEN NORMAL mg/dL (0.2-1.0)
[2017-01-24] MEDS: Latanoprost 2.5 ml Opht Soln OU SCH (21:52)
[2017-01-25] MEDS: (Novolog) Insulin Aspart, Recombinant 100 u/ml 10 ml vial SC SCH ×3 (00:55→18:53)
[2017-01-25] MEDS: Aspirin 325 mg EC Tablets PO SCH (09:43)
[2017-01-25] MEDS: Pantoprazole 40 mg Susp UD PO SCH (09:43)
[2017-01-25] MEDS: acetaZOLAMIDE 500 mg SR Cap PO SCH ×2 (09:44→17:20)
[2017-01-25] MEDS: carBAMazepine Chew Tab 100 MG Chew Tab PO SCH ×2 (09:44→17:20)
[2017-01-25] MEDS: Ciprofloxacin 0.3% OPTH SOLN OD SCH ×4 (09:45→21:33)
[2017-01-25] MEDS: Dorzolamide 2% Opht Sol 10ml OD SCH ×2 (09:46→17:21)
[2017-01-25] MEDS: Brimonidine 0.2% Opth Sol (5ml) OD SCH ×2 (09:46→17:21)
[2017-01-25 11:42] LABS: BASO % 0.6 % (0.0-2.0); EOS % 0.1 % (0.0-4.0); HEMOGLOBIN 9.3 g/dL (11.0-16.0); LYMPH # 1.1 K/uL (1.0-4.3); LYMPH % 25.8 % (20.0-40.0); MEAN CELL VOLUME 94.3 fL (81.0-99.0); MEAN CORPUSCULAR HEMOGLOBIN 30.4 pg (27.0-31.0); MEAN CORPUSCULAR HGB CONC 32.2 g/dL (33.0-37.0); MEAN PLATELET VOLUME 9.9 fL (7.2-11.7); MONO # 0.4 K/uL (0.0-0.8); MONO % 10.1 % (0.0-10.0); NEUT # 2.6 K/uL (1.8-7.0); NEUT % 63.4 % (50.0-75.0); NRBC % 0.2 % (0.0-2.0); RBC 3.07 Mil/uL (3.80-5.20); RED CELL DISTRIBUTION WIDTH 15.4 % (11.5-14.5); WHITE BLOOD COUNT 4.1 K/uL (4.8-10.8)
[2017-01-25 11:57] LABS: ALBUMIN 3.3 g/dL (3.5-5.0)
[2017-01-25 12:01] LABS: CALCIUM 8.2 mg/dl (8.6-10.4)
[2017-01-25] MEDS: Dextrose 5%/0.45% NS 1,000 ML IV SCH (13:16)
--- NOTE | 2017-01-25 14:08 | CP.PCM.PN ---
Addendum entered and electronically signed by Adrian Mccullough 01/25/17 16:19: Hydralazine 10mg IV q6 prn added to her medications to control her hypertension. Will only give if systolic greater than 160. Original Note: <Adrian Mccullough - Last Filed: 01/25/17 14:04> Subjective - Date & Time of Evaluation Date of Evaluation: 01/25/17 Time of Evaluation: 11:00 - Subjective Subjective: Patient was examined at bedside. Patient was awake and not in acute distress. Patient did not speak much during my examination. A ROS was not possible as the patient did not answer my questions. Objective - Vital Signs/Intake and Output Vital Signs (last 24 hours): Temp Pulse Resp BP Pulse Ox 98.8 F 110 H 20 160/67 H 96 01/25/17 07:35 01/25/17 07:35 01/25/17 07:35 01/25/17 10:02 01/25/17 07:35 Intake and Output: 01/25/17 01/25/17 06:59 18:59 Intake Total 1020 Balance 1020 - Medications Medications: Current Medications Acetazolamide (Diamox Sequels 500 Mg Sr Cap) 500 mg PO BID [facility] Last Admin: 01/25/17 09:44 Dose: 500 mg Albuterol/Ipratropium (Duoneb 3 Mg/0.5 Mg (3 Ml) Ud) 3 ml IH Q6 PRN PRN Reason: Shortness of Breath Allopurinol (Zyloprim) 100 mg PO DAILY [facility] Last Admin: 01/25/17 09:43 Dose: 100 mg Amlodipine Besylate (Norvasc) 5 mg PO DAILY [facility] Last Admin: 01/25/17 09:43 Dose: 5 mg Aspirin (Ecotrin) 325 mg PO DAILY [facility] Last Admin: 01/25/17 09:43 Dose: 325 mg Brimonidine Tartrate (Alphagan 0.2% Opht) 0 ml OD BID [facility] Last Admin: 01/25/17 09:46 Dose: 1 drop Carbamazepine (Tegretol) 300 mg PO BID [facility] Last Admin: 01/25/17 09:44 Dose: 300 mg Chlorthalidone (Hygroton) 25 mg PO DAILY [facility] Last Admin: 01/25/17 09:45 Dose: 25 mg Ciprofloxacin (Ciloxan 0.3% Ophth Soln) 0 drop OD QID [facility] Last Admin: 01/25/17 09:45 Dose: 1 drop Donepezil HCl (Aricept) 10 mg PO HS [facility] Last Admin: 01/24/17 21:52 Dose: 10 mg Dorzolamide HCl (Trusopt) 0 ml OD BID [facility] Last Admin: 01/25/17 09:46 Dose: 1 drop Imipenem/Cilastatin Sodium 500 (mg/ Sodium Chloride) 100 mls @ 100 mls/hr IVPB Q8H [facility] Last Admin: 01/25/17 06:32 Dose: 100 mls/hr Insulin Aspart (Novolog) 0 unit SC Q6 [facility] PRN Reason: Protocol Last Admin: 01/25/17 12:30 Dose: Not Given Isosorbide Mononitrate (Ismo) 10 mg PO DAILY [facility] Last Admin: 01/25/17 09:45 Dose: 10 mg Latanoprost (Xalatan Opht) 0 ml OU HS [facility] Last Admin: 01/24/17 21:52 Dose: 1 ml Metoprolol Tartrate (Lopressor) 25 mg PO Q12 [facility] Last Admin: 01/25/17 10:02 Dose: 25 mg Pantoprazole Sodium (Protonix Susp) 40 mg PO DAILY [facility] Last Admin: 01/25/17 09:43 Dose: 40 mg Rosuvastatin Calcium (Crestor) 10 mg PO HS [facility] Last Admin: 01/24/17 21:52 Dose: 10 mg - Labs Labs: 01/25/17 11:28 01/25/17 11:28 PT 11.4 SECONDS (9.7-12.2) 01/21/17 12:21 INR 1.0 01/21/17 12:21 APTT 26 SECONDS (21-34) D 01/22/17 07:27 - Constitutional Appears: No Acute Distress - Head Exam Head Exam: NORMAL INSPECTION - Eye Exam Eye Exam: Normal appearance - ENT Exam ENT Exam: Mucous Membranes Moist, Normal Exam - Neck Exam Neck Exam: Full ROM - Respiratory Exam Respiratory Exam: Clear to Ausculation Bilateral, NORMAL BREATHING PATTERN - Cardiovascular Exam Cardiovascular Exam: REGULAR RHYTHM - GI/Abdominal Exam GI & Abdominal Exam: Normal Bowel Sounds - Rectal Exam Rectal Exam: Deferred - Extremities Exam Extremities Exam: Normal Inspection - Neurological Exam Neurological Exam: Awake - Psychiatric Exam Psychiatric exam: Flat Affect - Skin Skin Exam: Dry, Intact, Normal Color, Warm Assessment and Plan - Assessment and Plan (Free Text) Assessment: AMS Potassium and renal function continue to improve 01/23: Seen by speech therapist, recommended puree diet. Patient took her morning medications. Brain MRI impression: "No acute intracranial hemorrhage or infarct. Large right MCA territory infarct involving the right temporal and right frontal -parietal regions including the right basal ganglia possibly associate with some residual hemosiderin deposition as above. . Moderate to significant diffuse/ confluent chronic white matter ischemic changes are also seen extending peripherally into the deep and subcortical white matter both cerebral hemispheres. . There are also scattered bilateral basal nuclei brainstem and bilateral cerebellar chronic lacunar-type infarcts. Mild marked ex vacuo dilatation of the right lateral ventricle due to the aforementioned infarct with concomitant underlying central volume loss evidenced by disproportionate enlargement of the ventricles as compared sulci. Mild mucosal thickening right chamber sphenoid sinus and right maxillary sinus. " 01/22: Patient pulled out NGT. Pending a new swallow eval. Currently pending MRI. 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 Possible also element of dehydration, currently on IVF Hx of old CVA on CT. No acute changes per report. Neurology Dr. Black consulted, help appreciated. Code stroke called in ED. Increase carbamazepine to 300mg PO BID per Dr. Black. Continue Aricept, ASA, Crestor. D5 1/2NS @75ml/hr. F/U Am electrolytes. UTI con't renally dosed impipenem/cilastatin 500mg q8 IV urine culture [01/21] positive for ecoli and beta hemolytic strep group B. collected UA and Ux by straight cath UA: urine protein 2+, urine blood 1+, leukocyte esterase 3+ (h), wbc 148 (h), rbc 13 (h), bacteria few (h) f/u Ux AFib Dr Lozoya of Cardiology consulted: Patient is rate controlled IV push digoxin given on [01/23] to control rate DM 01/23: 117 01/22: 140s to 180s RISS, Accucheck. Januvia on hold. A1c 7.0 HTN 01/22: Currently doing ok while on IVF Continue Norvasc, Nitrate, Lopressor. Glaucoma Continue Diamox and eye drops. Prophylactic measure HepSQ, Protonix, SCD. <Angel Natarajan H - Last Filed: 01/25/17 17:08> Objective - Vital Signs/Intake and Output Vital Signs (last 24 hours): Temp Pulse Resp BP Pulse Ox 98.6 F 82 20 164/62 H 96 01/25/17 15:30 01/25/17 15:30 01/25/17 15:30 01/25/17 15:30 01/25/17 15:30 Intake and Output: 01/25/17 01/25/17 06:59 18:59 Intake Total 1020 Balance 1020 - Medications Medications: Current Medications Acetazolamide (Diamox Sequels 500 Mg Sr Cap) 500 mg PO BID [facility] Last Admin: 01/25/17 09:44 Dose: 500 mg Albuterol/Ipratropium (Duoneb 3 Mg/0.5 Mg (3 Ml) Ud) 3 ml IH Q6 PRN PRN Reason: Shortness of Breath Allopurinol (Zyloprim) 100 mg PO DAILY [facility] Last Admin: 01/25/17 09:43 Dose: 100 mg Amlodipine Besylate (Norvasc) 5 mg PO DAILY [facility] Last Admin: 01/25/17 09:43 Dose: 5 mg Aspirin (Ecotrin) 325 mg PO DAILY [facility] Last Admin: 01/25/17 09:43 Dose: 325 mg Brimonidine Tartrate (Alphagan 0.2% Opht) 0 ml OD BID [facility] Last Admin: 01/25/17 09:46 Dose: 1 drop Carbamazepine (Tegretol) 300 mg PO BID [facility] Last Admin: 01/25/17 09:44 Dose: 300 mg Chlorthalidone (Hygroton) 25 mg PO DAILY [facility] Last Admin: 01/25/17 09:45 Dose: 25 mg Ciprofloxacin (Ciloxan 0.3% Ophth Soln) 0 drop OD QID [facility] Last Admin: 01/25/17 14:28 Dose: 1 drop Donepezil HCl (Aricept) 10 mg PO HS [facility] Last Admin: 01/24/17 21:52 Dose: 10 mg Dorzolamide HCl (Trusopt) 0 ml OD BID [facility] Last Admin: 01/25/17 09:46 Dose: 1 drop Hydralazine HCl (Apresoline) 10 mg IVP Q6H PRN PRN Reason: Systolic Blood Pressure Imipenem/Cilastatin Sodium 500 (mg/ Sodium Chloride) 100 mls @ 100 mls/hr IVPB Q8H [facility] Last Admin: 01/25/17 14:29 Dose: 100 mls/hr Insulin Aspart (Novolog) 0 unit SC Q6 [facility] PRN Reason: Protocol Last Admin: 01/25/17 12:30 Dose: Not Given Isosorbide Mononitrate (Ismo) 10 mg PO DAILY [facility] Last Admin: 01/25/17 09:45 Dose: 10 mg Latanoprost (Xalatan Opht) 0 ml OU HS [facility] Last Admin: 01/24/17 21:52 Dose: 1 ml Metoprolol Tartrate (Lopressor) 25 mg PO Q12 [facility] Last Admin: 01/25/17 10:02 Dose: 25 mg Pantoprazole Sodium (Protonix Susp) 40 mg PO DAILY [facility] Last Admin: 01/25/17 09:43 Dose: 40 mg Rosuvastatin Calcium (Crestor) 10 mg PO HS [facility] Last Admin: 01/24/17 21:52 Dose: 10 mg - Labs Labs: 01/25/17 11:28 01/25/17 11:28 PT 11.4 SECONDS (9.7-12.2) 01/21/17 12:21 INR 1.0 01/21/17 12:21 APTT 26 SECONDS (21-34) D 01/22/17 07:27 Attending/Attestation - Attestation I have personally seen and examined this patient.: Yes I have fully participated in the care of the patient.: Yes I have reviewed all pertinent clinical information, including history, physical exam and plan: Yes Notes (Text): 01/25/17 17:07 Medical attending: Patient was seen and examined by me, agrees the above note by medical librarian. At this time were continue with the IV Primaxin. Hopefully tomorrow we intend to discharge the patient provided that her numbers are stable. As previous days the patient has advanced dementia sometimes she is cooperative we did our or breakfasts and will take her medications other times she is not Thank you very much, Angel Natarajan
[2017-01-25 14:24] LABS: ALB/GLOB RATIO 0.9 (1.0-2.1)
[2017-01-25] MEDS: Latanoprost 2.5 ml Opht Soln OU SCH (21:29)
[2017-01-26] MEDS: (Novolog) Insulin Aspart, Recombinant 100 u/ml 10 ml vial SC SCH ×4 (03:30→18:07)
[2017-01-26] MEDS: Dextrose 5%/0.45% NS 1,000 ML IV SCH (06:45)
--- NOTE | 2017-01-26 06:56 | PCM.RRTMUL ---
<Mary Ricketts - Last Filed: 01/26/17 06:51> [employer] Nurses Assessment New IV Insertion Tolerance:: Good - Vital Signs Pulse Rate:: 91 I.Reason for [employer] - A) Acute Change in Patient: (Select all that apply): Acute change in mental status - A) Initial Vital Signs: Blood Pressure: 190/90 Pulse Rate: 122 O2 Sat by Pulse Oximetry: 100 Finger Stick Blood Glucose: 188 - B) Neurological Status (Select all that apply): Responsive, Follows Commands, Lethargic. absent: Alert , Oriented, Verbal - Constitutional Appears: Non-toxic, No Acute Distress, Chronically Ill Additional Comments: non verbal, CVA in past - Eyes Eye Exam: EOMI, Normal appearance, PERRL - Respiratory Exam Respiratory Exam: Clear to Ausculation Bilateral, NORMAL BREATHING PATTERN. absent: Respiratory Distress - Cardiovascular Exam Cardiovascular Exam: Tachycardia, REGULAR RHYTHM, +S1, +S2 - GI/Abdominal Exam GI & Abdominal Exam: Soft, Normal Bowel Sounds. absent: Distended, Firm, Guarding, Tenderness Additional comments: PEG in place - Neurological Exam Neurological Exam: Alert. absent: Awake, Oriented x3 - Extremities Exam Extremities Exam: Normal Inspection Plan - B. Assessment of Findings&Treatment Plan Rapid Response called per nursing for seizure. The CP stated he went into the room to change the patient and then she began to shake and her face was twitching. This lasted for about 1-2 minutes and resolved. Per nursing the patient was not at her baseline mental status but then reruned to this about 10 minutes after. She is nonverbal due to CVA but was able to track with her eyes. Vitals were stable but patient was tachycardic into 120s. Patient with recent diagnosis of Afib. She is on carbamazepine. Neurology, Dr. Black was notified. Will check am labs with carbamazepine levels. No meds were given as seizure resolved. <Corky Gomez - Last Filed: 01/28/17 23:05> Attending/Attestation - Attestation I have personally seen and examined this patient.: Yes I have fully participated in the care of the patient.: Yes I have reviewed all pertinent clinical information, including history, physical exam and plan: Yes
[2017-01-26 08:16] LABS: BASO % 0.4 % (0.0-2.0); HEMOGLOBIN 9.8 g/dL (11.0-16.0); LYMPH # 0.6 K/uL (1.0-4.3); LYMPH % 11.6 % (20.0-40.0); MEAN CELL VOLUME 94.2 fL (81.0-99.0); MEAN CORPUSCULAR HEMOGLOBIN 30.8 pg (27.0-31.0); MEAN CORPUSCULAR HGB CONC 32.7 g/dL (33.0-37.0); MEAN PLATELET VOLUME 9.6 fL (7.2-11.7); MONO # 0.3 K/uL (0.0-0.8); NEUT # 4.5 K/uL (1.8-7.0); RBC 3.19 Mil/uL (3.80-5.20); RED CELL DISTRIBUTION WIDTH 15.2 % (11.5-14.5); WHITE BLOOD COUNT 5.4 K/uL (4.8-10.8)
[2017-01-26 08:40] LABS: ALBUMIN 3.7 g/dL (3.5-5.0)
[2017-01-26 08:44] LABS: CALCIUM 8.8 mg/dl (8.6-10.4); MAGNESIUM 2.2 mg/dL (1.6-2.3)
[2017-01-26] MEDS: Brimonidine 0.2% Opth Sol (5ml) OD SCH ×2 (10:28→18:04)
[2017-01-26] MEDS: Aspirin 325 mg EC Tablets PO SCH (10:35)
[2017-01-26] MEDS: Ciprofloxacin 0.3% OPTH SOLN OD SCH ×4 (10:35→23:07)
[2017-01-26] MEDS: Dorzolamide 2% Opht Sol 10ml OD SCH ×2 (10:35→18:05)
[2017-01-26] MEDS: acetaZOLAMIDE 500 mg SR Cap PO SCH ×2 (10:35→18:05)
[2017-01-26] MEDS: Pantoprazole 40 mg Susp UD PO SCH (10:35)
[2017-01-26] MEDS: carBAMazepine Chew Tab 100 MG Chew Tab PO SCH ×2 (10:35→18:06)
--- NOTE | 2017-01-26 13:44 | CP.PCM.DIS ---
Provider - Provider Date of Admission: 01/23/17 13:12 Attending physician: Angel Natarajan DO Primary care physician: Dr Persaud Consults: Dr Lozoya - cardiology Dr Black - nuerology Time Spent in preparation of Discharge (in minutes): 40 Hospital Course - Lab Results Lab Results: Most Recent Lab Values WBC 5.4 K/uL (4.8-10.8) 01/26/17 08:09 RBC 3.19 Mil/uL (3.80-5.20) L 01/26/17 08:09 Hgb 9.8 g/dL (11.0-16.0) L 01/26/17 08:09 Hct 30.0 % (34.0-47.0) L 01/26/17 08:09 MCV 94.2 fL (81.0-99.0) 01/26/17 08:09 MCH 30.8 pg (27.0-31.0) 01/26/17 08:09 MCHC 32.7 g/dL (33.0-37.0) L 01/26/17 08:09 RDW 15.2 % (11.5-14.5) H 01/26/17 08:09 Plt Count 171 K/uL (130-400) 01/26/17 08:09 MPV 9.6 fL (7.2-11.7) 01/26/17 08:09 Neut % (Auto) 82.0 % (50.0-75.0) H 01/26/17 08:09 Lymph % (Auto) 11.6 % (20.0-40.0) L 01/26/17 08:09 Wirt % (Auto) 6.0 % (0.0-10.0) 01/26/17 08:09 Eos % (Auto) 0.0 % (0.0-4.0) 01/26/17 08:09 Baso % (Auto) 0.4 % (0.0-2.0) 01/26/17 08:09 Neut # 4.5 K/uL (1.8-7.0) 01/26/17 08:09 Lymph # 0.6 K/uL (1.0-4.3) L 01/26/17 08:09 Wirt # 0.3 K/uL (0.0-0.8) 01/26/17 08:09 Eos # 0.0 K/uL (0.0-0.7) 01/26/17 08:09 Baso # 0.0 K/uL (0.0-0.2) 01/26/17 08:09 PT 11.4 SECONDS (9.7-12.2) 01/21/17 12:21 INR 1.0 01/21/17 12:21 APTT 26 SECONDS (21-34) D 01/22/17 07:27 Sodium 139 mmol/L (132-148) 01/26/17 08:09 Potassium 4.2 mmol/L (3.6-5.2) 01/26/17 08:09 Chloride 110 mmol/L (98-107) H 01/26/17 08:09 Carbon Dioxide 19 mmol/L (22-30) L 01/26/17 08:09 Anion Gap 14 (10-20) 01/26/17 08:09 BUN 37 mg/dL (7-17) H 01/26/17 08:09 Creatinine 2.5 MG/DL (0.7-1.2) H 01/26/17 08:09 Est GFR ( Amer) 22 01/26/17 08:09 Est GFR (Non-Af Amer) 18 01/26/17 08:09 POC Glucose (mg/dL) 188 mg/dL (65-110) H 01/26/17 05:16 Random Glucose 151 mg/dL (65-105) H 01/26/17 08:09 Hemoglobin A1c 7.0 % (4.2-6.5) H 01/21/17 12:21 Calcium 8.8 mg/dl (8.6-10.4) 01/26/17 08:09 Phosphorus 3.4 mg/dL (2.5-4.5) 01/26/17 08:09 Magnesium 2.2 mg/dL (1.6-2.3) 01/26/17 08:09 Total Bilirubin 0.5 mg/dL (0.2-1.3) 01/26/17 08:09 AST 103 U/L (14-36) H D 01/26/17 08:09 ALT 31 U/L (9-52) 01/26/17 08:09 Alkaline Phosphatase 122 U/L (38-126) 01/26/17 08:09 Ammonia < 9 umol/L (9-33) L 01/22/17 07:27 Total Creatine Kinase 150 U/L (30-135) H 01/22/17 02:58 CK-MB (Mass) 1.12 ng/mL (0.0-3.38) 01/22/17 02:58 Troponin I 0.0360 ng/mL (0.00-0.120) 01/21/17 12:21 Troponin I, Quant 0.0240 ng/mL (0.00-0.120) 01/22/17 02:58 Total Protein 7.5 g/dL (6.3-8.3) 01/26/17 08:09 Albumin 3.7 g/dL (3.5-5.0) 01/26/17 08:09 Globulin 3.7 gm/dL (2.2-3.9) 01/26/17 08:09 Albumin/Globulin Ratio 1.0 (1.0-2.1) 01/26/17 08:09 Triglycerides 123 mg/dL (0-149) D 01/22/17 07:27 Cholesterol 199 mg/dL (0-199) 01/22/17 07:27 LDL Cholesterol Direct 95 mg/dL (0-129) 01/22/17 07:27 HDL Cholesterol 47 mg/dL (30-70) 01/22/17 07:27 Urine Color Yellow (YELLOW) 01/24/17 19:16 Urine Clarity Hazy (Clear) 01/24/17 19:16 Urine pH 6.0 (5.0-8.0) 01/24/17 19:16 Ur Specific [place] 1.006 (1.003-1.030) 01/24/17 19:16 Urine Protein 2+ mg/dL (NEGATIVE) H 01/24/17 19:16 Urine Glucose (UA) Normal mg/dL (Normal) 01/24/17 19:16 Urine Ketones Negative mg/dL (NEGATIVE) 01/24/17 19:16 Urine Blood 1+ (NEGATIVE) H 01/24/17 19:16 Urine Nitrate Negative (NEGATIVE) 01/24/17 19:16 Urine Bilirubin Negative (NEGATIVE) 01/24/17 19:16 Urine Urobilinogen Normal mg/dL (0.2-1.0) 01/24/17 19:16 Ur Leukocyte Esterase 3+ Kayleigh/uL (Negative) H 01/24/17 19:16 Urine WBC (Auto) 148 /hpf (0-5) H 01/24/17 19:16 Urine RBC (Auto) 13 /hpf (0-3) H 01/24/17 19:16 Urine Bacteria Few (<OCC) H 01/24/17 19:16 Carbamazepine 8.1 ug/mL (4.0-12.0) 01/26/17 08:09 Blood Type B POSITIVE 01/21/17 12:25 Antibody Screen Negative 01/21/17 12:25 - Hospital Course Hospital Course: CC: AMS, weakness HPI: 86F PMHx epilepsy, DM, HTN, CAD s/p stent [facility] Daughter at bedside. Per daughter, pt has been acting different than before started last night. NH staff also noticed left sided weakness this morning. Patient was vomiting after dinner yesterday and this morning. Per daughter, patient was started on a water pill yesterday but no other changes to medication. Patient was admitted in 10/2016 for chest pain and hyperkalemia. Patient is combative, not following commands and not answering questions. ROS unobtainable. PMHx: epilepsy, Diabetes, HTN, asthma, bradycardia, hyperkalemia, urinary retention, glaucoma Medications: she does not know them. Allergies: NKDA Surgery Hx: open monalisa, left hip surgery s/p fall, CAD s/p stent 2011 Social Hx: denies history of tobacco, alcohol or drugs. 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 PMD: Dr. Persaud [facility] Course: This patient came to the ED for AMS and right sided weakness. A CT was taken which did not show any acute changes per report. There is a history of old CVA infarcts. Dr Black of nuerology was consulted and per his recommendation her carbmazapine was increased to 300mg BID. On hospital day #2 she was found to be in atrial fibrillation with rapid ventricular response. Dr Lozoya of cardiology was consulted and as per his rec, her rate was controlled with a beta kevin. An MRI was taken which showed that she has a history of significant CVAs including a large one on the right MCA area. A detailed review of the telemetry reading showed that she still has episodes of tachycardia. Some of it appears to be sinus tachycardia, other times it appears to be in rapid A. fib and short durations. Because of this another dose of IV push digoxin was administered. A urine culture was done which came back positive for ESBL ecoli. She was given primaxin IV 500mg q8 for 3 days. Her WBC throughout her stay has been normal. Last night she had a 1-2 min episode of seizure. Her carbmazapine level was checked which was normal. Dr Black was notified. She will be discharged with nitrofurantoin 100mg po BID to control her UTI. Throughout her stay Mrs Jackson was agitated and refused her medications intermittently. Discharge Exam - Head Exam Head Exam: NORMAL INSPECTION - Eye Exam Eye Exam: Normal appearance Pupil Exam: absent: NORMAL ACCOMODATION Additional comments: pt has hx of glaucoma - ENT Exam ENT Exam: Mucous Membranes Moist - Respiratory Exam Respiratory Exam: NORMAL BREATHING PATTERN. absent: Wheezes - Cardiovascular Exam Cardiovascular Exam: REGULAR RHYTHM, +S1, +S2. absent: Systolic Murmur - GI/Abdominal Exam GI & Abdominal Exam: Normal Bowel Sounds - Rectal Exam Rectal Exam: Deferred - Extremities Exam Extremities exam: normal inspection - Neurological Exam Additional comments: AAOx1 Altered - Psychiatric Exam Psychiatric exam: Agitated - Skin Skin Exam: Normal Color Discharge Plan - Discharge Medications Prescriptions: Nitrofurantoin Macrocrystal [Macrodantin] 100 mg PO BID #6 capsule - Follow Up Plan Condition: STABLE Disposition: NURSING FACILITY MEDICAID CERT Instructions: Hypertension (DC), Hypertension (GEN) Additional Instructions: Patient is stable for [facility] to [facility], per Dr Natarajan. Patient is to resume her home medications. A new medication was added to her home medication regimen: Nitrofurantoin 100mg po BID for 3 days Patient to follow up with her PMD Dr. Persaud within 2 weeks. If patient deteriorates or if symptoms return, please bring to ER. These instructions were provided to the patient or the patients health care specialist. Please translate these instructions in algerian using [employer] so patient understands. Referrals: Isidoro Black MD [Staff Provider] - Theodora Lozoya MD [Staff Provider] -
[2017-01-26] MEDS ORDERED: Metoprolol 1 mg/ml Inj IVP ONE (16:51)
[2017-01-26 17:45] LABS: BASO % 0.6 % (0.0-2.0); HEMOGLOBIN 9.4 g/dL (11.0-16.0); LYMPH # 0.8 K/uL (1.0-4.3); LYMPH % 15.6 % (20.0-40.0); MEAN CORPUSCULAR HGB CONC 31.9 g/dL (33.0-37.0); MEAN PLATELET VOLUME 9.9 fL (7.2-11.7); MONO # 0.4 K/uL (0.0-0.8); NEUT # 3.8 K/uL (1.8-7.0); NEUT % 75.8 % (50.0-75.0); NRBC % 0.1 % (0.0-2.0); RBC 3.15 Mil/uL (3.80-5.20); RED CELL DISTRIBUTION WIDTH 15.9 % (11.5-14.5)
[2017-01-26 17:54] LABS: ALBUMIN 3.4 g/dL (3.5-5.0)
[2017-01-26 17:58] LABS: CALCIUM 8.4 mg/dl (8.6-10.4); MAGNESIUM 2.1 mg/dL (1.6-2.3)
[2017-01-26 18:40] LABS: PROLACTIN 9.3 ng/mL (3.0-18.9)
--- NOTE | 2017-01-26 21:12 | PCM.RRTMUL ---
<Adrian Mccullough - Last Filed: 01/26/17 21:05> FORMULATION CHEMIST Nurses Assessment - Situation FORMULATION CHEMIST Responder Arrival Time:: 16:55 Location:: Patients room Room Number:: 653B FORMULATION CHEMIST Reason for Call: Change in Mental Status FORMULATION CHEMIST Called By: RN - IV IV Inserted during FORMULATION CHEMIST?: Yes New IV Insertion Tolerance:: Good - Vital Signs Blood Pressure:: 189/69 Pulse Rate:: 79 Respiratory Rate:: 20 Temperature:: 97.2 F I.Reason for FORMULATION CHEMIST - A) Acute Change in Patient: (Select all that apply): Acute change in mental status Subjective: The public health officer was called by the rn at 4:55pm due to seizure activity. This is the second public health officer called today on this pt for seizure activity. The patient was on telemetry. Her vitals on arrival were 172/69, hr 70. The pt had refused her lopresser and carbazapine medication earlier today. Xray, cbc, cmp, mag, phos, prolactin, accucheck were ordered. Hydralazine 10mg IV q6 was ordered. It was decided a peg tube would be best to administer medications. This was discussed with her daughter who was here at that time. She will kept npo after midnight as she might go for a peg tube placement tomorrow. - A) Initial Vital Signs: Blood Pressure: 172/69 Pulse Rate: 70 Respiratory Rate: 20 - B) Neurological Status (Select all that apply): absent: Alert, Oriented, Verbal, Follows Commands - C) Respiratory Oxygen Delivery Method: Nasal Cannula @L/min Plan - A. End of FORMULATION CHEMIST Vital Signs: Blood Pressure: 159/73 Pulse Rate: 85 - B. Assessment of Findings&Treatment Plan possible peg tube placement tomorrow. keep npo after midnight. <Angel Natarajan H - Last Filed: 01/27/17 07:32> Attending/Attestation - Attestation I have personally seen and examined this patient.: Yes I have fully participated in the care of the patient.: Yes I have reviewed all pertinent clinical information, including history, physical exam and plan: Yes Notes (Text): 01/27/17 07:28 Medical Attending: Patient was seen and examined by me. Agree with the above. I spoke with the daughter at bedside and explained that because it was often difficult to persuade their mother - the patient - to take medication that we would try to see if it were possible to get a PEG tube. I explained to the daughter as well as the son over the phone that there have been times when the patient does not have any medication due to her refusing. She has dementia as well as a history of previous CVAs. After asking what their wishes were they opted to see if the patient could get a PEG or not. A consent is in the chart in case she is determined to be a candidate for a PEG thank you Angel Natarajan
[2017-01-26] MEDS: Latanoprost 2.5 ml Opht Soln OU SCH (21:50)
[2017-01-27] MEDS: (Novolog) Insulin Aspart, Recombinant 100 u/ml 10 ml vial SC SCH ×6 (00:02→19:00)
[2017-01-27] MEDS: Metoprolol 1 mg/ml Inj IVP PRN (08:03)
--- NOTE | 2017-01-27 09:41 | CP.PCM.PN ---
<Anette Rios - Last Filed: 01/27/17 16:23> Subjective - Date & Time of Evaluation Date of Evaluation: 01/27/17 Time of Evaluation: 07:30 - Subjective Subjective: PGY1- Medicine Note-Dr. Natarajan's service Patient seen and examined at bedside and is being combative. Patient did not want a physical exam and grabbed my arm to push it away. Patient is unable to provide a review of systems. Patient did not answer questions. Objective - Vital Signs/Intake and Output Vital Signs (last 24 hours): Temp Pulse Resp BP Pulse Ox 98.0 F 116 H 20 190/95 H 98 01/27/17 08:42 01/27/17 08:42 01/27/17 08:42 01/27/17 08:42 01/27/17 08:42 - Medications Medications: Current Medications Acetazolamide (Diamox Sequels 500 Mg Sr Cap) 500 mg PO BID [facility] Last Admin: 01/26/17 18:05 Dose: Not Given Albuterol/Ipratropium (Duoneb 3 Mg/0.5 Mg (3 Ml) Ud) 3 ml IH Q6 PRN PRN Reason: Shortness of Breath Allopurinol (Zyloprim) 100 mg PO DAILY [facility] Last Admin: 01/26/17 10:35 Dose: Not Given Amlodipine Besylate (Norvasc) 5 mg PO DAILY [facility] Last Admin: 01/26/17 10:35 Dose: Not Given Aspirin (Ecotrin) 325 mg PO DAILY [facility] Last Admin: 01/26/17 10:35 Dose: Not Given Brimonidine Tartrate (Alphagan 0.2% Opht) 0 ml OD BID [facility] Last Admin: 01/26/17 18:04 Dose: 1 drop Carbamazepine (Tegretol) 300 mg PO BID [facility] Last Admin: 01/26/17 18:06 Dose: Not Given Chlorthalidone (Hygroton) 25 mg PO DAILY [facility] Last Admin: 01/26/17 10:35 Dose: Not Given Ciprofloxacin (Ciloxan 0.3% Ophth Soln) 0 drop OD QID [facility] Last Admin: 01/26/17 23:07 Dose: Not Given Donepezil HCl (Aricept) 10 mg PO HS [facility] Last Admin: 01/26/17 21:41 Dose: Not Given Dorzolamide HCl (Trusopt) 0 ml OD BID [facility] Last Admin: 01/26/17 18:05 Dose: 1 drop Heparin Sodium (Porcine) (Heparin) 5,000 units SC Q12 [facility] Last Admin: 01/26/17 21:46 Dose: 5,000 units Hydralazine HCl (Apresoline) 10 mg IVP Q6H PRN PRN Reason: Systolic Blood Pressure Last Admin: 01/25/17 17:26 Dose: 10 mg Hydralazine HCl (Apresoline) 10 mg IVP Q6H PRN PRN Reason: Systolic Blood Pressure Imipenem/Cilastatin Sodium 500 (mg/ Sodium Chloride) 100 mls @ 100 mls/hr IVPB Q8H [facility] Last Admin: 01/27/17 06:20 Dose: 100 mls/hr Insulin Aspart (Novolog) 0 unit SC Q6 [facility] PRN Reason: Protocol Last Admin: 01/27/17 06:23 Dose: Not Given Isosorbide Mononitrate (Ismo) 10 mg PO DAILY [facility] Last Admin: 01/26/17 10:35 Dose: Not Given Latanoprost (Xalatan Opht) 0 ml OU HS [facility] Last Admin: 01/26/17 21:50 Dose: 2.5 ml Lorazepam (Ativan) 1 mg IVP Q6H PRN PRN Reason: Seizure activity Last Admin: 01/27/17 05:06 Dose: 1 mg Metoprolol Tartrate (Lopressor) 25 mg PO Q12 [facility] Last Admin: 01/26/17 21:42 Dose: Not Given Metoprolol Tartrate (Lopressor) 5 mg IVP Q6 PRN PRN Reason: Heart rate Last Admin: 01/27/17 08:03 Dose: 5 mg Pantoprazole Sodium (Protonix Susp) 40 mg PO DAILY [facility] Last Admin: 01/26/17 10:35 Dose: Not Given Rosuvastatin Calcium (Crestor) 10 mg PO HS [facility] Last Admin: 01/26/17 21:41 Dose: Not Given - Labs Labs: 01/26/17 17:37 01/26/17 17:37 PT 11.4 SECONDS (9.7-12.2) 01/21/17 12:21 INR 1.0 01/21/17 12:21 APTT 26 SECONDS (21-34) D 01/22/17 07:27 - Constitutional Appears: Non-toxic, Combative, Agitated, Confused - Head Exam Head Exam: ATRAUMATIC, NORMAL INSPECTION, NORMOCEPHALIC - Eye Exam Eye Exam: EOMI, Normal appearance, PERRL - Neck Exam Neck Exam: Normal Inspection - Respiratory Exam Respiratory Exam: Clear to Ausculation Bilateral, NORMAL BREATHING PATTERN - Cardiovascular Exam Cardiovascular Exam: Tachycardia, Irregular Rhythm - GI/Abdominal Exam GI & Abdominal Exam: Soft, Normal Bowel Sounds. absent: Distended, Firm, Guarding, Rigid - Extremities Exam Extremities Exam: Normal Inspection. absent: Pedal Edema - Back Exam Back Exam: NORMAL INSPECTION - Neurological Exam Neurological Exam: Alert, Altered, Awake. absent: Oriented x3 - Psychiatric Exam Psychiatric exam: Agitated - Skin Skin Exam: Intact, Normal Color, Warm Assessment and Plan - Assessment and Plan (Free Text) Assessment: AMS Renal function continues to improve. Creatinine stable at 2.5. 01/27: patient seen by speech therapist who states that patient presents less confused today and more attentive. Patient positioned upright in bed. Pt tolerating pureed solids and thin liquids safely at this time. PEG tube to be placed, Dr. Richards (gi) consulted, help appreciated 01/23: Seen by speech therapist, recommended puree diet. Patient took her morning medications. Brain MRI impression: "No acute intracranial hemorrhage or infarct. Large right MCA territory infarct involving the right temporal and right frontal -parietal regions including the right basal ganglia possibly associate with some residual hemosiderin deposition as above. . Moderate to significant diffuse/ confluent chronic white matter ischemic changes are also seen extending peripherally into the deep and subcortical white matter both cerebral hemispheres. . There are also scattered bilateral basal nuclei brainstem and bilateral cerebellar chronic lacunar-type infarcts. Mild marked ex vacuo dilatation of the right lateral ventricle due to the aforementioned infarct with concomitant underlying central volume loss evidenced by disproportionate enlargement of the ventricles as compared sulci. Mild mucosal thickening right chamber sphenoid sinus and right maxillary sinus. " 01/22: Patient pulled out NGT. 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 Possible also element of dehydration, currently on IVF Hx of old CVA on CT. No acute changes per report. Neurology Dr. Black consulted, help appreciated. Code stroke called in ED. Increase carbamazepine to 300mg PO BID per Dr. Black. Continue Aricept, ASA, Crestor. D5 1/2NS @75ml/hr. UTI con't renally dosed impipenem/cilastatin 500mg q8 IV urine culture [01/21] positive for ecoli and beta hemolytic strep group B. collected UA and Ux by straight cath UA: urine protein 2+, urine blood 1+, leukocyte esterase 3+ (h), wbc 148 (h), rbc 13 (h), bacteria few (h) f/u Ux AFib 01/27: Episode of rapid atrial fib with pulse of 170 and bp of 190/95. Lopressor 5mg given. BP came down to 147/77 and Pulse: 116. Digoxin .[address] Lozoya of Cardiology consulted, help appreciated IV push digoxin given on [01/23] to control rate DM 01/27: glucose high of 169, low of 101 01/23: 117 01/22: 140s to 180s RISS, Accucheck. Januvia on hold. A1c 7.0 HTN 01/27: episode of BP 190/95, dropped to 147/77 after lopressor 5 mg given 01/22: Currently doing ok while on IVF Continue Norvasc, Nitrate, Lopressor. Glaucoma Continue Diamox and eye drops. Prophylactic measure Heparin 5000 u SC Q12, SCDs Protonix 40 mg PO daily <Angel Natarajan - Last Filed: 01/27/17 17:02> Objective - Vital Signs/Intake and Output Vital Signs (last 24 hours): Temp Pulse Resp BP Pulse Ox 98.0 F 89 20 147/77 98 01/27/17 08:42 01/27/17 10:01 01/27/17 10:01 01/27/17 10:59 01/27/17 08:42 Intake and Output: 01/27/17 01/27/17 06:59 18:59 Intake Total 350 Balance 350 - Medications Medications: Current Medications Acetazolamide (Diamox Sequels 500 Mg Sr Cap) 500 mg PO BID [facility] Last Admin: 01/27/17 10:51 Dose: 500 mg Albuterol/Ipratropium (Duoneb 3 Mg/0.5 Mg (3 Ml) Ud) 3 ml IH Q6 PRN PRN Reason: Shortness of Breath Allopurinol (Zyloprim) 100 mg PO DAILY [facility] Last Admin: 01/27/17 10:50 Dose: 100 mg Amlodipine Besylate (Norvasc) 5 mg PO DAILY [facility] Last Admin: 01/27/17 10:50 Dose: 5 mg Aspirin (Ecotrin) 325 mg PO DAILY [facility] Last Admin: 01/27/17 10:50 Dose: 325 mg Brimonidine Tartrate (Alphagan 0.2% Opht) 0 ml OD BID [facility] Last Admin: 01/27/17 10:41 Dose: 1 drop Carbamazepine (Tegretol) 300 mg PO BID [facility] Last Admin: 01/27/17 10:44 Dose: 300 mg Chlorthalidone (Hygroton) 25 mg PO DAILY [facility] Last Admin: 01/27/17 10:52 Dose: 25 mg Ciprofloxacin (Ciloxan 0.3% Ophth Soln) 0 drop OD QID [facility] Last Admin: 01/27/17 13:04 Dose: 1 drop Donepezil HCl (Aricept) 10 mg PO HS [facility] Last Admin: 01/26/17 21:41 Dose: Not Given Dorzolamide HCl (Trusopt) 0 ml OD BID [facility] Last Admin: 01/27/17 10:41 Dose: 1 drop Heparin Sodium (Porcine) (Heparin) 5,000 units SC Q12 [facility] Last Admin: 01/27/17 10:57 Dose: 5,000 units Hydralazine HCl (Apresoline) 10 mg IVP Q6H PRN PRN Reason: Systolic Blood Pressure Last Admin: 01/25/17 17:26 Dose: 10 mg Hydralazine HCl (Apresoline) 10 mg IVP Q6H PRN PRN Reason: Systolic Blood Pressure Imipenem/Cilastatin Sodium 500 (mg/ Sodium Chloride) 100 mls @ 100 mls/hr IVPB Q8H [facility] Last Admin: 01/27/17 14:21 Dose: 100 mls/hr Insulin Aspart (Novolog) 0 unit SC Q6 [facility] PRN Reason: Protocol Last Admin: 01/27/17 13:02 Dose: 1 unit Isosorbide Mononitrate (Ismo) 10 mg PO DAILY [facility] Last Admin: 01/27/17 10:50 Dose: 10 mg Latanoprost (Xalatan Opht) 0 ml OU HS [facility] Last Admin: 01/26/17 21:50 Dose: 2.5 ml Lorazepam (Ativan) 1 mg IVP Q6H PRN PRN Reason: Seizure activity Last Admin: 01/27/17 05:06 Dose: 1 mg Metoprolol Tartrate (Lopressor) 25 mg PO Q12 [facility] Last Admin: 01/27/17 10:59 Dose: 25 mg Metoprolol Tartrate (Lopressor) 5 mg IVP Q6 PRN PRN Reason: Heart rate Last Admin: 01/27/17 08:03 Dose: 5 mg Pantoprazole Sodium (Protonix Susp) 40 mg PO DAILY [facility] Last Admin: 01/27/17 10:44 Dose: 40 mg Rosuvastatin Calcium (Crestor) 10 mg PO HS [facility] Last Admin: 01/26/17 21:41 Dose: Not Given - Labs Labs: 01/26/17 17:37 01/26/17 17:37 PT 11.4 SECONDS (9.7-12.2) 01/21/17 12:21 INR 1.0 01/21/17 12:21 APTT 26 SECONDS (21-34) D 01/22/17 07:27 Attending/Attestation - Attestation I have personally seen and examined this patient.: Yes I have fully participated in the care of the patient.: Yes I have reviewed all pertinent clinical information, including history, physical exam and plan: Yes Notes (Text): 01/27/17 17:01 Medical Attending: Patient was seen and examined by me. When we saw her in the morning she was mostly asleep and difficult to awake. Later the RN seeing patient was able to interact with her and she took all her medication as well as food. As mentioned previously we are trying to get a PEG tube so that there would be ways to get her food and medication - esepcially when she is refusing to take her medications thank you Angel Natarajan
--- NOTE | 2017-01-27 09:57 | RAD ---
Chest x-ray single frontal view History: Aspiration. Comparison: None available. Findings: Right hilar prominence. Mild diffuse increased interstitial lung markings. Patchy right paratracheal airspace opacity. Calcification at the aortic knob. Degenerative changes in the spine and shoulders. Impression: Right hilar prominence. Mild diffuse increased interstitial lung markings. Patchy right paratracheal airspace opacity. Calcification at the aortic knob.
[2017-01-27] MEDS: Dorzolamide 2% Opht Sol 10ml OD SCH ×2 (10:41→18:39)
[2017-01-27] MEDS: Brimonidine 0.2% Opth Sol (5ml) OD SCH ×2 (10:41→18:39)
[2017-01-27] MEDS: Ciprofloxacin 0.3% OPTH SOLN OD SCH ×4 (10:41→22:19)
[2017-01-27] MEDS: carBAMazepine Chew Tab 100 MG Chew Tab PO SCH ×2 (10:44→18:38)
[2017-01-27] MEDS: Pantoprazole 40 mg Susp UD PO SCH (10:44)
[2017-01-27] MEDS: Aspirin 325 mg EC Tablets PO SCH (10:50)
[2017-01-27] MEDS: acetaZOLAMIDE 500 mg SR Cap PO SCH ×2 (10:51→18:38)
[2017-01-27] MEDS ORDERED: Digoxin 500 mcg/2ml (0.5 mg/2ml) Inj IVP ONE (11:17)
--- NOTE | 2017-01-27 13:38 | CT ---
PROCEDURE: CT HEAD WITHOUT CONTRAST. HISTORY: Code Stroke COMPARISON: 07/09/2016 TECHNIQUE: Axial computed tomography images were obtained through the head/brain without intravenous contrast. Radiation dose: Total exam DLP = 1196.70 mGy-cm. This CT exam was performed using one or more of the following dose reduction techniques: Automated exposure control, adjustment of the mA and/or kV according to patient size, and/or use of iterative reconstruction technique. FINDINGS: HEMORRHAGE: No intracranial hemorrhage. BRAIN: No intracranial mass. Large old right MCA territory infarct involving frontal and parietal lobes as well as old right insular encephalomalacia. Small old left occipital infarct. Old left thalamic lacunar infarct. Old bilateral basal ganglia lacunar infarcts. No evidence of acute infarct VENTRICLES: No hydrocephalus. Ex vacuo dilatation of right lateral ventricle secondary to old right MCA infarct. No midline shift. CALVARIUM: Unremarkable. PARANASAL SINUSES: Minimal chronic sphenoid and right maxillary sinusitis. MASTOID AIR CELLS: Unremarkable as visualized. No inflammatory changes. OTHER FINDINGS: None. IMPRESSION: No intracranial mass, hemorrhage or evidence of acute infarct. Large old right MCA infarct and small left occipital infarct. Old left thalamic lacunar infarct and bilateral basal ganglia infarcts. Findings in this examination were discussed by telephone with Dr. Moe at 12 p.m. on 01/21/2017.
[2017-01-27] MEDS: Latanoprost 2.5 ml Opht Soln OU SCH (22:18)
[2017-01-28] MEDS: (Novolog) Insulin Aspart, Recombinant 100 u/ml 10 ml vial SC SCH ×4 (06:00→18:00)
[2017-01-28] MEDS: acetaZOLAMIDE 500 mg SR Cap PO SCH (09:02)
[2017-01-28] MEDS: Pantoprazole 40 mg Susp UD PO SCH (09:02)
[2017-01-28] MEDS: carBAMazepine Chew Tab 100 MG Chew Tab PO SCH ×2 (09:02→18:00)
[2017-01-28] MEDS: Aspirin 325 mg EC Tablets PO SCH (09:03)
[2017-01-28] MEDS: Dorzolamide 2% Opht Sol 10ml OD SCH ×2 (09:03→18:00)
[2017-01-28] MEDS: Brimonidine 0.2% Opth Sol (5ml) OD SCH ×2 (09:03→18:00)
[2017-01-28] MEDS: Ciprofloxacin 0.3% OPTH SOLN OD SCH ×4 (09:07→22:41)
--- NOTE | 2017-01-28 10:54 | CP.PCM.PN ---
Subjective - Date & Time of Evaluation Date of Evaluation: 01/28/17 Time of Evaluation: 10:45 - Subjective Subjective: Patient was asleep, awoke when I rubbed her shoulder and looked at me and then went back to sleep. As mentioned before she had an COLLET GLUER yesterday afternoon and we spoke with the family and they would like a PEG tube if possible. This morning she took her medications however there have been many times when she has refused to eat or take medications and without her medications she has had episodes of elevated HTN and or rapid atrial fibrillation. Because of the history of dementia and history of CVA I explained to the family that without a PEG tube there will eventually come a time when she may not be safe to take any food PO. On telemetry today the HR was irregular irregular with a rate mostly in the 120s , will give digoxin .25 x 1 Objective - Vital Signs/Intake and Output Vital Signs (last 24 hours): Temp Pulse Resp BP Pulse Ox 99.4 F 84 18 174/69 H 98 01/28/17 07:25 01/28/17 07:25 01/28/17 07:25 01/28/17 07:25 01/28/17 07:25 Intake and Output: 01/28/17 01/28/17 06:59 18:59 Intake Total 50 Balance 50 - Medications Medications: Current Medications Acetazolamide (Diamox Sequels 500 Mg Sr Cap) 500 mg PO BID [facility] Last Admin: 01/28/17 09:02 Dose: 500 mg Albuterol/Ipratropium (Duoneb 3 Mg/0.5 Mg (3 Ml) Ud) 3 ml IH Q6 PRN PRN Reason: Shortness of Breath Allopurinol (Zyloprim) 100 mg PO DAILY [facility] Last Admin: 01/28/17 09:03 Dose: 100 mg Amlodipine Besylate (Norvasc) 5 mg PO DAILY [facility] Last Admin: 01/28/17 09:02 Dose: 5 mg Aspirin (Ecotrin) 325 mg PO DAILY [facility] Last Admin: 01/28/17 09:03 Dose: 325 mg Brimonidine Tartrate (Alphagan 0.2% Opht) 0 ml OD BID [facility] Last Admin: 01/28/17 09:03 Dose: 1 drop Carbamazepine (Tegretol) 300 mg PO BID [facility] Last Admin: 01/28/17 09:02 Dose: 300 mg Chlorthalidone (Hygroton) 25 mg PO DAILY [facility] Last Admin: 01/28/17 09:09 Dose: 25 mg Ciprofloxacin (Ciloxan 0.3% Ophth Soln) 0 drop OD QID [facility] Last Admin: 01/28/17 09:07 Dose: 1 drop Donepezil HCl (Aricept) 10 mg PO HS [facility] Last Admin: 01/27/17 22:20 Dose: Not Given Dorzolamide HCl (Trusopt) 0 ml OD BID [facility] Last Admin: 01/28/17 09:03 Dose: 1 drop Heparin Sodium (Porcine) (Heparin) 5,000 units SC Q12 [facility] Last Admin: 01/28/17 09:02 Dose: 5,000 units Hydralazine HCl (Apresoline) 10 mg IVP Q6H PRN PRN Reason: Systolic Blood Pressure Last Admin: 01/25/17 17:26 Dose: 10 mg Hydralazine HCl (Apresoline) 10 mg IVP Q6H PRN PRN Reason: Systolic Blood Pressure Imipenem/Cilastatin Sodium 500 (mg/ Sodium Chloride) 100 mls @ 100 mls/hr IVPB Q8H [facility] Last Admin: 01/28/17 05:46 Dose: 100 mls/hr Insulin Aspart (Novolog) 0 unit SC Q6 [facility] PRN Reason: Protocol Last Admin: 01/28/17 06:00 Dose: Not Given Isosorbide Mononitrate (Ismo) 10 mg PO DAILY [facility] Last Admin: 01/28/17 09:02 Dose: 10 mg Latanoprost (Xalatan Opht) 0 ml OU HS [facility] Last Admin: 01/27/17 22:18 Dose: 2.5 ml Lorazepam (Ativan) 1 mg IVP Q6H PRN PRN Reason: Seizure activity Last Admin: 01/28/17 08:44 Dose: 1 mg Metoprolol Tartrate (Lopressor) 25 mg PO Q12 [facility] Last Admin: 01/27/17 22:20 Dose: 25 mg Metoprolol Tartrate (Lopressor) 5 mg IVP Q6 PRN PRN Reason: Heart rate Last Admin: 01/27/17 08:03 Dose: 5 mg Pantoprazole Sodium (Protonix Susp) 40 mg PO DAILY [facility] Last Admin: 01/28/17 09:02 Dose: 40 mg Rosuvastatin Calcium (Crestor) [address] [facility] Last Admin: 01/27/17 22:20 Dose: 10 mg - Labs Labs: 01/26/17 17:37 01/26/17 17:37 PT 11.4 SECONDS (9.7-12.2) 01/21/17 12:21 INR 1.0 01/21/17 12:21 APTT 26 SECONDS (21-34) D 01/22/17 07:27 - Constitutional Appears: Confused, Chronically Ill - Head Exam Head Exam: NORMAL INSPECTION, NORMOCEPHALIC - Eye Exam Eye Exam: EOMI, Normal appearance - ENT Exam ENT Exam: Mucous Membranes Moist - Respiratory Exam Respiratory Exam: Clear to Ausculation Bilateral, NORMAL BREATHING PATTERN - Cardiovascular Exam Cardiovascular Exam: Irregular Rhythm - GI/Abdominal Exam GI & Abdominal Exam: Soft, Normal Bowel Sounds - Neurological Exam Neurological Exam: Alert, Altered, Awake - Psychiatric Exam Psychiatric exam: Depressed, Flat Affect - Skin Skin Exam: Dry, Normal Color, Warm Assessment and Plan - Assessment and Plan (Free Text) Assessment: Assessment: AMS 01/28: Labwork now available this morning. Will re-order. Today was somulent. Woke up and then went back to sleep. 01/27: patient seen by speech therapist who states that patient presents less confused today and more attentive. Patient positioned upright in bed. Pt tolerating pureed solids and thin liquids safely at this time. PEG tube to be placed, Dr. Richards (gi) consulted, help appreciated 01/23: Seen by speech therapist, recommended puree diet. Patient took her morning medications. Brain MRI impression: "No acute intracranial hemorrhage or infarct. Large right MCA territory infarct involving the right temporal and right frontal -parietal regions including the right basal ganglia possibly associate with some residual hemosiderin deposition as above. . Moderate to significant diffuse/ confluent chronic white matter ischemic changes are also seen extending peripherally into the deep and subcortical white matter both cerebral hemispheres. . There are also scattered bilateral basal nuclei brainstem and bilateral cerebellar chronic lacunar-type infarcts. Mild marked ex vacuo dilatation of the right lateral ventricle due to the aforementioned infarct with concomitant underlying central volume loss evidenced by disproportionate enlargement of the ventricles as compared sulci. Mild mucosal thickening right chamber sphenoid sinus and right maxillary sinus. " 01/22: Patient pulled out NGT. 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 Possible also element of dehydration, currently on IVF Hx of old CVA on CT. No acute changes per report. Neurology Dr. Black consulted, help appreciated. Code stroke called in ED. Increase carbamazepine to 300mg PO BID per Dr. Black. Continue Aricept, ASA, Crestor. D5 1/2NS @75ml/hr. UTI 01/28: Continue with IV Primaxin Day 4 con't renally dosed impipenem/cilastatin 500mg q8 IV urine culture [01/21] positive for ecoli and beta hemolytic strep group B. collected UA and Ux by straight cath UA: urine protein 2+, urine blood 1+, leukocyte esterase 3+ (h), wbc 148 (h), rbc 13 (h), bacteria few (h) f/u Ux AFib 01/28: Digoxin 0.25 x 1. On telemetry HR is mostly in 120s, irregular. 01/27: Episode of rapid atrial fib with pulse of 170 and bp of 190/95. Lopressor 5mg given. BP came down to 147/77 and Pulse: 116. Digoxin .[address] Lozoya of Cardiology consulted, help appreciated IV push digoxin given on [01/23] to control rate DM 01/27: glucose high of 169, low of 101 01/23: 117 01/22: 140s to 180s RISS, Accucheck. Januvia on hold. A1c 7.0 HTN 01/28: Start Enalpril IV, she is sometimes taking PO and sometimes not. Currently Lopressor 5 IV and also hydralzine 10 ordered 01/27: episode of BP 190/95, dropped to 147/77 after lopressor 5 mg given 01/22: Currently doing ok while on IVF Continue Norvasc, Nitrate, Lopressor. Glaucoma Continue Diamox and eye drops. Prophylactic measure Heparin 5000 u SC Q12, SCDs Protonix 40 mg PO daily
[2017-01-28 11:04] LABS: BASO % 0.8 % (0.0-2.0); HEMOGLOBIN 8.5 g/dL (11.0-16.0); LYMPH % 20.3 % (20.0-40.0); MEAN CELL VOLUME 95.1 fL (81.0-99.0); MEAN CORPUSCULAR HEMOGLOBIN 30.7 pg (27.0-31.0); MEAN CORPUSCULAR HGB CONC 32.3 g/dL (33.0-37.0); MEAN PLATELET VOLUME 9.3 fL (7.2-11.7); MONO # 0.4 K/uL (0.0-0.8); MONO % 8.5 % (0.0-10.0); NEUT # 3.5 K/uL (1.8-7.0); NEUT % 70.4 % (50.0-75.0); RBC 2.76 Mil/uL (3.80-5.20); RED CELL DISTRIBUTION WIDTH 15.7 % (11.5-14.5)
[2017-01-28] MEDS ORDERED: Digoxin 500 mcg/2ml (0.5 mg/2ml) Inj IVP ONE (11:04)
[2017-01-28 11:25] LABS: ALBUMIN 3.1 g/dL (3.5-5.0)
[2017-01-28 11:29] LABS: ALB/GLOB RATIO 0.9 (1.0-2.1); CALCIUM 8.5 mg/dl (8.6-10.4)
[2017-01-28] MEDS: Latanoprost 2.5 ml Opht Soln OU SCH (22:41)
[2017-01-29] MEDS: (Novolog) Insulin Aspart, Recombinant 100 u/ml 10 ml vial SC SCH ×4 (00:15→17:25)
--- NOTE | 2017-01-29 02:31 | CP.PCM.PN ---
Addendum entered and electronically signed by Angel Natarajan DO 01/29/17 10:16: Addendum: Because of dementia patient sometimes takes PO medications and sometimes refuses or is agitated. Hopefully can get PEG tube soon for easier administration of HTN and rate control medication and seizure medications. Give digoxin 0.25 x1, later if HR fast and refusing PO medications then add on cardizem @ 5 gtt. thank you Angel Natarajan Original Note: <Adrian Mccullough - Last Filed: 01/29/17 02:28> Subjective - Date & Time of Evaluation Date of Evaluation: 01/29/17 Time of Evaluation: 05:30 - Subjective Subjective: PGY-[address] Natarajan's Service Patient was examined at bedside. Patient was awake and not in acute distress. Patient did not speak much during my examination. A ROS was not possible as the patient did not answer my questions. Objective - Vital Signs/Intake and Output Vital Signs (last 24 hours): Temp Pulse Resp BP Pulse Ox 98 F 77 20 129/55 L 100 01/28/17 23:25 01/29/17 00:00 01/28/17 23:25 01/28/17 23:25 01/28/17 23:25 Intake and Output: 01/28/17 01/29/17 18:59 06:59 Intake Total 120 Output Total 1 Balance 119 - Medications Medications: Current Medications Albuterol/Ipratropium (Duoneb 3 Mg/0.5 Mg (3 Ml) Ud) 3 ml IH Q6 PRN PRN Reason: Shortness of Breath Amlodipine Besylate (Norvasc) 5 mg PO DAILY [facility] Last Admin: 01/28/17 09:02 Dose: 5 mg Aspirin (Ecotrin) 325 mg PO DAILY [facility] Last Admin: 01/28/17 09:03 Dose: 325 mg Brimonidine Tartrate (Alphagan 0.2% Opht) 0 ml OD BID [facility] Last Admin: 01/28/17 18:00 Dose: 1 drop Carbamazepine (Tegretol) 300 mg PO BID [facility] Last Admin: 01/28/17 18:00 Dose: 300 mg Chlorthalidone (Hygroton) 25 mg PO DAILY [facility] Last Admin: 01/28/17 09:09 Dose: 25 mg Ciprofloxacin (Ciloxan 0.3% Ophth Soln) 0 drop OD QID [facility] Last Admin: 01/28/17 22:41 Dose: 1 drop Donepezil HCl (Aricept) 10 mg PO HS [facility] Last Admin: 01/28/17 22:42 Dose: 10 mg Dorzolamide HCl (Trusopt) 0 ml OD BID [facility] Last Admin: 01/28/17 18:00 Dose: 1 drop Heparin Sodium (Porcine) (Heparin) 5,000 units SC Q12 [facility] Last Admin: 01/28/17 23:45 Dose: Not Given Hydralazine HCl (Apresoline) 10 mg IVP Q6H PRN PRN Reason: Systolic Blood Pressure Last Admin: 01/25/17 17:26 Dose: 10 mg Hydralazine HCl (Apresoline) 10 mg IVP Q6H PRN PRN Reason: Systolic Blood Pressure Imipenem/Cilastatin Sodium 500 (mg/ Sodium Chloride) 100 mls @ 100 mls/hr IVPB Q8H [facility] Last Admin: 01/28/17 23:59 Dose: 100 mls/hr Insulin Aspart (Novolog) 0 unit SC Q6 [facility] PRN Reason: Protocol Last Admin: 01/29/17 00:15 Dose: Not Given Isosorbide Mononitrate (Ismo) 10 mg PO DAILY [facility] Last Admin: 01/28/17 09:02 Dose: 10 mg Latanoprost (Xalatan Opht) 0 ml OU HS [facility] Last Admin: 01/28/17 22:41 Dose: 2.5 ml Lorazepam (Ativan) 1 mg IVP Q6H PRN PRN Reason: Seizure activity Last Admin: 01/28/17 08:44 Dose: 1 mg Metoprolol Tartrate (Lopressor) 25 mg PO Q12 [facility] Last Admin: 01/28/17 22:45 Dose: 25 mg Metoprolol Tartrate (Lopressor) 5 mg IVP Q6 PRN PRN Reason: Heart rate Last Admin: 01/27/17 08:03 Dose: 5 mg Pantoprazole Sodium (Protonix Susp) 40 mg PO DAILY [facility] Last Admin: 01/28/17 09:02 Dose: 40 mg Rosuvastatin Calcium (Crestor) 10 mg PO HS [facility] Last Admin: 01/28/17 22:41 Dose: 10 mg - Labs Labs: 01/28/17 11:00 01/28/17 11:00 PT 11.4 SECONDS (9.7-12.2) 01/21/17 12:21 INR 1.0 01/21/17 12:21 APTT 26 SECONDS (21-34) D 01/22/17 07:27 - Head Exam Head Exam: NORMAL INSPECTION - Eye Exam Eye Exam: Normal appearance - ENT Exam ENT Exam: Mucous Membranes Moist - Neck Exam Neck Exam: Normal Inspection - Respiratory Exam Respiratory Exam: Clear to Ausculation Bilateral, NORMAL BREATHING PATTERN - Cardiovascular Exam Cardiovascular Exam: Irregular Rhythm - GI/Abdominal Exam GI & Abdominal Exam: Soft, Normal Bowel Sounds - Rectal Exam Rectal Exam: Deferred - Extremities Exam Extremities Exam: Pedal Edema - Neurological Exam Neurological Exam: Alert, Altered, Awake - Psychiatric Exam Psychiatric exam: Flat Affect - Skin Skin Exam: Normal Color Assessment and Plan - Assessment and Plan (Free Text) Assessment: AMS 01/28: Labwork now available this morning. Will re-order. Today was somulent. Woke up and then went back to sleep. 01/27: patient seen by speech therapist who states that patient presents less confused today and more attentive. Patient positioned upright in bed. Pt tolerating pureed solids and thin liquids safely at this time. PEG tube to be placed, Dr. Richards (gi) consulted, help appreciated 01/23: Seen by speech therapist, recommended puree diet. Patient took her morning medications. Brain MRI impression: "No acute intracranial hemorrhage or infarct. Large right MCA territory infarct involving the right temporal and right frontal -parietal regions including the right basal ganglia possibly associate with some residual hemosiderin deposition as above. . Moderate to significant diffuse/ confluent chronic white matter ischemic changes are also seen extending peripherally into the deep and subcortical white matter both cerebral hemispheres. . There are also scattered bilateral basal nuclei brainstem and bilateral cerebellar chronic lacunar-type infarcts. Mild marked ex vacuo dilatation of the right lateral ventricle due to the aforementioned infarct with concomitant underlying central volume loss evidenced by disproportionate enlargement of the ventricles as compared sulci. Mild mucosal thickening right chamber sphenoid sinus and right maxillary sinus. " 01/22: Patient pulled out NGT. 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 Possible also element of dehydration, currently on IVF Hx of old CVA on CT. No acute changes per report. Neurology Dr. Black consulted, help appreciated. Code stroke called in ED. Increase carbamazepine to 300mg PO BID per Dr. Black. Continue Aricept, ASA, Crestor. D5 1/2NS @75ml/hr. UTI 01/28: Continue with IV Primaxin Day 4 con't renally dosed impipenem/cilastatin 500mg q8 IV urine culture [01/21] positive for ecoli and beta hemolytic strep group B. collected UA and Ux by straight cath UA: urine protein 2+, urine blood 1+, leukocyte esterase 3+ (h), wbc 148 (h), rbc 13 (h), bacteria few (h) f/u Ux AFib 01/28: Digoxin 0.25 x 1. On telemetry HR is mostly in 120s, irregular. 01/27: Episode of rapid atrial fib with pulse of 170 and bp of 190/95. Lopressor 5mg given. BP came down to 147/77 and Pulse: 116. Digoxin .[address] Lozoya of Cardiology consulted, help appreciated IV push digoxin given on [01/23] to control rate DM 01/27: glucose high of 169, low of 101 01/23: 117 01/22: 140s to 180s RISS, Accucheck. Januvia on hold. A1c 7.0 HTN 01/28: Start Enalpril IV, she is sometimes taking PO and sometimes not. Currently Lopressor 5 IV and also hydralzine 10 ordered 01/27: episode of BP 190/95, dropped to 147/77 after lopressor 5 mg given 01/22: Currently doing ok while on IVF Continue Norvasc, Nitrate, Lopressor. Glaucoma Continue Diamox and eye drops. Prophylactic measure Heparin 5000 u SC Q12, SCDs Protonix 40 mg PO daily <Angel Natarajan - Last Filed: 01/29/17 10:13> Objective - Vital Signs/Intake and Output Vital Signs (last 24 hours): Temp Pulse Resp BP Pulse Ox 98.6 F 115 H 18 137/76 100 01/29/17 08:40 01/29/17 08:40 01/29/17 08:40 01/29/17 09:46 01/29/17 08:40 Intake and Output: 01/29/17 01/29/17 06:59 18:59 Intake Total 230 Output Total 1 Balance 229 - Medications Medications: Current Medications Albuterol/Ipratropium (Duoneb 3 Mg/0.5 Mg (3 Ml) Ud) 3 ml IH Q6 PRN PRN Reason: Shortness of Breath Amlodipine Besylate (Norvasc) 5 mg PO DAILY [facility] Last Admin: 01/29/17 09:46 Dose: 5 mg Aspirin (Ecotrin) 325 mg PO DAILY [facility] Last Admin: 01/29/17 09:46 Dose: 325 mg Brimonidine Tartrate (Alphagan 0.2% Opht) 0 ml OD BID [facility] Last Admin: 01/29/17 09:50 Dose: 1 drop Carbamazepine (Tegretol) 300 mg PO BID [facility] Last Admin: 01/29/17 09:48 Dose: 300 mg Chlorthalidone (Hygroton) 25 mg PO DAILY [facility] Last Admin: 01/29/17 09:47 Dose: 25 mg Ciprofloxacin (Ciloxan 0.3% Ophth Soln) 0 drop OD QID [facility] Last Admin: 01/29/17 09:51 Dose: 1 drop Donepezil HCl (Aricept) 10 mg PO HS [facility] Last Admin: 01/28/17 22:42 Dose: 10 mg Dorzolamide HCl (Trusopt) 0 ml OD BID [facility] Last Admin: 01/29/17 09:49 Dose: 1 drop Heparin Sodium (Porcine) (Heparin) 5,000 units SC Q12 [facility] Last Admin: 01/29/17 09:46 Dose: 5,000 units Hydralazine HCl (Apresoline) 10 mg IVP Q6H PRN PRN Reason: Systolic Blood Pressure Last Admin: 01/25/17 17:26 Dose: 10 mg Hydralazine HCl (Apresoline) 10 mg IVP Q6H PRN PRN Reason: Systolic Blood Pressure Imipenem/Cilastatin Sodium 500 (mg/ Sodium Chloride) 100 mls @ 100 mls/hr IVPB Q8H [facility] Last Admin: 01/29/17 05:50 Dose: 100 mls/hr Insulin Aspart (Novolog) 0 unit SC Q6 [facility] PRN Reason: Protocol Last Admin: 01/29/17 05:49 Dose: Not Given Isosorbide Mononitrate (Ismo) 10 mg PO DAILY [facility] Last Admin: 01/29/17 09:48 Dose: 10 mg Latanoprost (Xalatan Opht) 0 ml OU HS [facility] Last Admin: 01/28/17 22:41 Dose: 2.5 ml Lorazepam (Ativan) 1 mg IVP Q6H PRN PRN Reason: Seizure activity Last Admin: 01/28/17 08:44 Dose: 1 mg Metoprolol Tartrate (Lopressor) 25 mg PO Q12 [facility] Last Admin: 01/29/17 09:46 Dose: 25 mg Metoprolol Tartrate (Lopressor) 5 mg IVP Q6 PRN PRN Reason: Heart rate Last Admin: 01/27/17 08:03 Dose: 5 mg Pantoprazole Sodium (Protonix Susp) 40 mg PO DAILY [facility] Last Admin: 01/29/17 09:47 Dose: 40 mg Rosuvastatin Calcium (Crestor) 10 mg PO HS [facility] Last Admin: 01/28/17 22:41 Dose: 10 mg - Labs Labs: 01/29/17 09:48 01/28/17 11:00 PT 11.4 SECONDS (9.7-12.2) 01/21/17 12:21 INR 1.0 01/21/17 12:21 APTT 26 SECONDS (21-34) D 01/22/17 07:27 Attending/Attestation - Attestation I have personally seen and examined this patient.: Yes I have fully participated in the care of the patient.: Yes I have reviewed all pertinent clinical information, including history, physical exam and plan: Yes Notes (Text): Medical Attending: Patient was awake this morning - she was moving her arms in the air however without any purpose today. She looked at me and then looked away. HR is fast again - irregular irregular. Will give another of digoxin 0.25 x 1. Already has lopressor IV. NPO after midnight, hopefully can get a PEG tomorrow as this would make administering medications much easier. thank you Angel Natarajan
[2017-01-29] MEDS: Aspirin 325 mg EC Tablets PO SCH (09:46)
[2017-01-29] MEDS: Pantoprazole 40 mg Susp UD PO SCH (09:47)
[2017-01-29] MEDS: carBAMazepine Chew Tab 100 MG Chew Tab PO SCH ×2 (09:48→17:21)
[2017-01-29] MEDS: Dorzolamide 2% Opht Sol 10ml OD SCH ×2 (09:49→17:21)
[2017-01-29] MEDS: Brimonidine 0.2% Opth Sol (5ml) OD SCH ×2 (09:50→17:20)
[2017-01-29] MEDS: Ciprofloxacin 0.3% OPTH SOLN OD SCH ×3 (09:51→21:51)
[2017-01-29 09:56] LABS: HEMOGLOBIN 8.8 g/dL (11.0-16.0); MONO # 0.5 K/uL (0.0-0.8)
[2017-01-29 10:01] LABS: BASO # 0.1 K/uL (0.0-0.2); BASO % 1.4 % (0.0-2.0); LYMPH # 0.9 K/uL (1.0-4.3); LYMPH % 15.7 % (20.0-40.0); MEAN CELL VOLUME 94.7 fL (81.0-99.0); MEAN CORPUSCULAR HEMOGLOBIN 30.5 pg (27.0-31.0); MEAN CORPUSCULAR HGB CONC 32.3 g/dL (33.0-37.0); MEAN PLATELET VOLUME 9.6 fL (7.2-11.7); MONO % 7.6 % (0.0-10.0); NEUT # 4.5 K/uL (1.8-7.0); NEUT % 75.3 % (50.0-75.0); RBC 2.89 Mil/uL (3.80-5.20); RED CELL DISTRIBUTION WIDTH 16.3 % (11.5-14.5)
[2017-01-29 10:04] LABS: ALBUMIN 3.3 g/dL (3.5-5.0)
[2017-01-29 10:07] LABS: ALB/GLOB RATIO 0.9 (1.0-2.1); CALCIUM 8.6 mg/dl (8.6-10.4)
[2017-01-29] MEDS ORDERED: Digoxin 500 mcg/2ml (0.5 mg/2ml) Inj IVP STA (10:13)
[2017-01-29] MEDS: Sodium Chloride 0.9% 1,000 ML IV SCH ×3 (11:01→21:51)
[2017-01-29 11:06] VITALS: PULSE 122
[2017-01-29 13:11] LABS: SQUAMOUS EPITHIAL 4 /hpf (0-5); URINE BILIRUBIN 1+ (NEGATIVE); URINE BLOOD NEGATIVE (NEGATIVE); URINE CLARITY Hazy (Clear); URINE COLOR Amber (YELLOW); URINE GLUCOSE (UA) 1+ mg/dL (Normal); URINE LEUKOCYTE ESTERASE 3+ Leu/uL (Negative); URINE NITRATE NEGATIVE (NEGATIVE); URINE PROTEIN 2+ mg/dL (NEGATIVE)
[2017-01-29] MEDS: Metoprolol 1 mg/ml Inj IVP PRN (17:20)
[2017-01-29] MEDS: Latanoprost 2.5 ml Opht Soln OU SCH (21:52)
[2017-01-29] MEDS ORDERED: Potassium Chloride 20 mEq ER Tab PO ONE (23:15)
[2017-01-30] MEDS: (Novolog) Insulin Aspart, Recombinant 100 u/ml 10 ml vial SC SCH ×4 (00:30→18:59)
[2017-01-30] MEDS: Sodium Chloride 0.9% 1,000 ML IV SCH ×2 (06:59→16:15)
[2017-01-30 07:52] LABS: BASO # 0.1 K/uL (0.0-0.2); BASO % 0.8 % (0.0-2.0); EOS # 0.2 K/uL (0.0-0.7); EOS % 2.6 % (0.0-4.0); HEMOGLOBIN 8.7 g/dL (11.0-16.0); LYMPH % 14.5 % (20.0-40.0); MEAN CELL VOLUME 96.2 fL (81.0-99.0); MEAN CORPUSCULAR HEMOGLOBIN 31.1 pg (27.0-31.0); MEAN CORPUSCULAR HGB CONC 32.3 g/dL (33.0-37.0); MEAN PLATELET VOLUME 9.8 fL (7.2-11.7); MONO # 0.5 K/uL (0.0-0.8); NEUT # 5.1 K/uL (1.8-7.0); NEUT % 75.1 % (50.0-75.0); NRBC % 0.3 % (0.0-2.0); RBC 2.8 Mil/uL (3.80-5.20); RED CELL DISTRIBUTION WIDTH 16.1 % (11.5-14.5); WHITE BLOOD COUNT 6.7 K/uL (4.8-10.8)
[2017-01-30 07:57] LABS: ALBUMIN 3.3 g/dL (3.5-5.0)
[2017-01-30 08:00] LABS: ALB/GLOB RATIO 0.9 (1.0-2.1)
[2017-01-30 08:01] LABS: CALCIUM 8.6 mg/dl (8.6-10.4)
[2017-01-30] MEDS: Ciprofloxacin 0.3% OPTH SOLN OD SCH ×4 (10:55→21:25)
[2017-01-30] MEDS: Dorzolamide 2% Opht Sol 10ml OD SCH ×2 (14:06→19:00)
[2017-01-30] MEDS: Brimonidine 0.2% Opth Sol (5ml) OD SCH ×2 (14:07→18:56)
[2017-01-30] MEDS: Aspirin 325 mg EC Tablets PO SCH (14:08)
[2017-01-30] MEDS: Pantoprazole 40 mg Susp UD PO SCH (14:12)
[2017-01-30] MEDS: carBAMazepine Chew Tab 100 MG Chew Tab PO SCH (14:12)
[2017-01-30] MEDS ORDERED: levETIRAcetam 1,000 MG in Sodium Chloride 0.9% 100 ML IVPB STA (17:23)
--- NOTE | 2017-01-30 18:31 | CP.PCM.PN ---
<HakalauLucero ottojune E - Last Filed: 01/30/17 19:11> Subjective - Date & Time of Evaluation Date of Evaluation: 01/30/17 Time of Evaluation: 08:45 - Subjective Subjective: Medicine Note (PGY 1) : Dr. De La Garza's service Patient was seen and examined at bedside. Patient is somnolent and not verbal. Patient is able to grasp my hand with her left hand. A ROS was not possible as patient is non-verbal. Patient has had decreased PO intake for couple of days, therefore will be receiving a PEG tube today for proper nutrition. Objective - Vital Signs/Intake and Output Vital Signs (last 24 hours): Temp Pulse Resp BP Pulse Ox 98.8 F 108 H 20 168/79 H 100 01/30/17 16:00 01/30/17 16:00 01/30/17 16:00 01/30/17 16:00 01/30/17 16:00 Intake and Output: 01/30/17 01/30/17 06:59 18:59 Intake Total 1720 800 Balance 1720 800 - Medications Medications: Current Medications Albuterol/Ipratropium (Duoneb 3 Mg/0.5 Mg (3 Ml) Ud) 3 ml IH Q6 PRN PRN Reason: Shortness of Breath Amlodipine Besylate (Norvasc) 5 mg PO DAILY [facility] Last Admin: 01/30/17 14:10 Dose: Not Given Aspirin (Ecotrin) 325 mg PO DAILY [facility] Last Admin: 01/30/17 14:08 Dose: Not Given Brimonidine Tartrate (Alphagan 0.2% Opht) 0 ml OD BID [facility] Last Admin: 01/30/17 14:07 Dose: 1 drop Chlorthalidone (Hygroton) 25 mg PO DAILY [facility] Last Admin: 01/30/17 14:09 Dose: Not Given Ciprofloxacin (Ciloxan 0.3% Ophth Soln) 0 drop OD QID [facility] Last Admin: 01/30/17 14:07 Dose: 1 drop Donepezil HCl (Aricept) 10 mg PO HS [facility] Last Admin: 01/29/17 21:57 Dose: 10 mg Dorzolamide HCl (Trusopt) 0 ml OD BID [facility] Last Admin: 01/30/17 14:06 Dose: 1 drop Heparin Sodium (Porcine) (Heparin) 5,000 units SC Q12 [facility] Last Admin: 01/30/17 10:00 Dose: Not Given Hydralazine HCl (Apresoline) 10 mg IVP Q6H PRN PRN Reason: Systolic Blood Pressure Sodium Chloride (Sodium Chloride 0.9%) 1,000 mls @ 100 mls/hr IV .Q10H [facility] Last Admin: 01/30/17 06:59 Dose: Not Given Imipenem/Cilastatin Sodium 250 (mg/ Sodium Chloride) 100 mls @ 100 mls/hr IVPB Q8H [facility] Levetiracetam 500 mg/ Sodium (Chloride) 105 mls @ 420 mls/hr IVPB Q12H [facility] Insulin Aspart (Novolog) 0 unit SC Q6 [facility] PRN Reason: Protocol Last Admin: 01/30/17 14:11 Dose: Not Given Isosorbide Mononitrate (Ismo) 10 mg PO DAILY [facility] Last Admin: 01/30/17 14:10 Dose: Not Given Latanoprost (Xalatan Opht) 0 ml OU HS [facility] Last Admin: 01/29/17 21:52 Dose: 2.5 ml Lorazepam (Ativan) 1 mg IVP Q6H PRN PRN Reason: Seizure activity Last Admin: 01/28/17 08:44 Dose: 1 mg Metoprolol Tartrate (Lopressor) 25 mg PO Q12 [facility] Last Admin: 01/30/17 14:10 Dose: Not Given Metoprolol Tartrate (Lopressor) 5 mg IVP Q6 PRN PRN Reason: Heart rate Last Admin: 01/29/17 17:20 Dose: 5 mg Pantoprazole Sodium (Protonix Susp) 40 mg PO DAILY [facility] Last Admin: 01/30/17 14:12 Dose: Not Given Rosuvastatin Calcium (Crestor) 10 mg PO HS [facility] Last Admin: 01/29/17 21:57 Dose: 10 mg - Labs Labs: 01/30/17 07:45 01/30/17 07:45 PT 11.4 SECONDS (9.7-12.2) 01/21/17 12:21 INR 1.0 01/21/17 12:21 APTT 26 SECONDS (21-34) D 01/22/17 07:27 - Constitutional Appears: No Acute Distress - Head Exam Head Exam: NORMAL INSPECTION, NORMOCEPHALIC - ENT Exam ENT Exam: Mucous Membranes Moist, Normal Exam - Respiratory Exam Respiratory Exam: Clear to Ausculation Bilateral, NORMAL BREATHING PATTERN - Cardiovascular Exam Cardiovascular Exam: Irregular Rhythm - GI/Abdominal Exam GI & Abdominal Exam: Soft, Normal Bowel Sounds - Extremities Exam Extremities Exam: Normal Capillary Refill, Normal Inspection - Psychiatric Exam Psychiatric exam: Agitated - Skin Skin Exam: Dry, Normal Color, Warm Assessment and Plan (1) Seizure Assessment & Plan: 01/30/17: Witnessed seizure by family members and nurse that lasted for [address] Black consulted ---- Help appreciated * Adjusted Seizure PO meds carbamazepine to 300mg PO BID to Keppra 500mg IV Q12H since patient does not tolerate PO intake at the moment Seizure precautions. Status: Acute (2) Altered mental status Assessment & Plan: Neurology Dr. Black consulted, help appreciated Code stroke called in ED. Increase carbamazepine to 300mg PO BID per Dr. Black. Continue Aricept, ASA, Crestor. D5 1/2NS @75ml/hr for possible dehydration as an underlying cause As per speech therapy Patient is on dysphagia/modified consistency : Pureed and thin liquids PEG tube to be placed, Dr. Richards (gi) consulted, help appreciated * PEG tube will be placed on 02/01/17 Brain MRI impression: "No acute intracranial hemorrhage or infarct. 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 . Moderate to significant diffuse/ confluent chronic white matter ischemic changes are also seen extending peripherally into the deep and subcortical white matter both cerebral hemispheres. . There are also scattered bilateral basal nuclei brainstem and bilateral cerebellar chronic lacunar-type infarcts. Mild marked ex vacuo dilatation of the right lateral ventricle due to the aforementioned infarct with concomitant underlying central volume loss evidenced by disproportionate enlargement of the ventricles as compared sulci. Mild mucosal thickening right chamber sphenoid sinus and right maxillary sinus. " Status: Chronic (3) UTI (urinary tract infection) Assessment & Plan: Continue primaxin Repeat UC (01/29/17): Negative for growth con't renally dosed impipenem/cilastatin 500mg q8 IV urine culture [01/21] positive for ecoli and beta hemolytic strep group B. collected UA and Ux by straight cath UA: urine protein 2+, urine blood 1+, leukocyte esterase 3+ (h), wbc 148 (h), rbc 13 (h), bacteria few (h) Status: Acute (4) Atrial fibrillation Assessment & Plan: 01/30/17: Rate controlled in the 130s 01/27: Episode of rapid atrial fib with pulse of 170 and bp of 190/95. Lopressor 5mg given. BP came down to 147/77 and Pulse: 116. Digoxin .[address] Lozoya of Cardiology consulted, help appreciated IV push digoxin given on [01/23] to control rate Status: Acute (5) DM2 (diabetes mellitus, type 2) Assessment & Plan: 01/28-01/30: glucose high of 141, low of 103 01/27: glucose high of 169, low of 101 01/23: 117 01/22: 140s to 180s RISS, Accucheck. Januvia on hold. A1c 7.0 Status: Acute (6) Glaucoma Assessment & Plan: Continue Diamox and eye drops. Status: Acute (7) Prophylactic measure Assessment & Plan: Heparin 5000 u SC Q12, SCDs Protonix 40 mg PO daily Status: Acute <Jimy De La Garza M - Last Filed: 01/31/17 09:55> Objective - Vital Signs/Intake and Output Vital Signs (last 24 hours): Temp Pulse Resp BP Pulse Ox 99.5 F 88 20 152/80 H 100 01/30/17 23:20 01/30/17 23:20 01/30/17 23:20 01/30/17 23:20 01/30/17 23:20 Intake and Output: 01/31/17 01/31/17 06:59 18:59 Intake Total 1625 Balance 1625 - Medications Medications: Current Medications Amlodipine Besylate (Norvasc) 5 mg PO DAILY [facility] Last Admin: 01/30/17 14:10 Dose: Not Given Aspirin (Ecotrin) 325 mg PO DAILY [facility] Last Admin: 01/30/17 14:08 Dose: Not Given Brimonidine Tartrate (Alphagan 0.2% Opht) 0 ml OD BID [facility] Last Admin: 01/30/17 18:56 Dose: 1 drop Chlorthalidone (Hygroton) 25 mg PO DAILY [facility] Last Admin: 01/30/17 14:09 Dose: Not Given Ciprofloxacin (Ciloxan 0.3% Ophth Soln) 0 drop OD QID [facility] Last Admin: 01/30/17 21:25 Dose: 1 drop Clonidine HCl (Catapres Tts1 0.1 Mg/24 Hr) 1 patch TD Q7D@1000 [facility] Donepezil HCl (Aricept) 10 mg PO HS [facility] Last Admin: 01/30/17 22:30 Dose: Not Given Dorzolamide HCl (Trusopt) 0 ml OD BID [facility] Last Admin: 01/30/17 19:00 Dose: 1 drop Heparin Sodium (Porcine) (Heparin) 5,000 units SC Q12 [facility] Last Admin: 01/30/17 21:26 Dose: 5,000 units Hydralazine HCl (Apresoline) 10 mg IVP Q6H PRN PRN Reason: Systolic Blood Pressure Last Admin: 01/30/17 19:15 Dose: 10 mg Sodium Chloride (Sodium Chloride 0.9%) 1,000 mls @ 100 mls/hr IV .Q10H [facility] Last Admin: 01/31/17 03:00 Dose: Not Given Imipenem/Cilastatin Sodium 250 (mg/ Sodium Chloride) 100 mls @ 100 mls/hr IVPB Q8H [facility] Last Admin: 01/31/17 06:54 Dose: 100 mls/hr Levetiracetam 500 mg/ Sodium (Chloride) 105 mls @ 420 mls/hr IVPB Q12H [facility] Last Admin: 01/31/17 05:26 Dose: 420 mls/hr Insulin Aspart (Novolog) 0 unit SC Q6 [facility] PRN Reason: Protocol Last Admin: 01/31/17 07:00 Dose: Not Given Isosorbide Mononitrate (Ismo) 10 mg PO DAILY [facility] Last Admin: 01/30/17 14:10 Dose: Not Given Latanoprost (Xalatan Opht) 0 ml OU HS [facility] Last Admin: 01/30/17 21:25 Dose: 2.5 ml Lorazepam (Ativan) 1 mg IVP Q6H PRN PRN Reason: Seizure activity Last Admin: 01/28/17 08:44 Dose: 1 mg Metoprolol Tartrate (Lopressor) 25 mg PO Q12 [facility] Last Admin: 01/30/17 21:00 Dose: 25 mg Metoprolol Tartrate (Lopressor) 5 mg IVP Q6 PRN PRN Reason: Heart rate Last Admin: 01/29/17 17:20 Dose: 5 mg Pantoprazole Sodium (Protonix Susp) 40 mg PO DAILY [facility] Last Admin: 01/30/17 14:12 Dose: Not Given Rosuvastatin Calcium (Crestor) 10 mg PO HS [facility] Last Admin: 01/30/17 22:30 Dose: Not Given - Labs Labs: 01/31/17 08:10 01/31/17 08:10 PT 11.4 SECONDS (9.7-12.2) 01/21/17 12:21 INR 1.0 01/21/17 12:21 APTT 26 SECONDS (21-34) D 01/22/17 07:27 Attending/Attestation - Attestation I have personally seen and examined this patient.: Yes I have fully participated in the care of the patient.: Yes I have reviewed all pertinent clinical information, including history, physical exam and plan: Yes Notes (Text): 01/31/17 09:55 Patient was seen and examined at bedside with the resident Patient is scheduled for PEG tube placement however the procedures postponed because of seizure We will start the patient on IV seizure medication We will also start the patient on topical medication for hypertension Discussed the plan of care with the resident and agree with the history and physical and assessment/plan by the resident.
[2017-01-30] MEDS: Latanoprost 2.5 ml Opht Soln OU SCH (21:25)
--- NOTE | 2017-01-31 00:20 | CP.PCM.PN ---
<Jennifer Storey - Last Filed: 01/31/17 00:18> Subjective - Date & Time of Evaluation Date of Evaluation: 01/31/17 Time of Evaluation: 00:18 - Subjective Subjective: Medicine Note For Dr. De La Garza, Patient was seen and examined at bedside. Resting comfortably in bed. Patient is somnolent and not verbal. Patient is able to grasp my hand with her left hand. A ROS was not possible as patient is non-verbal. Objective - Vital Signs/Intake and Output Vital Signs (last 24 hours): Temp Pulse Resp BP Pulse Ox 98.8 F 105 H 20 130/68 100 01/30/17 16:00 01/30/17 19:16 01/30/17 16:00 01/30/17 21:00 01/30/17 19:16 Intake and Output: 01/30/17 01/31/17 18:59 06:59 Intake Total 800 Balance 800 - Medications Medications: Current Medications Amlodipine Besylate (Norvasc) 5 mg PO DAILY [facility] Last Admin: 01/30/17 14:10 Dose: Not Given Aspirin (Ecotrin) 325 mg PO DAILY [facility] Last Admin: 01/30/17 14:08 Dose: Not Given Brimonidine Tartrate (Alphagan 0.2% Opht) 0 ml OD BID [facility] Last Admin: 01/30/17 18:56 Dose: 1 drop Chlorthalidone (Hygroton) 25 mg PO DAILY [facility] Last Admin: 01/30/17 14:09 Dose: Not Given Ciprofloxacin (Ciloxan 0.3% Ophth Soln) 0 drop OD QID [facility] Last Admin: 01/30/17 21:25 Dose: 1 drop Donepezil HCl (Aricept) 10 mg PO HS [facility] Last Admin: 01/29/17 21:57 Dose: 10 mg Dorzolamide HCl (Trusopt) 0 ml OD BID [facility] Last Admin: 01/30/17 19:00 Dose: 1 drop Heparin Sodium (Porcine) (Heparin) 5,000 units SC Q12 [facility] Last Admin: 01/30/17 21:26 Dose: 5,000 units Hydralazine HCl (Apresoline) 10 mg IVP Q6H PRN PRN Reason: Systolic Blood Pressure Last Admin: 01/30/17 19:15 Dose: 10 mg Sodium Chloride (Sodium Chloride 0.9%) 1,000 mls @ 100 mls/hr IV .Q10H [facility] Last Admin: 01/30/17 16:15 Dose: Not Given Imipenem/Cilastatin Sodium 250 (mg/ Sodium Chloride) 100 mls @ 100 mls/hr IVPB Q8H [facility] Last Admin: 01/30/17 21:28 Dose: 100 mls/hr Levetiracetam 500 mg/ Sodium (Chloride) 105 mls @ 420 mls/hr IVPB Q12H [facility] Insulin Aspart (Novolog) 0 unit SC Q6 [facility] PRN Reason: Protocol Last Admin: 01/30/17 18:59 Dose: Not Given Isosorbide Mononitrate (Ismo) 10 mg PO DAILY [facility] Last Admin: 01/30/17 14:10 Dose: Not Given Latanoprost (Xalatan Opht) 0 ml OU HS [facility] Last Admin: 01/30/17 21:25 Dose: 2.5 ml Lorazepam (Ativan) 1 mg IVP Q6H PRN PRN Reason: Seizure activity Last Admin: 01/28/17 08:44 Dose: 1 mg Metoprolol Tartrate (Lopressor) 25 mg PO Q12 [facility] Last Admin: 01/30/17 21:00 Dose: 25 mg Metoprolol Tartrate (Lopressor) 5 mg IVP Q6 PRN PRN Reason: Heart rate Last Admin: 01/29/17 17:20 Dose: 5 mg Pantoprazole Sodium (Protonix Susp) 40 mg PO DAILY [facility] Last Admin: 01/30/17 14:12 Dose: Not Given Rosuvastatin Calcium (Crestor) 10 mg PO HS [facility] Last Admin: 01/29/17 21:57 Dose: 10 mg - Labs Labs: 01/30/17 07:45 01/30/17 07:45 PT 11.4 SECONDS (9.7-12.2) 01/21/17 12:21 INR 1.0 01/21/17 12:21 APTT 26 SECONDS (21-34) D 01/22/17 07:27 - Constitutional Appears: No Acute Distress - Head Exam Head Exam: NORMAL INSPECTION, NORMOCEPHALIC - Eye Exam Eye Exam: Normal appearance - ENT Exam ENT Exam: Mucous Membranes Moist - Respiratory Exam Respiratory Exam: Clear to Ausculation Bilateral, NORMAL BREATHING PATTERN. absent: Wheezes - Cardiovascular Exam Cardiovascular Exam: REGULAR RHYTHM, RRR - GI/Abdominal Exam GI & Abdominal Exam: Soft, Normal Bowel Sounds. absent: Tenderness - Extremities Exam Extremities Exam: Normal Inspection. absent: Pedal Edema, Tenderness - Skin Skin Exam: Dry, Intact, Normal Color, Warm Assessment and Plan - Assessment and Plan (Free Text) Plan: (1) Seizure Assessment & Plan: 01/30/17: Witnessed seizure by family members and nurse that lasted for [address] Black consulted ---- Help appreciated * Adjusted Seizure PO meds carbamazepine to 300mg PO BID to Keppra 500mg IV Q12H since patient does not tolerate PO intake at the moment Seizure precautions. Status: Acute (2) Altered mental status Assessment & Plan: Neurology Dr. Black consulted, help appreciated Code stroke called in ED. Increase carbamazepine to 300mg PO BID per Dr. Black. Continue Aricept, ASA, Crestor. D5 1/2NS @75ml/hr for possible dehydration as an underlying cause As per speech therapy Patient is on dysphagia/modified consistency : Pureed and thin liquids PEG tube to be placed, Dr. Richards (gi) consulted, help appreciated * PEG tube will be placed on 02/01/17 Brain MRI impression: "No acute intracranial hemorrhage or infarct. 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 . Moderate to significant diffuse/ confluent chronic white matter ischemic changes are also seen extending peripherally into the deep and subcortical white matter both cerebral hemispheres. . There are also scattered bilateral basal nuclei brainstem and bilateral cerebellar chronic lacunar-type infarcts. Mild marked ex vacuo dilatation of the right lateral ventricle due to the aforementioned infarct with concomitant underlying central volume loss evidenced by disproportionate enlargement of the ventricles as compared sulci. Mild mucosal thickening right chamber sphenoid sinus and right maxillary sinus. " Status: Chronic (3) UTI (urinary tract infection) Assessment & Plan: Continue primaxin Repeat UC (01/29/17): Negative for growth con't renally dosed impipenem/cilastatin 500mg q8 IV urine culture [01/21] positive for ecoli and beta hemolytic strep group B. collected UA and Ux by straight cath UA: urine protein 2+, urine blood 1+, leukocyte esterase 3+ (h), wbc 148 (h), rbc 13 (h), bacteria few (h) Status: Acute (4) Atrial fibrillation Assessment & Plan: 01/30/17: Rate controlled in the 130s 01/27: Episode of rapid atrial fib with pulse of 170 and bp of 190/95. Lopressor 5mg given. BP came down to 147/77 and Pulse: 116. Digoxin .[address] Lozoya of Cardiology consulted, help appreciated IV push digoxin given on [01/23] to control rate Status: Acute (5) DM2 (diabetes mellitus, type 2) Assessment & Plan: 01/28-01/30: glucose high of 141, low of 103 01/27: glucose high of 169, low of 101 01/23: 117 01/22: 140s to 180s RISS, Accucheck. Januvia on hold. A1c 7.0 Status: Acute (6) Glaucoma Assessment & Plan: Continue Diamox and eye drops. Status: Acute (7) Prophylactic measure Assessment & Plan: Heparin 5000 u SC Q12, SCDs Protonix 40 mg PO daily Status: Acute <Jimy De La Garza M - Last Filed: 02/01/17 15:17> Objective - Vital Signs/Intake and Output Vital Signs (last 24 hours): Temp Pulse Resp BP Pulse Ox 98.4 F 86 20 160/89 H 100 02/01/17 12:45 02/01/17 12:45 02/01/17 12:45 02/01/17 14:22 02/01/17 12:45 Intake and Output: 02/01/17 02/01/17 06:59 18:59 Intake Total 1600 525 Balance 1600 525 - Medications Medications: Current Medications Amlodipine Besylate (Norvasc) 5 mg PO DAILY [facility] Last Admin: 02/01/17 14:22 Dose: 5 mg Aspirin (Ecotrin) 325 mg PO DAILY [facility] Last Admin: 02/01/17 14:20 Dose: 325 mg Brimonidine Tartrate (Alphagan 0.2% Opht) 0 ml OD BID [facility] Last Admin: 02/01/17 10:05 Dose: 1 drop Chlorthalidone (Hygroton) 25 mg PO DAILY [facility] Last Admin: 02/01/17 14:22 Dose: 25 mg Ciprofloxacin (Ciloxan 0.3% Ophth Soln) 0 drop OD QID [facility] Last Admin: 02/01/17 14:24 Dose: 1 drop Clonidine HCl (Catapres Tts1 0.1 Mg/24 Hr) 1 patch TD Q7D@1000 [facility] Last Admin: 01/31/17 10:13 Dose: 1 patch Donepezil HCl (Aricept) 10 mg PO HS [facility] Last Admin: 01/31/17 22:46 Dose: Not Given Dorzolamide HCl (Trusopt) 0 ml OD BID [facility] Last Admin: 02/01/17 10:05 Dose: 1 drop Heparin Sodium (Porcine) (Heparin) 5,000 units SC Q12 [facility] Last Admin: 01/31/17 22:47 Dose: 5,000 units Hydralazine HCl (Apresoline) 10 mg IVP Q6H PRN PRN Reason: Systolic Blood Pressure Last Admin: 01/30/17 19:15 Dose: 10 mg Sodium Chloride (Sodium Chloride 0.9%) 1,000 mls @ 100 mls/hr IV .Q10H [facility] Last Admin: 02/01/17 14:24 Dose: Not Given Imipenem/Cilastatin Sodium 250 (mg/ Sodium Chloride) 100 mls @ 100 mls/hr IVPB Q8H [facility] Last Admin: 02/01/17 14:23 Dose: 100 mls/hr Levetiracetam 500 mg/ Sodium (Chloride) 105 mls @ 420 mls/hr IVPB Q12H [facility] Last Admin: 02/01/17 05:23 Dose: 420 mls/hr Metronidazole (Flagyl) 500 mg in 100 mls @ 100 mls/hr IVPB Q8 [facility] Insulin Aspart (Novolog) 0 unit SC Q6 [facility] PRN Reason: Protocol Last Admin: 02/01/17 15:01 Dose: Not Given Isosorbide Mononitrate (Ismo) 10 mg PO DAILY [facility] Last Admin: 02/01/17 14:32 Dose: 10 mg Latanoprost (Xalatan Opht) 0 ml OU HS [facility] Last Admin: 01/31/17 21:54 Dose: 2.5 ml Lorazepam (Ativan) 1 mg IVP Q6H PRN PRN Reason: Seizure activity Last Admin: 01/28/17 08:44 Dose: 1 mg Metoprolol Tartrate (Lopressor) 25 mg PO Q12 [facility] Last Admin: 02/01/17 14:22 Dose: 25 mg Metoprolol Tartrate (Lopressor) 5 mg IVP Q6 PRN PRN Reason: Heart rate Last Admin: 01/29/17 17:20 Dose: 5 mg Pantoprazole Sodium (Protonix Susp) 40 mg PO DAILY [facility] Last Admin: 02/01/17 14:21 Dose: 40 mg Rosuvastatin Calcium (Crestor) 10 mg PO HS [facility] Last Admin: 01/31/17 22:45 Dose: Not Given - Labs Labs: 02/01/17 07:17 02/01/17 07:14 PT 11.4 SECONDS (9.7-12.2) 01/21/17 12:21 INR 1.0 01/21/17 12:21 APTT 26 SECONDS (21-34) D 01/22/17 07:27 Attending/Attestation - Attestation I have personally seen and examined this patient.: Yes I have fully participated in the care of the patient.: Yes I have reviewed all pertinent clinical information, including history, physical exam and plan: Yes Notes (Text): 02/01/17 15:17 Patient was seen and examined at bedside Plan for PEG tube Continue current medical management Discussed the plan of care with the resident and agree with the history and physical and assessment/plan by the resident.
[2017-01-31] MEDS: (Novolog) Insulin Aspart, Recombinant 100 u/ml 10 ml vial SC SCH ×4 (00:40→17:59)
[2017-01-31] MEDS: Sodium Chloride 0.9% 1,000 ML IV SCH ×2 (03:00→17:51)
[2017-01-31] MEDS: levETIRAcetam 500 MG in Sodium Chloride 0.9% 100 ML IVPB SCH ×2 (05:26→17:52)
[2017-01-31 08:23] LABS: BASO # 0.1 K/uL (0.0-0.2); BASO % 0.9 % (0.0-2.0); HEMOGLOBIN 8.3 g/dL (11.0-16.0); MEAN CELL VOLUME 95.2 fL (81.0-99.0); MEAN CORPUSCULAR HEMOGLOBIN 30.7 pg (27.0-31.0); MEAN CORPUSCULAR HGB CONC 32.3 g/dL (33.0-37.0); MEAN PLATELET VOLUME 9.7 fL (7.2-11.7); MONO # 0.5 K/uL (0.0-0.8); NEUT # 4.3 K/uL (1.8-7.0); NEUT % 73.1 % (50.0-75.0); NRBC % 0.2 % (0.0-2.0); RBC 2.69 Mil/uL (3.80-5.20); RED CELL DISTRIBUTION WIDTH 15.9 % (11.5-14.5); WHITE BLOOD COUNT 5.9 K/uL (4.8-10.8)
[2017-01-31 08:39] LABS: ALBUMIN 3.1 g/dL (3.5-5.0)
[2017-01-31 08:42] LABS: ALB/GLOB RATIO 0.9 (1.0-2.1)
[2017-01-31 08:43] LABS: CALCIUM 8.8 mg/dl (8.6-10.4); MAGNESIUM 1.9 mg/dL (1.6-2.3)
[2017-01-31] MEDS: Brimonidine 0.2% Opth Sol (5ml) OD SCH ×2 (10:13→17:56)
[2017-01-31] MEDS: Aspirin 325 mg EC Tablets PO SCH (10:14)
[2017-01-31] MEDS: Ciprofloxacin 0.3% OPTH SOLN OD SCH ×4 (10:14→21:57)
[2017-01-31] MEDS: Pantoprazole 40 mg Susp UD PO SCH (10:18)
[2017-01-31] MEDS: Dorzolamide 2% Opht Sol 10ml OD SCH ×2 (10:18→17:56)
[2017-01-31] MEDS: Latanoprost 2.5 ml Opht Soln OU SCH (21:54)
[2017-02-01] MEDS: (Novolog) Insulin Aspart, Recombinant 100 u/ml 10 ml vial SC SCH ×4 (00:30→18:14)
[2017-02-01] MEDS: levETIRAcetam 500 MG in Sodium Chloride 0.9% 100 ML IVPB SCH ×2 (05:23→18:12)
[2017-02-01 07:46] LABS: BASO % 0.6 % (0.0-2.0); HEMOGLOBIN 8.3 g/dL (11.0-16.0); LYMPH % 14.7 % (20.0-40.0); MEAN CELL VOLUME 95.6 fL (81.0-99.0); MEAN CORPUSCULAR HEMOGLOBIN 31.1 pg (27.0-31.0); MEAN CORPUSCULAR HGB CONC 32.6 g/dL (33.0-37.0); MEAN PLATELET VOLUME 9.3 fL (7.2-11.7); MONO # 0.6 K/uL (0.0-0.8); MONO % 8.8 % (0.0-10.0); NEUT # 5.1 K/uL (1.8-7.0); NEUT % 75.9 % (50.0-75.0); NRBC % 0.1 % (0.0-2.0); RBC 2.66 Mil/uL (3.80-5.20); RED CELL DISTRIBUTION WIDTH 16.7 % (11.5-14.5); WHITE BLOOD COUNT 6.8 K/uL (4.8-10.8)
[2017-02-01 08:16] LABS: ALBUMIN 3.1 g/dL (3.5-5.0)
[2017-02-01 08:19] LABS: ALB/GLOB RATIO 0.9 (1.0-2.1)
[2017-02-01 08:20] LABS: CALCIUM 8.9 mg/dl (8.6-10.4); MAGNESIUM 1.9 mg/dL (1.6-2.3)
[2017-02-01] MEDS: Ciprofloxacin 0.3% OPTH SOLN OD SCH ×4 (10:04→22:48)
[2017-02-01] MEDS: Brimonidine 0.2% Opth Sol (5ml) OD SCH ×2 (10:05→18:13)
[2017-02-01] MEDS: Dorzolamide 2% Opht Sol 10ml OD SCH ×2 (10:05→18:13)
[2017-02-01] MEDS ORDERED: Etomidate 20 mg/10ml Inj IV ONE (11:46)
[2017-02-01] MEDS ORDERED: Phenylephrine 10 mg/ml Inj ONE (11:46)
[2017-02-01] MEDS ORDERED: Propofol 10 mg/ml Inj (20 ML) ONE (11:46)
[2017-02-01] MEDS ORDERED: Metoprolol 1 mg/ml Inj IVP ONE (12:04)
[2017-02-01] MEDS: Aspirin 325 mg EC Tablets PO SCH (14:20)
[2017-02-01] MEDS: Pantoprazole 40 mg Susp UD PO SCH (14:21)
[2017-02-01] MEDS: Sodium Chloride 0.9% 1,000 ML IV SCH ×2 (14:24→19:07)
--- NOTE | 2017-02-01 15:07 | CP.PCM.PN ---
<Lucero Payneravicathie E - Last Filed: 02/01/17 19:32> Subjective - Date & Time of Evaluation Date of Evaluation: 02/01/17 Time of Evaluation: 07:50 - Subjective Subjective: Medicine Note (PGY 1): Dr. aguilar's service Patient was seen and examined at bedside. Patient was verbally responsive today but unable to understand even with the help of a unit controller. As per nurse, patient is doing well. Patient went for a PEG tube today. Objective - Vital Signs/Intake and Output Vital Signs (last 24 hours): Temp Pulse Resp BP Pulse Ox 98.4 F 86 20 160/89 H 100 02/01/17 12:45 02/01/17 12:45 02/01/17 12:45 02/01/17 14:22 02/01/17 12:45 Intake and Output: 02/01/17 02/01/17 06:59 18:59 Intake Total 1600 525 Balance 1600 525 - Medications Medications: Current Medications Amlodipine Besylate (Norvasc) 5 mg PO DAILY [facility] Last Admin: 02/01/17 14:22 Dose: 5 mg Aspirin (Ecotrin) 325 mg PO DAILY [facility] Last Admin: 02/01/17 14:20 Dose: 325 mg Brimonidine Tartrate (Alphagan 0.2% Opht) 0 ml OD BID [facility] Last Admin: 02/01/17 10:05 Dose: 1 drop Chlorthalidone (Hygroton) 25 mg PO DAILY [facility] Last Admin: 02/01/17 14:22 Dose: 25 mg Ciprofloxacin (Ciloxan 0.3% Ophth Soln) 0 drop OD QID [facility] Last Admin: 02/01/17 14:24 Dose: 1 drop Clonidine HCl (Catapres Tts1 0.1 Mg/24 Hr) 1 patch TD Q7D@1000 [facility] Last Admin: 01/31/17 10:13 Dose: 1 patch Donepezil HCl (Aricept) 10 mg PO HS [facility] Last Admin: 01/31/17 22:46 Dose: Not Given Dorzolamide HCl (Trusopt) 0 ml OD BID [facility] Last Admin: 02/01/17 10:05 Dose: 1 drop Heparin Sodium (Porcine) (Heparin) 5,000 units SC Q12 [facility] Last Admin: 01/31/17 22:47 Dose: 5,000 units Hydralazine HCl (Apresoline) 10 mg IVP Q6H PRN PRN Reason: Systolic Blood Pressure Last Admin: 01/30/17 19:15 Dose: 10 mg Sodium Chloride (Sodium Chloride 0.9%) 1,000 mls @ 100 mls/hr IV .Q10H [facility] Last Admin: 02/01/17 14:24 Dose: Not Given Imipenem/Cilastatin Sodium 250 (mg/ Sodium Chloride) 100 mls @ 100 mls/hr IVPB Q8H [facility] Last Admin: 02/01/17 14:23 Dose: 100 mls/hr Levetiracetam 500 mg/ Sodium (Chloride) 105 mls @ 420 mls/hr IVPB Q12H [facility] Last Admin: 02/01/17 05:23 Dose: 420 mls/hr Metronidazole (Flagyl) 500 mg in 100 mls @ 100 mls/hr IVPB Q8 JOANNE Insulin Aspart (Novolog) 0 unit SC Q6 JOANNE PRN Reason: Protocol Last Admin: 02/01/17 15:01 Dose: Not Given Isosorbide Mononitrate (Ismo) 10 mg PO DAILY [facility] Last Admin: 02/01/17 14:32 Dose: 10 mg Latanoprost (Xalatan Opht) 0 ml OU HS [facility] Last Admin: 01/31/17 21:54 Dose: 2.5 ml Lorazepam (Ativan) 1 mg IVP Q6H PRN PRN Reason: Seizure activity Last Admin: 01/28/17 08:44 Dose: 1 mg Metoprolol Tartrate (Lopressor) 25 mg PO Q12 [facility] Last Admin: 02/01/17 14:22 Dose: 25 mg Metoprolol Tartrate (Lopressor) 5 mg IVP Q6 PRN PRN Reason: Heart rate Last Admin: 01/29/17 17:20 Dose: 5 mg Pantoprazole Sodium (Protonix Susp) 40 mg PO DAILY [facility] Last Admin: 02/01/17 14:21 Dose: 40 mg Rosuvastatin Calcium (Crestor) 10 mg PO HS [facility] Last Admin: 01/31/17 22:45 Dose: Not Given - Labs Labs: 02/01/17 07:17 02/01/17 07:14 PT 11.4 SECONDS (9.7-12.2) 01/21/17 12:21 INR 1.0 01/21/17 12:21 APTT 26 SECONDS (21-34) D 01/22/17 07:27 - Constitutional Appears: Well, No Acute Distress - Head Exam Head Exam: NORMAL INSPECTION - Eye Exam Eye Exam: EOMI - ENT Exam ENT Exam: Mucous Membranes Moist, Normal Exam - Respiratory Exam Respiratory Exam: NORMAL BREATHING PATTERN Additional comments: Limited examination due to patient's condition - Cardiovascular Exam Cardiovascular Exam: REGULAR RHYTHM, +S1, +S2 - GI/Abdominal Exam GI & Abdominal Exam: Soft, Normal Bowel Sounds - Neurological Exam Neurological Exam: Alert, Awake - Psychiatric Exam Psychiatric exam: Normal Affect, Normal Mood - Skin Skin Exam: Dry, Normal Color, Warm Assessment and Plan (1) Seizure Assessment & Plan: 01/30/17: Witnessed seizure by family members and nurse that lasted for [address] Black consulted ---- Help appreciated * Adjusted Seizure PO meds carbamazepine to 300mg PO BID to Keppra 500mg IV Q12H since patient does not tolerate PO intake at the moment * Seizure precautions. Status: Acute (2) Altered mental status Assessment & Plan: Neurology Dr. Black consulted, help appreciated Code stroke called in ED on admission Increase carbamazepine to 300mg PO BID per Dr. Black--> switched to IV keppra 500mg Q12H due decrease PO intake (01/30/17) Continue Aricept, ASA, Crestor. D5 1/2NS @75ml/hr for possible dehydration as an underlying cause As per speech therapy Patient is on dysphagia/modified consistency : Pureed and thin liquids PEG tube to be placed, Dr. Richards (gi) consulted, help appreciated * PEG tube will be placed on 02/01/17--> Successful * As per GI recommendations, patient should be place back on Pureed diet post- operatively and follow Post-PEG recommendation Brain MRI impression: "No acute intracranial hemorrhage or infarct. 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 . Moderate to significant diffuse/ confluent chronic white matter ischemic changes are also seen extending peripherally into the deep and subcortical white matter both cerebral hemispheres. . There are also scattered bilateral basal nuclei brainstem and bilateral cerebellar chronic lacunar-type infarcts. Mild marked ex vacuo dilatation of the right lateral ventricle due to the aforementioned infarct with concomitant underlying central volume loss evidenced by disproportionate enlargement of the ventricles as compared sulci. Mild mucosal thickening right chamber sphenoid sinus and right maxillary sinus. " Status: Acute (3) Acute kidney injury superimposed on chronic kidney disease Assessment & Plan: Cr (3.2 on 01/21/17)----> 2.0 (02/01/17) * Trending down * NS 1000MLS @100MLS/HR Status: Acute (4) UTI (urinary tract infection) Assessment & Plan: Continue primaxin Repeat UC (01/29/17): Negative for growth con't renally dosed impipenem/cilastatin 500mg q8 IV urine culture [01/21] positive for ecoli and beta hemolytic strep group B. collected UA and Ux by straight cath UA: urine protein 2+, urine blood 1+, leukocyte esterase 3+ (h), wbc 148 (h), rbc 13 (h), bacteria few (h) Status: Acute (5) Hypertension, uncontrolled Assessment & Plan: Norvasc 5mg PO daily Clonidine HCL (1 patch ) Hydralazine 10mg IVP Q6 PRN Isosorbide Mononitrate 10mg PO daily Monitor Status: Chronic (6) Atrial fibrillation Assessment & Plan: [id number] score of 8 Rate controlled Metoprolol Tartrate 25mg PO Q12H Metoprolol Tartrate 5mg IV q6 prn 01/27: Episode of rapid atrial fib with pulse of 170 and bp of 190/95. Lopressor 5mg given. BP came down to 147/77 and Pulse: 116. Digoxin .[address] Lozoya of Cardiology consulted, help appreciated IV push digoxin given on [01/23] to control rate Status: Acute (7) DM2 (diabetes mellitus, type 2) Assessment & Plan: Goal: keep glucose <200 01/28-01/30: glucose high of 141, low of 103 01/27: glucose high of 169, low of 101 01/23: 117 01/22: 140s to 180s RISS, Accucheck. Januvia on hold. A1c 7.0 Status: Chronic (8) Glaucoma Assessment & Plan: Continue Diamox and eye drops. Status: Acute (9) Prophylactic measure Assessment & Plan: Heparin 5000 u SC Q12, ---HELD FOR PEG TUBE PLACEMENT 02/01/17 SCDs Protonix 40 mg PO daily Status: Acute <Jimy Aguilar M - Last Filed: 02/02/17 15:57> Objective - Vital Signs/Intake and Output Vital Signs (last 24 hours): Temp Pulse Resp BP Pulse Ox 98.2 F 86 18 167/82 H 96 02/02/17 09:10 02/02/17 09:10 02/02/17 09:10 02/02/17 10:31 02/02/17 09:10 Intake and Output: 02/02/17 02/02/17 06:59 18:59 Intake Total 800 Balance 800 - Medications Medications: Current Medications Amlodipine Besylate (Norvasc) 5 mg PO DAILY [facility] Last Admin: 02/02/17 10:32 Dose: 5 mg Aspirin (Ecotrin) 325 mg PO DAILY [facility] Last Admin: 02/02/17 10:31 Dose: 325 mg Brimonidine Tartrate (Alphagan 0.2% Opht) 0 ml OD BID [facility] Last Admin: 02/02/17 10:32 Dose: 1 drop Chlorthalidone (Hygroton) 25 mg PO DAILY [facility] Last Admin: 02/02/17 10:32 Dose: 25 mg Ciprofloxacin (Ciloxan 0.3% Ophth Soln) 0 drop OD QID [facility] Last Admin: 02/02/17 14:33 Dose: 1 drop Clonidine HCl (Catapres Tts1 0.1 Mg/24 Hr) 1 patch TD Q7D@1000 [facility] Last Admin: 01/31/17 10:13 Dose: 1 patch Donepezil HCl (Aricept) 10 mg PO HS [facility] Last Admin: 02/01/17 21:28 Dose: 10 mg Dorzolamide HCl (Trusopt) 0 ml OD BID [facility] Last Admin: 02/02/17 10:33 Dose: 1 drop Heparin Sodium (Porcine) (Heparin) 5,000 units SC Q12 [facility] Last Admin: 01/31/17 22:47 Dose: 5,000 units Sodium Chloride (Sodium Chloride 0.9%) 1,000 mls @ 100 mls/hr IV .Q10H [facility] Last Admin: 02/01/17 19:07 Dose: Not Given Imipenem/Cilastatin Sodium 250 (mg/ Sodium Chloride) 100 mls @ 100 mls/hr IVPB Q8H [facility] Last Admin: 02/02/17 05:35 Dose: 100 mls/hr Metronidazole (Flagyl) 500 mg in 100 mls @ 100 mls/hr IVPB Q8 [facility]AN[facility] Last Admin: 02/02/17 14:32 Dose: 100 mls/hr Insulin Aspart (Novolog) 0 unit SC Q6 JOANNE PRN Reason: Protocol Last Admin: 02/02/17 12:58 Dose: 1 unit Isosorbide Mononitrate (Ismo) 10 mg PO DAILY [facility] Last Admin: 02/02/17 10:32 Dose: 10 mg Latanoprost (Xalatan Opht) 0 ml OU HS [facility] Last Admin: 02/01/17 22:48 Dose: 1 ml Levetiracetam (Keppra) 500 mg PO BID [facility]AN[facility] Lorazepam (Ativan) 1 mg IVP Q6H PRN PRN Reason: Seizure activity Last Admin: 01/28/17 08:44 Dose: 1 mg Metoprolol Tartrate (Lopressor) 25 mg PO Q12 [facility] Last Admin: 02/02/17 10:31 Dose: 25 mg Pantoprazole Sodium (Protonix Susp) 40 mg PO DAILY [facility] Last Admin: 02/02/17 10:31 Dose: 40 mg Rosuvastatin Calcium (Crestor) 10 mg PO HS [facility] Last Admin: 02/01/17 21:28 Dose: 10 mg - Labs Labs: 02/02/17 07:02 02/02/17 07:02 PT 11.4 SECONDS (9.7-12.2) 01/21/17 12:21 INR 1.0 01/21/17 12:21 APTT 26 SECONDS (21-34) D 01/22/17 07:27 Attending/Attestation - Attestation I have personally seen and examined this patient.: Yes I have fully participated in the care of the patient.: Yes I have reviewed all pertinent clinical information, including history, physical exam and plan: Yes Notes (Text): 02/02/17 15:56 Patient seen and examined at bedside Status post PEG tube placement Start feeding and monitor closely Discussed the plan of care with the resident and agree with the assessment and plan
[2017-02-01] MEDS: metroNIDAZOLE IV 500 mg/100 ml 500 MG/100 ML BAG IVPB SCH ×2 (16:08→21:28)
[2017-02-01] MEDS: Latanoprost 2.5 ml Opht Soln OU SCH (22:48)
[2017-02-02] MEDS: (Novolog) Insulin Aspart, Recombinant 100 u/ml 10 ml vial SC SCH ×3 (00:45→12:58)
[2017-02-02] MEDS: levETIRAcetam 500 MG in Sodium Chloride 0.9% 100 ML IVPB SCH (04:26)
--- NOTE | 2017-02-02 06:31 | CP.PCM.PN ---
Objective - Vital Signs/Intake and Output Vital Signs (last 24 hours): Temp Pulse Resp BP Pulse Ox 99 F 70 20 158/69 H 99 02/01/17 23:35 02/02/17 03:52 02/01/17 23:35 02/02/17 03:52 02/01/17 23:35 Intake and Output: 02/01/17 02/02/17 18:59 06:59 Intake Total 525 Balance 525 - Medications Medications: Current Medications Amlodipine Besylate (Norvasc) 5 mg PO DAILY [facility] Last Admin: 02/01/17 14:22 Dose: 5 mg Aspirin (Ecotrin) 325 mg PO DAILY [facility] Last Admin: 02/01/17 14:20 Dose: 325 mg Brimonidine Tartrate (Alphagan 0.2% Opht) 0 ml OD BID [facility] Last Admin: 02/01/17 18:13 Dose: 1 drop Chlorthalidone (Hygroton) 25 mg PO DAILY [facility] Last Admin: 02/01/17 14:22 Dose: 25 mg Ciprofloxacin (Ciloxan 0.3% Ophth Soln) 0 drop OD QID [facility] Last Admin: 02/01/17 22:48 Dose: 1 drop Clonidine HCl (Catapres Tts1 0.1 Mg/24 Hr) 1 patch TD Q7D@1000 [facility] Last Admin: 01/31/17 10:13 Dose: 1 patch Donepezil HCl (Aricept) 10 mg PO HS [facility] Last Admin: 02/01/17 21:28 Dose: 10 mg Dorzolamide HCl (Trusopt) 0 ml OD BID [facility] Last Admin: 02/01/17 18:13 Dose: 1 drop Heparin Sodium (Porcine) (Heparin) 5,000 units SC Q12 [facility] Last Admin: 01/31/17 22:47 Dose: 5,000 units Hydralazine HCl (Apresoline) 10 mg IVP Q6H PRN PRN Reason: Systolic Blood Pressure Last Admin: 01/30/17 19:15 Dose: 10 mg Sodium Chloride (Sodium Chloride 0.9%) 1,000 mls @ 100 mls/hr IV .Q10H [facility] Last Admin: 02/01/17 19:07 Dose: Not Given Imipenem/Cilastatin Sodium 250 (mg/ Sodium Chloride) 100 mls @ 100 mls/hr IVPB Q8H [facility] Last Admin: 02/02/17 05:35 Dose: 100 mls/hr Levetiracetam 500 mg/ Sodium (Chloride) 105 mls @ 420 mls/hr IVPB Q12H [facility] Last Admin: 02/02/17 04:26 Dose: 420 mls/hr Metronidazole (Flagyl) 500 mg in 100 mls @ 100 mls/hr IVPB Q8 [facility] Last Admin: 02/01/17 21:28 Dose: 100 mls/hr Insulin Aspart (Novolog) 0 unit SC Q6 JOANNE PRN Reason: Protocol Last Admin: 02/02/17 00:45 Dose: Not Given Isosorbide Mononitrate (Ismo) 10 mg PO DAILY [facility] Last Admin: 02/01/17 14:32 Dose: 10 mg Latanoprost (Xalatan Opht) 0 ml OU HS [facility] Last Admin: 02/01/17 22:48 Dose: 1 ml Lorazepam (Ativan) 1 mg IVP Q6H PRN PRN Reason: Seizure activity Last Admin: 01/28/17 08:44 Dose: 1 mg Metoprolol Tartrate (Lopressor) 25 mg PO Q12 [facility] Last Admin: 02/01/17 21:33 Dose: 25 mg Metoprolol Tartrate (Lopressor) 5 mg IVP Q6 PRN PRN Reason: Heart rate Last Admin: 01/29/17 17:20 Dose: 5 mg Pantoprazole Sodium (Protonix Susp) 40 mg PO DAILY [facility] Last Admin: 02/01/17 14:21 Dose: 40 mg Rosuvastatin Calcium (Crestor) 10 mg PO HS [facility] Last Admin: 02/01/17 21:28 Dose: 10 mg - Labs Labs: 02/01/17 07:17 02/01/17 07:14 PT 11.4 SECONDS (9.7-12.2) 01/21/17 12:21 INR 1.0 01/21/17 12:21 APTT 26 SECONDS (21-34) D 01/22/17 07:27 Assessment and Plan (1) Seizure Status: Acute (2) Altered mental status Status: Acute (3) Acute kidney injury superimposed on chronic kidney disease Status: Acute (4) UTI (urinary tract infection) Status: Acute (5) Hypertension, uncontrolled Status: Chronic (6) Atrial fibrillation Status: Acute (7) DM2 (diabetes mellitus, type 2) Status: Chronic (8) Glaucoma Status: Acute (9) Prophylactic measure Status: Acute
[2017-02-02] MEDS: metroNIDAZOLE IV 500 mg/100 ml 500 MG/100 ML BAG IVPB SCH ×2 (06:37→14:32)
[2017-02-02 07:22] LABS: BASO # 0.1 K/uL (0.0-0.2); BASO % 0.8 % (0.0-2.0); HEMOGLOBIN 8.2 g/dL (11.0-16.0); LYMPH # 1.6 K/uL (1.0-4.3); MEAN CELL VOLUME 95.2 fL (81.0-99.0); MEAN CORPUSCULAR HEMOGLOBIN 30.3 pg (27.0-31.0); MEAN CORPUSCULAR HGB CONC 31.8 g/dL (33.0-37.0); MEAN PLATELET VOLUME 10.3 fL (7.2-11.7); MONO # 0.9 K/uL (0.0-0.8); NEUT # 8.6 K/uL (1.8-7.0); NEUT % 77.2 % (50.0-75.0); NRBC % 0.1 % (0.0-2.0); RBC 2.7 Mil/uL (3.80-5.20); RED CELL DISTRIBUTION WIDTH 16.7 % (11.5-14.5); WHITE BLOOD COUNT 11.1 K/uL (4.8-10.8)
[2017-02-02 07:34] LABS: ALBUMIN 3.1 g/dL (3.5-5.0)
[2017-02-02 07:37] LABS: ALB/GLOB RATIO 0.9 (1.0-2.1)
[2017-02-02 07:38] LABS: MAGNESIUM 1.9 mg/dL (1.6-2.3)
[2017-02-02 09:10] VITALS: RESP 18
[2017-02-02] MEDS: Aspirin 325 mg EC Tablets PO SCH (10:31)
[2017-02-02] MEDS: Pantoprazole 40 mg Susp UD PO SCH (10:31)
[2017-02-02] MEDS: Brimonidine 0.2% Opth Sol (5ml) OD SCH (10:32)
[2017-02-02] MEDS: Ciprofloxacin 0.3% OPTH SOLN OD SCH ×2 (10:33→14:33)
[2017-02-02] MEDS: Dorzolamide 2% Opht Sol 10ml OD SCH (10:33)
--- NOTE | 2017-02-02 13:20 | CP.PCM.DIS ---
<Yasbel Payne E - Last Filed: 02/02/17 21:18> Provider - Provider Date of Admission: 01/23/17 13:12 Attending physician: Angel Natarajan DO Time Spent in preparation of Discharge (in minutes): 45 Diagnosis - Discharge Diagnosis (1) Seizure Status: Acute (2) Altered mental status Status: Acute (3) Acute kidney injury superimposed on chronic kidney disease Status: Acute (4) UTI (urinary tract infection) Status: Acute (5) Hypertension, uncontrolled Status: Chronic (6) Atrial fibrillation Status: Acute (7) DM2 (diabetes mellitus, type 2) Status: Chronic (8) Glaucoma Status: Acute (9) Prophylactic measure Status: Acute Hospital Course - Lab Results Lab Results: Micro Results 01/29/17 11:44 Urine,Catheterized Urine Culture - Final No Growth (<1,000 CFU/ML) 01/24/17 19:10 Urine,Catheterized Urine Culture - Final Gram Positive Cocci Most Recent Lab Values WBC 11.1 K/uL (4.8-10.8) H D 02/02/17 07:02 RBC 2.70 Mil/uL (3.80-5.20) L 02/02/17 07:02 Hgb 8.2 g/dL (11.0-16.0) L 02/02/17 07:02 Hct 25.7 % (34.0-47.0) L 02/02/17 07:02 MCV 95.2 fL (81.0-99.0) 02/02/17 07:02 MCH 30.3 pg (27.0-31.0) 02/02/17 07:02 MCHC 31.8 g/dL (33.0-37.0) L 02/02/17 07:02 RDW 16.7 % (11.5-14.5) H 02/02/17 07:02 Plt Count 190 K/uL (130-400) 02/02/17 07:02 MPV 10.3 fL (7.2-11.7) 02/02/17 07:02 Neut % (Auto) 77.2 % (50.0-75.0) H 02/02/17 07:02 Lymph % (Auto) 14.0 % (20.0-40.0) L 02/02/17 07:02 [place] % (Auto) 8.0 % (0.0-10.0) 02/02/17 07:02 Eos % (Auto) 0.0 % (0.0-4.0) 02/02/17 07:02 Baso % (Auto) 0.8 % (0.0-2.0) 02/02/17 07:02 Neut # 8.6 K/uL (1.8-7.0) H 02/02/17 07:02 Lymph # 1.6 K/uL (1.0-4.3) 02/02/17 07:02 [place] # 0.9 K/uL (0.0-0.8) H 02/02/17 07:02 Eos # 0.0 K/uL (0.0-0.7) 02/02/17 07:02 Baso # 0.1 K/uL (0.0-0.2) 02/02/17 07:02 PT 11.4 SECONDS (9.7-12.2) 01/21/17 12:21 INR 1.0 01/21/17 12:21 APTT 26 SECONDS (21-34) D 01/22/17 07:27 Sodium 148 mmol/L (132-148) 02/02/17 07:02 Potassium 3.7 mmol/L (3.6-5.2) 02/02/17 07:02 Chloride 122 mmol/L (98-107) H 02/02/17 07:02 Carbon Dioxide 14 mmol/L (22-30) L 02/02/17 07:02 Anion Gap 16 (10-20) 02/02/17 07:02 BUN 31 mg/dL (7-17) H 02/02/17 07:02 Creatinine 1.9 MG/DL (0.7-1.2) H 02/02/17 07:02 Est GFR ( Amer) 30 02/02/17 07:02 Est GFR (Non-Af Amer) 25 02/02/17 07:02 POC Glucose (mg/dL) 165 mg/dL (65-110) H 02/02/17 12:02 Random Glucose 118 mg/dL (65-105) H 02/02/17 07:02 Hemoglobin A1c 7.0 % (4.2-6.5) H 01/21/17 12:21 Calcium 9.0 mg/dl (8.6-10.4) 02/02/17 07:02 Phosphorus 3.1 mg/dL (2.5-4.5) 02/02/17 07:02 Magnesium 1.9 mg/dL (1.6-2.3) 02/02/17 07:02 Total Bilirubin 0.6 mg/dL (0.2-1.3) 02/02/17 07:02 AST 29 U/L (14-36) 02/02/17 07:02 ALT 16 U/L (9-52) 02/02/17 07:02 Alkaline Phosphatase 103 U/L (38-126) 02/02/17 07:02 Ammonia < 9 umol/L (9-33) L 01/22/17 07:27 Total Creatine Kinase 150 U/L (30-135) H 01/22/17 02:58 CK-MB (Mass) 1.12 ng/mL (0.0-3.38) 01/22/17 02:58 Troponin I 0.0360 ng/mL (0.00-0.120) 01/21/17 12:21 Troponin I, Quant 0.0240 ng/mL (0.00-0.120) 01/22/17 02:58 Total Protein 6.7 g/dL (6.3-8.3) 02/02/17 07:02 Albumin 3.1 g/dL (3.5-5.0) L 02/02/17 07:02 Globulin 3.5 gm/dL (2.2-3.9) 02/02/17 07:02 Albumin/Globulin Ratio 0.9 (1.0-2.1) L 02/02/17 07:02 Triglycerides 123 mg/dL (0-149) D 01/22/17 07:27 Cholesterol 199 mg/dL (0-199) 01/22/17 07:27 LDL Cholesterol Direct 95 mg/dL (0-129) 01/22/17 07: HDL Cholesterol 47 mg/dL (30-70) 01/22/17 07:27 Prolactin 9.3 ng/mL (3.0-18.9) 01/26/17 17:37 Urine Color Sejal (YELLOW) 01/29/17 12:50 Urine Clarity Hazy (Clear) 01/29/17 12:50 Urine pH 5.0 (5.0-8.0) 01/29/17 12:50 Ur Specific [place] 1.014 (1.003-1.030) 01/29/17 12:50 Urine Protein 2+ mg/dL (NEGATIVE) H 01/29/17 12:50 Urine Glucose (UA) 1+ mg/dL (Normal) 01/29/17 12:50 Urine Ketones 1+ mg/dL (NEGATIVE) H 01/29/17 12:50 Urine Blood Negative (NEGATIVE) 01/29/17 12:50 Urine Nitrate Negative (NEGATIVE) 01/29/17 12:50 Urine Bilirubin 1+ (NEGATIVE) H 01/29/17 12:50 Urine Urobilinogen 4.0 mg/dL (0.2-1.0) H 01/29/17 12:50 Ur Leukocyte Esterase 3+ Kayleigh/uL (Negative) H 01/29/17 12:50 Urine WBC (Auto) 282 /hpf (0-5) H 01/29/17 12:50 Urine RBC (Auto) 3 /hpf (0-3) 01/29/17 12:50 Ur Squamous Epith Cells 4 /hpf (0-5) 01/29/17 12:50 Urine Bacteria Few (<OCC) H 01/24/17 19:16 Carbamazepine 8.1 ug/mL (4.0-12.0) 01/26/17 08:09 Blood Type B POSITIVE 01/21/17 12:25 Antibody Screen Negative 01/21/17 12:25 - Hospital Course Hospital Course: As per admission: HPI: 86F PMHx epilepsy, DM, HTN, CAD s/p stent [facility]. Daughter at bedside. Per daughter, pt has been acting different than before started last night. [facility] staff also noticed left sided weakness this morning. Patient was vomiting after dinner yesterday and this morning. Per daughter, patient was started on a water pill yesterday but no other changes to medication. Patient was admitted in 10/2016 for chest pain and hyperkalemia. Patient is combative, not following commands and not answering questions. ROS unobtainable. Hospital course: Patient is a 86 year old female with past medical history of epilepsy, Diabetes, HTN, asthma, bradycardia, hyperkalemia, urinary retention, glaucoma, who presents with altered mental status change. Patient was admitted with consideration to rule out underlying cause of her altered mental status change. Neurologist, Dr. Black was consulted, who recommended an increase of patient's anti- seizure medication dosage, carbmazapine to 300mg BID which was switched to Keppra 500mg Q12h during the course of admission due to repeated seizure activities. On hospital day #2, she was found to be in atrial fibrillation with rapid ventricular response. Dr Lozoya of cardiology was consulted and as per his recommendation, her rate was controlled with a beta kevin. Patient was to be discharge on 01/26/17, however, two rapid response were called due to seizure activities with patient acting agitated and refusing her medications; this led to a recommendation of a peg tube placement for proper medication administration and for the purpose of aspiration precautions. Patient's family agreed to the peg tube placement, which was then placed on by Dr. Richards. Patient did well, was cooperative, less combative and more responsive and verbal. Patient continued to be stable clinically and was [facility] Pertinent study result: 1.) Chest X-ray (01/21/17) : No active disease. 2.) Chest X-ray (01/26/17) : Mild infiltrate lung markings 3.) Head CT: No Intracranial mass, hemorrhage or evidence of acute infarct. Large old right MCA infarct and small left occipital infarct. Old left thalamic lacunar infarct and bilateral basal ganglia infarct. 4. ) Head MRI: No acute intracranial hemorrhage or infarct. * There is a history of old CVA and dementia: * Large right MCA territory infarct involving the right temporal and right frontal -parietal regions including the right basal ganglia possibly associate with some residual hemosiderin deposition as above. . Moderate to significant diffuse/ confluent chronic white matter ischemic changes are also seen extending peripherally into the deep and subcortical white matter both cerebral hemispheres. . There are also scattered bilateral basal nuclei brainstem and bilateral cerebellar chronic lacunar-type infarcts. * Mild marked ex vacuo dilatation of the right lateral ventricle due to the aforementioned infarct with concomitant underlying central volume loss evidenced by disproportionate enlargement of the ventricles as compared sulci. * Mild mucosal thickening right chamber sphenoid sinus and right maxillary sinus." This is a brief summary of events. For a complete course, refer to the medical record. Discharge Exam - Head Exam Head Exam: NORMAL INSPECTION, NORMOCEPHALIC - Eye Exam Eye Exam: EOMI, Normal appearance - ENT Exam ENT Exam: Mucous Membranes Moist, Normal Exam - Respiratory Exam Respiratory Exam: Clear to PA & Lateral, NORMAL BREATHING PATTERN - Cardiovascular Exam Cardiovascular Exam: REGULAR RHYTHM, +S1, +S2 - GI/Abdominal Exam GI & Abdominal Exam: Normal Bowel Sounds, Soft - Extremities Exam Extremities exam: normal capillary refill, normal inspection - Neurological Exam Neurological exam: Alert - Psychiatric Exam Psychiatric exam: Normal Affect, Normal Mood - Skin Skin Exam: Dry, Normal Color, Warm Discharge Plan - Discharge Medications Prescriptions: levETIRAcetam [Keppra] 500 mg PO BID #60 tab Nitrofurantoin Macrocrystal [Macrodantin] 100 mg PO BID #6 capsule - Follow Up Plan Condition: STABLE Disposition: NURSING FACILITY MEDICAID CERT Instructions: Percutaneous Endoscopic Gastrostomy Insertion (DC), How to Use and Care for Your PEG Tube (DC), Hypertension (DC), Hypertension (GEN), Altered Mental Status (GEN) Additional Instructions: Patient is stable for [facility] per Dr De La Garza. Patient is to resume her home medications. A new medication was added to her home medication regimen: Nitrofurantoin 100mg po BID for 3 days Patient to follow up with her PMD Dr. Persaud within 2 weeks. Patient to follow up with Dr. PARSON, Dr. Richards within one week Patient to follow up with quality assurance supervisor body Dr. Lozoya within one week Patient to follow up with Neurologist or Dr. Black within one week If patient deteriorates or if symptoms return, please bring to ER. These instructions were provided to the patient or the patients healthcare network consultant. Please translate these instructions in [email or web address] using google translate so patient understands. Referrals: Isidoro Black MD [Staff Provider] - Theodora Lozoya MD [Staff Provider] - <Jimy De La Garza M - Last Filed: 02/03/17 08:23> Provider - Provider Date of Admission: 01/23/17 13:12 Attending physician: Angel Natarajan, DO Hospital Course - Lab Results Lab Results: Micro Results 01/29/17 11:44 Urine,Catheterized Urine Culture - Final No Growth (<1,000 CFU/ML) 01/24/17 19:10 Urine,Catheterized Urine Culture - Final Gram Positive Cocci Most Recent Lab Values WBC 11.1 K/uL (4.8-10.8) H D 02/02/17 07:02 RBC 2.70 Mil/uL (3.80-5.20) L 02/02/17 07:02 Hgb 8.2 g/dL (11.0-16.0) L 02/02/17 07:02 Hct 25.7 % (34.0-47.0) L 02/02/17 07:02 MCV 95.2 fL (81.0-99.0) 02/02/17 07:02 MCH 30.3 pg (27.0-31.0) 02/02/17 07:02 MCHC 31.8 g/dL (33.0-37.0) L 02/02/17 07:02 RDW 16.7 % (11.5-14.5) H 02/02/17 07:02 Plt Count 190 K/uL (130-400) 02/02/17 07:02 MPV 10.3 fL (7.2-11.7) 02/02/17 07:02 Neut % (Auto) 77.2 % (50.0-75.0) H 02/02/17 07:02 Lymph % (Auto) 14.0 % (20.0-40.0) L 02/02/17 07:02 [place] % (Auto) 8.0 % (0.0-10.0) 02/02/17 07:02 Eos % (Auto) 0.0 % (0.0-4.0) 02/02/17 07:02 Baso % (Auto) 0.8 % (0.0-2.0) 02/02/17 07:02 Neut # 8.6 K/uL (1.8-7.0) H 02/02/17 07:02 Lymph # 1.6 K/uL (1.0-4.3) 02/02/17 07:02 [place] # 0.9 K/uL (0.0-0.8) H 02/02/17 07:02 Eos # 0.0 K/uL (0.0-0.7) 02/02/17 07:02 Baso # 0.1 K/uL (0.0-0.2) 02/02/17 07:02 PT 11.4 SECONDS (9.7-12.2) 01/21/17 12:21 INR 1.0 01/21/17 12:21 APTT 26 SECONDS (21-34) D 01/22/17 07:27 Sodium 148 mmol/L (132-148) 02/02/17 07:02 Potassium 3.7 mmol/L (3.6-5.2) 02/02/17 07:02 Chloride 122 mmol/L (98-107) H 02/02/17 07:02 Carbon Dioxide 14 mmol/L (22-30) L 02/02/17 07:02 Anion Gap 16 (10-20) 02/02/17 07:02 BUN 31 mg/dL (7-17) H 02/02/17 07:02 Creatinine 1.9 MG/DL (0.7-1.2) H 02/02/17 07:02 Est GFR ( Amer) 30 02/02/17 07:02 Est GFR (Non-Af Amer) 02/02/17 07:02 POC Glucose (mg/dL) 165 mg/dL (65-110) H 02/02/17 12:02 Random Glucose 118 mg/dL (65-105) H 02/02/17 07:02 Hemoglobin A1c 7.0 % (4.2-6.5) H 01/21/17 12:21 Calcium 9.0 mg/dl (8.6-10.4) 02/02/17 07:02 Phosphorus 3.1 mg/dL (2.5-4.5) 02/02/17 07:02 Magnesium 1.9 mg/dL (1.6-2.3) 02/02/17 07:02 Total Bilirubin 0.6 mg/dL (0.2-1.3) 02/02/17 07:02 AST 29 U/L (14-36) 02/02/17 07:02 ALT 16 U/L (9-52) 02/02/17 07:02 Alkaline Phosphatase 103 U/L (38-126) 02/02/17 07:02 Ammonia < 9 umol/L (9-33) L 01/22/17 07:27 Total Creatine Kinase 150 U/L (30-135) H 01/22/17 02:58 CK-MB (Mass) 1.12 ng/mL (0.0-3.38) 01/22/17 02:58 Troponin I 0.0360 ng/mL (0.00-0.120) 01/21/17 12:21 Troponin I, Quant 0.0240 ng/mL (0.00-0.120) 01/22/17 02:58 Total Protein 6.7 g/dL (6.3-8.3) 02/02/17 07:02 Albumin 3.1 g/dL (3.5-5.0) L 02/02/17 07:02 Globulin 3.5 gm/dL (2.2-3.9) 02/02/17 07:02 Albumin/Globulin Ratio 0.9 (1.0-2.1) L 02/02/17 07:02 Triglycerides 123 mg/dL (0-149) D 01/22/17 07:27 Cholesterol 199 mg/dL (0-199) 01/22/17 07:27 LDL Cholesterol Direct 95 mg/dL (0-129) 01/22/17 07:27 HDL Cholesterol 47 mg/dL (30-70) 01/22/17 07:27 Prolactin 9.3 ng/mL (3.0-18.9) 01/26/17 17:37 Urine Color Sejal (YELLOW) 01/29/17 12:50 Urine Clarity Hazy (Clear) 01/29/17 12:50 Urine pH 5.0 (5.0-8.0) 01/29/17 12:50 Ur Specific [place] 1.014 (1.003-1.030) 01/29/17 12:50 Urine Protein 2+ mg/dL (NEGATIVE) H 01/29/17 12:50 Urine Glucose (UA) 1+ mg/dL (Normal) 01/29/17 12:50 Urine Ketones 1+ mg/dL (NEGATIVE) H 01/29/17 12:50 Urine Blood Negative (NEGATIVE) 01/29/17 12:50 Urine Nitrate Negative (NEGATIVE) 01/29/17 12:50 Urine Bilirubin 1+ (NEGATIVE) H 01/29/17 12:50 Urine Urobilinogen 4.0 mg/dL (0.2-1.0) H 01/29/17 12:50 Ur Leukocyte Esterase 3+ Kayleigh/uL (Negative) H 01/29/17 12:50 Urine WBC (Auto) 282 /hpf (0-5) H 01/29/17 12:50 Urine RBC (Auto) 3 /hpf (0-3) 01/29/17 12:50 Ur Squamous Epith Cells 4 /hpf (0-5) 01/29/17 12:50 Urine Bacteria Few (<OCC) H 01/24/17 19:16 Carbamazepine 8.1 ug/mL (4.0-12.0) 01/26/17 08:09 Blood Type B POSITIVE 01/21/17 12:25 Antibody Screen Negative 01/21/17 12:25 Attending/Attestation - Attestation I have personally seen and examined this patient.: Yes I have fully participated in the care of the patient.: Yes I have reviewed all pertinent clinical information, including history, physical exam and plan: Yes Notes (Text): 02/03/17 08:23 Patient was seen and examined at bedside. She is status post PEG tube placement Patient is comfortable and she is eating by mouth also We will discharge the patient to rehabilitation facility I discussed the discharge plan with the resident and agree with the discharge note by the resident.
[2017-02-02 18:04] VITALS: BP 169/64; TEMP 98.3; O2SAT 100
[2017-02-03 00:17] VITALS: PULSE 93
--- NOTE | 2017-02-04 19:31 | CARD ---
APPROVED REPORT EKG Measurement Heart [id number] <Conclusion> Sinus bradycardia with premature atrial complexes Septal infarct, age undetermined Abnormal ECG
--- NOTE | 2017-02-14 16:45 | CON ---
DATE: To Dr. De La Garza. I was called for GI consultation by the admitting MD. The patient was seen and fully examined on . The entire chart is reviewed including but not limited to the most recent lab and radiologic study results, current and previous medication list, current and previous medical events, allergy to medication list as well as all the available current and previous medical record. Case discussed at length with the staff in the floor at the time of my GI consultation on . A short hand written consultation sheet left in the chart and due to the malfunction of the dictation system, this note is dictated now. HISTORY OF PRESENT ILLNESS: This is an 86-year-old female, transferred from [facility] due to left-sided weakness started few hours prior to her admission with somewhat slurred speech. The patient has known history of dementia and seizure as well as CVA. Due to the patient's poor oral intake and subsequent dysphagia, I was called for GI evaluation for dysphagia as well as possible PEG insertion. PAST MEDICAL HISTORY: Including, but not limited to; 1. Hypertension. 2. CVA. 3. Coronary artery disease. 4. Diabetes mellitus, seizure disorder as well as dementia. 5. Known history of chronic renal insufficiency. 6. Dementia with seizure disorder. 7. Status post appendectomy as well as status post carotid endarterectomy. CURRENT MEDICATIONS: Medication list were reviewed. FAMILY HISTORY: Unknown. SOCIAL HISTORY: No reported recent history of cigarette smoking or alcohol intake. ALLERGY TO MEDICATION: UNCLEAR. LABORATORY DATA: Initial blood workup both admission showed low hemoglobin of 10.1, hematocrit 31.0 with subsequent drop of hemoglobin and hematocrit with increased BUN and creatinine 69 and 3.2 with elevated blood glucose level with subsequent increase of electrolyte imbalance as well as mild deterioration of her renal function test. CAT scan of the head showed no intracranial mass, hemorrhage, or evidence of acute infarct, but old infarct is seen. PHYSICAL EXAMINATION: GENERAL: An 86 years old female. The patient is nonverbal. VITAL SIGNS: Afebrile with pulse of 62, respiratory rate 16-18 with blood pressure 162/42. HEENT: Showed pale, dry oral mucoid membrane. Nonicteric sclerae. LUNGS: Few scattered crepitation. Decreased air entry at bases. HEART: Positive S1 and S2. ABDOMEN: Soft. Bowel sounds are present with slight distension. No mass or organomegaly. No rebound tenderness or guarding. LYMPH NODES: No lymphadenitis or lymphadenopathy. EXTREMITIES: With lower extremities mild edematous changes with left-sided weakness. NEUROLOGIC: No new reported neurological deficits, sensory or motor. The patient is clearly nonverbal. IMPRESSION: 1. Dysphagia. 2. Malnutrition. 3. The patient is a candidate for percutaneous endoscopic gastrostomy insertion. 4. Anemia, most likely secondary to chronic disease. 5. Multiple past medical history including but not limited to hypertension, cerebrovascular accident, coronary artery disease, chronic renal insufficiency, diabetes mellitus. 6. Known history of dementia with chronic anemia. 7. Status post carotid endarterectomy as well as appendectomy. SUGGESTION: 1. Agree with your plan. 2. Peripheral hyperalimentation. 3. Swallow evaluation. 4. Proton pump inhibitors. 5. Correct any underlying coagulopathy. 6. The patient to be scheduled for PEG insertion after receiving a legal consent from the legal guardian. Thank you for letting me participate in your patient's case management. Further evaluation and recommendation to follow. Brayan Brooks MD
== END 2017-02-02 16:20 | DRG 100 ==
LOC: C.ER 11:21 → C.9E 13:13 → C.6T 17:51 → OBSVTOIN 01-23 13:12 → C.6T 01-28 09:05
PROVIDERS: ADMIT Hospitalist; ATTEND Hospitalist
PROC: 0DH68UZ Insertion of Feeding Device into Stomach, Via Natural or Artificial Opening Endoscopic (ICD-10-PCS; principal; 2017-02-01 11:47)
PROC: 3E0G76Z Introduction of Nutritional Substance into Upper GI, Via Natural or Artificial Opening (ICD-10-PCS; 2017-02-02)
DX: G40.909 Epilepsy, unspecified, not intractable, without status epilepticus (principal); G93.41 Metabolic encephalopathy; N17.9 Acute kidney failure, unspecified; E86.0 Dehydration; E46 Unspecified protein-calorie malnutrition; E87.2 Acidosis; I48.91 Unspecified atrial fibrillation; R13.10 Dysphagia, unspecified; F03.90 Unspecified dementia, unspecified severity, without behavioral disturbance, psychotic disturbance, mood disturbance, and anxiety; I12.9 Hypertensive chronic kidney disease with stage 1 through stage 4 chronic kidney disease, or unspecified chronic kidney disease; K27.9 Peptic ulcer, site unspecified, unspecified as acute or chronic, without hemorrhage or perforation; N39.0 Urinary tract infection, site not specified; I69.391 Dysphagia following cerebral infarction; E11.22 Type 2 diabetes mellitus with diabetic chronic kidney disease; I25.10 Atherosclerotic heart disease of native coronary artery without angina pectoris; N18.9 Chronic kidney disease, unspecified; D64.9 Anemia, unspecified; K21.0 Gastro-esophageal reflux disease with esophagitis; J45.909 Unspecified asthma, uncomplicated; K44.9 Diaphragmatic hernia without obstruction or gangrene; E78.00 Pure hypercholesterolemia, unspecified; H40.9 Unspecified glaucoma; Z90.49 Acquired absence of other specified parts of digestive tract; Z95.5 Presence of coronary angioplasty implant and graft; Z79.82 Long term (current) use of aspirin; Z79.4 Long term (current) use of insulin